=== PATIENT | male | born 1975 | race Hispanic/Latino ===

== ENCOUNTER 2017-07-11 08:00 | Inpatient (IN) | payer SELFPAY ==
[2017-07-11] MEDS ORDERED: Furosemide 20 MG/2 ML VIAL ONE (08:19)
--- NOTE | 2017-07-11 08:39 | RAD ---
FRONTAL VIEW CHEST: Comparison: 01-22-14 Clinical history: Dyspnea. FINDINGS: There is abnormal hazy density of the right upper lung zone which abuts the minor fissure, superiorly . Left lung is clear. Cardiac silhouette is accentuated by technique. IMPRESSION: Abnormal opacification of the superior one-half of the right hemithorax. Follow up with two view ches t is recommended to further evaluate. POS: OCTAVIA
[2017-07-11 08:45] LABS: Hemoglobin 11.7 g/dL (14.0-18.0); Mean Corpuscular HGB CONC 32.8 g/dL (32.0-36.0); Mean Corpuscular Volume 94.3 fl (80.0-94.0); Mean Platelet Volume 8.9 fL (7.4-10.4); Platelet Count 175 thou/uL (130-400); RBC Distribution Width 12.7 % (11.5-14.5); Red Blood Cell (RBC) Count 3.79 mill/uL (4.70-6.10); White Blood Cell (WBC) Count 10.4 thou/uL (4.8-10.8)
[2017-07-11 09:02] LABS: Band 29 % (5-11); Lymphocytes 15 % (21-51); MDiff Complete? YES; Monocytes 5 % (0-10); Neutrophil 49 % (42-75); Reactive Lymphocytes 2 % (0-10); Reflex for Review?? NO; Vacuoles MODERATE
[2017-07-11 09:05] LABS: ALT (SGPT) 18 U/L (8-55); AST (SGOT) 16 U/L (5-34); Albumin 3.8 g/dL (3.5-5.0); Alkaline Phosphatase 59 U/L (40-150); Anion Gap 14 mmol/L (10-20); BUN (Urea Nitrogen) 60 mg/dL (8.9-20.6); Bilirubin, Total 1.8 mg/dL (0.2-1.2); CK (CPK) 110 U/L (30-200); Calc. Creatinine Clearance 0 mL/min (70-130); Calcium 8.1 mg/dL (7.8-10.44); Carbon Dioxide 19 mmol/L (22-29); Chloride 107 mmol/L (98-107); Estimated GFR-MDRD 11; Globulin 2.4 g/dL (2.4-3.5); Glucose 99 mg/dL (70-105); Lipase 13 U/L (8-78); Potassium 3.9 mmol/L (3.5-5.1); Protein, Total 6.2 g/dL (6.0-8.3); Sodium 136 mmol/L (136-145)
[2017-07-11 09:07] LABS: CKMB 0.8 ng/mL (0-6.6); Troponin I 0.041 ng/mL (< 0.028)
[2017-07-11 09:30] LABS: CO2 Tension 25.8 mmHg (35.0-45.0); O2 Tension (PaO2) 125.6 mmHg (80.0-100.0); pH, Arterial 7.44 (7.35-7.45)
[2017-07-11 09:31] LABS: Analyzer IN Cardio ER; Base Excess (BEa) -5.7 mEq/L (0 (+/-) 2.5); Hemoglobin (Hb) 12.1 g/dL (14.0-18.0); Puncture Site RRA
[2017-07-11] MEDS ORDERED: Succinylcholine Chloride 20 MG/ML 10 ml SYRINGE FS ONE (10:45)
[2017-07-11] MEDS ORDERED: Water For Injection,Sterile 20 ML ONE (11:08)
[2017-07-11] MEDS ORDERED: Fentanyl 20 MCG/ML 250 ML ONE (11:08)
[2017-07-11] MEDS ORDERED: Vecuronium 10 MG VIAL ONE (11:08)
[2017-07-11] MEDS ORDERED: Midazolam HCl 2 mg/2 ml Vial ONE (11:08)
[2017-07-11] MEDS ORDERED: Midazolam HCl 5 mg/ml Vial ONE (11:11)
--- NOTE | 2017-07-11 11:54 | RAD ---
FRONTAL RADIOGRAPH CHEST: Date: 07-11-17 Time: 11:12 a.m. Comparison: 07-11-17 at 8:22 a.m. History: Evaluate chest following intubation. FINDINGS: There is an endotracheal tube in place, distal tip terminating at the level of the clavicles. There i s a nasogastric tube in place, distal tip just beyond the expected location of the gastroesophageal j unction. Recommend advancing the nasogastric tube. There is worsening consolidation/airspace disease within the right upper lobe with dense opacity deve loping in the right perihilar region/suprahilar region. Left lung appears clear. Supine imaging limit s assessment for pneumothorax and pleural fluid. IMPRESSION: Lines and tubes as above. Worsening dense airspace disease in the right upper lobe/right perihilar re gion. This may signify aspiration or volume loss. Close follow up to document resolution advised. POS: YVON
[2017-07-11 12:26] LABS: Actual Bicarbonate (HCO3a) 21.2 mEq/L (22-26); Base Excess (BEa) -8.3 mEq/L (0 (+/-) 2.5); Hematocrit-ABG 35.2 % (42.0-52.0); O2 Tension (PaO2) 92.5 mmHg (80.0-100.0); pH, Arterial 7.14 (7.35-7.45)
[2017-07-11 12:27] LABS: Analyzer IN Cardio ER; Hemoglobin (Hb) 11.1 g/dL (14.0-18.0); Puncture Site LRA
[2017-07-11] MEDS ORDERED: Furosemide 40 MG/4 ML VIAL ONE (12:29)
[2017-07-11] MEDS ORDERED: Albumin 25% 25 GM/100 ML BOT IVPB SCH (13:14)
[2017-07-11] MEDS ORDERED: cefTRIAXone\\ROCEPHIN 1 GM in Sodium Chloride 0.9% 100 ML IVPB SCH (13:30)
[2017-07-11] MEDS ORDERED: Bisacodyl 10 MG SUPP PR PRN (13:43)
[2017-07-11] MEDS ORDERED: Ondansetron HCl/PF 4 MG/2 ML Vial IVP PRN (13:43)
[2017-07-11] MEDS ORDERED: Nicotine 14 MG PATCH TD SCH (13:45)
[2017-07-11] MEDS ORDERED: Norepinephrine 8 MG/250 ML BAG IVPB PRN (13:58)
[2017-07-11] MEDS: Norepinephrine 8 MG in Sodium Chloride 0.9% 250 ML 250 ML IVPB PRN (14:30)
--- NOTE | 2017-07-11 14:45 | CON ---
DATE OF CONSULTATION: 07/11/2017 NEPHROLOGY CONSULTATION REASON FOR CONSULTATION: Elevated creatinine. HISTORY OF PRESENTING ILLNESS: This is a very pleasant 41-year-old gentleman who has a history of polysubstance abuse and nephrotic syndrome and baseline creatinine of 4.85 in 2013 and had a creatinine of 5.68 today. The patient denies headache, numbness, tingling or weakness. Denies any nausea, vomiting or chest pain. PAST MEDICAL HISTORY: Significant for marijuana use, cocaine use, history of proteinuria, history of kidney biopsy, history of FSGS, history of anemia, history of hypertension. SOCIOECONOMIC HISTORY: See above. ALLERGIES: Reviewed. HOME MEDICATIONS: List reviewed. PHYSICAL EXAMINATION: GENERAL: Patient is awake, alert. VITAL SIGNS: Afebrile, pulse 75, breathing at 16, blood pressure 130/73. HEAD/NECK: Normocephalic. Atraumatic. EYES: EOMI. No deformity. EARS: Clear. No ulcers. NOSE: Intact. No lesions. MOUTH: Clear. No discharge. THROAT: Clear. No exudate. LUNGS: Clear. No crackles. CARDIAC: S1, S2. No rub. ABDOMEN: Benign. BS+. GENITALIA/RECTUM: Webber absent. BACK/EXTREMITIES: Edema 0+ Ulcer- NEUROLOGICAL: Alert and motor intact. SKIN: Rash- Bruise- LYMPHATICS: Edema- Ulcer- LABORATORY DATA: Show creatinine 5.68. ASSESSMENT AND PLAN: 1. Stage 5 chronic kidney disease. Continue diuretics. 2. Hypertension. 3. Anemia, stable. 4. Medications based on glomerular filtration rate are appropriate. MTDD
[2017-07-11] MEDS: Sodium Chloride 0.9% 1,000 ML IV SCH (15:00)
[2017-07-11] MEDS: cefTRIAXone\\ROCEPHIN 1 GM, Syringe 0.4 ML in Sterile Water 9.6 ML SLOW IVP SCH (15:05)
--- NOTE | 2017-07-11 17:02 | HP ---
PRIMARY CARE PROVIDER: [facility] in [place]. CHIEF COMPLAINT: Shortness of breath. HISTORY OF PRESENT ILLNESS: Mr. Aguirre is a pleasant 41-year-old gentleman, who was seen at [facility] on 07/11/2017. When I initially saw him, he was short of breath, unable to provide much history. History was obtained from discussion with the patient's family, review of medical records, and discussion with the emergency room physician. He presented to the emergency room complaining of shortness of breath, which started earlier today. He did not have any chest pain. He did not have any fevers or chills. He had back pain last night. He has had a history of fluid buildup in the past and was treated with bilevel positive airway pressure. He reportedly told the emergency room physician that the back pain was dull, 10/ 10. He did not know any aggravating or relieving factors. REVIEW OF SYSTEMS: The following complete review of systems was negative, unless otherwise mentioned in the HPI or below: Constitutional: Weight loss or gain, ability to conduct usual activities. Skin: Rash, itching. Eyes: Double vision, pain. ENT/Mouth: Nose bleeding, neck stiffness, pain, tenderness. Cardiovascular: Palpitations, dyspnea on exertion, orthopnea. Respiratory: Shortness of breath, wheezing, cough, hemoptysis, fever or night sweats. Gastrointestinal: Poor appetite, abdominal pain, heartburn, nausea, vomiting, constipation, or diarrhea. Genitourinary: Urgency, frequency, dysuria, nocturia. Musculoskeletal: Pain, swelling. Neurologic/Psychiatric: Anxiety, depression. Allergy/Immunologic: Skin rash, bleeding tendency. PAST MEDICAL HISTORY: Significant for congestive heart failure, kidney disease. PAST SURGICAL HISTORY: None. SOCIAL HISTORY: The patient uses marijuana, uses tobacco currently, drinks alcohol on a weekly basis. FAMILY HISTORY: No family history of heart disease. ALLERGIES: No known drug allergies. CURRENT MEDICATIONS: Folic acid 1 mg daily, Lasix 40 mg 2 times a day, carvedilol 25 mg 2 times a day, aspirin 81 mg daily, thiamine 100 mg daily, and prednisone 20 mg daily. PHYSICAL EXAMINATION: GENERAL: Mr. Aguirre is currently intubated and mechanically ventilated. VITAL SIGNS: Blood pressure is 93/50. Pulse is 122. His breathing at rate of 30 and saturating 94% on ventilator. Critical temperature is 100.6 degrees Fahrenheit. GENERAL: He is obese. EYES: No scleral icterus. No conjunctival pallor. ENT: Moist mucosal membranes, no oropharyngeal erythema or exudates prior to intubation. NECK: Supple, nontender, normal range of movement. Trachea midline. Could not assess jugular veins. RESPIRATORY: Accessory muscles of breathing are not active. Chest wall movements are symmetric bilaterally. LUNGS: Reveals right upper lobe crackles. CARDIOVASCULAR: S1 and S2 are heard, tachycardic and regular. Peripheral pulses palpable. No pericardial rub. ABDOMEN: Soft, distended, nontender, bowel sounds are heard, no hepatomegaly, no splenomegaly. NEUROLOGIC: Full neurologic examination is not possible secondary to the patient's noncooperation. Pupils are equal and reactive to light. Power was 5/ 5 in all four extremities prior to intubation. No facial droop. Deep tendon reflexes are 2+, plantar reflexes downgoing bilaterally. MUSCULOSKELETAL: Power 4 extremities as described above. SKIN: No rashes or subcutaneous nodules. LYMPHATIC: No cervical lymphadenopathy. PSYCHIATRIC: Prior to intubation, patient appeared anxious and tired, oriented to person and place, could not assess orientation to time. LABORATORY DATA: Mr. Aguirre's labs and investigations were reviewed. I reviewed his electrocardiogram, which showed sinus tachycardia, no ST changes to suggest an acute coronary syndrome. I also reviewed his chest x-ray, which showed right upper lobe infiltrate. He has a normal white count, macrocytic anemia with hemoglobin 11.7, normal platelet count, normal sodium, normal potassium, decreased carbon dioxide of 19, elevated blood urea nitrogen of, elevated creatinine of 5.68, elevated total bilirubin of 1.8, but otherwise unremarkable liver profile, elevated BNP of 3261 and indeterminate troponin I of 0.041. ASSESSMENT AND PLAN: Mr. Aguirre is a pleasant 41-year-old gentleman, who was seen at [facility] on 07/11/2017. His problem list includes: 1. Acute respiratory failure: Mr. Agurire is currently intubated and mechanically ventilated secondary to acute respiratory failure. He will be admitted to the Critical Care Unit for further management. His arterial blood gases show pH of 7.14, pCO2 of 64 and pO2 of 92.5. 2. Pneumonia: The patient is presenting with possible pneumonia in the right upper lobe. He will be treated with intravenous antibiotics. 3. Acute kidney injury with metabolic acidosis: Nephrology service has been consulted for help with further management. 4. Tobacco abuse: We will start nicotine replacement therapy. 5. Indeterminate troponin I. We will check 2D echocardiogram to rule out regional wall motion abnormalities. 6. Marijuana use. Patient will be constant when possible. Many thanks for allowing me to participate in Mr. Aguirre's care. Please feel free to contact me with any questions or concerns. LEVEL OF RISK: High. LEVEL OF COMPLEXITY: High. MTDD
[2017-07-11] MEDS: Heparin 5,000 UNITS/ML VIAL SC SCH ×2 (17:10→20:56)
[2017-07-11 17:14] LABS: CKMB 1.3 ng/mL (0-6.6); Troponin I 0.059 ng/mL (< 0.028)
[2017-07-11] MEDS: Hydrocortisone Sod Succ/PF 100 mg/2 ml Vial IVP SCH ×2 (17:45→23:33)
[2017-07-11] MEDS ORDERED: Hydrocortisone Sod Succ/PF 100 mg/2 ml Vial IVP SCH (18:00)
[2017-07-11] MEDS ORDERED: fentaNYL Citrate/PF 2,000 MCG in Sodium Chloride 0.9% 60 ML IV SCH ×2 (18:45→19:03)
[2017-07-11] MEDS ORDERED: Fentanyl 20 MCG/ML 250 ML IVPB SCH (19:04)
[2017-07-11] MEDS: Famotidine/PF 20 mg/2ml Vial SLOW IVP SCH (20:56)
[2017-07-11 22:37] LABS: CKMB 3.6 ng/mL (0-6.6); Troponin I 0.078 ng/mL (< 0.028)
--- NOTE | 2017-07-12 01:50 | CON ---
DATE OF CONSULTATION: 07/11/2017 Mr. Aguirre is a 41-year-old gentleman who was brought in from the ER, intubated on the vent, sedate d, hypoxic, hypotensive. Blood pressure was 60. Pulse was 100, respiration is at 24, large amount o f frothy secretions in his tube. The ER nurses said he was desatting. He was on BiPAP for a period of time, he was intubated thereafter because of progressive respiratory failure. He was seen by Neph rology. I do not see any orders from Nephrology or seen by the hospitalist group. I have been consu lted regarding the ICU care. His presented to the ICU. She just had a baby about a week and a half ago. states that last night he began complaining of right-sided pleuritic chest pain, shortness of br eath, cough, fever, and chills. He became progressively more short of breath this morning, then he h ad a pO2 of 125, pCO2 of 25, pH 7.44 on a BiPAP. He was intubated because of progressive respiratory failure, large volume of frothy secretions. His BNP was 3261. Albumin 3.8. states that pili martinez has longstanding history of alcohol abuse, though he apparently has slowed down his drinking subst antially. 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 He has had kidney issues and seeing a local counting machine operator and apparently was started on prednisone lar ge doses and apparently was tapered down because of marked facial edema as per his . He was supposed to see a long haul truck driver. Apparently, now admitted. Additionally, he supposed to have renal biopsy for presumed nephrotic syndrome. He has previous history of substance abuse. In the ICU, he was coughing up large amount of frothy bloody secretions. PAST MEDICAL HISTORY: Otherwise, pertinent for renal disease, tobacco abuse, substance abuse, alcoho l abuse. MEDICATIONS: His list of medicine from home, folic acid, Lasix 40, Coreg 25 two a day, aspirin, thia mine, prednisone 20 one a day. PAST SURGICAL HISTORY: None to speak of. FAMILY HISTORY: Unremarkable. 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 ALLERGIES: No allergies. REVIEW OF SYSTEMS: Otherwise, 10-point difficult to obtain. PHYSICAL EXAMINATION: GENERAL: He is sedated, vented. VITAL SIGNS: Blood pressure /60, pulse is 100, respirations 24. CHEST: Extensive rhonchi and crackles. CARDIAC: Sinus tachycardia. ABDOMEN: Soft. LABORATORY DATA: White count 10,000, H&H 11 and 35, platelet count 175, 49 segs, 29 bands. A pO2 is 92, pCO2 of 60, ph 7.64, 100%, rate of 18. Creatinine is 5.6, BUN 60. BNP 3261. TSH is normal. C ortisol level was 13, relative adrenal insufficiency. X-ray showed right lung pneumonia. I reviewed all lab and x-ray report personally. IMPRESSION: 1. Respiratory failure, multifactorial. 2. Right-sided pneumonia. 3. Immunocompromised nephrotic syndrome. No biopsy was done. 4. Probably congestive heart failure, cardiomyopathy. 5. Renal failure. 6. Sepsis syndrome. PLAN: Rocephin and Levaquin was initiated and steroids. Levophed had been initiated to maintain his blood pressure systolic at least 90. Cardiology and Nephrology input awaiting. DVT prophylaxis and proton pump inhibitors. Of note, this is a 1-hour critical care time exclusive of the bronchoscopy. INDICATIONS: Bronchoscopy note was performed. REASON FOR BRONCHOSCOPY: Patient was desatting as per the nurses in the 30s and 40s on the vent. Br onchoscopy performed to clear his airways. Diagnostic therapeutic bronchoscopy, emergency basis, an adaptor was placed in, bronchoscope was passed using adapter to distal trachea, it was unremarkable. There was a large amount of frothy bloody secretions which were suctioned and lavaged until clear. Right upper lobe, middle lobe visualized. No endobronchial obstruction was seen; 40 ml of normal jazmín ine was used to lavage the lung. Left lung was inspected. Once again a large amount of frothy blood y secretions were seen, but no endobronchial obstruction was seen. No blood was seen. It was also l avaged with normal saline until clear. Washings sent for Gram stain and C&S. The patient tolerated the procedure well. He was connected to a vent. Continue antibiotics. Continue Levophed.
[2017-07-12] MEDS: Norepinephrine 8 MG in Sodium Chloride 0.9% 250 ML 250 ML IVPB PRN (02:17)
[2017-07-12 05:20] LABS: Anion Gap 23 mmol/L (10-20); BUN (Urea Nitrogen) 76 mg/dL (8.9-20.6); Calc. Creatinine Clearance 0 mL/min (70-130); Calcium 7.5 mg/dL (7.8-10.44); Carbon Dioxide 13 mmol/L (22-29); Chloride 109 mmol/L (98-107); Estimated GFR-MDRD 8; Potassium 5.7 mmol/L (3.5-5.1); Sodium 139 mmol/L (136-145)
[2017-07-12 05:26] LABS: Glucose 50 mg/dL (70-105)
[2017-07-12] MEDS ORDERED: Dextrose 50% Abboject 50 ML SYRINGE ONE (05:29)
[2017-07-12] MEDS: Hydrocortisone Sod Succ/PF 100 mg/2 ml Vial IVP SCH ×4 (05:30→23:41)
[2017-07-12] MEDS ORDERED: Dextrose 50% Abboject 50 ML SYRINGE IVP SCH (05:45)
[2017-07-12] MEDS ORDERED: Dextrose 50% Abboject 50 ML SYRINGE IVP PRN (05:48)
[2017-07-12] MEDS ORDERED: Dextrose 5% in Water 1,000 ML IV PRN (05:48)
[2017-07-12 06:00] LABS: Band 23 % (5-11); Hemoglobin 10.2 g/dL (14.0-18.0); Lymphocytes 3 % (21-51); MDiff Complete? YES; Mean Corpuscular HGB CONC 32.1 g/dL (32.0-36.0); Mean Corpuscular Hemoglobin 31.1 pg (27.0-31.0); Mean Corpuscular Volume 97.2 fl (80.0-94.0); Mean Platelet Volume 9.4 fL (7.4-10.4); Metamyelocyte 3 % (0-0); Monocytes 5 % (0-10); Neutrophil 66 % (42-75); PLT Morphology Comment Appears Adequate; Platelet Count 134 thou/uL (130-400); RBC Distribution Width 12.8 % (11.5-14.5); RBC Morphology Normal; Red Blood Cell (RBC) Count 3.27 mill/uL (4.70-6.10); White Blood Cell (WBC) Count 15.2 thou/uL (4.8-10.8)
--- NOTE | 2017-07-12 07:57 | RAD ---
SINGLE VIEW OF THE CHEST: COMPARISON: 07/11/17. HISTORY: Ventilated patient with respiratory failure. FINDINGS: A single view of the chest shows an enlarged but stable cardiomediastinal silhouette. The endotrache al tube and NG tube are unchanged in position. There is improvement in the airspace opacity in the r ight upper lobe. IMPRESSION: Improving right upper lobe pneumonia. POS: H
[2017-07-12 08:08] LABS: Actual Bicarbonate (HCO3a) 14.5 mEq/L (22-26); Base Excess (BEa) -11.4 mEq/L (0 (+/-) 2.5); CO2 Tension 32.5 mmHg (35.0-45.0); Hemoglobin (Hb) 10.6 g/dL (14.0-18.0); O2 Tension (PaO2) 83.8 mmHg (80.0-100.0); pH, Arterial 7.27 (7.35-7.45)
[2017-07-12 08:09] LABS: ALV-art Gradient 162.775 (0-20); Puncture Site L.R.
[2017-07-12 08:39] LABS: Glucose 88 mg/dL (70-105)
[2017-07-12] MEDS: Heparin 5,000 UNITS/ML VIAL SC SCH ×3 (09:41→20:56)
[2017-07-12] MEDS: Sodium Chloride 0.9% 1,000 ML IV SCH (09:42)
[2017-07-12] MEDS ORDERED: Sodium Bicarb 50 MEQ/50 ML Abboject 8.4% SYRINGE IVP SCH (09:45)
--- NOTE | 2017-07-12 09:55 | PRG ---
DATE OF SERVICE: 07/12/2017 This morning, awake, alert, responsive, on the vent. His sedation was withheld. PHYSICAL EXAMINATION: VITAL SIGNS: O2 sats 100% on present vent settings, respirations 24, pulse 119, blood pressure 130/5 5. His I's and O's have been 1415 in, 175 out. CHEST: Chest reveals extensive rhonchi and crackles. CARDIAC: Normal S1-S2. No gallops. LABORATORY: White count 15,000, H&H 10 and 31, platelet count 134, pO2 is 83, pCO2 37.27, 24, 40%. Creatinine 7.6, BUN 76. Troponin was elevated, his blood cultures growing Streptococcus pneumoniae. IMPRESSION: 1. Strep pneumonia, sepsis. 2. Renal failure. 3. Presumed nephrotic syndrome. PLAN: Continue steroids and broad-spectrum antibiotics. We will hopefully try and wean and extubate today. One-half hour critical care time.
[2017-07-12] MEDS: Sodium Bicarbonate 150 MEQ in Dextrose 5% in Water 1,000 ML IV SCH ×2 (10:07)
--- NOTE | 2017-07-12 10:16 | PRG ---
DATE OF SERVICE: 07/12/2017 SUBJECTIVE: This 41-year-old gentleman being seen for acute kidney injury. The patient is intubated . PHYSICAL EXAMINATION: GENERAL: Patient is resting. VITAL SIGNS: Afebrile, pulse 120, breathing 16, blood pressure 131/55. OBJECTIVE: See above. Awake, alert, in no acute distress. GENERAL APPEARANCE AND MENTAL STATUS: Fair. HEAD/NECK: Normocephalic. Atraumatic. EYES: EOMI. No deformity. EARS: Clear. No ulcers. NOSE: Intact. No lesions. MOUTH: Clear. No discharge. THROAT: Clear. No exudate. LUNGS: Clear. No crackles. CARDIAC: S1, S2. No rub. ABDOMEN: Benign. BS+. GENITALIA/RECTUM: Webber absent. BACK/EXTREMITIES: Edema 0+ Ulcer- NEUROLOGICAL: Alert and motor intact. SKIN: Rash- Bruise- LYMPHATICS: Edema- Ulcer- LABORATORY: Hemoglobin 10.2, potassium 5.7, bicarbonate 13. ASSESSMENT AND RECOMMENDATIONS: 1. Acute kidney injury with chronic kidney disease, most likely due to progressive focal segmental g lomerulosclerosis. 2. Metabolic acidosis. Start sodium bicarbonate. 3. Hyperkalemia. Recheck potassium. We will start dialysis. Potassium is more than 5.3. Metaboli c acidosis should fix the hyperkalemia. Overall, prognosis is extremely poor. 4. Sepsis, management per primary team.
--- NOTE | 2017-07-12 10:40 | CON ---
DATE OF CONSULTATION: 07/12/2017 HISTORY OF PRESENT ILLNESS: This is a 41-year-old male with history of polysubstance abuse, alcohol use, who presented to the emergency room yesterday, admitted by Hospitalist Service at 4:21 for the p josselyn's complaints of dyspnea. He is intubated on the ventilator now. Dr. Wells is seeing him. He has end-stage renal disease. In [address] guided biopsy kidney noting glomerulosclerosis. I have been asked to see him regarding placement of a hemodialysis catheter. This hospitalization has been seen by Dr. Jarvis, Dr. Wells and has had an echocardiogram performed, 25-30% ejection fraction. L eft atrium mildly dilated, mild mitral regurgitation, depressed LV function. The patient is on the v entilator. ALLERGIES: There are no reported allergies. PREHOSPITALIZATION MEDICATIONS: Prednisone 20 mg a day time, Thiamine, calcium citrate, aspirin, fol ic acid, Coreg 25 mg b.i.d., furosemide 40 mg b.i.d. PAST SURGICAL HISTORY: None recorded. PAST MEDICAL HISTORY: None recorded except for the kidney disease, biopsy renal in 2014 noted above. SOCIAL HISTORY: The patient is reported as , smokes marijuana routinely and cigars, has a his tory of cocaine use documented in 2014 visit. PHYSICAL EXAMINATION: VITAL SIGNS: Height 5 feet 9 inches. LUNGS: Clear to auscultation. Rhonchi at base. CARDIAC: Regular rate and rhythm. ABDOMEN: Soft, nontender. EXTREMITIES: Unremarkable. IV in his hands. LABORATORIES: White count 15, hemoglobin 10, sodium 139, potassium 5.7, creatinine 7.67, GFR 8, gluc ose 50. ASSESSMENT AND PLAN: End-stage renal disease secondary to polysubstance abuse, alcoholism with card iomyopathy. We will plan placement of hemodialysis catheter and a central line. We will obtain ultr asound vein mapping both arms anticipating need for more permanent dialysis access. We will obtain c onsent from his family.
[2017-07-12] MEDS ORDERED: CEFAZOLIN/Water 2 GM/20 ML SYRINGE SLOW IVP SCH (10:45)
--- NOTE | 2017-07-12 11:08 | CON ---
DATE OF CONSULTATION: 07/12/2017 HISTORY: Issa Aguirre is a 41-year-old male, intubated in the ICU. He cannot give a history and history was obtained from review of the hospital records. He apparently has had progressive renal failure and at one time was on prednisone for this. On admission, he had progressive right-sided pleuritic chest pain, shortness of breath, cough, fever, and chills. He was brought to the ER, placed on BiPAP and ultimately intubated because of progressive respiratory failure and large amount of frothy secretions. BNP was 3261. PAST MEDICAL HISTORY: Include renal failure, hypertension, smoker, substance and alcohol abuse. MEDICATIONS: Include aspirin 81 daily, calcium citrate 1900 mg b.i.d., carvedilol 25 mg b.i.d., folic acid 1 daily, furosemide 40 b.i.d., prednisone 20 q.a.m., thiamine 100 daily. ALLERGIES: None. FAMILY HISTORY: Negative for coronary artery disease. REVIEW OF SYSTEMS: Unobtainable with the patient intubated. PHYSICAL EXAMINATION: VITAL SIGNS: Blood pressure 155/67, pulse of 129. HEENT: PERRL. NECK: Supple. LUNGS: Chest reveals bilateral rhonchi. CARDIAC: S1 and S2 are normal, without any S3, S4 or murmurs. ABDOMEN: Normal bowel sounds, without tenderness or organomegaly. EXTREMITIES: Revealed no clubbing, cyanosis or edema. NEUROLOGIC: The patient is intubated, but responds appropriately. SKIN: Warm and dry. LABORATORY: Chest x-ray reveals right upper lobe infiltrate. Repeat EKG today reveals improvement in the infiltrate. EKG revealed sinus tachycardia with rate of [address] and T-wave changes. Echocardiogram revealed severe left ventricular dysfunction with ejection fraction of 25-30%, evidence for diastolic dysfunction, left atrial enlargement, mild mitral regurgitation, severe tricuspid regurgitation and mild pulmonic insufficiency. White count 15,200, hemoglobin 10.2, hematocrit 31.8, platelets 134,000. Yesterday blood gas revealed pH 7.14, pCO2 64.0, pO2 92.5. Today, pH 7.27, pCO2 32.5, pO2 of 83.8, sodium 139, potassium 5.7, chloride 100, carbon dioxide 13, BUN 76, creatinine 7.67, troponin I 0.078, CK-MB are normal. BNP 3261.6, TSH is normal. Cortisol is normal. IMPRESSION: 1. End-stage renal disease for dialysis at this time. 2. Cardiomyopathy of uncertain etiology. 3. Smoker, 1 pack per day. 4. History of ETOH abuse. 5. History of substance abuse. 6. Demand ischemia. 7. Right upper lobe pneumonia. 8. Respiratory failure. 9. Hypertension. PLAN: Carvedilol will need to be restarted once he is taking p.o. The patient will undergo dialysis and ultimately will need further cardiac evaluation once his clinical situation has stabilized. I will follow the patient with you. AURELIO
[2017-07-12 11:17] LABS: Actual Bicarbonate (HCO3a) 16.9 mEq/L (22-26); Base Excess (BEa) -8.7 mEq/L (0 (+/-) 2.5); CO2 Tension 34.8 mmHg (35.0-45.0); Hematocrit-ABG 28.4 % (42.0-52.0); Hemoglobin (Hb) 9.4 g/dL (14.0-18.0); O2 Tension (PaO2) 71.6 mmHg (80.0-100.0)
[2017-07-12 11:18] LABS: Puncture Site L.R.
[2017-07-12] MEDS ORDERED: Midazolam HCl 2 mg/2 ml Vial ONE (12:39)
[2017-07-12] MEDS ORDERED: Fentanyl 100 MCG/2 ML VIAL ONE (12:39)
[2017-07-12] MEDS ORDERED: Lidocaine 2% w/Epinephrine 1:200K 20 ML VIAL ONE (12:55)
[2017-07-12] MEDS ORDERED: Bupivacaine PF 0.5% 30 ML VIAL ONE (12:55)
[2017-07-12] MEDS ORDERED: Sodium Chloride 0.9% 10 ML ONE (12:58)
[2017-07-12] MEDS ORDERED: Heparin 10,000 UNITS/1 ML VIAL ONE (12:58)
--- NOTE | 2017-07-12 13:01 | ULT ---
BILATERAL UPPER EXTREMITY VENOUS ULTRASOUND: HISTORY: End stage renal disease. Vein mapping for dialysis access. TECHNIQUE: Multiplanar marte scale and color Doppler images were obtained in a bilateral upper extremity venous u ltrasound. Spectral analysis of the Doppler waveforms was performed. FINDINGS: The right brachial, radial, and ulnar arteries measure 5.4, 3.5, and 2.7 mm in size, respectively. RIGHT CEPHALIC VEIN: Shoulder 4.9 mm Upper arm 4.5 mm Mid upper arm 4.9 mm Just proximal to elbow 5.5 mm Just distal to elbow 2.7 mm Forearm 3.9 mm Wrist 2.0 mm RIGHT BASILIC VEIN: Shoulder 2.7 mm Upper arm 4.6 mm Mid upper arm 5.2 mm Just proximal to elbow 2.7 mm Just distal to elbow 1.9 mm Forearm 2.7 mm Wrist 1.9 mm The left brachial, radial, and ulnar arteries measure 5.3, 3.3, and 3.5 mm in size, respectively. LEFT CAPHALIC VEIN: Shoulder 3.3 mm Upper arm 3.5 mm Mid upper arm 3.2 mm Just proximal to elbow 4.5 mm Just distal to elbow 4.1 mm Forearm 3.6 mm Wrist 3.7 mm LEFT BASILIC VEIN: Shoulder 5.5 mm Upper arm 5.8 mm Mid upper arm 6.1 mm Just proximal to elbow 6.0 mm Just distal to elbow 4.2 mm Forearm 4.2 mm Wrist 4.5 mm Both subclavian and internal jugular veins are patent without evidence of thrombus. IMPRESSION: Vein mapping for dialysis as above. POS: OCTAVIA
--- NOTE | 2017-07-12 13:46 | OP ---
DATE OF PROCEDURE: 07/12/2017 PREOPERATIVE DIAGNOSES: Polysubstance abuse, cardiomyopathy, 30-35% ejection fraction, end-stage karla al disease in need of dialysis access. POSTOPERATIVE DIAGNOSIS: Polysubstance abuse, cardiomyopathy, 30-35% ejection fraction, end-stage re nal disease in need of dialysis access. PROCEDURE: Right IJ hemodialysis catheter, precurved angiodynamics placement. Left IJ central line triple lumen. SURGEON: Dong Cid M.D. ANESTHESIA: General. Local 0.25% Marcaine, 30 mL, mixed with 1% Xylocaine with epinephrine, 30 mL m ixture. Fluoroscopy and ultrasound used. PROCEDURE: The patient was taken to the operating room where under general anesthesia, neck and ches t were prepared with ChloraPrep, draped in routine fashion. Local anesthetic infiltrated into skin a nd subcutaneous tissue about the operative site. Ultrasound used to cannulate the right and left int ernal jugular veins with trocar catheter. J-wire is inserted. Trocar catheter removed. Skin incise d and enlarged sharply. Stab incision made over the right chest. Using Seldinger technique, a tripl e lumen catheter was placed in the left internal jugular vein secured with 3-0 nylon suture. Biopatc h sterile dressing applied. Each port aspirated blood and flushed with saline solution. On the right side, a tunneling device was used to tunnel the precurved angiodynamics cuffed tunnel di alysis catheter between the two incisions, placing the fabric cuff beneath the skin exit site and cat heter secured with 2 interrupted sutures of 3-0 nylon. A Biopatch Dermabond. Sterile dressing appli ed. Smaller and medium sized dilators placed over the J-wire into the internal jugular vein and benoit kevin. Dilator and pull-away sheath placed over the J-wire into the superior vena cava and dilator and J-wire removed. Catheter placed with pull-away sheath; pull-away sheath removed. Fluoroscopically, the catheter was noted to be in good position. Platysma approximated with 4-0 Monocryl, skin with s ubdermal 4-0 Monocryl. J wire had been removed. Sterile dressings applied. Each port of the hemodi alysis catheter aspirated blood and flushed with saline solution and heparinized saline solution 1000 units heparin per mL indicated volume of the port. The patient tolerated the procedure well.
--- NOTE | 2017-07-12 13:56 | RAD ---
CHEST ONE VIEW: History: Central line placement. Comparison: 07-12-17 FINDINGS: Cardiac silhouette is magnified and enlarged. Pulmonary vasculature is upper limits of normal. Right upper lobe infiltrate is unchanged in appearance. Nasogastric tube descends to the abdomen. Endotracheal catheter is unchanged in position. Tip of a left internal jugular central venous catheter now overlies the right atrium. Tips of a dual- lumen large caliber right internal jugular central venous catheter overlie the cavoatrial junction. C ardiac monitor leads overlie the chest. IMPRESSION: Bilateral internal jugular catheters are in good position. Other findings are stable. POS: [facility]
[2017-07-12] MEDS: cefTRIAXone\\ROCEPHIN 1 GM, Syringe 0.4 ML in Sterile Water 9.6 ML SLOW IVP SCH (14:15)
--- NOTE | 2017-07-12 15:49 | PDOC.PN ---
- Subjective Encounter Start Date: 07/12/17 Encounter Start Time: 08:30 Pt seen for followup re: acute respiratory failure. Extubated earlier today. - Objective MAR Reviewed: Yes Vital Signs & Weight: Vital Signs (12 hours) Temp Pulse Resp BP Pulse Ox 07/12/17 14:00 12 07/12/17 13:33 123 H 124/74 07/12/17 12:00 99.9 F H 14 07/12/17 10:21 129 H 155/67 H 07/12/17 10:00 20 07/12/17 08:00 100.2 F H 116 H 24 H 100 07/12/17 07:13 117 H 140/53 L 07/12/17 06:00 24 H 07/12/17 05:00 100 F H 07/12/17 04:00 24 H Most Recent Monitor Data Heart Rate from ECG 129 NIBP 133/96 NIBP BP-Mean 104 Respiration from ECG 22 SpO2 100 I&O: 07/11/17 07/12/17 07/13/17 06:59 06:59 06:59 Intake Total 1415.9 26 Output Total 175 572 Balance 1240.9 -546 Result Diagrams: 07/12/17 04:44 07/12/17 08:06 Additional Labs: Accuchecks 07/12/17 11:11 POC Glucose 109 EKG Reviewed by me: Yes (Tele: sinus tachycardia) Phys Exam - Physical Examination Obese HEENT: moist MMs, sclera anicteric, TM's clear, oral pharynx no lesions Neck: no nodes Respiratory: no wheezing, no rales, no rhonchi, clear to auscultation bilateral S1, S2, reg, tachy Gastrointestinal: soft, non-tender, no distention, positive bowel sounds Musculoskeletal: pulses present Neurological: moves all 4 limbs Psychiatric: normal affect Deviation from normal: Oriented to person and place Skin: no rash Dx/Plan (1) Acute respiratory failure Code(s): J96.00 - ACUTE RESPIRATORY FAILURE, UNSP W HYPOXIA OR HYPERCAPNIA Status: Acute (2) Bacteremia Code(s): R78.81 - BACTEREMIA Status: Acute (3) LACEY (acute kidney injury) Code(s): N17.9 - ACUTE KIDNEY FAILURE, UNSPECIFIED Status: Acute (4) Hyperkalemia Code(s): E87.5 - HYPERKALEMIA Status: Acute (5) Cardiomyopathy Code(s): I42.9 - CARDIOMYOPATHY, UNSPECIFIED Status: Acute - Plan continue antibiotics, out of bed/ambulate * . Continue antibiotics for streptococcal bacteremia. Plan for dialysis. carvedilol when pt starts oral meds. Review of Systems - Review of Systems Constitutional: negative: fever, chills, sweats, weakness, malaise Respiratory: Cough, Sputum. negative: Dry, Shortness of Breath, Hemoptysis, SOB with Excertion, Pleuritic Pain, Wheezing Cardiovascular: negative: chest pain, palpitations, orthopnea, paroxysmal nocturnal dyspnea, edema, light headedness Gastrointestinal: negative: Nausea, Vomiting, Abdominal Pain, Diarrhea, Constipation, Melena, Hematochezia Genitourinary: negative: Dysuria, Frequency, Incontinence, Hematuria, Retention - Medications/Allergies Allergies/Adverse Reactions: Allergies Allergy/AdvReac Type Severity Reaction Status Date / Time No Known Allergies Allergy Verified 01/23/14 00:36 Medications: Current Medications Albuterol/Ipratropium (Duoneb) 3 ml NEB [id number] [facility] Last Admin: 07/12/17 13:32 Dose: 3 ml Bisacodyl (Dulcolax) 10 mg NM Q24H PRN PRN Reason: Constipation Cefazolin Sodium (Ancef) 2 gm SLOW IVP WILLCALL [facility] Stop: 07/13/17 10:46 Last Admin: 07/12/17 12:30 Dose: 2 gm Dextrose/Water (Dextrose 50%) 25 gm IVP PRN PRN PRN Reason: HYPOGLYCEMIA PROTOCOL Famotidine (Pepcid) 20 mg SLOW IVP 2100 [facility] Last Admin: 07/11/17 20:56 Dose: 20 mg Glucagon (Glucagon) 1 mg IM PRN PRN PRN Reason: HYPOGLYCEMIA PROTOCOL Heparin Sodium (Porcine) (Heparin) 5,000 units SC TID [facility] Last Admin: 07/12/17 14:15 Dose: 5,000 units Hydrocortisone Sodium Succinate (Solu-Cortef) 100 mg IVP Q6HR [facility] Stop: 07/18/17 18:01 Last Admin: 07/12/17 11:58 Dose: 100 mg Norepinephrine Bitartrate 8 mg (/ Sodium Chloride) 258 mls @ 0 mls/hr IVPB INF PRN; Protocol; Titrate PRN Reason: Blood Pressure Last Admin: 07/12/17 02:17 Dose: 258 mls Ceftriaxone Sodium 1 gm/ (Syringe 0.4 ml/ Sterile Water) 10 mls @ 120 mls/hr SLOW IVP 1400 [facility] Last Admin: 07/12/17 14:15 Dose: 10 mls Levofloxacin 750 mg/ Device 150 mls @ 100 mls/hr IVPB Q2D@0900 [facility] Sodium Chloride (Normal Saline 0.9%) 1,000 mls @ 50 mls/hr IV .Q20H [facility] Last Admin: 07/12/17 09:42 Dose: Not Given Ascorbic Acid 1,500 mg/ Sodium (Chloride) 53 mls @ 100 mls/hr IVPB Q6HR [facility] Stop: 07/15/17 18:01 Last Admin: 07/12/17 11:58 Dose: 53 mls Thiamine HCl 200 mg/ Sodium (Chloride) 52 mls @ 100 mls/hr IVPB 0500,1700 [facility] Last Admin: 07/11/17 17:30 Dose: 52 mls Fentanyl (Fentanyl Cadd) 250 mls @ 0 mls/hr IVPB INF [facility]; Titrate PRN Reason: Protocol Stop: 08/10/17 19:04 Dextrose/Water (D5w) 1,000 mls @ 0 mls/hr IV INF PRN; As Directed PRN Reason: HYPOGLYCEMIA PROTOCOL Sodium Bicarbonate 150 meq/ (Dextrose/Water) 1,150 mls @ 75 mls/hr IV INF [facility] Last Admin: 07/12/17 10:07 Dose: 1,150 mls Ondansetron HCl (Zofran) 4 mg IVP Q6H PRN PRN Reason: Nausea/Vomiting
[2017-07-12] MEDS: Carvedilol 25 MG TAB PO SCH (16:35)
[2017-07-12] MEDS: Famotidine/PF 20 mg/2ml Vial SLOW IVP SCH (20:56)
[2017-07-13] MEDS: Sodium Bicarbonate 150 MEQ in Dextrose 5% in Water 1,000 ML IV SCH ×2 (01:09)
[2017-07-13 05:08] LABS: Band 9 % (5-11); Hemoglobin 8.6 g/dL (14.0-18.0); MDiff Complete? YES; Mean Corpuscular HGB CONC 32.6 g/dL (32.0-36.0); Mean Corpuscular Hemoglobin 31.3 pg (27.0-31.0); Mean Corpuscular Volume 96.1 fl (80.0-94.0); Mean Platelet Volume 9.4 fL (7.4-10.4); Monocytes 3 % (0-10); Neutrophil 88 % (42-75); PLT Morphology Comment Appears Decreased; Platelet Count 95 thou/uL (130-400); RBC Distribution Width 12.7 % (11.5-14.5); Red Blood Cell (RBC) Count 2.74 mill/uL (4.70-6.10); White Blood Cell (WBC) Count 9.3 thou/uL (4.8-10.8)
[2017-07-13 05:09] LABS: Anion Gap 20 mmol/L (10-20); BUN (Urea Nitrogen) 92 mg/dL (8.9-20.6); Calc. Creatinine Clearance 0 mL/min (70-130); Calcium 8.4 mg/dL (7.8-10.44); Carbon Dioxide 24 mmol/L (22-29); Chloride 103 mmol/L (98-107); Estimated GFR-MDRD 7; Glucose 155 mg/dL (70-105); Potassium 4.8 mmol/L (3.5-5.1); Sodium 142 mmol/L (136-145)
[2017-07-13] MEDS: Hydrocortisone Sod Succ/PF 100 mg/2 ml Vial IVP SCH (05:09)
[2017-07-13] MEDS: Sodium Chloride 0.9% 1,000 ML IV SCH (05:09)
[2017-07-13] MEDS: Folic Acid 1 MG TAB PO SCH (08:23)
[2017-07-13] MEDS: Carvedilol 25 MG TAB PO SCH ×2 (08:23→20:42)
[2017-07-13] MEDS: Heparin 5,000 UNITS/ML VIAL SC SCH ×3 (08:23→20:50)
--- NOTE | 2017-07-13 08:56 | RAD ---
PORTABLE UPRIGHT FRONTAL CHEST RADIOGRAPH: Date: 07-13-17 Comparison: 07-12-17 History: Ventilated CCU patient. FINDINGS: There is dense consolidation of the right upper lobe, stable. Endotracheal tube has been removed as h as the nasogastric tube. Left vascular catheter in place, distal tip overlying the region of the righ t atrium. Right sided dialysis catheter noted, distal tip overlying the region of the right atrium. IMPRESSION: Vascular catheters as above. Persistent dense consolidation or right upper lobe. Continued follow up to resolution advised. POS: [facility]
[2017-07-13] MEDS ORDERED: Prevnar 13-Val Conj/PF 0.5 ML SYRINGE IM ONE (09:00)
[2017-07-13] MEDS ORDERED: FLU VACC QS2017-18 36 mo. & older 0.5 ML SYRINGE IM ONE (09:15)
--- NOTE | 2017-07-13 10:57 | PRG ---
DATE OF SERVICE: 07/13/2017 SUBJECTIVE: Mr. Issa Aguirre was extubated yesterday. This morning, he is awake, alert, and res ponsive, in no distress. OBJECTIVE: VITAL SIGNS: Sats are 100% on 2 liters, pulse 100, blood pressure 122/84, respirations 19. His I's and O's are 1885 out. Not much urine output. CHEST: Decreased breath sounds without any wheezing. CARDIAC: Normal S1, S2. No gallops. ABDOMEN: Soft. No masses. LABORATORY DATA: White count 9000, H&H is 8 and 26, platelet count 95. BUN and creatinine are 92 an d 8.25. Blood culture is growing Streptococcus pneumoniae, which is sensitive to surprisingly only Levaquin a nd Zyvox. IMPRESSION: 1. Strep pneumo sepsis. 2. Immunocompromised. 3. Cardiomyopathy. 4. Renal failure. PLAN: Antibiotics being adjusted. Continue nutrition, PT, supportive care. He can be transferred out of the ICU.
--- NOTE | 2017-07-13 11:20 | PRG ---
DATE OF SERVICE: 07/13/2017 SUBJECTIVE: This is a 41-year-old gentleman being seen for stage 5 chronic kidney disease. Denies a ny nausea, vomiting or chest pain. PHYSICAL EXAMINATION: GENERAL: Patient is awake, alert. VITAL SIGNS: Afebrile, pulse 77, breathing at 16, blood pressure 128/76. OBJECTIVE: See above. Awake, alert, in no acute distress. GENERAL APPEARANCE AND MENTAL STATUS: Fair. HEAD/NECK: Normocephalic. Atraumatic. EYES: EOMI. No deformity. EARS: Clear. No ulcers. NOSE: Intact. No lesions. MOUTH: Clear. No discharge. THROAT: Clear. No exudate. LUNGS: Clear. No crackles. CARDIAC: S1, S2. No rub. ABDOMEN: Benign. BS+. GENITALIA/RECTUM: Webber absent. BACK/EXTREMITIES: Edema 0+ Ulcer- NEUROLOGICAL: Alert and motor intact. SKIN: Rash- Bruise- LYMPHATICS: Edema- Ulcer- LABORATORY: Hemoglobin 8.6, creatinine 8.2. ASSESSMENT AND RECOMMENDATIONS: 1. Stage 5 chronic kidney disease, no urgent indication for dialysis. 2. Hypertension, stable. 3. Anemia, stable. 4. Hyperlipidemia, stable. No indication for dialysis. We will follow the patient's renal function closely.
[2017-07-13] MEDS ORDERED: Furosemide 40 MG TAB PO SCH (12:00)
[2017-07-13] MEDS ORDERED: CEFAZOLIN/Water 2 GM/20 ML SYRINGE SLOW IVP SCH (14:00)
--- NOTE | 2017-07-13 14:04 | PRG ---
DATE OF SERVICE: 07/13/2017 Issa Aguirre is doing well today. He has been moved from ICU to the floor. His is with him . The patient is scheduled for right arm primary fistula. Veins are good on both sides, superior on the right. I have told him he should save veins on his left arm too in case the right arm fistula d oes not last him as he is only 41 years old. He should avoid IVs and blood draws above the wrist on the left and none on the right. Risk of infection, bleeding, reoperation, thrombosis of the fistula, hand ischemia explained and he consents. He should exercise the arm post-procedural. It was stanley ated that he should cease to use marijuana, alcohol and cocaine. He tells me today that he occasiona lly still uses cocaine. He states today that he will quit using alcohol, cocaine and marijuana.
--- NOTE | 2017-07-13 16:27 | PDOC.PN ---
- Subjective Encounter Start Date: 07/13/17 Encounter Start Time: 10:00 Pt seen for followup re: LACEY. Denies chest pain, shortness of breath, fevers or chills. - Objective MAR Reviewed: Yes Vital Signs & Weight: Vital Signs (12 hours) Temp Pulse Resp Pulse Ox 07/13/17 14:07 84 18 95 07/13/17 12:00 98.4 F 96 07/13/17 08:00 100 07/13/17 07:59 93 20 100 07/13/17 07:52 97.9 F 93 18 100 07/13/17 07:00 97.9 F Most Recent Monitor Data Heart Rate from ECG 106 NIBP 141/89 NIBP BP-Mean 113 Respiration from ECG 23 SpO2 94 I&O: 07/12/17 07/13/17 07/14/17 06:59 06:59 06:59 Intake Total 1415.9 1885 976 Output Total 175 1747 585 Balance 1240.9 138 391 Result Diagrams: 07/13/17 04:25 07/13/17 04:25 Additional Labs: Accuchecks 07/12/17 07/12/17 21:07 17:01 POC Glucose 181 H 151 H EKG Reviewed by me: Yes (Tele: NSR) Phys Exam - Physical Examination Obese HEENT: moist MMs, oral pharynx no lesions Neck: supple Respiratory: no wheezing, no rales, no rhonchi, clear to auscultation bilateral Cardiovascular: RRR, no rub Gastrointestinal: soft, no distention Neurological: moves all 4 limbs Skin: no rash Dx/Plan (1) LACEY (acute kidney injury) Code(s): N17.9 - ACUTE KIDNEY FAILURE, UNSPECIFIED Status: Acute (2) Bacteremia Code(s): R78.81 - BACTEREMIA Status: Acute (3) Cardiomyopathy Code(s): I42.9 - CARDIOMYOPATHY, UNSPECIFIED Status: Acute (4) Acute respiratory failure Code(s): J96.00 - ACUTE RESPIRATORY FAILURE, UNSP W HYPOXIA OR HYPERCAPNIA Status: Resolved (5) Hyperkalemia Code(s): E87.5 - HYPERKALEMIA Status: Resolved - Plan * . Dialysis per nephrology schedule. Continue beta leandro. Continue levofloxacin for streptococcal bacteremia. Monitor vital signs, titrate antihypertensives as needed. Review of Systems - Review of Systems Respiratory: negative: Cough, Dry, Shortness of Breath, Hemoptysis, SOB with Excertion, Pleuritic Pain, Sputum, Wheezing Cardiovascular: negative: chest pain, palpitations, orthopnea, paroxysmal nocturnal dyspnea, edema, light headedness - Medications/Allergies Allergies/Adverse Reactions: Allergies Allergy/AdvReac Type Severity Reaction Status Date / Time No Known Allergies Allergy Verified 01/23/14 00:36 Medications: Current Medications Albuterol/Ipratropium (Duoneb) 3 ml NEB [id number] [facility] Last Admin: 07/13/17 14:07 Dose: 3 ml Bisacodyl (Dulcolax) 10 mg DC Q24H PRN PRN Reason: Constipation Carvedilol (Coreg) 25 mg PO BID [facility] Last Admin: 07/13/17 08:23 Dose: 25 mg Cefazolin Sodium (Ancef) 2 gm SLOW IVP WILLCALL [facility] Stop: 07/14/17 17:00 Dextrose/Water (Dextrose 50%) 25 gm IVP PRN PRN PRN Reason: HYPOGLYCEMIA PROTOCOL Famotidine (Pepcid) 20 mg PO 2100 [facility] Folic Acid (Folvite) 1 mg PO DAILY [facility] Last Admin: 07/13/17 08:23 Dose: 1 mg Furosemide (Lasix) 40 mg PO 0900 [facility] Glucagon (Glucagon) 1 mg IM PRN PRN PRN Reason: HYPOGLYCEMIA PROTOCOL Heparin Sodium (Porcine) (Heparin) 5,000 units SC TID [facility] Last Admin: 07/13/17 08:23 Dose: 5,000 units Norepinephrine Bitartrate 8 mg (/ Sodium Chloride) 258 mls @ 0 mls/hr IVPB INF PRN; Protocol; Titrate PRN Reason: Blood Pressure Last Admin: 07/12/17 02:17 Dose: 258 mls Ascorbic Acid 1,500 mg/ Sodium (Chloride) 53 mls @ 100 mls/hr IVPB Q6HR [facility] Stop: 07/15/17 18:01 Last Admin: 07/13/17 12:39 Dose: 53 mls Thiamine HCl 200 mg/ Sodium (Chloride) 52 mls @ 100 mls/hr IVPB 0500,1700 [facility] Last Admin: 07/13/17 05:08 Dose: 52 mls Fentanyl (Fentanyl Cadd) 250 mls @ 0 mls/hr IVPB INF [facility]; Titrate PRN Reason: Protocol Stop: 08/10/17 19:04 Dextrose/Water (D5w) 1,000 mls @ 0 mls/hr IV INF PRN; As Directed PRN Reason: HYPOGLYCEMIA PROTOCOL Levofloxacin (Levaquin) 250 mg PO 0600 [facility] Ondansetron HCl (Zofran) 4 mg IVP Q6H PRN PRN Reason: Nausea/Vomiting Prednisone (Prednisone) 20 mg PO QAM-WM [facility] Thiamine HCl (Thiamine) 100 mg PO DAILY [facility] Last Admin: 07/13/17 08:23 Dose: 100 mg
[2017-07-13 19:35] LABS: HBSAg Index 0.15 S/CO (0-0.99); Hep B Surf Ag Non-Reactive S/CO (NonReactive)
[2017-07-13] MEDS: Famotidine 20 MG TAB PO SCH (20:42)
[2017-07-14 05:39] LABS: Anion Gap 21 mmol/L (10-20); BUN (Urea Nitrogen) 105 mg/dL (8.9-20.6); Calc. Creatinine Clearance 0 mL/min (70-130); Calcium 8.6 mg/dL (7.8-10.44); Carbon Dioxide 20 mmol/L (22-29); Cardiac Risk 3.7 (Less than 4.5); Chloride 106 mmol/L (98-107); Cholesterol 93 mg/dl (< 200 Desired); Estimated GFR-MDRD 8; Glucose 110 mg/dL (70-105); HDL Cholesterol 25 mg/dL (>60 Neg Risk); LDL Cholesterol, Calculated 39 mg/dL; Potassium 3.6 mmol/L (3.5-5.1); Sodium 143 mmol/L (136-145); Triglycerides 145 mg/dL (Less than 150)
[2017-07-14 07:31] LABS: Hemoglobin 8.7 g/dL (14.0-18.0); Mean Corpuscular HGB CONC 32.5 g/dL (32.0-36.0); Mean Corpuscular Volume 95.5 fl (80.0-94.0); Platelet Count 105 thou/uL (130-400); RBC Distribution Width 12.6 % (11.5-14.5); White Blood Cell (WBC) Count 9.3 thou/uL (4.8-10.8)
[2017-07-14] MEDS ORDERED: Heparin 10,000 UNITS/ 10 ML VIAL ONE ×2 (07:37→13:55)
--- NOTE | 2017-07-14 07:50 | RAD ---
AP VIEW OF THE CHEST: INDICATION: History of intubation. COMPARISON: Prior study dated 07/13/17. IMPRESSION: Bilateral internal jugular central venous catheters are stable. Right upper lobe airspace opacity is likely stable when taking account differences in technique. No pneumothorax is demonstrated. POS: [facility]
[2017-07-14 08:49] LABS: Band 11 % (5-11); Lymphocytes 13 % (21-51); MDiff Complete? YES; Monocytes 6 % (0-10); Neutrophil 70 % (42-75); PLT Morphology Comment Appears Decreased; RBC Morphology Normal
[2017-07-14] MEDS: Folic Acid 1 MG TAB PO SCH (09:00)
[2017-07-14] MEDS: Carvedilol 25 MG TAB PO SCH ×2 (09:00→20:08)
[2017-07-14] MEDS: Furosemide 40 MG TAB PO SCH (09:00)
[2017-07-14] MEDS: Heparin 5,000 UNITS/ML VIAL SC SCH ×3 (09:00→20:08)
[2017-07-14] MEDS ORDERED: Heparin 5,000 UNITS/ML VIAL ONE (11:13)
[2017-07-14] MEDS ORDERED: Lidocaine 2% w/Epinephrine 1:200K 20 ML VIAL ONE (11:13)
[2017-07-14] MEDS ORDERED: Bupivacaine PF 0.5% 30 ML VIAL ONE (11:13)
[2017-07-14] MEDS ORDERED: Protamine Sulfate 250 MG/25 ML VIAL ONE (11:13)
[2017-07-14] MEDS ORDERED: Protamine Sulfate 50 MG/5 ML VIAL ONE (11:14)
[2017-07-14] MEDS ORDERED: Albuterol Sulfate 2.5 mg/3 ml Neb NEB SCH (11:15)
[2017-07-14] MEDS ORDERED: Midazolam HCl 2 mg/2 ml Vial ONE ×2 (11:16→11:17)
[2017-07-14] MEDS ORDERED: Fentanyl 100 MCG/2 ML VIAL ONE (11:16)
--- NOTE | 2017-07-14 11:57 | PRG ---
DATE OF SERVICE: 07/14/2017 SUBJECTIVE: A 41-year-old gentleman being seen for end-stage renal disease. The patient denies any nausea, vomiting, or chest pain. PHYSICAL EXAMINATION: GENERAL: Patient is awake, alert. VITAL SIGNS: Afebrile, pulse 85, breathing at 16, blood pressure 121/69. HEAD/NECK: Normocephalic. Atraumatic. EYES: EOMI. No deformity. EARS: Clear. No ulcers. NOSE: Intact. No lesions. MOUTH: Clear. No discharge. THROAT: Clear. No exudate. LUNGS: Clear. No crackles. CARDIAC: S1, S2. No rub. ABDOMEN: Benign. BS+. GENITALIA/RECTUM: Webber absent. BACK/EXTREMITIES: Edema 0+ Ulcer- NEUROLOGICAL: Alert and motor intact. SKIN: Rash- Bruise- LYMPHATICS: Edema- Ulcer- LABORATORY DATA: Show hemoglobin 8.7. ASSESSMENT AND RECOMMENDATIONS: 1. Stage 6 chronic kidney disease, continue hemodialysis. 2. Hypertension, stable. 3. Anemia, stable. 4. Discharge planning.
--- NOTE | 2017-07-14 11:58 | PRG ---
DATE OF SERVICE: 07/14/2017 SUBJECTIVE: Issa Aguirre is scheduled for fistula access for dialysis. He is doing well. Denie s any shortness of breath or cough. OBJECTIVE: VITAL SIGNS: Pulse is 80, blood pressure 110/80, respirations 18, sats 95%. CHEST: Decreased breath sounds, no wheezing. CARDIAC: Normal S1, S2. IMPRESSION: 1. Cardiomyopathy. 2. Renal failure. 3. Respiratory failure, improved. PLAN: Continue supportive care, dialysis, steroids as per primary care physician.
[2017-07-14] MEDS ORDERED: Albuterol Sulfate 1.25 MG/3 ML NEB ONE (12:00)
[2017-07-14] MEDS ORDERED: CEFAZOLIN/Water 2 GM/20 ML SYRINGE ONE (12:19)
[2017-07-14] MEDS ORDERED: Glycopyrrolate 0.2 MG/ML 5 ML SYRINGE ONE (13:55)
[2017-07-14] MEDS ORDERED: Dexamethasone 20 MG/5 ML VIAL ONE (13:55)
[2017-07-14] MEDS ORDERED: Hydrocortisone Sod Succ/PF 100 mg/2 ml Vial ONE (13:55)
[2017-07-14] MEDS ORDERED: Ondansetron HCl/PF 4 MG/2 ML Vial ONE (13:55)
[2017-07-14] MEDS ORDERED: Lidocaine 1% PF 5 ML VIAL ONE (13:55)
[2017-07-14] MEDS ORDERED: PHENYLEPHRINE-NS 100 MCG/ML 10 ML SYRINGE ONE (13:55)
[2017-07-14] MEDS ORDERED: Propofol 200 MG/20 ML VIAL ONE (13:55)
--- NOTE | 2017-07-14 14:04 | OP ---
DATE OF PROCEDURE: 07/14/2017 PREOPERATIVE DIAGNOSES: End-stage renal disease, cardiomyopathy 30%, history of cocaine use, marijua na use and alcohol abuse with cardiomyopathy 30%. Cardiac catheterization pending, end-stage renal d isease. PROCEDURE: Right arm primary AV fistula, perforating branch antecubital vein, proximal to brachial a rtery, outflow cephalic vein calibrated 4 mm coronary dilator. No communication to the basilic vein. Exploration of the cephalic vein at the wrist, finding it too small and the wound was closed. Note , the brachial artery was very large and I could not identify the radial artery. Thus, the large bra chial artery was used. Basilic vein was not identifiable in the incision nor was the antecubital, bu t the perforating branch extension from the antecubital cephalic vein was used for the anastomosis. SURGEON: Dr. Dong Cid ANESTHESIA: General. Local 0.5% Marcaine, 30 mL, mixed with 1% Xylocaine with epinephrine, 30 mL. PROCEDURE: The patient was taken to the operating room where under general anesthesia, the right upp er extremity was prepared with ChloraPrep, draped in routine fashion. Incision made in the right wri st and the vein was too small. Subcutaneous tissues approximated with 3-0 Monocryl, skin with subder mal 4-0 Monocryl and DermaGlue applied. Incision made in the proximal volar forearm longitudinally, carried down through the skin and subcutaneous tissue, the antecubital vein identified and was of goo d caliber. It was dissected free and branches divided between clips and 4-0 silk ties, spatulated ov er a branch point and interrogated with coronary dilators from a 2 mm to a 4 mm dilator passed withou t obstruction into the cephalic vein. There was no communication up to the basilic vein. The brachi al artery was identified, dissected free, it was very large. I could not identify a branch point to the ulnar artery. 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 The patient was given 6000 units of heparin intravenously. After adequate circulation time, the brachia l artery was clamped proximally and distally and longitudinal arteriotomy made sharply and elongated with Reece scissors and a 2.5 cm anastomosis made between the brachial artery and antecubital in the end perforating branch of the antecubital vein with continuous suture of 6-0 Prolene. Hemostasis gai sedrick with 6-0 Prolene. Once vascular clamps were released and there was good outflow basilic cephalic vein and search was made for any collaterals in the distal cephalic vein, but none could be found. Good hemostasis noted. The patient was not given protamine. Subcutaneous tissues approximated with 3-0 Monocryl, skin with subdermal 4-0 Monocryl and DermaGlue applied.
[2017-07-14] MEDS ORDERED: Promethazine HCl 25 MG/ML VIAL SLOW IVP PRN (14:22)
[2017-07-14] MEDS ORDERED: Ondansetron HCl/PF 4 MG/2 ML Vial IVP PRN (14:22)
[2017-07-14] MEDS ORDERED: Promethazine HCl 25 MG/ML VIAL IM PRN (14:22)
[2017-07-14] MEDS ORDERED: traMADol HCl 50 MG TAB PO PRN (15:12)
[2017-07-14] MEDS: traMADol HCl 50 MG TAB PO PRN (15:49)
[2017-07-14] MEDS: predniSONE 20 MG TAB PO SCH (15:50)
--- NOTE | 2017-07-14 15:50 | PDOC.PN ---
- Subjective Encounter Start Date: 07/14/17 Encounter Start Time: 15:48 Pt seen for followup re: LACEY. Had dialysis today, followed by surgical procedures, is tired. No complaints. - Objective Vital Signs & Weight: Vital Signs (12 hours) Temp Pulse Resp BP Pulse Ox 07/14/17 10:30 98.2 F 91 20 130/72 100 07/14/17 04:05 98.8 F 85 18 121/69 94 L Weight Weight 199 lb Most Recent Monitor Data Heart Rate from ECG 106 NIBP 141/89 NIBP BP-Mean 113 Respiration from ECG 23 SpO2 94 I&O: 07/13/17 07/14/17 07/15/17 06:59 06:59 06:59 Intake Total 1885 1766 Output Total 1747 3110 Balance 138 -1344 Result Diagrams: 07/14/17 04:27 07/14/17 04:27 Phys Exam - Physical Examination Constitutional: NAD HEENT: moist MMs Neck: supple Respiratory: clear to auscultation bilateral Cardiovascular: RRR Gastrointestinal: soft Neurological: moves all 4 limbs Psychiatric: normal affect Deviation from normal: surgical sites clean Dx/Plan (1) LACEY (acute kidney injury) Code(s): N17.9 - ACUTE KIDNEY FAILURE, UNSPECIFIED Status: Acute (2) Bacteremia Code(s): R78.81 - BACTEREMIA Status: Acute (3) Cardiomyopathy Code(s): I42.9 - CARDIOMYOPATHY, UNSPECIFIED Status: Acute (4) Acute respiratory failure Code(s): J96.00 - ACUTE RESPIRATORY FAILURE, UNSP W HYPOXIA OR HYPERCAPNIA Status: Resolved (5) Hyperkalemia Code(s): E87.5 - HYPERKALEMIA Status: Resolved - Plan continue antibiotics, out of bed/ambulate * . Dialysis per nephrology schedule, will need dialysis chair. Continue beta leandro. Continue antibiotics as below. Review of Systems - Review of Systems Respiratory: negative: Cough, Dry, Shortness of Breath, Hemoptysis, SOB with Excertion, Pleuritic Pain, Sputum, Wheezing Cardiovascular: negative: chest pain, palpitations, orthopnea, paroxysmal nocturnal dyspnea, edema, light headedness - Medications/Allergies Allergies/Adverse Reactions: Allergies Allergy/AdvReac Type Severity Reaction Status Date / Time No Known Allergies Allergy Verified 01/23/14 00:36 Medications: Current Medications Acetaminophen (Tylenol) 1,000 mg PO Q6H PRN PRN Reason: Moderate to Severe Pain (6-10) Albuterol Sulfate (Ventolin) 2.5 mg NEB WILLCALL [facility] Stop: 07/14/17 23:59 Albuterol/Ipratropium (Duoneb) 3 ml NEB [id number] [facility] Last Admin: 07/14/17 14:25 Dose: Not Given Bisacodyl (Dulcolax) 10 mg WI Q24H PRN PRN Reason: Constipation Carvedilol (Coreg) 25 mg PO BID [facility] Last Admin: 07/13/17 20:42 Dose: 25 mg Cefazolin Sodium (Ancef) 2 gm SLOW IVP [facility] Stop: 07/14/17 17:00 Dextrose/Water (Dextrose 50%) 25 gm IVP PRN PRN PRN Reason: HYPOGLYCEMIA PROTOCOL Famotidine (Pepcid) 20 mg PO 2100 [facility] Last Admin: 07/13/17 20:42 Dose: 20 mg Folic Acid (Folvite) 1 mg PO DAILY [facility] Last Admin: 07/13/17 08:23 Dose: 1 mg Furosemide (Lasix) 40 mg PO 0900 [facility] Glucagon (Glucagon) 1 mg IM PRN PRN PRN Reason: HYPOGLYCEMIA PROTOCOL Heparin Sodium (Porcine) (Heparin) 5,000 units SC TID [facility] Last Admin: 07/13/17 20:50 Dose: Not Given Ascorbic Acid 1,500 mg/ Sodium (Chloride) 53 mls @ 100 mls/hr IVPB Q6HR [facility] Stop: 07/15/17 18:01 Last Admin: 07/14/17 05:53 Dose: 53 mls Thiamine HCl 200 mg/ Sodium (Chloride) 52 mls @ 100 mls/hr IVPB 0500,1700 [facility] Last Admin: 07/14/17 04:01 Dose: 52 mls Dextrose/Water (D5w) 1,000 mls @ 0 mls/hr IV INF PRN; As Directed PRN Reason: HYPOGLYCEMIA PROTOCOL Levofloxacin (Levaquin) 250 mg PO 0600 [facility] Last Admin: 07/14/17 05:54 Dose: 250 mg Ondansetron HCl (Zofran) 4 mg IVP Q6H PRN PRN Reason: Nausea/Vomiting Ondansetron HCl (Pacu-Zofran) 4 mg IVP ONE PRN PRN Reason: Nausea/Vomiting Stop: 07/14/17 17:22 Polyethylene Glycol (Miralax) 17 gm PO DAILY [facility] Prednisone (Prednisone) 20 mg PO QAM-[facility] Promethazine HCl (Pacu-Phenergan) 6.25 mg SLOW IVP ONE PRN PRN Reason: Nausea/Vomiting Stop: 07/14/17 17:22 Promethazine HCl (Pacu-Phenergan) 6.25 mg IM ONE PRN PRN Reason: Nausea/Vomiting Stop: 07/14/17 17:22 Thiamine HCl (Thiamine) 100 mg PO DAILY [facility] Last Admin: 07/13/17 08:23 Dose: 100 mg Tramadol HCl (Ultram) 50 mg PO Q12H PRN PRN Reason: Pain 1ST LINE Tramadol HCl (Ultram) 100 mg PO Q12H PRN PRN Reason: Pain 2ND LINE
[2017-07-14] MEDS ORDERED: Communication Order-Pharmacy FS SCH (18:45)
[2017-07-14] MEDS: Famotidine 20 MG TAB PO SCH (20:08)
[2017-07-15] MEDS: Folic Acid 1 MG TAB PO SCH (05:32)
[2017-07-15] MEDS: Furosemide 40 MG TAB PO SCH (05:32)
[2017-07-15] MEDS: traMADol HCl 50 MG TAB PO PRN (05:32)
[2017-07-15] MEDS: predniSONE 20 MG TAB PO SCH (05:33)
[2017-07-15] MEDS: Carvedilol 25 MG TAB PO SCH ×2 (05:33→20:30)
[2017-07-15 05:56] LABS: Anion Gap 20 mmol/L (10-20); BUN (Urea Nitrogen) 85 mg/dL (8.9-20.6); Calc. Creatinine Clearance 20 mL/min (70-130); Calcium 8.2 mg/dL (7.8-10.44); Carbon Dioxide 21 mmol/L (22-29); Chloride 104 mmol/L (98-107); Estimated GFR-MDRD 10; Glucose 246 mg/dL (70-105); Potassium 4.1 mmol/L (3.5-5.1); Sodium 141 mmol/L (136-145)
[2017-07-15 06:13] LABS: Band 1 % (5-11); Hemoglobin 8.8 g/dL (14.0-18.0); Lymphocytes 6 % (21-51); MDiff Complete? YES; Mean Corpuscular HGB CONC 32.7 g/dL (32.0-36.0); Mean Corpuscular Hemoglobin 31.1 pg (27.0-31.0); Mean Corpuscular Volume 95.3 fl (80.0-94.0); Mean Platelet Volume 9.5 fL (7.4-10.4); Monocytes 3 % (0-10); Neutrophil 90 % (42-75); PLT Morphology Comment Appears Decreased; Platelet Count 118 thou/uL (130-400); RBC Distribution Width 12.4 % (11.5-14.5); Red Blood Cell (RBC) Count 2.82 mill/uL (4.70-6.10); White Blood Cell (WBC) Count 6.4 thou/uL (4.8-10.8)
[2017-07-15] MEDS ORDERED: Heparin 10,000 UNITS/ 10 ML VIAL ONE (11:00)
--- NOTE | 2017-07-15 12:00 | EKG ---
Test Reason : Blood Pressure : / mmHG Vent. Rate : 130 BPM Atrial Rate : 130 BPM P-R Int : 112 ms QRS Dur : 070 ms QT Int : 298 ms P-R-T Axes : 081 -08 113 degrees QTc Int : 438 ms Sinus tachycardia Abnormal ECG Confirmed by YANI RUTH, PB ([id number]), research editor MILANA ARMENDARIZ ([id number]) on 07/15/2017 11:59:51 AM Referred By: Confirmed By:PB LOMELI MD
--- NOTE | 2017-07-15 12:27 | PRG ---
DATE OF SERVICE: 07/15/2017 SUBJECTIVE: A 41-year-old gentleman being seen for end-stage renal disease. The patient denies any nausea, vomiting or chest pain. PHYSICAL EXAMINATION: GENERAL: Patient is awake, alert. VITAL SIGNS: Afebrile, pulse 75, breathing at 16, blood pressure was 130/80. HEAD/NECK: Normocephalic. Atraumatic. EYES: EOMI. No deformity. EARS: Clear. No ulcers. NOSE: Intact. No lesions. MOUTH: Clear. No discharge. THROAT: Clear. No exudate. LUNGS: Clear. No crackles. CARDIAC: S1, S2. No rub. ABDOMEN: Benign. BS+. GENITALIA/RECTUM: Webber absent. BACK/EXTREMITIES: Edema 0+ Ulcer- NEUROLOGICAL: Alert and motor intact. SKIN: Rash- Bruise- LYMPHATICS: Edema- Ulcer- LABORATORY DATA: Show hemoglobin 8.8. ASSESSMENT AND PLAN: 1. Stage 6 chronic kidney disease. Continue hemodialysis. 2. Hypertension, stable. 3. Anemia, stable. 4. Uremia, stable.
[2017-07-15] MEDS: Heparin 5,000 UNITS/ML VIAL SC SCH ×3 (14:46→20:31)
[2017-07-15] MEDS: Polyethylene Glycol 3350 17 GM Packet PO SCH (14:47)
--- NOTE | 2017-07-15 15:55 | PDOC.PN ---
- Subjective Encounter Start Date: 07/15/17 Encounter Start Time: 07:00 Pt seen for followup re: LACEY. No complaints today. - Objective MAR Reviewed: Yes Vital Signs & Weight: Vital Signs (12 hours) Temp Pulse Resp BP Pulse Ox 07/15/17 13:48 98 07/15/17 13:45 80 16 07/15/17 09:00 97.2 F L 75 16 130/80 07/15/17 07:51 96 07/15/17 07:49 77 16 07/15/17 04:15 98.3 F 81 16 121/76 96 Weight Weight 197 lb 4.8 oz Most Recent Monitor Data Heart Rate from ECG 106 NIBP 141/89 NIBP BP-Mean 113 Respiration from ECG 23 SpO2 94 I&O: 07/14/17 07/15/17 07/16/17 06:59 06:59 06:59 Intake Total 1766 650 Output Total 3110 1475 Balance -1344 825 Result Diagrams: 07/15/17 04:29 07/15/17 04:29 EKG Reviewed by me: Yes (Tele: NSR) Phys Exam - Physical Examination Constitutional: NAD HEENT: moist MMs Neck: supple Respiratory: clear to auscultation bilateral Cardiovascular: RRR Gastrointestinal: soft Neurological: moves all 4 limbs Psychiatric: normal affect Skin: no rash Dx/Plan (1) LACEY (acute kidney injury) Code(s): N17.9 - ACUTE KIDNEY FAILURE, UNSPECIFIED Status: Acute (2) Bacteremia Code(s): R78.81 - BACTEREMIA Status: Acute (3) Cardiomyopathy Code(s): I42.9 - CARDIOMYOPATHY, UNSPECIFIED Status: Acute (4) Acute respiratory failure Code(s): J96.00 - ACUTE RESPIRATORY FAILURE, UNSP W HYPOXIA OR HYPERCAPNIA Status: Resolved (5) Hyperkalemia Code(s): E87.5 - HYPERKALEMIA Status: Resolved - Plan continue antibiotics, PT/OT, out of bed/ambulate * . Dialysis per nephrology service. Ambulate patient. Followup with cardiology re: cardiomyopathy Review of Systems - Review of Systems Constitutional: negative: fever, chills, sweats, weakness, malaise - Medications/Allergies Allergies/Adverse Reactions: Allergies Allergy/AdvReac Type Severity Reaction Status Date / Time No Known Allergies Allergy Verified 01/23/14 00:36 Medications: Current Medications Acetaminophen (Tylenol) 1,000 mg PO Q6H PRN PRN Reason: Moderate to Severe Pain (6-10) Albuterol/Ipratropium (Duoneb) 3 ml NEB [id number] [facility] Last Admin: 07/15/17 13:45 Dose: 3 ml Bisacodyl (Dulcolax) 10 mg PA Q24H PRN PRN Reason: Constipation Carvedilol (Coreg) 25 mg PO BID [facility] Last Admin: 07/15/17 05:33 Dose: 25 mg Dextrose/Water (Dextrose 50%) 25 gm IVP PRN PRN PRN Reason: HYPOGLYCEMIA PROTOCOL Famotidine (Pepcid) 20 mg PO 2100 [facility] Last Admin: 07/14/17 20:08 Dose: 20 mg Folic Acid (Folvite) 1 mg PO DAILY [facility] Last Admin: 07/15/17 05:32 Dose: 1 mg Furosemide (Lasix) 40 mg PO 0900 [facility] Last Admin: 07/15/17 05:32 Dose: 40 mg Glucagon (Glucagon) 1 mg IM PRN PRN PRN Reason: HYPOGLYCEMIA PROTOCOL Heparin Sodium (Porcine) (Heparin) 5,000 units SC TID [facility] Last Admin: 07/15/17 14:46 Dose: 5,000 units Ascorbic Acid 1,500 mg/ Sodium (Chloride) 53 mls @ 100 mls/hr IVPB Q6HR [facility] Stop: 07/15/17 18:01 Last Admin: 07/15/17 05:33 Dose: 53 mls Thiamine HCl 200 mg/ Sodium (Chloride) 52 mls @ 100 mls/hr IVPB 0500,1700 [facility] Last Admin: 07/15/17 04:14 Dose: 52 mls Dextrose/Water (D5w) 1,000 mls @ 0 mls/hr IV INF PRN; As Directed PRN Reason: HYPOGLYCEMIA PROTOCOL Levofloxacin (Levaquin) 250 mg PO 0600 [facility] Last Admin: 07/15/17 05:32 Dose: 250 mg Miscellaneous Information (Communication Order-Pharmacy) 0 each FS ONE [facility] Stop: 07/16/17 23:59 Ondansetron HCl (Zofran) 4 mg IVP Q6H PRN PRN Reason: Nausea/Vomiting Polyethylene Glycol (Miralax) 17 gm PO DAILY [facility] Last Admin: 07/15/17 14:47 Dose: 17 gm Prednisone (Prednisone) 20 mg PO QAM-WM [facility] Last Admin: 07/15/17 05:33 Dose: 20 mg Thiamine HCl (Thiamine) 100 mg PO DAILY [facility] Last Admin: 07/15/17 09:24 Dose: 100 mg Tramadol HCl (Ultram) 50 mg PO Q12H PRN PRN Reason: Pain 1ST LINE Tramadol HCl (Ultram) 100 mg PO Q12H PRN PRN Reason: Pain 2ND LINE Last Admin: 07/15/17 05:32 Dose: 100 mg
--- NOTE | 2017-07-15 17:50 | PRG ---
DATE OF SERVICE: 07/15/2017 SERVICE: Pulmonary Medicine. INTERVAL HISTORY: The patient is doing really well from respiratory standpoint. He denies any curre nt fevers, chills, nausea, vomiting, or chest discomfort. Otherwise, there has been no interval rao ge to his condition. He has been weaned down to room air. He continues to have a Webber catheter and central line in place. His dialysis access is clean, dry, and intact and looks fantastic. PHYSICAL EXAMINATION: VITAL SIGNS: Afebrile, pulse 79, blood pressure 125/75, respirations 16, saturation 95% on room air. GENERAL: Patient is awake, alert, in no apparent distress. LUNGS: Excellent air entry. Rhonchi are present, but clear with cough. HEART: Normal rate, regular. ABDOMEN: Soft, nontender, nondistended. Bowel sounds positive. MUSCULOSKELETAL: No cyanosis or clubbing. There is no pitting in the bilateral lower extremities. NEUROLOGIC: Grossly nonfocal. LABORATORY DATA: WBC 6.4, hemoglobin 8.8, platelets 118. Creatinine 6.19 and down trending. BUN 85 . Basic metabolic profile is otherwise unremarkable. Hepatitis B surface antigen is negative. Bron chial washing is positive for Streptococcus pneumoniae. This is sensitive to fluoroquinolone and nathanael ezolid. Blood cultures x2 are also positive for Streptococcus pneumonia that has an odd resistance p rofile. IMAGING: Chest x-ray demonstrates dense right upper lobe pneumonia. There is a temporary dialysis c atheter in good position. Heart is enlarged. Otherwise, no acute cardiopulmonary abnormalities iden tified. ASSESSMENT: 1. Septic shock, resolved. 2. Community-acquired pneumonia secondary to Streptococcus pneumoniae. 3. Bacteremia secondary to Streptococcus pneumoniae. 4. Acute hypoxic respiratory failure, resolved. 5. Acute kidney injury, requiring hemodialysis for now. PLAN: The patient is recovering very nicely from sepsis syndrome. He needs at least 14 days of anti biotics directed at strep pneumonia. Webber catheter and central line will be discontinued. We will try to establish peripheral IV. Pulmonary or Critical Care will continue to follow intermittently du ring this hospital stay. If you need me tomorrow, give me a call. Otherwise, Dr. Jarvis will resume c overage on Monday.
[2017-07-15] MEDS: Famotidine 20 MG TAB PO SCH (20:30)
[2017-07-16 05:33] LABS: Anion Gap 16 mmol/L (10-20); BUN (Urea Nitrogen) 67 mg/dL (8.9-20.6); Calc. Creatinine Clearance 26 mL/min (70-130); Calcium 8.4 mg/dL (7.8-10.44); Carbon Dioxide 29 mmol/L (22-29); Chloride 99 mmol/L (98-107); Estimated GFR-MDRD 13; Glucose 115 mg/dL (70-105); Potassium 3.6 mmol/L (3.5-5.1); Sodium 140 mmol/L (136-145)
[2017-07-16 06:16] LABS: Band 6 % (5-11); Eosinophils 1 % (0-10); Hemoglobin 10.2 g/dL (14.0-18.0); Lymphocytes 14 % (21-51); MDiff Complete? YES; Mean Corpuscular Hemoglobin 31.2 pg (27.0-31.0); Mean Corpuscular Volume 94.8 fl (80.0-94.0); Mean Platelet Volume 9.2 fL (7.4-10.4); Monocytes 8 % (0-10); Neutrophil 71 % (42-75); Platelet Count 161 thou/uL (130-400); RBC Distribution Width 12.4 % (11.5-14.5); Red Blood Cell (RBC) Count 3.28 mill/uL (4.70-6.10); White Blood Cell (WBC) Count 8.5 thou/uL (4.8-10.8)
[2017-07-16] MEDS ORDERED: Communication Order-Pharmacy FS SCH ×2 (09:15→10:30)
[2017-07-16] MEDS: Furosemide 40 MG TAB PO SCH (09:32)
[2017-07-16] MEDS: Carvedilol 25 MG TAB PO SCH ×2 (09:32→21:44)
[2017-07-16] MEDS: predniSONE 20 MG TAB PO SCH (09:32)
[2017-07-16] MEDS: Heparin 5,000 UNITS/ML VIAL SC SCH ×3 (09:33→21:44)
[2017-07-16] MEDS: Polyethylene Glycol 3350 17 GM Packet PO SCH (09:34)
[2017-07-16] MEDS: Folic Acid 1 MG TAB PO SCH (09:35)
--- NOTE | 2017-07-16 10:10 | PDOC.PN ---
- Subjective Encounter Start Date: 07/16/17 Encounter Start Time: 07:00 Pt seen for followup re: LACEY. No chest pain or shortness of breath. - Objective MAR Reviewed: Yes Vital Signs & Weight: Vital Signs (12 hours) Temp Pulse Resp BP Pulse Ox 07/16/17 08:07 96 07/16/17 08:04 88 16 07/16/17 08:00 96.5 F L 76 16 118/71 07/16/17 04:00 98.1 F 79 20 118/76 94 L 07/15/17 22:13 89 16 99 Weight Weight 197 lb 4.8 oz Most Recent Monitor Data Heart Rate from ECG 106 NIBP 141/89 NIBP BP-Mean 113 Respiration from ECG 23 SpO2 94 I&O: 07/15/17 07/16/17 07/17/17 06:59 06:59 06:59 Intake Total 650 1280 Output Total 1475 4650 Balance -199 -6291 Result Diagrams: 07/16/17 04:35 07/16/17 04:35 EKG Reviewed by me: Yes (Tele: NSR) Phys Exam - Physical Examination Constitutional: NAD HEENT: moist MMs Neck: supple Respiratory: clear to auscultation bilateral Cardiovascular: RRR Gastrointestinal: soft Neurological: moves all 4 limbs Psychiatric: normal affect Dx/Plan (1) LACEY (acute kidney injury) Code(s): N17.9 - ACUTE KIDNEY FAILURE, UNSPECIFIED Status: Acute (2) Bacteremia Code(s): R78.81 - BACTEREMIA Status: Acute (3) Cardiomyopathy Code(s): I42.9 - CARDIOMYOPATHY, UNSPECIFIED Status: Acute (4) Acute respiratory failure Code(s): J96.00 - ACUTE RESPIRATORY FAILURE, UNSP W HYPOXIA OR HYPERCAPNIA Status: Resolved (5) Hyperkalemia Code(s): E87.5 - HYPERKALEMIA Status: Resolved - Plan continue antibiotics, PT/OT, out of bed/ambulate * . Needs dialysis chair. Review of Systems - Review of Systems Constitutional: negative: fever, chills, sweats, weakness, malaise Respiratory: negative: Cough, Dry, Shortness of Breath, Hemoptysis, SOB with Excertion, Pleuritic Pain, Sputum, Wheezing - Medications/Allergies Allergies/Adverse Reactions: Allergies Allergy/AdvReac Type Severity Reaction Status Date / Time No Known Allergies Allergy Verified 01/23/14 00:36 Medications: Current Medications Acetaminophen (Tylenol) 1,000 mg PO Q6H PRN PRN Reason: Moderate to Severe Pain (6-10) Albuterol/Ipratropium (Duoneb) 3 ml NEB [id number] [facility] Last Admin: 07/16/17 08:04 Dose: 3 ml Bisacodyl (Dulcolax) 10 mg [place] Q24H PRN PRN Reason: Constipation Carvedilol (Coreg) 25 mg PO BID [facility] Last Admin: 07/16/17 09:32 Dose: 25 mg Dextrose/Water (Dextrose 50%) 25 gm IVP PRN PRN PRN Reason: HYPOGLYCEMIA PROTOCOL Famotidine (Pepcid) 20 mg PO 2100 [facility] Last Admin: 07/15/17 20:30 Dose: 20 mg Folic Acid (Folvite) 1 mg PO DAILY [facility] Last Admin: 07/16/17 09:35 Dose: 1 mg Furosemide (Lasix) 40 mg PO 0900 [facility] Last Admin: 07/16/17 09:32 Dose: 40 mg Glucagon (Glucagon) 1 mg IM PRN PRN PRN Reason: HYPOGLYCEMIA PROTOCOL Heparin Sodium (Porcine) (Heparin) 5,000 units SC TID [facility] Last Admin: 07/16/17 09:33 Dose: 5,000 units Thiamine HCl 200 mg/ Sodium (Chloride) 52 mls @ 100 mls/hr IVPB 0500,1700 [facility] Last Admin: 07/16/17 04:00 Dose: 52 mls Dextrose/Water (D5w) 1,000 mls @ 0 mls/hr IV INF PRN; As Directed PRN Reason: HYPOGLYCEMIA PROTOCOL Levofloxacin (Levaquin) 250 mg PO 0600 [facility] Last Admin: 07/16/17 05:52 Dose: 250 mg Miscellaneous Information (Communication Order-Pharmacy) 0 each FS ONE [facility] Stop: 07/16/17 23:59 Miscellaneous Information (Communication Order-Pharmacy) 0 each FS ONE [facility] Stop: 07/17/17 20:00 Ondansetron HCl (Zofran) 4 mg IVP Q6H PRN PRN Reason: Nausea/Vomiting Polyethylene Glycol (Miralax) 17 gm PO DAILY [facility] Last Admin: 07/16/17 09:34 Dose: 17 gm Prednisone (Prednisone) 20 mg PO QAM-WM [facility] Last Admin: 07/16/17 09:32 Dose: 20 mg Sodium Chloride (Flush - Normal Saline) 10 ml IVF PRN PRN PRN Reason: Saline Flush Sodium Chloride (Flush - Normal Saline) 10 ml IVF BID [facility] Last Admin: 07/16/17 09:35 Dose: 10 ml Thiamine HCl (Thiamine) 100 mg PO DAILY [facility] Last Admin: 07/16/17 09:32 Dose: 100 mg Tramadol HCl (Ultram) 50 mg PO Q12H PRN PRN Reason: Pain 1ST LINE Tramadol HCl (Ultram) 100 mg PO Q12H PRN PRN Reason: Pain 2ND LINE Last Admin: 07/15/17 05:32 Dose: 100 mg
--- NOTE | 2017-07-16 11:47 | PRG ---
DATE OF SERVICE: 07/16/2017 SUBJECTIVE: A 41-year-old gentleman being seen for end-stage renal disease. The patient denies any nausea, vomiting, or chest pain. PHYSICAL EXAMINATION: GENERAL: Patient is awake, alert. VITAL SIGNS: Afebrile, pulse 88, breathing at 16, blood pressure 118/71. HEAD/NECK: Normocephalic. Atraumatic. EYES: EOMI. No deformity. EARS: Clear. No ulcers. NOSE: Intact. No lesions. MOUTH: Clear. No discharge. THROAT: Clear. No exudate. LUNGS: Clear. No crackles. CARDIAC: S1, S2. No rub. ABDOMEN: Benign. BS+. GENITALIA/RECTUM: Webber absent. BACK/EXTREMITIES: Edema 0+ Ulcer- NEUROLOGICAL: Alert and motor intact. SKIN: Rash- Bruise- LYMPHATICS: Edema- Ulcer- LABORATORY DATA: Show hemoglobin 10.2. ASSESSMENT AND RECOMMENDATIONS: 1. Stage 6 chronic kidney disease, continue hemodialysis. 2. Hypertension, stable. 3. Anemia, stable. 4. Medications based on glomerular filtration rate are appropriate.
[2017-07-16] MEDS: traMADol HCl 50 MG TAB PO PRN (14:12)
[2017-07-16] MEDS: Famotidine 20 MG TAB PO SCH (21:44)
[2017-07-17 05:41] LABS: Anion Gap 20 mmol/L (10-20); BUN (Urea Nitrogen) 89 mg/dL (8.9-20.6); Calc. Creatinine Clearance 22 mL/min (70-130); Calcium 8.4 mg/dL (7.8-10.44); Carbon Dioxide 21 mmol/L (22-29); Chloride 102 mmol/L (98-107); Estimated GFR-MDRD 11; Glucose 108 mg/dL (70-105); Potassium 3.9 mmol/L (3.5-5.1); Sodium 139 mmol/L (136-145)
[2017-07-17 05:45] LABS: Hemoglobin 10.3 g/dL (14.0-18.0); Mean Corpuscular HGB CONC 32.3 g/dL (32.0-36.0); Mean Corpuscular Hemoglobin 30.6 pg (27.0-31.0); Mean Corpuscular Volume 94.5 fl (80.0-94.0); Mean Platelet Volume 9.1 fL (7.4-10.4); Platelet Count 167 thou/uL (130-400); RBC Distribution Width 12.6 % (11.5-14.5); Red Blood Cell (RBC) Count 3.39 mill/uL (4.70-6.10); White Blood Cell (WBC) Count 8.1 thou/uL (4.8-10.8)
[2017-07-17 05:46] LABS: Eosinophils 1 % (0-10); Lymphocytes 14 % (21-51); MDiff Complete? YES; Monocytes 11 % (0-10); Neutrophil 74 % (42-75)
[2017-07-17] MEDS: Carvedilol 25 MG TAB PO SCH (06:43)
[2017-07-17] MEDS: predniSONE 20 MG TAB PO SCH (06:43)
[2017-07-17] MEDS: Folic Acid 1 MG TAB PO SCH (06:43)
[2017-07-17] MEDS ORDERED: Heparin 10,000 UNITS/1 ML VIAL ONE (08:17)
[2017-07-17] MEDS ORDERED: Midazolam HCl 2 mg/2 ml Vial ONE (09:19)
[2017-07-17] MEDS ORDERED: Fentanyl 100 MCG/2 ML VIAL ONE (09:19)
[2017-07-17] MEDS ORDERED: Protamine Sulfate 50 MG/5 ML VIAL ONE (09:37)
[2017-07-17] MEDS ORDERED: traMADol HCl 50 MG TAB PO PRN (09:55)
[2017-07-17] MEDS ORDERED: Acetaminophen/Codeine 30-300mg Tablet PO PRN ×2 (09:55)
[2017-07-17] MEDS ORDERED: Sodium Chloride 0.9% 200 ML IV PRN (10:00)
[2017-07-17] MEDS ORDERED: Heparin 10,000 UNITS/ 10 ML VIAL ONE (10:00)
--- NOTE | 2017-07-17 10:03 | PRG ---
Patient Name: CHRIS EARLY Date of service: 07/17/2017 Subjective: Patient was seen and examined at bedside and overnight events noted. Patient denies any shortness of breath or chest pain or palpitation. No history of nausea or vomiting or diarrhea or fever or chills or cramps. Objective: General: This is a well-built male in no apparent distress. Vital signs: Temperature 98.7, pulse 80, respiratory rate 20, blood pressure 120/74. HEENT: Atraumatic, normocephalic. Oral mucosa is moist. Neck: Supple. Cardiovascular: S1 S2 heard. Rate and rhythm regular. Respiratory: Clear to auscultation. Gastrointestinal: Abdomen is soft. Musculoskeletal: No tenderness. No edema. Dermatologic: No skin rash. Neurologic: Alert and awake and oriented X3. No focal neurologic deficits. Moving all the extremit ies. Psychiatric: Mood and affect normal. LABORATORY DATA: Potassium is 3.9, BUN 89, creatinine 5.7. ASSESSMENT AND PLAN: 1. End-stage renal disease on hemodialysis. Follow up with case management for outpatient placement . 2. Edema, remove fluid. 3. Proteinuria. 4. Focal segmental glomerulosclerosis. 5. Hypertension. 6. Anemia. 7. Noncompliance. Plan is to continue dialysis as tolerated.
[2017-07-17] MEDS ORDERED: Iopamidol 370 76% 50 ML VIAL FS ONE (11:34)
[2017-07-17] MEDS ORDERED: Iopamidol 370 76% 100 ML VIAL ONE (11:34)
[2017-07-17] MEDS: Heparin 5,000 UNITS/ML VIAL SC SCH (11:34)
[2017-07-17] MEDS: Furosemide 40 MG TAB PO SCH (13:21)
[2017-07-17] MEDS: Polyethylene Glycol 3350 17 GM Packet PO SCH (13:21)
--- NOTE | 2017-07-17 16:09 | PDOC.PN ---
- Subjective Encounter Start Date: 07/17/17 Encounter Start Time: 07:40 Pt seen for followup re: LACEY. No complaints today. - Objective MAR Reviewed: Yes Vital Signs & Weight: Vital Signs (12 hours) Temp Pulse Resp BP Pulse Ox 07/17/17 07:34 82 16 98 07/17/17 06:47 98.7 F 80 18 120/74 97 Weight Weight 194 lb 8 oz Most Recent Monitor Data Heart Rate from ECG 106 NIBP 141/89 NIBP BP-Mean 113 Respiration from ECG 23 SpO2 94 I&O: 07/16/17 07/17/17 07/18/17 06:59 06:59 06:59 Intake Total 1280 1200 Output Total 4650 1500 Balance -3370 -300 Result Diagrams: 07/17/17 04:22 07/17/17 04:22 EKG Reviewed by me: Yes (Tele: NSR) Phys Exam - Physical Examination Constitutional: NAD HEENT: moist MMs Neck: supple Respiratory: clear to auscultation bilateral Cardiovascular: RRR Gastrointestinal: soft Neurological: moves all 4 limbs Psychiatric: normal affect Dx/Plan (1) LACEY (acute kidney injury) Code(s): N17.9 - ACUTE KIDNEY FAILURE, UNSPECIFIED Status: Acute (2) Bacteremia Code(s): R78.81 - BACTEREMIA Status: Acute (3) Cardiomyopathy Code(s): I42.9 - CARDIOMYOPATHY, UNSPECIFIED Status: Acute (4) Acute respiratory failure Code(s): J96.00 - ACUTE RESPIRATORY FAILURE, UNSP W HYPOXIA OR HYPERCAPNIA Status: Resolved (5) Hyperkalemia Code(s): E87.5 - HYPERKALEMIA Status: Resolved - Plan continue antibiotics, out of bed/ambulate * . Dialysis per nephrology service. Review of Systems - Review of Systems Respiratory: negative: Cough, Dry, Shortness of Breath, Hemoptysis, SOB with Excertion, Pleuritic Pain, Sputum, Wheezing Cardiovascular: negative: chest pain, palpitations, orthopnea, paroxysmal nocturnal dyspnea, edema, light headedness - Medications/Allergies Allergies/Adverse Reactions: Allergies Allergy/AdvReac Type Severity Reaction Status Date / Time No Known Allergies Allergy Verified 01/23/14 00:36 Medications: Current Medications Acetaminophen (Tylenol) 1,000 mg PO Q6H PRN PRN Reason: Moderate to Severe Pain (6-10) Acetaminophen/Codeine Phosphate (Tylenol #3) 1 tab PO Q4H PRN PRN Reason: Mild Pain (1-3) Acetaminophen/Codeine Phosphate (Tylenol #3) 2 tab PO Q4H PRN PRN Reason: Moderate Pain (4-6) Albuterol/Ipratropium (Duoneb) 3 ml NEB [id number] [facility] Last Admin: 07/17/17 14:05 Dose: Not Given Bisacodyl (Dulcolax) 10 mg [place] Q24H PRN PRN Reason: Constipation Carvedilol (Coreg) 12.5 mg PO BID[facility] Dextrose/Water (Dextrose 50%) 25 gm IVP PRN PRN PRN Reason: HYPOGLYCEMIA PROTOCOL Famotidine (Pepcid) 20 mg PO 2100 [facility] Last Admin: 07/16/17 21:44 Dose: 20 mg Folic Acid (Folvite) 1 mg PO DAILY [facility] Last Admin: 07/17/17 06:43 Dose: 1 mg Furosemide (Lasix) 40 mg PO 0900 [facility] Last Admin: 07/17/17 13:21 Dose: 40 mg Glucagon (Glucagon) 1 mg IM PRN PRN PRN Reason: HYPOGLYCEMIA PROTOCOL Dextrose/Water (D5w) 1,000 mls @ 0 mls/hr IV INF PRN; As Directed PRN Reason: HYPOGLYCEMIA PROTOCOL Sodium Chloride (Normal Saline 0.9%) 200 mls @ 0 mls/hr IV ONE PRN; As Directed PRN Reason: Bolus PRN SBP < 90 mm Hg Stop: 07/20/17 10:01 Levofloxacin (Levaquin) 250 mg PO 0600 [facility] Last Admin: 07/17/17 06:43 Dose: 250 mg Lisinopril (Zestril) 5 mg PO BID [facility] Miscellaneous Information (Communication Order-Pharmacy) 0 each FS ONE [facility] Stop: 07/17/17 20:00 Ondansetron HCl (Zofran) 4 mg IVP Q6H PRN PRN Reason: Nausea/Vomiting Polyethylene Glycol (Miralax) 17 gm PO DAILY [facility] Last Admin: 07/17/17 13:21 Dose: Not Given Prednisone (Prednisone) 20 mg PO QAM-[facility] Last Admin: 07/17/17 06:43 Dose: 20 mg Sodium Chloride (Flush - Normal Saline) 10 ml IVF PRN PRN PRN Reason: Saline Flush Last Admin: 07/16/17 16:53 Dose: 10 ml Sodium Chloride (Flush - Normal Saline) 10 ml IVF BID [facility] Last Admin: 07/17/17 13:21 Dose: 10 ml Thiamine HCl (Thiamine) 100 mg PO DAILY [facility] Last Admin: 07/17/17 06:43 Dose: 100 mg Tramadol HCl (Ultram) 50 mg PO Q12H PRN PRN Reason: Pain 1ST LINE Tramadol HCl (Ultram) 100 mg PO Q12H PRN PRN Reason: Pain 2ND LINE Last Admin: 07/16/17 14:12 Dose: 100 mg Tramadol HCl (Ultram) 50 mg PO Q6H PRN PRN Reason: Moderate Pain (4-6)
[2017-07-17] MEDS: Carvedilol 6.25 MG TAB PO SCH (17:55)
--- NOTE | 2017-07-17 18:43 | PRG ---
DATE OF SERVICE: 07/17/2017 SUBJECTIVE: This morning, he is awake, alert and responsive. Denies any difficulty breathing, cough or pain. He underwent cardiac catheterization. was normal. His EF was 25%. OBJECTIVE: VITAL SIGNS: Blood pressure 120/74, sats are 90% and temperature 98. CHEST: Decreased breath sounds. No wheezing. CARDIAC: Normal S1 and S2. No gallops. ABDOMEN: Soft, no masses. LABORATORY DATA: White count 8000, hemoglobin and hematocrit is 10 and 30, platelet count is normal. Electrolytes are normal. Creatinine is 5.7. IMPRESSION: 1. Multiorgan failure. 2. Respiratory failure, improved. 3. Renal failure. 4. Cardiomyopathy. PLAN: Cardiac care as per Cardiology. He is undergoing dialysis. He has got strep sepsis. He was given Prevnar 13 vaccination. Continue antibiotics.
[2017-07-17] MEDS: Famotidine 20 MG TAB PO SCH (21:27)
[2017-07-17] MEDS: Lisinopril 5 MG TAB PO SCH (21:27)
[2017-07-18 05:50] LABS: Anion Gap 18 mmol/L (10-20); BUN (Urea Nitrogen) 63 mg/dL (8.9-20.6); Calc. Creatinine Clearance 23 mL/min (70-130); Carbon Dioxide 25 mmol/L (22-29); Chloride 99 mmol/L (98-107); Estimated GFR-MDRD 13; Glucose 100 mg/dL (70-105); Potassium 3.7 mmol/L (3.5-5.1); Sodium 138 mmol/L (136-145)
[2017-07-18 06:06] LABS: Band 3 % (5-11); Hemoglobin 11.3 g/dL (14.0-18.0); Lymphocytes 23 % (21-51); MDiff Complete? YES; Mean Corpuscular HGB CONC 31.6 g/dL (32.0-36.0); Mean Corpuscular Hemoglobin 29.9 pg (27.0-31.0); Mean Corpuscular Volume 94.4 fl (80.0-94.0); Mean Platelet Volume 8.9 fL (7.4-10.4); Metamyelocyte 1 % (0-0); Monocytes 10 % (0-10); Myelocyte 3 % (0-0); Neutrophil 60 % (42-75); Platelet Count 248 thou/uL (130-400); RBC Distribution Width 12.8 % (11.5-14.5); White Blood Cell (WBC) Count 10.8 thou/uL (4.8-10.8)
[2017-07-18] MEDS: Polyethylene Glycol 3350 17 GM Packet PO SCH (08:41)
[2017-07-18] MEDS: Carvedilol 6.25 MG TAB PO SCH ×2 (08:42→18:34)
[2017-07-18] MEDS: Furosemide 40 MG TAB PO SCH (08:43)
[2017-07-18] MEDS: Folic Acid 1 MG TAB PO SCH (08:43)
[2017-07-18] MEDS: Lisinopril 5 MG TAB PO SCH ×2 (08:43→21:20)
[2017-07-18] MEDS: predniSONE 20 MG TAB PO SCH (08:43)
--- NOTE | 2017-07-18 18:22 | PRG ---
DATE OF SERVICE: 07/18/2017 SUBJECTIVE: Patient was seen and examined at bedside and overnight events noted. Patient denies any shortness of breath or chest pain or palpitation. No history of nausea or vomiting or diarrhea or f ever or chills or cramps. OBJECTIVE: GENERAL: This is a well-built male in no apparent distress. VITAL SIGNS: Temperature 98.1, pulse 91, respirations 18, blood pressure 94/51. HEENT: Atraumatic, normocephalic, Oral mucosa is moist NECK: Supple CARDIOVASCULAR: S1, S2 heard. Rate and rhythm regular RESPIRATORY: Clear to auscultation GASTROINTESTINAL: Abdomen is soft MUSCULOSKELETAL: No tenderness, No edema DERMATOLOGIC: No skin rash NEUROLOGIC: Alert and awake and oriented X3, No focal neurologic deficits. Moving all the extremitie s. PSYCHIATRIC: Mood and affect normal LABORATORY DATA: Potassium is 3.7, BUN is 63, creatinine is 5.09. ASSESSMENT: 1. End-stage renal disease, started on hemodialysis. The patient unfortunately is not funded for [facility] outpatient dialysis. The patient might need p.r.n. dialysis at the hospital for emergent situat ions. The patient and family are aware and advised to follow up with the assistant case manager to help with e insurance situation. 2. Edema. 3. Proteinuria. 4. Focal segmental glomerulosclerosis. 5. Hypertension. 6. Anemia 7. Noncompliance. PLAN: Okay to discharge home. Follow up at the hospital as needed for dialysis. Long-term prognosi s is poor and family was educated.
--- NOTE | 2017-07-18 18:25 | PDOC.PN ---
- Subjective Encounter Start Date: 07/18/17 Encounter Start Time: 18:23 Pt seen for followup re: LACEY. Had hypotension following dialysis but has no complaints. - Objective MAR Reviewed: Yes Vital Signs & Weight: Vital Signs (12 hours) Temp Pulse Resp BP BP Pulse Ox 07/18/17 12:06 92 16 98 07/18/17 12:00 98.1 F 91 16 94/51 L 94 L 07/18/17 08:43 95 104/58 L 07/18/17 08:42 129/84 07/18/17 07:50 98.1 F 95 18 104/58 L 97 07/18/17 07:34 90 14 Weight Weight 186 lb 6.4 oz Most Recent Monitor Data Heart Rate from ECG 106 NIBP 141/89 NIBP BP-Mean 113 Respiration from ECG 23 SpO2 94 I&O: 07/17/17 07/18/17 07/19/17 06:59 06:59 06:59 Intake Total 1200 240 Output Total 1500 400 Balance -300 -160 Result Diagrams: 07/18/17 04:19 07/18/17 04:19 EKG Reviewed by me: Yes (Tele: NSR) Phys Exam - Physical Examination Constitutional: NAD HEENT: moist MMs Neck: supple Respiratory: clear to auscultation bilateral Cardiovascular: RRR Gastrointestinal: soft Musculoskeletal: pulses present Neurological: moves all 4 limbs Psychiatric: normal affect Dx/Plan (1) LACEY (acute kidney injury) Code(s): N17.9 - ACUTE KIDNEY FAILURE, UNSPECIFIED Status: Acute (2) Bacteremia Code(s): R78.81 - BACTEREMIA Status: Acute (3) Cardiomyopathy Code(s): I42.9 - CARDIOMYOPATHY, UNSPECIFIED Status: Acute (4) Acute respiratory failure Code(s): J96.00 - ACUTE RESPIRATORY FAILURE, UNSP W HYPOXIA OR HYPERCAPNIA Status: Resolved (5) Hyperkalemia Code(s): E87.5 - HYPERKALEMIA Status: Resolved - Plan continue antibiotics * . Hold discharge. Hydrate with IV NS 100 ml/hr x 5 hrs. Discussed with nephrology service. Hold discharge. Review of Systems - Review of Systems Cardiovascular: negative: chest pain, palpitations, orthopnea, paroxysmal nocturnal dyspnea, edema, light headedness Gastrointestinal: negative: Nausea, Vomiting, Abdominal Pain, Diarrhea, Constipation, Melena, Hematochezia - Medications/Allergies Allergies/Adverse Reactions: Allergies Allergy/AdvReac Type Severity Reaction Status Date / Time No Known Allergies Allergy Verified 01/23/14 00:36 Medications: Current Medications Acetaminophen (Tylenol) 1,000 mg PO Q6H PRN PRN Reason: Moderate to Severe Pain (6-10) Acetaminophen/Codeine Phosphate (Tylenol #3) 1 tab PO Q4H PRN PRN Reason: Mild Pain (1-3) Acetaminophen/Codeine Phosphate (Tylenol #3) 2 tab PO Q4H PRN PRN Reason: Moderate Pain (4-6) Albuterol/Ipratropium (Duoneb) 3 ml NEB [id number] Last Admin: 07/18/17 12:06 Dose: 3 ml Bisacodyl (Dulcolax) 10 mg [place] Q24H PRN PRN Reason: Constipation Carvedilol (Coreg) 12.5 mg PO BID-[facility] Last Admin: 07/18/17 08:42 Dose: 12.5 mg Dextrose/Water (Dextrose 50%) 25 gm IVP PRN PRN PRN Reason: HYPOGLYCEMIA PROTOCOL Famotidine (Pepcid) 20 mg PO 2100 [facility] Last Admin: 07/17/17 21:27 Dose: 20 mg Folic Acid (Folvite) 1 mg PO DAILY [facility] Last Admin: 07/18/17 08:43 Dose: 1 mg Furosemide (Lasix) 40 mg PO 0900 [facility] Last Admin: 07/18/17 08:43 Dose: 40 mg Glucagon (Glucagon) 1 mg IM PRN PRN PRN Reason: HYPOGLYCEMIA PROTOCOL Dextrose/Water (D5w) 1,000 mls @ 0 mls/hr IV INF PRN; As Directed PRN Reason: HYPOGLYCEMIA PROTOCOL Sodium Chloride (Normal Saline 0.9%) 200 mls @ 0 mls/hr IV ONE PRN; As Directed PRN Reason: Bolus PRN SBP < 90 mm Hg Stop: 07/20/17 10:01 Levofloxacin (Levaquin) 250 mg PO 0600 [facility] Last Admin: 07/18/17 05:44 Dose: 250 mg Lisinopril (Zestril) 5 mg PO BID [facility] Last Admin: 07/18/17 08:43 Dose: 5 mg Ondansetron HCl (Zofran) 4 mg IVP Q6H PRN PRN Reason: Nausea/Vomiting Polyethylene Glycol (Miralax) 17 gm PO DAILY [facility] Last Admin: 07/18/17 08:41 Dose: 17 gm Prednisone (Prednisone) 20 mg PO QAM-[facility] Last Admin: 07/18/17 08:43 Dose: 20 mg Sodium Chloride (Flush - Normal Saline) 10 ml IVF PRN PRN PRN Reason: Saline Flush Last Admin: 07/16/17 16:53 Dose: 10 ml Sodium Chloride (Flush - Normal Saline) 10 ml IVF BID [facility] Last Admin: 07/17/17 21:27 Dose: 10 ml Thiamine HCl (Thiamine) 100 mg PO DAILY [facility] Last Admin: 07/18/17 08:42 Dose: 100 mg Tramadol HCl (Ultram) 50 mg PO Q12H PRN PRN Reason: Pain 1ST LINE Tramadol HCl (Ultram) 100 mg PO Q12H PRN PRN Reason: Pain 2ND LINE Last Admin: 07/16/17 14:12 Dose: 100 mg
--- NOTE | 2017-07-18 18:26 | PRG ---
DATE OF SERVICE: 07/18/2017 SUBJECTIVE: Issa Aguirre is doing well, status post on 07/14/2017 right arm primary fistula. He has a good thrill and bruit. Cephalic vein at the wrist was too small and this wound was closed. H is upper arm cephalic vein that should mature with time and was calibrated to a 4 mm coronary artery dilator. The patient should exercise his arm and avoid blood pressure IVs in his right arm. He shou ld follow up in my office in 3 to 4 weeks. Continue to use hemodialysis catheter as necessary. At t his point, I will see him as needed. Please call if further surgical services are needed.
[2017-07-18] MEDS ORDERED: Sodium Chloride 0.9% 1,000 ML IV SCH (18:30)
[2017-07-18] MEDS: Acetaminophen 500 MG TAB PO PRN (21:26)
[2017-07-18] MEDS: Famotidine 20 MG TAB PO SCH (21:26)
--- NOTE | 2017-07-19 00:53 | DIS ---
DATE OF ADMISSION: 07/11/2017 DATE OF DISCHARGE: 07/18/2017 PRIMARY CARE PROVIDER: [facility]. DISCHARGE DIAGNOSES: 1. Acute renal failure. 2. Acute respiratory failure. 3. Cardiomyopathy. 4. Bacteremia with Streptococcus pneumoniae, sensitive to levofloxacin and linezolid, resistant to c efotaxime, ceftriaxone, erythromycin, tetracycline and trimethoprim/sulfamethoxazole. INVESTIGATIONS DURING THIS HOSPITALIZATION: 1. Transthoracic echocardiography on 07/12/2017, which showed left ventricular ejection fraction of 25%-30%, mildly dilated left atrium, mild mitral regurgitation, severe tricuspid regurgitation, and m ild pulmonic regurgitation. 2. Chest x-ray on 07/11/2017, which showed abnormal opacification of the superior one-half of the ri ght hemithorax. PROCEDURES DURING THIS HOSPITALIZATION: 1. Right IJ hemodialysis catheter placed on 07/12/2017. 2. Right arm primary AV fistula, perforating branch antecubital vein, proximal to brachial artery, o utflow cephalic vein, exploration of the cephalic vein at the wrist, perforating branch extension fro m the antecubital cephalic vein used for anastomosis. 3. Cardiac catheterization on 07/17/2017, which showed normal coronaries with severely impaired vent ricular function. 4. Hemodialysis initiated during this hospitalization. 5. The patient was recommended LifeVest, but he refused due to financial considerations. 6. Intubation and mechanical ventilation, subsequent extubation. CONDITION OF PATIENT AT THE TIME OF DISCHARGE: Stable. I assessed Mr. Aguirre on the day of discharge. He denies any chest pain or shortness of breath. PHYSICAL EXAMINATION: VITAL SIGNS: Stable. S1 and S2 are heard, regular. LUNGS: Clear to auscultation bilaterally. DISCHARGE MEDICATIONS: Aspirin 81 mg daily, Coreg 12.5 mg 2 times a day, Lasix 40 mg 2 times a day, levothyroxine 25 mg every other day for 4 doses, lisinopril 5 mg 2 times a day, Medrol Dosepak, and t hiamine 100 mg daily. CONSULTATIONS DURING THIS HOSPITALIZATION: Pulmonary and Critical Care Medicine, Dr. Jarvis; Nephrolog y, Dr. Wells; Cardiology, Dr. Newberry; and General Surgery, Dr. Cid. HOSPITAL COURSE: Mr. Aguirre is a pleasant 41-year-old gentleman who was admitted to [facility] on 07/12/2017 for acute respiratory failure most likely secondary to pneumonia. He was also found to be in acute renal failure. He was intubated and mechanically ventilated and adm itted to the critical care unit. 2D echocardiogram showed systolic dysfunction. He was seen by Card iology Service. He was also seen by Nephrology and general surgical services because of renal failur e. He underwent procedures as described above. He was started on hemodialysis. He was extubated on 07/12/2017. Subsequently, he was transferred to the telemetry floor. He underwent cardiac catheterization with the result as described above. Cardiology Service recommen ded LifeVest. He made an informed decision to refuse LifeVest after discussing the risks versus bene fits. Blood cultures as well as respiratory cultures grew Streptococcus pneumoniae with the sensitivity pat tern as described above. He is being discharged home on levofloxacin. He is advised to follow up [facility] primary care provider's office in a week's time. On the day of discharge, he has sodium 138, potassium 3.7, blood urea nitrogen 63, creatinine 5.09 pr ior to hemodialysis, white count 10,800, hemoglobin 11.3, and platelet count 248,000. During this ho spitalization, he had triglycerides 145, cholesterol 93, LDL cholesterol 39, HDL cholesterol 25, TSH normal at 4.493. Many thanks for allowing me to participate in your patient's care. Please feel free to contact me if any questions or concerns. DISCHARGE DESTINATION: Home. TOTAL AMOUNT OF TIME SPENT COORDINATING THIS DISCHARGE: 38 minutes.
[2017-07-19 05:36] LABS: #Basophils 0.1 thou/uL (0.0-0.2); #Eosinphils 0.2 thou/uL (0.0-0.7); #Lymphocytes 3.1 thou/uL (1.20-3.40); #Monocytes 0.9 thou/uL (0.11-0.59); #Neutrophils 10.1 thou/uL (1.40-6.50); %Basophils 0.4 % (0.0-1.0); %Eosinophils 1.2 % (0.0-10.0); %Lymphocytes 21.4 % (21.0-51.0); %Monocytes 6.4 % (0.0-10.0); %Neutrophils 70.6 % (42.0-75.0); Hemoglobin 11.4 g/dL (14.0-18.0); Mean Corpuscular HGB CONC 32.9 g/dL (32.0-36.0); Mean Corpuscular Volume 94.3 fl (80.0-94.0); Mean Platelet Volume 8.6 fL (7.4-10.4); Platelet Count 243 thou/uL (130-400); RBC Distribution Width 12.6 % (11.5-14.5); Red Blood Cell (RBC) Count 3.67 mill/uL (4.70-6.10); White Blood Cell (WBC) Count 14.3 thou/uL (4.8-10.8)
[2017-07-19 05:46] LABS: Anion Gap 19 mmol/L (10-20); BUN (Urea Nitrogen) 47 mg/dL (8.9-20.6); Calc. Creatinine Clearance 21 mL/min (70-130); Carbon Dioxide 26 mmol/L (22-29); Chloride 98 mmol/L (98-107); Estimated GFR-MDRD 12; Glucose 100 mg/dL (70-105); Potassium 3.9 mmol/L (3.5-5.1); Sodium 139 mmol/L (136-145)
[2017-07-19] MEDS: predniSONE 20 MG TAB PO SCH (07:47)
--- NOTE | 2017-07-19 08:53 | RAD ---
FRONTAL VIEW ABDOMEN KUB SERIES: Indication: Abdominal cramping, pain. FINDINGS: Bowel gas pattern is not obstructed. The upper abdomen was not imaged, nor are the lung bases for com ment. Osseous structures are ========= in appearance. IMPRESSION: Nonobstructive bowel gas pattern. POS: [facility]
[2017-07-19] MEDS: Carvedilol 6.25 MG TAB PO SCH ×2 (09:49→17:12)
[2017-07-19] MEDS: Folic Acid 1 MG TAB PO SCH (09:50)
[2017-07-19] MEDS: Lisinopril 5 MG TAB PO SCH (10:02)
[2017-07-19] MEDS: Furosemide 40 MG TAB PO SCH (10:02)
[2017-07-19] MEDS: Polyethylene Glycol 3350 17 GM Packet PO SCH (10:03)
[2017-07-19 10:35] LABS: Bilirubin Negative (Negative); Blood, Urine Negative (Negative); Clarity CLOUDY (Clear); Glucose, Urine (Dipstick) Negative (Negative); Leukocyte Small (Negative); Nitrite Negative (Negative); Protein, Urine (Dipstick) 100 mg/dL (Neg-Trace); Specific Gravity, Urine 1.024 (1.002-1.036); Urobilinogen 0.2 mg/dL (0.2-1.0); pH, Urine 5.5 (5.0-9.0)
--- NOTE | 2017-07-19 10:36 | RAD ---
CHEST TWO VIEW: History: Evaluate for pulmonary infiltrates. Comparison: 07-14-17 FINDINGS: The right upper lobe opacity seen on the prior examination has improved. No new lung opacity is prese nt. Central venous catheter is similar. Mild thickening of the right minor fissure. IMPRESSION: Interval resolution of right upper lobe airspace opacity. Mild thickening of right minor fissure may be sequellae of fluid. POS: OFF
[2017-07-19 10:37] LABS: Bacteria/HPF None Seen HPF (None Seen); RBC/HPF 0-3 HPF (0-3)
[2017-07-19 10:38] LABS: Pathc Cast-AUWi Flag 2.57 (0-2.49); Yeast-AUWi Flag 38.6 (0-25.0)
[2017-07-19 10:54] LABS: Crystals/HPF 1+ CA OXALATE HPF (Negative); Yeast-All Forms None Seen HPF (None Seen)
[2017-07-19 10:55] LABS: Hyaline Casts/LPF 0-3 HYALINE CAST LPF (0-3 Hyaline)
--- NOTE | 2017-07-19 11:37 | PRG ---
Patient Name: CHRIS EARLY Date of service: 07/19/2017 Subjective: Patient was seen and examined at bedside and overnight events noted. Patient denies any shortness of breath or chest pain or palpitation. No history of nausea or vomiting or diarrhea or fever or chills or cramps. Objective: General: This is a well-built male in no apparent distress. Vital signs : Temperature 98.7, pulse 87, respiratory rate 16, blood pressure 98/54. HEENT: Atraumatic, normocephalic. Oral mucosa is moist Neck: Supple. Cardiovascular: S1 S2 heard. Rate and rhythm regular. Respiratory: Clear to auscultation Gastrointestinal: Abdomen is soft. Musculoskeletal: No tenderness. No edema. Dermatologic: No skin rash. Neurologic: Alert and awake and oriented X3. No focal neurologic deficits. Moving all the extremi ties. Psychiatric: Mood and affect normal. LABORATORY DATA: Potassium is 3.9, BUN 47, creatinine is 5.5. ASSESSMENT AND PLAN: 1. End-stage renal disease. Continue on dialysis. The patient is unfunded, might need dialysis p.r .n. No acute indication for dialysis. 2. Edema. 3. Chronic renal insufficiency. 4. Anemia. 5. Noncompliance. Plan is to continue on dialysis as tolerated.
[2017-07-19] MEDS ORDERED: Sodium Chloride 0.9% 500 ML IVPB SCH (16:00)
[2017-07-19] MEDS ORDERED: Heparin 10,000 UNITS/ 10 ML VIAL ONE (17:05)
--- NOTE | 2017-07-19 17:42 | PDOC.PN ---
- Subjective Encounter Start Date: 07/19/17 Encounter Start Time: 17:40 Pt seen for followup re: hypotension. Denies any cough or urinary symptoms. Has no complaints. - Objective MAR Reviewed: Yes Vital Signs & Weight: Vital Signs (12 hours) Temp Pulse Resp BP BP BP Pulse Ox 07/19/17 17:12 90/54 L 07/19/17 15:27 98.6 F 103 H 16 89/53 L 94 L 07/19/17 12:55 98.8 F 99 16 97/55 L 96 07/19/17 10:02 87 101/59 L 07/19/17 09:49 98/54 L 07/19/17 07:45 98.7 F 87 16 96 07/19/17 07:44 98.7 F 87 16 98/54 L 95 07/19/17 07:18 79 16 99 Weight Weight 185 lb 13.595 oz Most Recent Monitor Data Heart Rate from ECG 106 NIBP 141/89 NIBP BP-Mean 113 Respiration from ECG 23 SpO2 94 I&O: 07/18/17 07/19/17 07/20/17 06:59 06:59 06:59 Intake Total 240 1398 Output Total 400 100 Balance -160 1298 Result Diagrams: 07/20/17 04:25 07/20/17 04:25 EKG Reviewed by me: Yes (Tele: NSR) Phys Exam - Physical Examination Constitutional: NAD HEENT: moist MMs Neck: supple Respiratory: clear to auscultation bilateral Cardiovascular: RRR Gastrointestinal: soft, non-tender, positive bowel sounds Neurological: moves all 4 limbs Psychiatric: normal affect Dx/Plan (1) Hypotension Status: Acute (2) LACEY (acute kidney injury) Code(s): N17.9 - ACUTE KIDNEY FAILURE, UNSPECIFIED Status: Acute (3) Bacteremia Code(s): R78.81 - BACTEREMIA Status: Acute (4) Cardiomyopathy Code(s): I42.9 - CARDIOMYOPATHY, UNSPECIFIED Status: Acute (5) Acute respiratory failure Code(s): J96.00 - ACUTE RESPIRATORY FAILURE, UNSP W HYPOXIA OR HYPERCAPNIA Status: Resolved (6) Hyperkalemia Code(s): E87.5 - HYPERKALEMIA Status: Resolved - Plan continue antibiotics * . Etiology of hypotension unclear at this time. Hold antihypertensives. Cultures pending. Main concern is whether has a hospital acquired infection. Will start coverage with broad spectrum antibiotics while awaiting cultures. Check cortisol level. Dialysis per nephrology service. Review of Systems - Review of Systems Respiratory: negative: Cough, Dry, Shortness of Breath, Hemoptysis, SOB with Excertion, Pleuritic Pain, Sputum, Wheezing Cardiovascular: negative: chest pain, palpitations, orthopnea, paroxysmal nocturnal dyspnea, edema, light headedness - Medications/Allergies Allergies/Adverse Reactions: Allergies Allergy/AdvReac Type Severity Reaction Status Date / Time No Known Allergies Allergy Verified 01/23/14 00:36 Medications: Current Medications Acetaminophen (Tylenol) 1,000 mg PO Q6H PRN PRN Reason: Moderate to Severe Pain (6-10) Last Admin: 07/18/17 21:26 Dose: 1,000 mg Acetaminophen/Codeine Phosphate (Tylenol #3) 1 tab PO Q4H PRN PRN Reason: Mild Pain (1-3) Acetaminophen/Codeine Phosphate (Tylenol #3) 2 tab PO Q4H PRN PRN Reason: Moderate Pain (4-6) Albuterol/Ipratropium (Duoneb) 3 ml NEB Q6H PRN PRN Reason: Dyspnea/Wheezing/SOB Bisacodyl (Dulcolax) 10 mg SC Q24H PRN PRN Reason: Constipation Carvedilol (Coreg) 12.5 mg PO BID-[facility] Last Admin: 07/19/17 17:12 Dose: Not Given Dextrose/Water (Dextrose 50%) 25 gm IVP PRN PRN PRN Reason: HYPOGLYCEMIA PROTOCOL Famotidine (Pepcid) 20 mg PO 2100 [facility] Last Admin: 07/18/17 21:26 Dose: 20 mg Folic Acid (Folvite) 1 mg PO DAILY [facility] Last Admin: 07/19/17 09:50 Dose: 1 mg Furosemide (Lasix) 40 mg PO 0900 [facility] Last Admin: 07/19/17 10:02 Dose: Not Given Glucagon (Glucagon) 1 mg IM PRN PRN PRN Reason: HYPOGLYCEMIA PROTOCOL Dextrose/Water (D5w) 1,000 mls @ 0 mls/hr IV INF PRN; As Directed PRN Reason: HYPOGLYCEMIA PROTOCOL Sodium Chloride (Normal Saline 0.9%) 200 mls @ 0 mls/hr IV ONE PRN; As Directed PRN Reason: Bolus PRN SBP < 90 mm Hg Stop: 07/20/17 10:01 Sodium Chloride (Normal Saline 0.9%) 500 mls @ 100 mls/hr IVPB NOW [facility] Stop: 07/19/17 20:59 Last Admin: 07/19/17 15:45 Dose: 500 mls Levofloxacin (Levaquin) 250 mg PO 0600 [facility] Last Admin: 07/19/17 06:08 Dose: 250 mg Lisinopril (Zestril) 5 mg PO BID [facility] Last Admin: 07/19/17 10:02 Dose: Not Given Ondansetron HCl (Zofran) 4 mg IVP Q6H PRN PRN Reason: Nausea/Vomiting Polyethylene Glycol (Miralax) 17 gm PO DAILY [facility] Last Admin: 07/19/17 10:03 Dose: 17 gm Prednisone (Prednisone) 20 mg PO QAM-WM [facility] Last Admin: 07/19/17 07:47 Dose: 20 mg Sodium Chloride (Flush - Normal Saline) 10 ml IVF PRN PRN PRN Reason: Saline Flush Last Admin: 07/16/17 16:53 Dose: 10 ml Sodium Chloride (Flush - Normal Saline) 10 ml IVF BID [facility] Last Admin: 07/19/17 10:03 Dose: Not Given Thiamine HCl (Thiamine) 100 mg PO DAILY [facility] Last Admin: 07/19/17 09:50 Dose: 100 mg Tramadol HCl (Ultram) 50 mg PO Q12H PRN PRN Reason: Pain 1ST LINE Tramadol HCl (Ultram) 100 mg PO Q12H PRN PRN Reason: Pain 2ND LINE Last Admin: 07/16/17 14:12 Dose: 100 mg
[2017-07-19] MEDS ORDERED: VANCOMYCIN/RENALLY ADJUST ABX IVPB PRN (17:46)
[2017-07-19] MEDS ORDERED: Vancomycin HCl 1 GM in Premix Bag 1 BAG IVPB SCH ×2 (18:15→21:00)
[2017-07-19] MEDS ORDERED: Vancomycin HCl 750 MG in Sodium Chloride 0.9% 250 ML 250 ML IVPB SCH (18:15)
[2017-07-19] MEDS ORDERED: Vancomycin HCl 1.25 GM in Sodium Chloride 0.9% 250 ML 250 ML IVPB SCH ×4 (18:15)
[2017-07-19] MEDS ORDERED: HOLD VANCOMYCIN FOR LEVEL >20 FS SCH (18:15)
[2017-07-19] MEDS ORDERED: Vancomycin HCl 500 MG in Sodium Chloride 0.9% 100 ML IVPB SCH (18:15)
[2017-07-19] MEDS ORDERED: Meropenem 1 GM in Sodium Chloride 0.9% 100 ML IVPB SCH (22:00)
[2017-07-19] MEDS: Famotidine 20 MG TAB PO SCH (22:01)
[2017-07-19] MEDS: Meropenem 500 MG, Admixture Fee 1 EACH in Sterile Water 10 ML SLOW IVP SCH (22:02)
[2017-07-20 05:36] LABS: #Eosinphils 0.2 thou/uL (0.0-0.7); #Lymphocytes 2.4 thou/uL (1.20-3.40); #Monocytes 0.6 thou/uL (0.11-0.59); #Neutrophils 10.3 thou/uL (1.40-6.50); %Basophils 0.2 % (0.0-1.0); %Eosinophils 1.5 % (0.0-10.0); %Lymphocytes 17.8 % (21.0-51.0); %Monocytes 4.2 % (0.0-10.0); %Neutrophils 76.2 % (42.0-75.0); Hemoglobin 9.8 g/dL (14.0-18.0); Mean Corpuscular HGB CONC 32.4 g/dL (32.0-36.0); Mean Corpuscular Hemoglobin 30.5 pg (27.0-31.0); Mean Corpuscular Volume 94.3 fl (80.0-94.0); Mean Platelet Volume 8.8 fL (7.4-10.4); Platelet Count 212 thou/uL (130-400); RBC Distribution Width 12.6 % (11.5-14.5); Red Blood Cell (RBC) Count 3.23 mill/uL (4.70-6.10); White Blood Cell (WBC) Count 13.6 thou/uL (4.8-10.8)
[2017-07-20 05:50] LABS: Anion Gap 20 mmol/L (10-20); BUN (Urea Nitrogen) 74 mg/dL (8.9-20.6); Calc. Creatinine Clearance 16 mL/min (70-130); Calcium 8.2 mg/dL (7.8-10.44); Carbon Dioxide 19 mmol/L (22-29); Chloride 105 mmol/L (98-107); Estimated GFR-MDRD 8; Glucose 95 mg/dL (70-105); Potassium 3.7 mmol/L (3.5-5.1); Sodium 140 mmol/L (136-145)
[2017-07-20 07:17] VITALS: BMI 26.7
--- NOTE | 2017-07-20 10:43 | PDOC.PN ---
- Subjective Encounter Start Date: 07/20/17 Encounter Start Time: 07:00 Pt seen for followup re: hypotension. Blood pressure is better now. Pt has no complaints. - Objective MAR Reviewed: Yes Vital Signs & Weight: Vital Signs (12 hours) Temp Pulse Resp BP BP Pulse Ox 07/20/17 07:53 98.5 F 68 18 98 07/20/17 07:50 98.5 F 68 18 116/72 98 07/20/17 03:32 98.8 F 89 18 112/65 96 07/20/17 00:01 98.2 F 88 14 99/57 L 96 Weight Admit Weight 199 lb Weight 180 lb 15.992 oz Most Recent Monitor Data Heart Rate from ECG 106 NIBP 141/89 NIBP BP-Mean 113 Respiration from ECG 23 SpO2 94 I&O: 07/19/17 07/20/17 07/21/17 06:59 06:59 06:59 Intake Total 1398 240 Output Total 100 Balance 1298 240 Result Diagrams: 07/20/17 04:25 07/20/17 04:25 Phys Exam - Physical Examination Constitutional: NAD HEENT: moist MMs Neck: supple Respiratory: clear to auscultation bilateral Cardiovascular: RRR Gastrointestinal: soft Neurological: moves all 4 limbs Psychiatric: normal affect Skin: no rash Dx/Plan (1) Hypotension Status: Acute (2) LACEY (acute kidney injury) Code(s): N17.9 - ACUTE KIDNEY FAILURE, UNSPECIFIED Status: Acute (3) Bacteremia Code(s): R78.81 - BACTEREMIA Status: Acute (4) Cardiomyopathy Code(s): I42.9 - CARDIOMYOPATHY, UNSPECIFIED Status: Acute (5) Acute respiratory failure Code(s): J96.00 - ACUTE RESPIRATORY FAILURE, UNSP W HYPOXIA OR HYPERCAPNIA Status: Resolved (6) Hyperkalemia Code(s): E87.5 - HYPERKALEMIA Status: Resolved - Plan out of bed/ambulate * . Discontinue meropenem and vancomycin. Decrease dose of ACEI, monitor vital signs. BP has improved. Review of Systems - Review of Systems Constitutional: negative: fever, chills, sweats, weakness, malaise Respiratory: negative: Cough, Dry, Shortness of Breath, Hemoptysis, SOB with Excertion, Pleuritic Pain, Sputum, Wheezing Cardiovascular: negative: chest pain, palpitations, orthopnea, paroxysmal nocturnal dyspnea, edema, light headedness - Medications/Allergies Allergies/Adverse Reactions: Allergies Allergy/AdvReac Type Severity Reaction Status Date / Time No Known Allergies Allergy Verified 01/23/14 00:36 Medications: Current Medications Acetaminophen (Tylenol) 1,000 mg PO Q6H PRN PRN Reason: Moderate to Severe Pain (6-10) Last Admin: 07/18/17 21:26 Dose: 1,000 mg Acetaminophen/Codeine Phosphate (Tylenol #3) 1 tab PO Q4H PRN PRN Reason: Mild Pain (1-3) Acetaminophen/Codeine Phosphate (Tylenol #3) 2 tab PO Q4H PRN PRN Reason: Moderate Pain (4-6) Albuterol/Ipratropium (Duoneb) 3 ml NEB Q6H PRN PRN Reason: Dyspnea/Wheezing/SOB Bisacodyl (Dulcolax) 10 mg ND Q24H PRN PRN Reason: Constipation Carvedilol (Coreg) 12.5 mg PO BID-[facility] Last Admin: 07/19/17 17:12 Dose: Not Given Dextrose/Water (Dextrose 50%) 25 gm IVP PRN PRN PRN Reason: HYPOGLYCEMIA PROTOCOL Famotidine (Pepcid) 20 mg PO 2100 [facility] Last Admin: 07/19/17 22:01 Dose: 20 mg Folic Acid (Folvite) 1 mg PO DAILY [facility] Last Admin: 07/19/17 09:50 Dose: 1 mg Glucagon (Glucagon) 1 mg IM PRN PRN PRN Reason: HYPOGLYCEMIA PROTOCOL Dextrose/Water (D5w) 1,000 mls @ 0 mls/hr IV INF PRN; As Directed PRN Reason: HYPOGLYCEMIA PROTOCOL Levofloxacin (Levaquin) 250 mg PO 0600 [facility] Last Admin: 07/20/17 05:01 Dose: 250 mg Lisinopril (Zestril) 2.5 mg PO DAILY [facility] Miscellaneous Medication (Pharmacy To Dose) 1 each IVPB PRN PRN PRN Reason: Pharmacy to dose Hold Vancomycin For (Level >20) 0 each FS .AT DIALYSIS [facility] Ondansetron HCl (Zofran) 4 mg IVP Q6H PRN PRN Reason: Nausea/Vomiting Polyethylene Glycol (Miralax) 17 gm PO DAILY [facility] Last Admin: 07/19/17 10:03 Dose: 17 gm Prednisone (Prednisone) 20 mg PO QAM-WM [facility] Last Admin: 07/19/17 07:47 Dose: 20 mg Sodium Chloride (Flush - Normal Saline) 10 ml IVF PRN PRN PRN Reason: Saline Flush Last Admin: 07/16/17 16:53 Dose: 10 ml Sodium Chloride (Flush - Normal Saline) 10 ml IVF BID [facility] Last Admin: 07/19/17 22:03 Dose: 10 ml Thiamine HCl (Thiamine) 100 mg PO DAILY [facility] Last Admin: 07/19/17 09:50 Dose: 100 mg Tramadol HCl (Ultram) 50 mg PO Q12H PRN PRN Reason: Pain 1ST LINE Tramadol HCl (Ultram) 100 mg PO Q12H PRN PRN Reason: Pain 2ND LINE Last Admin: 07/16/17 14:12 Dose: 100 mg
[2017-07-20] MEDS ORDERED: Albumin 25% 25 GM/100 ML BOT IVPB PRN (12:30)
[2017-07-20] MEDS ORDERED: Albumin 25% 25 GM/100 ML BOT IVPB SCH (12:30)
--- NOTE | 2017-07-20 15:23 | PRG ---
DATE OF SERVICE: 07/20/2017 SUBJECTIVE: Patient was seen and examined at bedside and overnight events noted. Patient denies any shortness of breath or chest pain or palpitation. No history of nausea or vomiting or diarrhea or f ever or chills or cramps. OBJECTIVE: GENERAL: This is a well-built male in no apparent distress. VITAL SIGNS: Temperature 98.5, pulse 68, respiratory rate 18, blood pressure 116/72. HEENT: Atraumatic, normocephalic. Oral mucosa is moist. NECK: Supple. CARDIOVASCULAR: S1, S2 heard. Rate and rhythm regular. RESPIRATORY: Clear to auscultation. GASTROINTESTINAL: Abdomen is soft. MUSCULOSKELETAL: No tenderness. No edema. DERMATOLOGIC: No skin rash. NEUROLOGIC: Alert and awake and oriented x3. No focal neurologic deficits. Moving all the extremiti es. PSYCHIATRIC: Mood and affect normal. LABORATORY DATA: Potassium 3.7, BUN 70, creatinine 7.5. ASSESSMENT AND PLAN: 1. End-stage renal disease. We will continue on dialysis as tolerated. Plan is to have dialysis to day. 2. Edema, much better. 3. Anemia. 4. Hypertension. 5. Noncompliance. 6. Focal segmental glomerular sclerosis. Plan is to continue on dialysis as tolerated.
[2017-07-20] MEDS: Carvedilol 6.25 MG TAB PO SCH ×2 (17:02→17:25)
[2017-07-20] MEDS: predniSONE 20 MG TAB PO SCH (17:23)
[2017-07-20] MEDS: Folic Acid 1 MG TAB PO SCH (17:24)
[2017-07-20] MEDS: Polyethylene Glycol 3350 17 GM Packet PO SCH (17:24)
[2017-07-20] MEDS: Lisinopril 2.5 MG TAB PO SCH (17:28)
[2017-07-20] MEDS: Meropenem 500 MG, Admixture Fee 1 EACH in Sterile Water 10 ML SLOW IVP SCH (17:33)
[2017-07-20] MEDS: Acetaminophen 500 MG TAB PO PRN (20:49)
[2017-07-20] MEDS: Famotidine 20 MG TAB PO SCH (20:49)
[2017-07-21 05:26] LABS: #Eosinphils 0.1 thou/uL (0.0-0.7); #Lymphocytes 1.3 thou/uL (1.20-3.40); #Monocytes 0.4 thou/uL (0.11-0.59); %Basophils 0.1 % (0.0-1.0); %Eosinophils 0.3 % (0.0-10.0); %Lymphocytes 7.8 % (21.0-51.0); %Monocytes 2.4 % (0.0-10.0); %Neutrophils 89.5 % (42.0-75.0); Mean Corpuscular HGB CONC 31.8 g/dL (32.0-36.0); Mean Corpuscular Hemoglobin 30.2 pg (27.0-31.0); Mean Corpuscular Volume 95.1 fl (80.0-94.0); Mean Platelet Volume 8.5 fL (7.4-10.4); Platelet Count 243 thou/uL (130-400); RBC Distribution Width 12.6 % (11.5-14.5); Red Blood Cell (RBC) Count 3.64 mill/uL (4.70-6.10); White Blood Cell (WBC) Count 16.8 thou/uL (4.8-10.8)
[2017-07-21 05:35] LABS: Anion Gap 18 mmol/L (10-20); BUN (Urea Nitrogen) 51 mg/dL (8.9-20.6); Calc. Creatinine Clearance 19 mL/min (70-130); Calcium 8.8 mg/dL (7.8-10.44); Carbon Dioxide 22 mmol/L (22-29); Chloride 103 mmol/L (98-107); Estimated GFR-MDRD 11; Glucose 115 mg/dL (70-105); Sodium 138 mmol/L (136-145)
--- NOTE | 2017-07-21 11:27 | PRG ---
Patient Name: CHRIS EARLY Date of service: 07/21/2017 Subjective: Patient was seen and examined at bedside and overnight events noted. Patient denies any shortness of breath or chest pain or palpitation. No history of nausea or vomiting or diarrhea or fever or chills or cramps. Objective: General: This is a well-built male in no apparent distress. Vital signs: Temperature 97, pulse 90, respirations 16, blood pressure 117/63. HEENT: Atraumatic, normocephalic. Oral mucosa is moist. Neck: Supple. Cardiovascular: S1 S2 heard. Rate and rhythm regular. Respiratory: Clear to auscultation. Gastrointestinal: Abdomen is soft. Musculoskeletal: No tenderness. No edema. Dermatologic: No skin rash. Neurologic: Alert and awake and oriented X3. No focal neurologic deficits. Moving all the extremit ies. Psychiatric: Mood and affect normal. LABORATORY DATA: Potassium is 5.0, BUN 51, creatinine is 5.9. ASSESSMENT AND PLAN: 1. End-stage renal disease. Continue dialysis as tolerated. No dialysis today. Unfortunately, the patient does not have any funding to arrange outpatient dialysis. The patient was advised to follow up with the ER and dialysis if needed. Patient and family understand that this is not the best cour se of action and understand the risk associated with the p.r.n. dialysis and patient and family was c ounseled regarding uremic symptoms. 2. Edema. 3. Anemia. 4. Hypertension. 5. Noncompliance. Okay to stop prednisone, okay to discharge home if stable and stable from Nephrology standpoint. Fol low up p.r.n. at the ER.
[2017-07-21] MEDS: predniSONE 20 MG TAB PO SCH (11:39)
[2017-07-21] MEDS: Folic Acid 1 MG TAB PO SCH (11:39)
[2017-07-21] MEDS: Polyethylene Glycol 3350 17 GM Packet PO SCH (11:39)
[2017-07-21] MEDS: Lisinopril 2.5 MG TAB PO SCH (11:41)
[2017-07-21 11:45] VITALS: TEMP 98.5
[2017-07-21] MEDS: Carvedilol 6.25 MG TAB PO SCH (11:56)
--- NOTE | 2017-07-21 15:54 | DIS ---
PRIMARY CARE PROVIDER: [facility]. DATE OF ADMISSION: 07/11/2017 DATE OF DISCHARGE: 07/21/2017 DISCHARGE DIAGNOSES: 1. Acute renal failure. 2. Acute respiratory failure. 3. Cardiomyopathy. 4. Bacteremia with Streptococcus pneumoniae. 5. Hypotension. Please note that I dictated a discharge summary on this patient on 07/18/2017. The patient was not d ischarged that day because his blood pressure was low, most likely secondary to antihypertensives. Ruperto kang was briefly treated with antibiotics, which were subsequently stopped, except for levofloxacin. He continued to improve and was asymptomatic. He is being discharged home in a stable condition. CONDITION OF PATIENT ON THE DAY OF DISCHARGE: Stable. I saw Mr. Aguirre on 07/21/2017. He denies any complaints. Vital signs are stable. S1 and S2 are heard, regular. Lungs are clear to auscultat ion bilaterally. INVESTIGATIONS DURING THIS HOSPITALIZATION: As dictated on the discharge summary of 07/18/2017. PROCEDURES DURING THIS HOSPITALIZATION: As dictated on the discharge summary of 07/18/2017. DISCHARGE MEDICATIONS: Lasix 40 mg 2 times a day, aspirin 81 mg daily, Coreg 6.25 mg 2 times a day, levofloxacin 250 mg every other day for 4 doses, lisinopril 2.5 mg daily, and Medrol Dosepak and thia mine 100 mg daily. HOSPITAL COURSE: As dictated on the discharge summary from 07/18/2017. He was subsequently started on meropenem and vancomycin for hypotension. At the time of this dictation, all preliminary cultures are negative. Antibiotics have been stopped. He is advised to follow up with his primary care prov ider's office to have final culture reports. He is also advised to check his blood pressure and hear t rate 3 times a day and show the readings to his primary care provider. On the day of discharge, he has a white count of 16,800, most likely from steroid use, hemoglobin 11, platelet count 243,000, normal electrolytes, elevated blood urea nitrogen of 51 and elevated creatin ine of 5.91. His last hemodialysis was on 07/20/2017. Many thanks for allowing me to participate in your patient's care. Please feel free to contact me wi th any questions or concerns. DISCHARGE DESTINATION: Home. TOTAL AMOUNT OF TIME SPENT COORDINATING THIS DISCHARGE: 33 minutes.
[2017-07-21 16:38] VITALS: BP 124/75
[2017-07-21] MEDS ORDERED: Carvedilol 6.25 MG TAB PO SCH (17:00)
--- NOTE | 2017-07-27 17:19 | PQF ---
CHRIS EARLY DAVID [id number] CLINICAL DOCUMENTATION CLARIFICATION FORM: POST DISCHARGE Addendum to original discharge summary date: 08/01/2017 Late entry note date: __ CHRIS EARLY [id number] MACKENZIE RODGERS PLEASE DOCUMENT YOUR RESPONSE BELOW PLEASE FAX RESPONSE BACK TO YOUR INPUT IS NEEDED TO CORRECTLY CODE A DIAGNOSIS FOR YOUR PATIENT. DATE: 07/27/2017 ATTN: DR. RODGERS Please exercise your independent, professional judgment in responding to the clarification form. Clinical indicators are provided on the bottom of this form for your review Please check appropriate box(s) to clarify if the following diagnosis has been ruled in our ruled out: STREP PNEUMO SEPSIS_/ SEPTIC SHOCK (CDI/Coding list diagnosis here) [ X ] Ruled in diagnosis [ ] Continue to treat [ X ] Resolved [ ] Ruled out diagnosis [ ] Cannot rule out diagnosis [ ] Other diagnosis [ ] Unable to determine In addition, please specify: Present on Admission (POA): [ X ] Yes [ ] No [ ] Unable to determine For continuity of documentation, please document condition throughout progress notes and discharge summary. Thank You. CLINICAL INDICATORS - SIGNS / SYMPTOMS / LABS: ER: VITALS: BP: 14/75, PULSE: 132, RESP: 40, TEMP: 98.4, O2 SAT: 92 ON ROOM AIR ELEVATED BNP 3261 H&P: ACUTE RESPIRATORY FAILURE, PNEUMONIA 07/12 PN: BACTEREMIA, CONTINUE ANTIBIOTICS FOR STREPTOCOCCAL BACTEREMIA 07/12 PN: STREP PNEUMONIA SEPSIS 2/1 PN: STREP PNEUMO SEPSIS 2/2 PN: BACTEREMIA 2/3 PN: SEPTIC SHOCK BACTEREMIA SECONDARY TO STREPTOCOCCUS PNEUMONIAE DS: BACTEREMIA WITH STREPTOCOCCUS PNEUMONIAE RISK FACTORS: ACUTE RENAL FAILURE ACUTE RESPIRATORY FAILURE BACTEREMIA TREATMENTS: ANTIBIOTICS (This form is maintained as a part of the permanent medical record) 2014 [employer]. All Rights Reserved Becky Strange CCS, [email or web address] [phone] MTDD
--- NOTE | 2017-08-01 20:18 | ADD-DIS ---
ADDENDUM Please note that Mr. Aguirre's discharge diagnoses also include Strep pneumo sepsis/septic shock whi ch was present on admission and was treated and resolved during the hospitalization.
== END 2017-07-21 16:41 | disposition home or self-care (01) | DRG 853 ==
LOC: ERS 08:00 → ERHOLD 09:31 → CCU 13:13 → 2NO 07-13 14:01
PROVIDERS: ADMIT Internal Medicine; ATTEND Internal Medicine
PROC: 5A1945Z Respiratory Ventilation, 24-96 Consecutive Hours (ICD-10-PCS; 2017-07-11)
PROC: 0B9L8ZZ Drainage of Left Lung, Via Natural or Artificial Opening Endoscopic (ICD-10-PCS; 2017-07-11)
PROC: 0B918ZZ Drainage of Trachea, Via Natural or Artificial Opening Endoscopic (ICD-10-PCS; 2017-07-11)
PROC: 0BH17EZ Insertion of Endotracheal Airway into Trachea, Via Natural or Artificial Opening (ICD-10-PCS; 2017-07-11)
PROC: 02HV33Z Insertion of Infusion Device into Superior Vena Cava, Percutaneous Approach (ICD-10-PCS; 2017-07-12)
PROC: 02H633Z Insertion of Infusion Device into Right Atrium, Percutaneous Approach (ICD-10-PCS; 2017-07-12)
PROC: 03170ZF Bypass Right Brachial Artery to Lower Arm Vein, Open Approach (ICD-10-PCS; principal; 2017-07-14)
PROC: 5A1D70Z Performance of Urinary Filtration, Intermittent, Less than 6 Hours Per Day (ICD-10-PCS; 2017-07-14)
PROC: 4A023N7 Measurement of Cardiac Sampling and Pressure, Left Heart, Percutaneous Approach (ICD-10-PCS; 2017-07-17)
PROC: B2111ZZ Fluoroscopy of Multiple Coronary Arteries using Low Osmolar Contrast (ICD-10-PCS; 2017-07-17)
PROC: B2151ZZ Fluoroscopy of Left Heart using Low Osmolar Contrast (ICD-10-PCS; 2017-07-17)
DX: A40.3 Sepsis due to Streptococcus pneumoniae (principal); J96.01 Acute respiratory failure with hypoxia; R65.21 Severe sepsis with septic shock; I13.2 Hypertensive heart and chronic kidney disease with heart failure and with stage 5 chronic kidney disease, or end stage renal disease; N17.9 Acute kidney failure, unspecified; J13 Pneumonia due to Streptococcus pneumoniae; N18.6 End stage renal disease; I24.8 Other forms of acute ischemic heart disease; I50.21 Acute systolic (congestive) heart failure; E87.2 Acidosis; I42.9 Cardiomyopathy, unspecified; E87.5 Hyperkalemia; F17.210 Nicotine dependence, cigarettes, uncomplicated; Z23 Encounter for immunization; F10.10 Alcohol abuse, uncomplicated; Z91.19 Patient's noncompliance with other medical treatment and regimen; N26.9 Renal sclerosis, unspecified; D63.1 Anemia in chronic kidney disease; E78.5 Hyperlipidemia, unspecified; Z16.24 Resistance to multiple antibiotics; F19.10 Other psychoactive substance abuse, uncomplicated; Z78.1 Physical restraint status
CPT/HCPCS: 31500; 36415; 36416; 51702; 71045; 71046; 74018; 80048; 80053; 80061; 81003; 81015; 82533; 82553; 82805; 83690; 83880; 84443; 84484; 85025; 85347; 87040; 87070; 87077; 87086; 87149; 87186; 87205; 87340; 90471; 90670; 90682; 90935; 93005; 93306; 93458; 93798; 93970; 94002; 94003; 94640; 94660; 94760; 96365; 96366; 96367; 96375; 96376; 99152; A4216; C1752; C1769; G0008; G0009; G0257; G0365; G8978-GP-CK; G8979-GP-CK; G8980-GP-CK; J0696; J1100; J1642; J1644; J1720; J1940; J1956; J2001; J2185; J2250; J2405; J2704; J2720; J3010; J3370; J3411; J7050; J7070; J7506; J7620; P9047; Q2036; S0020; S0028

== ENCOUNTER 2017-07-31 09:28 | Emergency (ER) | payer SELFPAY ==
--- NOTE | 2017-07-31 10:09 | RAD ---
PORTABLE CHEST 1 VIEW: Date: 07/31/17 Time: 0947 hours HISTORY: Chronic renal failure, patient has not had dialysis since 07/20/17. Shortness of breath. FINDINGS: Comparison made with exam of 07/19/17. Right-sided dialysis catheter remains in place. The heart size is normal. The lungs are expanded with out focal areas of consolidation, pneumothorax, robbie pulmonary edema, or pleural effusions. IMPRESSION: No acute process. POS: [facility]
[2017-07-31 10:11] LABS: #Eosinphils 0.2 thou/uL (0.0-0.7); #Lymphocytes 1.8 thou/uL (1.20-3.40); #Monocytes 0.6 thou/uL (0.11-0.59); #Neutrophils 6.5 thou/uL (1.40-6.50); %Basophils 0.3 % (0.0-1.0); %Eosinophils 2.3 % (0.0-10.0); %Lymphocytes 19.9 % (21.0-51.0); %Neutrophils 70.6 % (42.0-75.0); Hemoglobin 9.8 g/dL (14.0-18.0); Mean Corpuscular HGB CONC 32.7 g/dL (32.0-36.0); Mean Corpuscular Hemoglobin 30.4 pg (27.0-31.0); Mean Corpuscular Volume 93.1 fl (80.0-94.0); Mean Platelet Volume 8.5 fL (7.4-10.4); Platelet Count 199 thou/uL (130-400); RBC Distribution Width 12.8 % (11.5-14.5); White Blood Cell (WBC) Count 9.2 thou/uL (4.8-10.8)
[2017-07-31 10:33] LABS: Bilirubin Negative (Negative); Blood, Urine Trace (Negative); Clarity CLEAR (Clear); Glucose, Urine (Dipstick) Negative (Negative); Leukocyte Negative (Negative); Nitrite Negative (Negative); Protein, Urine (Dipstick) 30 mg/dL (Neg-Trace); Specific Gravity, Urine 1.009 (1.002-1.036); Urobilinogen 0.2 mg/dL (0.2-1.0)
[2017-07-31 10:34] LABS: Bacteria/HPF None Seen HPF (None Seen); Hyaline Casts/LPF 0-3 HYALINE CAST LPF (0-3 Hyaline); RBC/HPF 0-3 HPF (0-3); Squamous Epithelial None Seen HPF (0-3); WBC/HPF 0-3 HPF (0-3)
[2017-07-31 10:34] LABS: Anion Gap 21 mmol/L (10-20); BUN (Urea Nitrogen) 98 mg/dL (8.9-20.6); Calc. Creatinine Clearance 0 mL/min (70-130); Carbon Dioxide 12 mmol/L (22-29); Chloride 108 mmol/L (98-107); Potassium 4.8 mmol/L (3.5-5.1); Sodium 136 mmol/L (136-145)
[2017-07-31 10:35] LABS: ALT (SGPT) 12 U/L (8-55); AST (SGOT) 11 U/L (5-34); Albumin 3.9 g/dL (3.5-5.0); Alkaline Phosphatase 89 U/L (40-150); Bilirubin, Total 1.1 mg/dL (0.2-1.2); Calcium 8.4 mg/dL (7.8-10.44); Estimated GFR-MDRD 8; Globulin 2.7 g/dL (2.4-3.5); Glucose 80 mg/dL (70-105); Protein, Total 6.6 g/dL (6.0-8.3)
== END 2017-07-31 11:26 | disposition home or self-care (01) ==
LOC: ERS 09:28
DX: N18.6 End stage renal disease (principal); I50.9 Heart failure, unspecified; F17.210 Nicotine dependence, cigarettes, uncomplicated; Z79.82 Long term (current) use of aspirin; Z79.899 Other long term (current) drug therapy
CPT/HCPCS: 36415; 71045; 80053; 81003; 81015; 85025; 93005

== ENCOUNTER 2017-08-29 14:16 | Emergency (ER) | payer SELFPAY ==
[2017-08-29 14:51] LABS: #Eosinphils 0.3 thou/uL (0.0-0.7); #Lymphocytes 1.8 thou/uL (1.20-3.40); #Monocytes 0.6 thou/uL (0.11-0.59); #Neutrophils 7.6 thou/uL (1.40-6.50); %Basophils 0.1 % (0.0-1.0); %Eosinophils 3.1 % (0.0-10.0); %Lymphocytes 17.8 % (21.0-51.0); %Monocytes 5.5 % (0.0-10.0); %Neutrophils 73.6 % (42.0-75.0); Hemoglobin 9.2 g/dL (14.0-18.0); Mean Corpuscular HGB CONC 33.6 g/dL (32.0-36.0); Mean Corpuscular Volume 89.3 fl (80.0-94.0); Mean Platelet Volume 8.8 fL (7.4-10.4); Platelet Count 201 thou/uL (130-400); RBC Distribution Width 13.1 % (11.5-14.5); Red Blood Cell (RBC) Count 3.08 mill/uL (4.70-6.10); White Blood Cell (WBC) Count 10.3 thou/uL (4.8-10.8)
[2017-08-29 15:11] LABS: CO2 Tension (PvCO2) 31.3 mmHg (41.0-51.0); Calcium, Ionized 1.06 mmol/L (1.12-1.32); Hemoglobin - Calc 8.9 g/dL (12.0-18.0); O2 Tension (PvO2) 49.3 mmHg (35.0-45.0); Potassium 3.8 mmol/L (3.4-4.7); pH (Venous) 7.259 (7.35-7.45); vO2 Saturation-calc 79.2 % (94-98)
[2017-08-29 15:13] LABS: ALT (SGPT) Less than 7 U/L (8-55); AST (SGOT) 10 U/L (5-34); Albumin 4.1 g/dL (3.5-5.0); Alkaline Phosphatase 104 U/L (40-150); Anion Gap 15 mmol/L (10-20); BUN (Urea Nitrogen) 75 mg/dL (8.9-20.6); Bilirubin, Total 0.4 mg/dL (0.2-1.2); Calc. Creatinine Clearance 0 mL/min (70-130); Calcium 8.4 mg/dL (7.8-10.44); Carbon Dioxide 14 mmol/L (22-29); Chloride 117 mmol/L (98-107); Estimated GFR-MDRD 11; Glucose 128 mg/dL (70-105); Potassium 3.9 mmol/L (3.5-5.1); Protein, Total 7.1 g/dL (6.0-8.3); Sodium 142 mmol/L (136-145)
--- NOTE | 2017-08-29 15:32 | RAD ---
CHEST ONE VIEW 08/29/17 HISTORY: Shortness of breath. COMPARISON: Chest one view 07/31/17. FINDINGS: Dialysis catheter tip is at the right atrium. No pneumothorax. No effusion. The cardiac silhouette an d mediastinal contours are within normal limits. No acute osseous abnormality. IMPRESSION: No acute intrathoracic abnormality. POS: [facility]
[2017-08-29] MEDS ORDERED: Sodium Bicarbonate 150 MEQ in Dextrose 5% in Water 1,000 ML IV SCH (16:15)
[2017-08-29] MEDS ORDERED: Furosemide 40 MG/4 ML VIAL ONE (16:18)
[2017-08-29 16:26] LABS: Magnesium 1.7 mg/dL (1.6-2.6); Phosphorus 5.5 mg/dL (2.3-4.7)
--- NOTE | 2017-09-13 15:08 | EKG ---
Test Reason : Blood Pressure : / mmHG Vent. Rate : 103 BPM Atrial Rate : 103 BPM P-R Int : 130 ms QRS Dur : 070 ms QT Int : 360 ms P-R-T Axes : 071 -11 020 degrees QTc Int : 471 ms Sinus tachycardia Otherwise normal ECG Confirmed by BARBARA VINCENT D.O. ([id number]), loan expeditor ALLEN GURROLA ([id number]) on 09/13/2017 3:07:46 PM Referred By: Confirmed By:BARBARA VINCENT D.O.
== END 2017-08-29 18:06 | disposition home or self-care (01) ==
LOC: ERS 14:16
DX: N19 Unspecified kidney failure (principal); F17.210 Nicotine dependence, cigarettes, uncomplicated; Z79.82 Long term (current) use of aspirin; Z79.899 Other long term (current) drug therapy
CPT/HCPCS: 36415; 71045; 80053; 82330; 82803; 83735; 84100; 85025; 93005; 96361; 96374; J1642; J1940; J7070

== ENCOUNTER → 2017-09-15 | Day surgery (SDC) | payer SELFPAY | LOC: EDSTATUS 08:04 → ERS 15:23 → ER/OP 15:23 | PROVIDERS: ATTEND Emergency Medicine | DX: I12.0 Hypertensive chronic kidney disease with stage 5 chronic kidney disease or end stage renal disease (principal); N18.6 End stage renal disease; F17.210 Nicotine dependence, cigarettes, uncomplicated; F12.10 Cannabis abuse, uncomplicated; F19.10 Other psychoactive substance abuse, uncomplicated; Z99.2 Dependence on renal dialysis; Z79.52 Long term (current) use of systemic steroids; Z79.82 Long term (current) use of aspirin; Z79.899 Other long term (current) drug therapy | CPT/HCPCS: J1642 ==

== ENCOUNTER 2017-11-08 10:49 | Emergency (ER) | payer SELFPAY ==
[2017-11-08 11:23] LABS: #Eosinphils 0.2 thou/uL (0.0-0.7); #Lymphocytes 1.5 thou/uL (1.20-3.40); #Monocytes 0.4 thou/uL (0.11-0.59); #Neutrophils 4.4 thou/uL (1.40-6.50); %Basophils 0.1 % (0.0-1.0); %Eosinophils 2.6 % (0.0-10.0); %Lymphocytes 23.3 % (21.0-51.0); %Monocytes 5.6 % (0.0-10.0); %Neutrophils 68.5 % (42.0-75.0); Hemoglobin 9.1 g/dL (14.0-18.0); Mean Corpuscular HGB CONC 32.8 g/dL (32.0-36.0); Mean Corpuscular Hemoglobin 28.7 pg (27.0-31.0); Mean Corpuscular Volume 87.6 fl (80.0-94.0); Mean Platelet Volume 8.8 fL (7.4-10.4); Platelet Count 165 thou/uL (130-400); RBC Distribution Width 12.8 % (11.5-14.5); Red Blood Cell (RBC) Count 3.18 mill/uL (4.70-6.10); White Blood Cell (WBC) Count 6.5 thou/uL (4.8-10.8)
[2017-11-08 11:49] LABS: ALT (SGPT) 7 U/L (8-55); AST (SGOT) 10 U/L (5-34); Albumin 3.9 g/dL (3.5-5.0); Alkaline Phosphatase 112 U/L (40-150); Anion Gap 18 mmol/L (10-20); BUN (Urea Nitrogen) 87 mg/dL (8.9-20.6); Bilirubin, Total 0.4 mg/dL (0.2-1.2); Calc. Creatinine Clearance 0 mL/min (70-130); Calcium 8.1 mg/dL (7.8-10.44); Carbon Dioxide 15 mmol/L (22-29); Chloride 112 mmol/L (98-107); Estimated GFR-MDRD 6; Globulin 2.9 g/dL (2.4-3.5); Glucose 119 mg/dL (70-105); Potassium 5.1 mmol/L (3.5-5.1); Protein, Total 6.8 g/dL (6.0-8.3); Sodium 140 mmol/L (136-145)
== END 2017-11-08 13:18 | disposition left against medical advice (07) ==
LOC: ERS 10:49
DX: N17.9 Acute kidney failure, unspecified (principal); Z71.6 Tobacco abuse counseling; F17.210 Nicotine dependence, cigarettes, uncomplicated; Z79.899 Other long term (current) drug therapy; Z79.82 Long term (current) use of aspirin
CPT/HCPCS: 80053; 85025; 93005; 99406

== ENCOUNTER 2018-05-22 22:36 | Inpatient (IN) | payer SELFPAY ==
[2018-05-22 23:02] LABS: #Eosinphils 0.3 thou/uL (0.0-0.7); #Lymphocytes 2.1 thou/uL (1.20-3.40); #Monocytes 0.4 thou/uL (0.11-0.59); #Neutrophils 6.8 thou/uL (1.40-6.50); %Basophils 0.2 % (0.0-1.0); %Eosinophils 3.3 % (0.0-10.0); %Lymphocytes 21.6 % (21.0-51.0); %Neutrophils 70.9 % (42.0-75.0); Hemoglobin 9.8 g/dL (14.0-18.0); Mean Corpuscular HGB CONC 33.3 g/dL (32.0-36.0); Mean Corpuscular Hemoglobin 29.1 pg (27.0-31.0); Mean Corpuscular Volume 87.6 fL (78.0-98.0); Platelet Count 211 thou/uL (130-400); RBC Distribution Width 13.1 % (11.5-14.5); Red Blood Cell (RBC) Count 3.35 mill/uL (4.70-6.10); White Blood Cell (WBC) Count 9.6 thou/uL (4.8-10.8)
[2018-05-22 23:21] LABS: ALT (SGPT) 14 U/L (8-55); AST (SGOT) 16 U/L (5-34); Albumin 3.9 g/dL (3.5-5.0); Alkaline Phosphatase 104 U/L (40-150); Anion Gap 23 mmol/L (10-20); Bilirubin, Total 0.4 mg/dL (0.2-1.2); Calc. Creatinine Clearance 0 mL/min (70-130); Calcium 7.7 mg/dL (7.8-10.44); Carbon Dioxide 10 mmol/L (22-29); Chloride 112 mmol/L (98-107); Estimated GFR-MDRD 5; Glucose 86 mg/dL (70-105); Potassium 4.6 mmol/L (3.5-5.1); Protein, Total 6.9 g/dL (6.0-8.3); Sodium 140 mmol/L (136-145)
--- NOTE | 2018-05-22 23:27 | RAD ---
CHEST PA AND LATERAL: 05/22/18 HISTORY: 42-year-old male with history of dyspnea. COMPARISON: 08/29/17. FINDINGS: There is bilateral vascular congestion and bilateral interstitial edema. Heart size is borderline enl arged. Small amount of pleural fluid. IMPRESSION: Evidence for vascular congestion, interstitial edema, and minimal pleural fluid. Borderline cardiomeg miya. No focal confluent lobar pneumonia. Atherosclerosis of the aorta. POS: [facility]
[2018-05-22 23:33] LABS: BUN (Urea Nitrogen) 123 mg/dL (8.9-20.6)
[2018-05-23 00:31] LABS: Lactic Acid 0.7 mmol/L (0.5-2.2)
[2018-05-23 00:35] LABS: Acetaminophen Less than 6.0 mcg/mL (10.0-30.0); Alcohol Less than 10 mg/dL (Less than 10); Salicylate Less than 8.0 mg/dL (15.0-30.0)
[2018-05-23] MEDS ORDERED: Furosemide 100 MG/10 ML VIAL ONE (00:43)
[2018-05-23 00:57] LABS: CKMB 5.4 ng/mL (0-6.6)
[2018-05-23 02:20] LABS: Bilirubin Negative (Negative); Blood, Urine Small (Negative); Clarity CLEAR (Clear); Glucose, Urine (Dipstick) Negative (Negative); Leukocyte Negative (Negative); Nitrite Negative (Negative); Protein, Urine (Dipstick) 300 mg/dL (Neg-Trace); Urobilinogen 0.2 mg/dL (0.2-1.0)
[2018-05-23 02:23] LABS: Bacteria/HPF None Seen HPF (None Seen); Pathc Cast-AUWi Flag 0.29 (0-2.49); RBC/HPF None Seen HPF (0-3); Squamous Epithelial 0-3 HPF (0-3); Yeast-AUWi Flag 27.9 (0-25.0)
[2018-05-23 02:29] LABS: Hyaline Casts/LPF NONE SEEN LPF (0-3 Hyaline); Yeast-All Forms None Seen HPF (None Seen)
[2018-05-23] MEDS ORDERED: Ondansetron ODT 4 MG TAB SL PRN (03:29)
[2018-05-23] MEDS ORDERED: Ondansetron PF 4 MG/2 ML Vial IVP PRN (03:29)
[2018-05-23] MEDS ORDERED: Acetaminophen 325 MG TAB PO PRN (03:29)
[2018-05-23 03:42] VITALS: BMI 26.7
[2018-05-23 04:10] LABS: Troponin I 0.048 ng/mL (< 0.028)
[2018-05-23 07:46] LABS: Troponin I 0.051 ng/mL (< 0.028)
[2018-05-23] MEDS ORDERED: Sodium Bicarbonate Tab 325 MG TAB PO SCH (09:00)
[2018-05-23] MEDS ORDERED: Tuberculin PPD 0.1 ML VIAL I-DERMAL SCH (10:00)
[2018-05-23 10:44] LABS: HBSAB Concentration 1.61 mIU/mL; HBSAg Index 0.23 S/CO (0-0.99); Hep B Core Total Ab Non-Reactive (NonReactive); Hep B Core Total Index 0.06 S/CO (0-0.79); Hep B Surf AB Non-Reactive (NonReactive); Hep B Surf Ag Non-Reactive S/CO (NonReactive); Hep C IgG Ab Non-Reactive (NonReactive); Hep C Index 0.03 S/CO (0-0.79)
[2018-05-23] MEDS: Aspirin 81 mg Enteric Coated Tablet PO SCH (12:46)
[2018-05-23] MEDS: Carvedilol 6.25 MG TAB PO SCH ×2 (12:46→20:33)
[2018-05-23] MEDS: Multivit, Therapeutic 1 TAB PO SCH (12:47)
[2018-05-23] MEDS: Furosemide 40 MG TAB PO SCH (12:47)
[2018-05-23] MEDS: Lisinopril 2.5 MG TAB PO SCH (12:47)
--- NOTE | 2018-05-23 12:57 | HP ---
CHIEF COMPLAINT: Not feeling well, weak, and short of breath. Apparently, he had some kidney failure in the past, but he was able to be off dialysis for the last few months. Recently, he noticed decreased appetite. He was out of his furosemide and started feeling worse and worse. He decided to come to the emergency room for further evaluation. In the emergency room, his blood pressure was 152/101 and temperature was 98.8. He was saturating 96% on room air. He was given Lasix, and the chest x-ray showed borderline cardiomegaly and evidence of vascular congestion and interstitial edema, and decision about admission was made since his creatinine was elevated up to 11. A Nephrology consult was requested, and the patient was admitted to the hospital for further management. PAST MEDICAL HISTORY: Positive for; 1. Hypertension. 2. Kidney failure, last dialysis in July 2017. PAST SURGICAL HISTORY: 1. Right arm fistula. 2. Dialysis catheter in the right chest removed. SOCIAL HISTORY: He uses drugs and abuses cocaine, marijuana, alcohol on and off. FAMILY HISTORY: Positive for cardiovascular disease. ALLERGIES: NONE. CURRENT MEDICATIONS: 1. Furosemide 40 mg twice a day. 2. Carvedilol mg twice a day. 3. Aspirin 81 mg once a day. 4. Thiamine 100 mg two tablets once a day. 5. Lisinopril 2.5 mg once a day. 6. Multivitamin. 7. Sodium bicarbonate two tabs twice a day. Apparently, the patient was out of his medications recently. REVIEW OF SYSTEMS: CONSTITUTIONAL: Negative for fever or chills. HEENT: Eyes; negative for eye pain or eye discharge. ENT; negative for sore throat or nasal congestion. CARDIOVASCULAR: Negative for palpitations or chest pain. RESPIRATORY: Positive for shortness of breath. Negative for cough. GI: Negative for nausea or vomiting. MUSCULOSKELETAL: Positive for pain in his back, hips, and knees. SKIN: Negative for erythema or rash. NEUROLOGICAL: Negative for headaches or vertigo. HEMOLYMPHATIC: Negative for easy bruising or clotting abnormalities. PSYCHIATRIC: Negative for suicidal or homicidal ideations. PHYSICAL EXAMINATION: VITAL SIGNS: Blood pressure is 128/83, pulse is 105, temperature is 97.9, respiratory rate 24, and O2 saturation 97% on room air. GENERAL: He looks tired and sick. HEENT: His head is atraumatic and normocephalic. His eyes are PERRLA. Sclerae are nonicteric. Conjunctivae are palish. Oral mucosa is moist. NECK: Supple. No lymphadenopathy. JVD 1+, similar bilaterally. LUNGS: Breath sounds diminished at both bases. No wheezing. HEART: S1 and S2, somewhat distant. No S3. No S4. ABDOMEN: Soft and nontender. Bowel sounds are present. No organomegaly. EXTREMITIES: 1+ peripheral edema, similar bilaterally on both lower extremities. Pulses are diminished on both tibialis posterior and dorsalis pedis arteries, similar bilaterally. NEUROLOGICAL: He is alert and oriented x4. There are no any motor deficits. He follows my commands. LABORATORY DATA: Labs showed white count of 9.6, hemoglobin 9.8, hematocrit 29.3, and platelet count 211. Sodium of 140, potassium of 4.6, chloride 112, CO2 of 10, anion gap 23, BUN 123, creatinine 10.98, and calcium 9.7. Troponins 0.065, 0.048, and 0.051. The rest of chemistry within normal limits. Urinalysis showed 300 of protein, small amount of blood, 4 to 6 wbc's. less than 8. Acetaminophen less than 6. Plasma alcohol less than 10. DIAGNOSTIC DATA: Chest x-ray showed borderline cardiomegaly and increased interstitial markings. IMPRESSION: 1. Acute on chronic renal failure. 2. Normocytic anemia secondary to #1. 3. Metabolic acidosis secondary to #1. 4. Elevated troponins, typical for a renal failure patient, noncardiac. 5. Hypertension. 6. Congestive heart failure per history. PLAN: Admission to telemetry. It is a full admission. Condition is guarded. IV Hep-Lock. Nephrology consultation. He will have to be dialyzed most likely. I am going to continue his home medications, and we will obtain echocardiogram. We will use heparin for DVT prophylaxis and SCDs. We will continue aspirin. He will continue on the renal or protein-high diet. Job ID: [id number]
--- NOTE | 2018-05-24 08:07 | CON ---
DATE OF CONSULTATION: 05/23/2018 NEPHROLOGY CONSULT NOTE CONSULTING PHYSICIAN: Dr. Marte. REASON FOR CONSULTATION: End-stage renal disease evaluation and care. REASON FOR ADMISSION: Not feeling well. HISTORY OF PRESENT ILLNESS: This is a 42-year-old male with history of hypertension and FSGS, who came to the hospital with above complaints and Nephrology was consulted for elevated creatinine. The patient had a fistula placement and is due for dialysis as an outpatient, but due to his undocumented status and lack of insurance was not able to get regular outpatient dialysis and came to the hospital with shortness of breath and severe acidosis, and Nephrology is currently counseling the patient, currently short of breath. No fever or chills. No nausea or vomiting. PAST MEDICAL HISTORY: Positive for hypertension, chronic kidney disease, and FSGS. PAST SURGICAL HISTORY: Right arm fistula placement and dialysis catheter placement. HOME MEDICATIONS: 1. Furosemide. 2. Carvedilol. 3. Aspirin. 4. Thiamine. 5. Lisinopril. 6. Multivitamin. 7. Sodium bicarbonate. ALLERGIES: NO KNOWN DRUG ALLERGIES. SOCIAL HISTORY: History of substance abuse in the past. FAMILY HISTORY: Positive for heart disease. REVIEW OF SYSTEMS: CONSTITUTIONAL: Negative for weight loss or gain, ability to conduct usual activities. SKIN: Negative for rash, itching. EYES: Negative for double vision, pain. ENT/MOUTH: Negative for nose bleeding, neck stiffness, pain, tenderness. CARDIOVASCULAR: Negative for palpitations, dyspnea on exertion, orthopnea. RESPIRATORY: Negative for shortness of breath, wheezing, cough, hemoptysis, fever or night sweats. GASTROINTESTINAL: Negative for poor appetite, abdominal pain, heartburn, nausea, vomiting, constipation, or diarrhea. GENITOURINARY: Negative for urgency, frequency, dysuria, nocturia. MUSCULOSKELETAL: Negative for pain, swelling. NEUROLOGIC/PSYCHIATRIC: Negative for anxiety, depression. ALLERGY/IMMUNOLOGIC: Negative for skin rash, bleeding tendency. PHYSICAL EXAMINATION: GENERAL: Reveals a well-built male, in no apparent distress. VITAL SIGNS: Temperature 98, pulse 106, respiratory rate 20, blood pressure 141/97. HEENT: Atraumatic and normocephalic. Oral mucosa is moist. NECK: Supple. CARDIOVASCULAR: S1 and S2 heard. Rate and rhythm regular. RESPIRATORY: Clear. GASTROINTESTINAL: Abdomen is soft. MUSCULOSKELETAL: 1+ edema. DERMATOLOGIC: No skin rash. NEUROLOGIC: Alert and awake. PSYCHIATRIC: Normal mood and affect. LABORATORY DATA: Hemoglobin is 9.8. Potassium is 4.6, BUN is 123 and creatinine is 10.9. ASSESSMENT AND PLAN: 1. End-stage renal disease. Plan is to start dialysis. We will ask social work coordinator to arrange for insurance based on his undocumented status. 2. Acidosis, will have dialysis. 3. Anemia. We will add Epogen. 4. Edema, controlled. 5. Hypertension. Plan is to continue on dialysis. Follow with case management for outpatient placement. Thank you for the consult. Job ID: [id number]
--- NOTE | 2018-05-24 10:24 | PRG ---
DATE OF SERVICE: 05/24/2018 SUBJECTIVE: Patient was seen and examined at bedside and overnight events noted. Patient denies any shortness of breath or chest pain or palpitation. No history of nausea or vomiting or diarrhea or fever or chills or cramps. OBJECTIVE: GENERAL: This is a well-built male, in no apparent distress. VITAL SIGNS: Temperature 98.5. Heart rate 95. Respiratory rate 18. Blood pressure 117/74. HEENT: Atraumatic, normocephalic. Oral mucosa is moist. NECK: Supple. CARDIOVASCULAR: S1, S2 heard. Rate and rhythm regular. RESPIRATORY: Clear to auscultation. GASTROINTESTINAL: Abdomen is soft. MUSCULOSKELETAL: No tenderness. No edema. DERMATOLOGIC: No skin rash. NEUROLOGIC: Alert and awake and oriented X3. No focal neurologic deficits. Moving all the extremities. PSYCHIATRIC: Mood and affect normal. LABORATORY DATA: Not done today. ASSESSMENT AND PLAN: 1. End-stage renal disease. He is on dialysis, had clamps yesterday. We will have clearance today. No UF. 2. Edema, controlled. 3. Acidosis, recheck labs. 4. Anemia, we will continue Epogen. 5. Hypertension, stable. We will continue on dialysis as tolerated. Job ID: [id number]
[2018-05-24] MEDS: Lisinopril 2.5 MG TAB PO SCH (10:52)
[2018-05-24] MEDS: Aspirin 81 mg Enteric Coated Tablet PO SCH (10:52)
[2018-05-24] MEDS: Furosemide 40 MG TAB PO SCH (10:52)
[2018-05-24] MEDS: Carvedilol 6.25 MG TAB PO SCH ×2 (10:52→19:53)
[2018-05-24] MEDS: Multivit, Therapeutic 1 TAB PO SCH (10:53)
[2018-05-24 14:07] LABS: Calcium 8.4 mg/dL (7.8-10.44); Chloride 103 mmol/L (98-107); Potassium 3.3 mmol/L (3.5-5.1); Sodium 139 mmol/L (136-145)
[2018-05-24 14:08] LABS: Glucose 214 mg/dL (70-105)
[2018-05-24 14:09] LABS: Anion Gap 21 mmol/L (10-20); Carbon Dioxide 18 mmol/L (22-29)
[2018-05-24 14:11] LABS: Calc. Creatinine Clearance 18 mL/min (70-130); Estimated GFR-MDRD 10
[2018-05-24 14:12] LABS: BUN (Urea Nitrogen) 58 mg/dL (8.9-20.6)
--- NOTE | 2018-05-24 14:15 | PRG ---
DATE OF SERVICE: 05/24/2018 SUBJECTIVE: The patient is seen and examined at the bedside. He is feeling better. He was dialyzed. OBJECTIVE: VITAL SIGNS: Blood pressure is 131/70, pulse is 98, temperature is 97.9, respiratory rate is 16, O2 saturation is 95% on room air. SKIN: Still grayish, although he looks better today. HEENT: His eyes are PERRLA. Sclerae nonicteric. Oral mucosa is moist. NECK: Supple. LUNGS: Breath sounds diminished at both bases. Few crackles bilaterally. HEART: S1 and S2 normal. No S3. No S4. ABDOMEN: Soft and mildly distended. No guarding. No masses. EXTREMITIES: 1+ peripheral edema similar bilaterally. NEUROLOGICAL: He is alert and oriented x4. There are no any sensory or motor deficits present. Cranial nerves are intact. LABORATORY DATA: None today. IMPRESSION: 1. Acute on chronic kidney failure, the patient was dialyzed today. 2. Acidosis, we will check his BMP today. 3. Anemia. 4. Edema, improved. 5. Hypertension, controlled. DISCUSSION: Apparently, this patient is a non-legal immigrant in the [place] and I received a phone call from the case finishing machine adjuster that they are not able to set up outpatient dialysis for an undocumented person and most likely we will dialyze him and at some point, we will release him home with recommendation to go back to his country, where he is from and continue his dialysis there. Job ID: [id number]
[2018-05-24] MEDS ORDERED: Epoetin (ESRD) 20,000 UNITS/ML SC SCH (16:15)
[2018-05-24] MEDS: Epoetin (ESRD) 20,000 UNITS/ML IVP SCH (17:23)
[2018-05-25 08:50] LABS: Anion Gap 16 mmol/L (10-20); BUN (Urea Nitrogen) 68 mg/dL (8.9-20.6); Calc. Creatinine Clearance 14 mL/min (70-130); Calcium 7.9 mg/dL (7.8-10.44); Carbon Dioxide 25 mmol/L (22-29); Chloride 107 mmol/L (98-107); Estimated GFR-MDRD 7; Glucose 97 mg/dL (70-105); Potassium 3.9 mmol/L (3.5-5.1); Sodium 144 mmol/L (136-145)
[2018-05-25] MEDS: Lisinopril 2.5 MG TAB PO SCH (08:50)
[2018-05-25] MEDS: Multivit, Therapeutic 1 TAB PO SCH (08:50)
[2018-05-25] MEDS: Carvedilol 6.25 MG TAB PO SCH ×2 (08:51→21:16)
[2018-05-25] MEDS: Furosemide 40 MG TAB PO SCH (08:51)
[2018-05-25] MEDS: Aspirin 81 mg Enteric Coated Tablet PO SCH (08:51)
--- NOTE | 2018-05-25 10:57 | PRG ---
DATE OF SERVICE: 05/25/2018 SUBJECTIVE: Patient was seen and examined at bedside and overnight events noted. Patient denies any shortness of breath or chest pain or palpitation. No history of nausea or vomiting or diarrhea or fever or chills or cramps. OBJECTIVE: GENERAL: This is a well-built male, in no apparent distress. VITAL SIGNS: Temperature 97.8. Heart rate 85. Respiratory rate 16, blood pressure 128/77. HEENT: Atraumatic, normocephalic. Oral mucosa is moist NECK: Supple. CARDIOVASCULAR: S1, S2 heard. Rate and rhythm regular. RESPIRATORY: Clear to auscultation. GASTROINTESTINAL: Abdomen is soft. MUSCULOSKELETAL: No tenderness. DERMATOLOGIC: No skin rash. NEUROLOGIC: Alert and awake and oriented X3. No focal neurologic deficits. Moving all the extremities. PSYCHIATRIC: Mood and affect normal. LABORATORY DATA: No labs were done today. ASSESSMENT AND PLAN: 1. End-stage renal disease, continue dialysis as tolerated, follow with Case Management for outpatient dialysis placement. 2. Metabolic acidosis. 3. Anemia. 4. Hypertension. Monitor labs and continue dialysis as tolerated. Job ID: [id number] [facility]
--- NOTE | 2018-05-25 12:57 | PRG ---
DATE OF SERVICE: 05/25/2018 SUBJECTIVE: The patient is seen and examined at the bedside. He is doing somewhat better. He had hemodialysis. He tolerated dialysis without any issues. OBJECTIVE: VITAL SIGNS: Blood pressure is 128/77, pulse is 85, respiratory rate is 16, O2 saturation is 95% on room air, and his temperature is 97.8. HEENT: Head is atraumatic and normocephalic. Oral mucosa is somewhat dry. SKIN: Looks grayish. NECK: Supple. No lymphadenopathy. LUNGS: Breath sounds are diminished at both bases. HEART: S1 and S2 normal. No S3. No S4. ABDOMEN: Mildly distended. Soft, nontender. EXTREMITIES: 1+ peripheral edema in the upper and lower extremities. NEUROLOGICAL: He is alert and oriented x4. There are no any motor deficits. He follows my commands. LABORATORY DATA: Labs showed normal electrolytes, BUN of 68, creatinine 8.23. IMPRESSION: 1. Acute on chronic kidney failure, status post first dialysis. There is no plan for dialyze him today. He will be scheduled for tomorrow. Apparently, there is problem to set him up for outpatient hemodialysis since he is non-legal immigrant in the [place] but according to Dr. Webb, the family is trying to apply and get some insurance for non-legal immigrants and this might be something which will help us to set him up for outpatient hemodialysis. 2. Acidosis. 3. Anemia. 4. Edema, improved. 5. Hypertension, controlled. So as mentioned above, plan is to try to get him insurance, which would facilitate to set him up for outpatient dialysis. Case management involved. Job ID: [id number]
[2018-05-26] MEDS: Aspirin 81 mg Enteric Coated Tablet PO SCH ×2 (10:09→11:52)
[2018-05-26] MEDS: Carvedilol 6.25 MG TAB PO SCH ×2 (11:51→20:41)
--- NOTE | 2018-05-26 12:05 | PRG ---
DATE OF SERVICE: 05/26/2018 SUBJECTIVE: This is a 42-year-old gentleman, being seen for end-stage renal disease. The patient denies any nausea, vomiting, or chest pain. OBJECTIVE: CONSTITUTIONAL: The patient is awake and alert. VITAL SIGNS: Afebrile, pulse 88, breathing 16, and blood pressure 119/78. GENERAL APPEARANCE AND MENTAL STATUS: Fair. HEAD/NECK: Normocephalic. Atraumatic. EYES: EOMI. No deformity. EARS: Clear. No ulcers. NOSE: Intact. No lesions. MOUTH: Clear. No discharge. THROAT: Clear. No exudate. LUNGS: Clear. No crackles. CARDIAC: S1, S2. No rub. ABDOMEN: Benign. Bowel sounds positive. GENITALIA/RECTUM: Webber absent. BACK/EXTREMITIES: Edema 0+. NEUROLOGICAL: Alert and motor intact. LABORATORY DATA: Hemoglobin 9.8. Creatinine 8.2. ASSESSMENT AND PLAN: 1. Stage 6 chronic kidney disease, continue hemodialysis. 2. Hypertension, stable. 3. Anemia, stable. 4. Medications based on GFR as appropriate. Job ID: [id number]
--- NOTE | 2018-05-26 13:27 | EKG ---
Test Reason : SOB Blood Pressure : / mmHG Vent. Rate : 104 BPM Atrial Rate : 104 BPM P-R Int : 126 ms QRS Dur : 070 ms QT Int : 360 ms P-R-T Axes : 079 005 090 degrees QTc Int : 473 ms Sinus tachycardia with occasional Premature ventricular complexes and Fusion complexes Possible Left atrial enlargement Nonspecific ST and T wave abnormality Abnormal ECG No ST elevation/[place] Confirmed by CHIKSI PETERSON DO ([id number]), dictionary editor MILANA ARMENDARIZ ([id number]) on 05/26/2018 1:27:31 PM Referred By: Confirmed By:CHIKIS PETERSON DO
--- NOTE | 2018-05-26 14:48 | PDOC.PN ---
- Subjective Encounter Start Date: 05/26/18 Encounter Start Time: 14:47 Subjective: feels Ok but c/o some left knee sweliing - Objective MAR Reviewed: Yes Vital Signs & Weight: Vital Signs (12 hours) Temp Pulse Resp BP BP BP Pulse Ox 05/26/18 12:00 99.0 F 05/26/18 11:51 101/64 05/26/18 11:28 99.0 F 83 18 101/64 96 05/26/18 08:00 99.0 F 05/26/18 07:28 99.3 F 98 16 119/78 96 05/26/18 04:00 98.4 F 88 16 101/66 96 Weight Weight 184 lb 11.958 oz I&O: 05/25/18 05/26/18 05/27/18 06:59 06:59 06:59 Intake Total 2100 480 Balance 2100 480 Result Diagrams: 05/22/18 22:55 05/25/18 08:14 Phys Exam - Physical Examination Constitutional: NAD HEENT: PERRLA, moist MMs, sclera anicteric, oral pharynx no lesions Neck: no nodes, no JVD, supple, full ROM Respiratory: no wheezing, no rales, no rhonchi, clear to auscultation bilateral Cardiovascular: RRR, no significant murmur, no rub Gastrointestinal: soft, non-tender, no distention, positive bowel sounds Musculoskeletal: no edema, pulses present no sweliing or fluctuance in left knee.no redness Neurological: non-focal, normal sensation, moves all 4 limbs Psychiatric: normal affect, A&O x 3 Skin: no rash Dx/Plan (1) LACEY (acute kidney injury) Code(s): N17.9 - ACUTE KIDNEY FAILURE, UNSPECIFIED Status: Acute (2) ESRD (end stage renal disease) on dialysis Code(s): N18.6 - END STAGE RENAL DISEASE; Z99.2 - DEPENDENCE ON RENAL DIALYSIS Status: Acute (3) Cardiomyopathy Code(s): I42.9 - CARDIOMYOPATHY, UNSPECIFIED Status: Chronic (4) Nephrotic syndrome Code(s): N04.9 - NEPHROTIC SYNDROME WITH UNSPECIFIED MORPHOLOGIC CHANGES Status: Chronic - Plan HD per nephro -: apparently plans are in motion for OP set up for HD.pt undocumented illegal -: Hd stable. -: NICMP w NL cath last year. could not afford LifeVest -: cont cardio prudent meds as below * . Review of Systems - Review of Systems Constitutional: negative: fever, chills, sweats, weakness, malaise, other Respiratory: negative: Cough, Dry, Shortness of Breath, Hemoptysis, SOB with Excertion, Pleuritic Pain, Sputum, Wheezing Cardiovascular: negative: chest pain, palpitations, orthopnea, paroxysmal nocturnal dyspnea, edema, light headedness, other Gastrointestinal: negative: Nausea, Vomiting, Abdominal Pain, Diarrhea, Constipation, Melena, Hematochezia, Other Genitourinary: negative: Dysuria, Frequency, Incontinence, Hematuria, Retention , Other Musculoskeletal: negative: Neck Pain, Shoulder Pain, Arm Pain, Back Pain, Hand Pain, Leg Pain, Foot Pain, Other Skin: negative: Rash, Lesions, Carl[place], Bruising, Other Neurological: negative: Weakness, Numbness, Incoordination, Change in Speech, Confusion, Seizures, Other - Medications/Allergies Allergies/Adverse Reactions: Allergies Allergy/AdvReac Type Severity Reaction Status Date / Time No Known Allergies Allergy Verified 05/23/18 03:35 Medications: Current Medications Aspirin (Ecotrin) 81 mg PO DAILY [facility] Last Admin: 05/26/18 11:52 Dose: 81 mg Carvedilol (Coreg) 6.25 mg PO BID [facility] Last Admin: 05/26/18 11:51 Dose: 6.25 mg Epoetin Pardeep (Procrit) 5,000 units IVP TuThSa [facility] Last Admin: 05/24/18 17:23 Dose: Not Given Furosemide (Lasix) 40 mg PO DAILY [facility] Last Admin: 05/25/18 08:51 Dose: 40 mg Lisinopril (Zestril) 2.5 mg PO DAILY [facility] Last Admin: 05/25/18 08:50 Dose: 2.5 mg Multivitamins (Theragran) 1 tab PO DAILY [facility] Last Admin: 05/25/18 08:50 Dose: 1 tab Thiamine HCl (Thiamine) 250 mg PO DAILY [facility] Last Admin: 05/25/18 08:50 Dose: 250 mg
[2018-05-26] MEDS: Multivit, Therapeutic 1 TAB PO SCH (19:22)
[2018-05-26] MEDS: Furosemide 40 MG TAB PO SCH (19:23)
[2018-05-26] MEDS: Lisinopril 2.5 MG TAB PO SCH (19:24)
[2018-05-26 20:41] VITALS: BP 95/62; TEMP 98.4
[2018-05-26] MEDS: Epoetin (ESRD) 20,000 UNITS/ML IVP SCH (20:43)
[2018-05-26] MEDS ORDERED: Acetaminophen 500 MG TAB PO PRN (20:55)
--- NOTE | 2018-05-26 23:46 | PDOC.EVN ---
Event Note - Event Note Event Note: Patient left AMA 05/26/2018, nurse informed me that he signs AMA form and left prior to me speaking with him.
--- NOTE | 2018-05-28 14:25 | DIS ---
DATE OF ADMISSION: 05/23/2018 DATE OF DISCHARGE: 05/26/2018 DISCHARGE DISPOSITION: Left against medical advice. DISCHARGE DIAGNOSES: 1. Acute renal insufficiency on chronic kidney disease. 2. End-stage renal disease in a patient, who is not able to afford outpatient dialysis. 3. Chronic cardiomyopathy with last ejection fraction noted to be 25% to 30% in June 2017. 4. Nephrotic syndrome. IN-HOUSE CONSULTATION: Nephrology, Dr. Wells and Dr. Webb. PROCEDURES DONE IN THE HOSPITAL: Maintenance hemodialysis. HISTORY OF PRESENTING ILLNESS: Mr. Aguirre is a 42-year-old male, who is an illegal resident in [facility] and is actually a [place] resident, who came to the emergency room with complaints of feeling weak and short of breath. He has end-stage renal disease, but has not been able to get outpatient dialysis as he has no legal status in [facility] and Case Management have unable to do so as the family were unable to provide the premium bill in the past hospitalization. Nevertheless, he was admitted for dialysis and it was started. The patient did very well, but for some reason after the dialysis yesterday, they decided that he wants to leave the hospital against medical advice. Please note that we were in the process of getting major case detective help to set him up with outpatient dialysis. Fistula was already placed in during his last hospitalization. However, the patient's family and the patient themselves decided to leave against medical advice. My suspicion is that the patient will be back whenever he will need repeat dialysis. I did encourage him to return back to his country, so he can get routine dialysis without which his risk of mortality is significantly high, especially also given the fact that he has cardiomyopathy. He was restarted on all the cardiac prudent medication while in the hospital, including aspirin, carvedilol, Lasix, and lisinopril among others. I am not sure if he will be taking all of these medications in the outpatient setting as he left AMA without physicians seeing him. Job ID: [id number]
--- NOTE | 2018-05-30 07:30 | PQF ---
[employer] Crystal Reports Winform ViewerCHRIS EARLY RANDALL [id number] CLINICAL DOCUMENTATION CLARIFICATION FORM: POST DISCHARGE Addendum to original discharge summary date: ____ Late entry note date: __ Please exercise your independent, professional judgment in responding to the clarification form. Clinical indicators are provided on the bottom of this form for your review Please check appropriate box(s): HEART FAILURE: A. TYPE: [ x ] Systolic / HFrEF [ ] Diastolic / HFpEF [ ] Combined Systolic / Diastolic B. ACUITY [ ] Acute [x ] Acute on Chronic [ ] Chronic [ ] Other diagnosis [ ] Unable to determine In addition, please specify: Present on Admission (POA): [ x ] Yes [ ] No [ ] Unable to determine For continuity of documentation, please document condition throughout progress notes and discharge summary. Thank You. CLINICAL INDICATORS - SIGNS / SYMPTOMS / LABS Ejection Fraction =__20-25____ %- DISCHARGE SUMMARY CONGESTIVE HEART FAILURE PER HISTORY- H&P RISKS: CKD AND HYPERTENSION- H&P, PROGRESS NOTES AND DISCHARGE SUMMARY TREATMENTS: GIVEN 100 MG IV LASIX IN ER, THEN 40 MG DAILY- ER, H&P, MAR [employer] Winform Viewer(This form is maintained as a part of the permanent medical record) 2014 [email or web address]. All Rights Reserved [email or web address] [phone] MTDD
== END 2018-05-26 23:40 | disposition left against medical advice (07) | DRG 682 ==
LOC: ERS 22:36 → 2SW 05-23 00:21 → 2NO 05-23 18:08 → T4-A 05-25 18:05
PROVIDERS: ADMIT Internal Medicine; ATTEND Internal Medicine
PROC: 5A1D70Z Performance of Urinary Filtration, Intermittent, Less than 6 Hours Per Day (ICD-10-PCS; 2018-05-23)
PROC: 5A1D70Z Performance of Urinary Filtration, Intermittent, Less than 6 Hours Per Day (ICD-10-PCS; 2018-05-24)
PROC: 5A1D70Z Performance of Urinary Filtration, Intermittent, Less than 6 Hours Per Day (ICD-10-PCS; principal; 2018-05-26)
DX: N17.9 Acute kidney failure, unspecified (principal); I50.23 Acute on chronic systolic (congestive) heart failure; E87.2 Acidosis; I42.9 Cardiomyopathy, unspecified; I13.2 Hypertensive heart and chronic kidney disease with heart failure and with stage 5 chronic kidney disease, or end stage renal disease; N18.6 End stage renal disease; F14.10 Cocaine abuse, uncomplicated; F12.10 Cannabis abuse, uncomplicated; D64.9 Anemia, unspecified; R74.8 Abnormal levels of other serum enzymes; N04.9 Nephrotic syndrome with unspecified morphologic changes; Z79.82 Long term (current) use of aspirin
CPT/HCPCS: 36415; 71046; 80048; 80053; 80307; 81003; 81015; 82553; 83605; 84484; 85025; 86580; 86704; 86706; 86803; 87340; 90471; 90686; 90732; 90935; 93005; 96374; G0008; G0009; G0257; J1940; Q4081

== ENCOUNTER 2018-05-31 11:23 | Emergency (ER) | payer SELFPAY ==
[2018-05-31 12:14] LABS: #Eosinphils 0.3 thou/uL (0.0-0.7); #Lymphocytes 1.5 thou/uL (1.20-3.40); #Monocytes 0.4 thou/uL (0.11-0.59); #Neutrophils 4.9 thou/uL (1.40-6.50); %Basophils 0.1 % (0.0-1.0); %Eosinophils 4.8 % (0.0-10.0); %Lymphocytes 21.1 % (21.0-51.0); %Monocytes 5.3 % (0.0-10.0); %Neutrophils 68.8 % (42.0-75.0); Mean Corpuscular HGB CONC 32.3 g/dL (32.0-36.0); Mean Corpuscular Hemoglobin 28.7 pg (27.0-31.0); Mean Corpuscular Volume 88.7 fL (78.0-98.0); Mean Platelet Volume 9.6 fL (7.4-10.4); Platelet Count 181 thou/uL (130-400); RBC Distribution Width 13.3 % (11.5-14.5); Red Blood Cell (RBC) Count 3.47 mill/uL (4.70-6.10); White Blood Cell (WBC) Count 7.2 thou/uL (4.8-10.8)
[2018-05-31 12:40] LABS: ALT (SGPT) 12 U/L (8-55); AST (SGOT) 13 U/L (5-34); Albumin 3.9 g/dL (3.5-5.0); Alkaline Phosphatase 100 U/L (40-150); Anion Gap 21 mmol/L (10-20); BUN (Urea Nitrogen) 85 mg/dL (8.9-20.6); Bilirubin, Total 0.7 mg/dL (0.2-1.2); Calc. Creatinine Clearance 0 mL/min (70-130); Calcium 8.7 mg/dL (7.8-10.44); Carbon Dioxide 20 mmol/L (22-29); Chloride 107 mmol/L (98-107); Estimated GFR-MDRD 6; Glucose 96 mg/dL (70-105); Potassium 4.4 mmol/L (3.5-5.1); Protein, Total 6.9 g/dL (6.0-8.3); Sodium 144 mmol/L (136-145)
--- NOTE | 2018-05-31 13:13 | RAD ---
PORTABLE CHEST 1 VIEW: DATE: 05/31/2018. TIME: 1:01 p.m. HISTORY: Chest pain. FINDINGS: Comparison is made with the exam of 05/22/2018. The heart size is borderline. The lungs are expanded without focal areas of consolidation, pneumotho rax, robbie pulmonary edema, or pleural effusions. IMPRESSION: No acute process. POS: [facility]
== END 2018-05-31 15:00 | disposition home or self-care (01) ==
LOC: ERS 11:23
DX: I12.9 Hypertensive chronic kidney disease with stage 1 through stage 4 chronic kidney disease, or unspecified chronic kidney disease (principal); N18.9 Chronic kidney disease, unspecified; F17.210 Nicotine dependence, cigarettes, uncomplicated
CPT/HCPCS: 71045; 80053; 85025

== ENCOUNTER 2018-06-15 20:48 | Inpatient (IN) | payer SELFPAY ==
[2018-06-15] MEDS ORDERED: Albuterol Sulfate 2.5 mg/3 ml Neb ONE (21:11)
--- NOTE | 2018-06-15 21:21 | RAD ---
FRONTAL VIEW CHEST: 06/15/18 INDICATION: Dyspnea. COMPARISON: 05/31/18. FINDINGS: There is prominence of the cardiac silhouette and pulmonary vasculature. There are bilateral perihila r/infrahilar patchy opacities. No significant effusion or discrete pneumothorax. IMPRESSION: Prominent cardiac silhouette and pulmonary vasculature with bilateral perihilar/infrahilar patchy opa cities which may relate to edema or possibly atypical pneumonia. Correlate clinically. Imaging follow up to confirm resolution is recommended. POS: [facility]
[2018-06-15 21:22] LABS: #Eosinphils 0.3 thou/uL (0.0-0.7); #Lymphocytes 0.8 thou/uL (1.20-3.40); #Monocytes 0.5 thou/uL (0.11-0.59); #Neutrophils 3.2 thou/uL (1.40-6.50); %Basophils 0.1 % (0.0-1.0); %Eosinophils 6.5 % (0.0-10.0); %Lymphocytes 17.2 % (21.0-51.0); %Monocytes 10.2 % (0.0-10.0); %Neutrophils 66.1 % (42.0-75.0); Hemoglobin 8.7 g/dL (14.0-18.0); Mean Corpuscular Hemoglobin 28.9 pg (27.0-31.0); Mean Corpuscular Volume 87.7 fL (78.0-98.0); Mean Platelet Volume 9.4 fL (7.4-10.4); Platelet Count 137 thou/uL (130-400); RBC Distribution Width 13.2 % (11.5-14.5); Red Blood Cell (RBC) Count 3.01 mill/uL (4.70-6.10); White Blood Cell (WBC) Count 4.8 thou/uL (4.8-10.8)
[2018-06-15 21:41] LABS: ALT (SGPT) 10 U/L (8-55); AST (SGOT) 11 U/L (5-34); Albumin 3.7 g/dL (3.5-5.0); Alkaline Phosphatase 102 U/L (40-150); Anion Gap 16 mmol/L (10-20); BUN (Urea Nitrogen) 89 mg/dL (8.9-20.6); Bilirubin, Total 0.6 mg/dL (0.2-1.2); CK (CPK) 76 U/L (30-200); Calc. Creatinine Clearance 0 mL/min (70-130); Calcium 8.2 mg/dL (7.8-10.44); Carbon Dioxide 20 mmol/L (22-29); Chloride 112 mmol/L (98-107); Estimated GFR-MDRD 6; Globulin 2.8 g/dL (2.4-3.5); Glucose 102 mg/dL (70-105); Lipase 32 U/L (8-78); Potassium 4.6 mmol/L (3.5-5.1); Protein, Total 6.5 g/dL (6.0-8.3); Sodium 143 mmol/L (136-145)
[2018-06-15 22:07] LABS: CKMB 1.9 ng/mL (0-6.6)
[2018-06-15 22:55] LABS: Bilirubin Negative (Negative); Blood, Urine Trace (Negative); Clarity CLEAR (Clear); Glucose, Urine (Dipstick) 100 mg/dL (Negative); Leukocyte Negative (Negative); Nitrite Negative (Negative); Protein, Urine (Dipstick) 300 mg/dL (Neg-Trace); Specific Gravity, Urine 1.008 (1.002-1.036); Urobilinogen 0.2 mg/dL (0.2-1.0); pH, Urine 6.5 (5.0-9.0)
[2018-06-15 22:57] LABS: Bacteria/HPF None Seen HPF (None Seen); Hyaline Casts/LPF 0-3 HYALINE CAST LPF (0-3 Hyaline); RBC/HPF 0-3 HPF (0-3); Squamous Epithelial 0-3 HPF (0-3); WBC/HPF 0-3 HPF (0-3)
[2018-06-16 00:58] LABS: Troponin I 0.041 ng/mL (< 0.028)
[2018-06-16] MEDS ORDERED: Senokot S 8.6-50 MG TAB PO PRN (02:02)
[2018-06-16] MEDS ORDERED: LEVAQUIN IVPB PRN (02:12)
--- NOTE | 2018-06-16 03:28 | HP ---
PRIMARY CARE PROVIDER: [facility] in [place]. CHIEF COMPLAINT: Cough. HISTORY OF PRESENT ILLNESS: Mr. Aguirre is a pleasant 42-year-old gentleman, who was seen at [facility] on June 16, 2018. He has a history of end-stage renal disease and undergoes hemodialysis on a p.r.n. basis. His last hemodialysis was in May 2018. He had blood work done through his primary care provider's office about a week ago. He was advised to go to the emergency room because his creatinine was high. However, he did not come to the emergency room. He was seen by the primary care provider's office again earlier yesterday. They spoke to his paintings conservator, who recommended coming to the hospital. While in the emergency room, Mr. Aguirre was found to have pneumonia. His reports that over the last week their child has been sick with respiratory symptoms. The patient has received influenza vaccine, this year. Over the last 3 days, he has been coughing. The cough is productive of a whitish sputum. He denies any fevers or chills. REVIEW OF SYSTEMS: All other systems reviewed and found to be negative. PAST MEDICAL HISTORY: 1. Hypertension. 2. End-stage renal disease. PAST SURGICAL HISTORY: Right arm fistula, dialysis catheter in the right chest, removed. SOCIAL HISTORY: The patient uses marijuana occasionally. He denies any tobacco use or alcohol use. FAMILY HISTORY: Diabetes mellitus in his mother. ALLERGIES: NO KNOWN DRUG ALLERGIES. CURRENT MEDICATIONS: 1. Lasix 40 mg 2 times a day. 2. Aspirin 81 mg daily. 3. Thiamine 250 mg daily. 4. Sodium bicarbonate 650 mg tablets, 2 tablets 2 times a day. 5. Coreg 25 mg 2 times a day. 6. Gabapentin 100 mg every other day. PHYSICAL EXAMINATION: GENERAL: On examination, Mr. Aguirre is awake and alert, not in acute distress. VITAL SIGNS: Blood pressure is 127/98, pulse 110, respiratory rate 16, and oxygen saturation 99% on room air. T-max in the emergency room was 99.3 degrees Fahrenheit. While in the emergency room, he also had a respiratory rate of 26. EYES: No scleral icterus, no conjunctival pallor. ENT: Moist mucosal membranes, no oropharyngeal erythema or exudates. NECK: Supple, nontender. Trachea is midline. RESPIRATORY: Accessory muscles of breathing are active. Chest wall movements are symmetric bilaterally. Lung examination reveals bibasilar crackles. CARDIOVASCULAR: S1 and S2 are heard, tachycardic and regular. Peripheral pulses palpable. No carotid bruit. No pericardial rub. ABDOMEN: Soft, nontender. Bowel sounds heard. No hepatomegaly, no splenomegaly. MUSCULOSKELETAL: Power is 5/5 in all 4 extremities. SKIN: No rashes or subcutaneous nodules. He has right upper extremity fistula. LYMPHATIC: No cervical lymphadenopathy. PSYCHIATRIC: Normal mood, normal affect. The patient is oriented to person, place, and time. LABORATORY DATA: Mr. Aguirre's labs and investigations were reviewed. I reviewed his electrocardiogram, which shows sinus tachycardia. No ST changes to suggest an acute coronary syndrome. I also reviewed his chest x-ray, which shows bilateral pulmonary infiltrates. He has normal white count, normocytic anemia with hemoglobin 8.7, normal platelet count. Normal sodium, normal potassium, elevated blood urea nitrogen of 89, elevated creatinine of 9.94, normal liver profile, normal lipase, elevated BNP of 2640, and indeterminate troponin I of 0.041. Urinalysis is negative for nitrite and leukocyte esterase. ASSESSMENT AND PLAN: Mr. Aguirre is a pleasant 42-year-old gentleman, who was seen at [facility] on June 16, 2018. His problem list includes: 1. Sepsis: Mr. Aguirre is presenting with sepsis, most likely source of infection in the respiratory tract in the form of pneumonia. He will be admitted to the hospital for further management. 2. Pneumonia: The patient has received levofloxacin for pneumonia, which I will continue. We will request Pharmacy to adjust dosing in this hemodialysis patient. 3. End-stage renal disease, on dialysis: We will consult Nephrology Service for maintenance hemodialysis. 4. Volume overload: The patient also appears to be in a certain degree of volume overload. Hopefully, hemodialysis will help. 5. Indeterminate troponin: Most likely secondary to chronic kidney disease. His troponin has been elevated in the past as well. The patient denies any chest pain at this time. I should also note that he had a cardiac catheterization in June 2017, at which time he was found to have normal coronaries and severely impaired left ventricular function. Many thanks for allowing me to participate in your patient's care. Please feel free to contact me with any questions or concerns. LEVEL OF RISK: High. LEVEL OF COMPLEXITY: High. Job ID: [id number]
[2018-06-16 03:36] LABS: #Eosinphils 0.3 thou/uL (0.0-0.7); #Monocytes 0.4 thou/uL (0.11-0.59); #Neutrophils 2.6 thou/uL (1.40-6.50); %Eosinophils 6.6 % (0.0-10.0); %Lymphocytes 22.7 % (21.0-51.0); %Monocytes 9.6 % (0.0-10.0); Hemoglobin 8.2 g/dL (14.0-18.0); Mean Corpuscular Hemoglobin 29.1 pg (27.0-31.0); Mean Platelet Volume 9.4 fL (7.4-10.4); Platelet Count 124 thou/uL (130-400); Red Blood Cell (RBC) Count 2.81 mill/uL (4.70-6.10); White Blood Cell (WBC) Count 4.2 thou/uL (4.8-10.8)
[2018-06-16 03:57] LABS: Chloride 115 mmol/L (98-107); Potassium 4.5 mmol/L (3.5-5.1); Sodium 145 mmol/L (136-145)
[2018-06-16 03:58] LABS: Calcium 7.8 mg/dL (7.8-10.44); Glucose 92 mg/dL (70-105)
[2018-06-16 04:00] LABS: Anion Gap 19 mmol/L (10-20); Carbon Dioxide 16 mmol/L (22-29)
[2018-06-16 04:01] LABS: Troponin I 0.037 ng/mL (< 0.028)
[2018-06-16 04:02] LABS: BUN (Urea Nitrogen) 93 mg/dL (8.9-20.6); Calc. Creatinine Clearance 0 mL/min (70-130); Estimated GFR-MDRD 6
[2018-06-16 04:58] VITALS: BMI 33.5
[2018-06-16] MEDS: Heparin 5,000 UNITS/ML VIAL SC SCH ×3 (08:24→21:29)
[2018-06-16] MEDS: Sodium Bicarbonate Tab 325 MG TAB PO SCH ×2 (08:25→21:28)
[2018-06-16] MEDS: Aspirin 81 mg Enteric Coated Tablet PO SCH (08:26)
[2018-06-16] MEDS: Furosemide 40 MG TAB PO SCH ×2 (08:26→21:29)
[2018-06-16] MEDS: Carvedilol 25 MG TAB PO SCH ×2 (08:26→21:29)
[2018-06-16] MEDS ORDERED: Non-Formulary Item 1 EACH (Sodium Bicarbonate [Sodium Bicarbonate] 1,300 MG) PO SCH (09:00)
[2018-06-16] MEDS ORDERED: Gabapentin 100 MG CAP PO SCH (09:00)
[2018-06-16] MEDS ORDERED: guaiFENesin ER 600 MG TAB PO SCH (09:30)
--- NOTE | 2018-06-16 13:01 | PRG ---
DATE OF SERVICE: 06/16/2018 NEPHROLOGY PROGRESS NOTE. SUBJECTIVE: A 42-year-old gentleman, being seen for end-stage renal disease. The patient denies nausea, vomiting, or chest pain. OBJECTIVE: CONSTITUTIONAL: The patient is awake and alert. VITAL SIGNS: Afebrile, pulse 75, breathing 16, blood pressure 140/90. GENERAL APPEARANCE AND MENTAL STATUS: Fair. HEAD/NECK: Normocephalic. Atraumatic. EYES: EOMI. No deformity. EARS: Clear. No ulcers. NOSE: Intact. No lesions. MOUTH: Clear. No discharge. THROAT: Clear. No exudate. LUNGS: Clear. No crackles. CARDIAC: S1, S2. No rub. ABDOMEN: Benign. Bowel sounds positive. GENITALIA/RECTUM: Webber absent. BACK/EXTREMITIES: Edema 0+. NEUROLOGICAL: Alert and motor intact. SKIN: LYMPHATICS: LABORATORY DATA: Labs reviewed. ASSESSMENT: 1. Stage 6 chronic kidney disease, planned dialysis. 2. Hypertension, stable. 3. Anemia, stable. 4. Medication based on GFR appropriate. 5. Congestive heart failure, planned dialysis. Job ID: [id number]
--- NOTE | 2018-06-16 17:42 | CON ---
DATE OF CONSULTATION: 06/15/2018 TIME OF SERVICE: 8 p.m. HISTORY OF PRESENT ILLNESS: This is a 42-year-old gentleman who presented to the hospital with cough, low-grade fever and congestive heart failure like symptoms. The patient has missed dialysis for 2 to 3 weeks. The patient denies headache, numbness, tingling, or weakness. PAST MEDICAL HISTORY: Significant for end-stage kidney disease, hypertension, diabetes mellitus, noncompliance, history of AV fistula, tunneled dialysis catheter. SOCIAL HISTORY: No tobacco, alcohol, or drug use. FAMILY HISTORY: Negative for ESRD. ALLERGIES: REVIEWED. HOME MEDICATIONS: Reviewed. REVIEW OF SYSTEMS: Ten-point review of system was performed, negative except for positives noted above. GENERAL: HEAD: NECK: No swelling or lumps. NOSE: No epistaxis or discharge. EYES: No diplopia or pain. RESPIRATORY: CARDIOVASCULAR: GASTROINTESTINAL: /VMWARE ARCHITECT: MUSCULOSKELETAL: No joint pain. NEUROPSYCHIATIC SYSTEMS: No suicidal ideation. No ideation. SKIN: Denies any rash or ulcer. CONSTITUTIONAL: No fever or chills. PHYSICAL EXAMINATION: GENERAL: The patient is awake and alert. VITAL SIGNS: Afebrile, pulse 75, breathing 16, blood pressure 134/93. GENERAL APPEARANCE AND MENTAL STATUS: Fair. HEAD/NECK: Normocephalic. Atraumatic. EYES: EOMI. No deformity. EARS: Clear. No ulcers. NOSE: Intact. No lesions. MOUTH: Clear. No discharge. THROAT: Clear. No exudate. LUNGS: Clear. No crackles. CARDIAC: S1, S2. No rub. ABDOMEN: Benign. Bowel sounds positive. GENITALIA/RECTUM: Webber absent. BACK/EXTREMITIES: Edema 0+. NEUROLOGICAL: Alert and motor intact. SKIN: LYMPHATICS: LABORATORY DATA: Showed potassium 4.5, creatinine 9.9. ASSESSMENT: 1. Stage 3 chronic kidney disease, plan dialysis. 2. Hypertension, stable. 3. Anemia, stable. 4. Hyperkalemia, stable. 5. Metabolic acidosis, stable. Job ID: [id number]
[2018-06-16] MEDS: Acetaminophen 325 MG TAB PO PRN (18:06)
[2018-06-16] MEDS: guaiFENesin ER 600 MG TAB PO SCH (21:28)
[2018-06-17] MEDS: Acetaminophen 325 MG TAB PO PRN (03:38)
[2018-06-17 06:01] LABS: #Eosinphils 0.4 thou/uL (0.0-0.7); #Lymphocytes 0.9 thou/uL (1.20-3.40); #Monocytes 0.5 thou/uL (0.11-0.59); #Neutrophils 2.4 thou/uL (1.40-6.50); %Basophils 0.5 % (0.0-1.0); %Eosinophils 9.6 % (0.0-10.0); %Lymphocytes 20.4 % (21.0-51.0); %Neutrophils 57.5 % (42.0-75.0); Mean Corpuscular HGB CONC 32.9 g/dL (32.0-36.0); Mean Corpuscular Hemoglobin 28.6 pg (27.0-31.0); Mean Platelet Volume 10.5 fL (7.4-10.4); Platelet Count 147 thou/uL (130-400); RBC Distribution Width 13.1 % (11.5-14.5); Red Blood Cell (RBC) Count 3.15 mill/uL (4.70-6.10); White Blood Cell (WBC) Count 4.2 thou/uL (4.8-10.8)
[2018-06-17 06:08] LABS: Anion Gap 15 mmol/L (10-20); BUN (Urea Nitrogen) 47 mg/dL (8.9-20.6); Calc. Creatinine Clearance 18 mL/min (70-130); Calcium 8.7 mg/dL (7.8-10.44); Carbon Dioxide 26 mmol/L (22-29); Chloride 104 mmol/L (98-107); Estimated GFR-MDRD 9; Glucose 108 mg/dL (70-105); Potassium 3.8 mmol/L (3.5-5.1); Sodium 141 mmol/L (136-145)
[2018-06-17] MEDS: Heparin 5,000 UNITS/ML VIAL SC SCH ×2 (08:31→14:38)
[2018-06-17] MEDS: Aspirin 81 mg Enteric Coated Tablet PO SCH (08:32)
[2018-06-17] MEDS: Sodium Bicarbonate Tab 325 MG TAB PO SCH (08:32)
[2018-06-17] MEDS: Furosemide 40 MG TAB PO SCH (08:32)
[2018-06-17] MEDS: Carvedilol 25 MG TAB PO SCH (08:32)
[2018-06-17] MEDS: guaiFENesin ER 600 MG TAB PO SCH (08:32)
[2018-06-17 14:36] VITALS: BP 116/74; TEMP 98.6
--- NOTE | 2018-06-17 15:05 | PRG ---
DATE OF SERVICE: 06/17/2018 SUBJECTIVE: A 42-year-old gentleman, being seen for end-stage renal disease. The patient denies nausea, vomiting, or chest pain. OBJECTIVE: CONSTITUTIONAL: The patient is awake and alert. VITAL SIGNS: Afebrile, pulse 96, breathing 16, and blood pressure 115/77. GENERAL APPEARANCE AND MENTAL STATUS: Fair. HEAD/NECK: Normocephalic. Atraumatic. EYES: EOMI. No deformity. EARS: Clear. No ulcers. NOSE: Intact. No lesions. MOUTH: Clear. No discharge. THROAT: Clear. No exudate. LUNGS: Clear. No crackles. CARDIAC: S1, S2. No rub. ABDOMEN: Benign. Bowel sounds positive. GENITALIA/RECTUM: Webber absent. BACK/EXTREMITIES: Edema 0+. NEUROLOGICAL: Alert and motor intact. SKIN: LYMPHATICS: LABORATORY DATA: Labs show hemoglobin 9. Potassium 3.8. ASSESSMENT AND PLAN: 1. Stage 6 chronic kidney disease, stable. 2. Hypertension, stable. 3. Uremia, stable. 4. Medication based on GFR, appropriate. 5. The patient will need outpatient dialysis set up, but has not complied to the recommendation. Job ID: [id number]
--- NOTE | 2018-06-17 17:16 | DIS ---
DATE OF ADMISSION: 06/15/2018 DATE OF DISCHARGE: 06/17/2018 DISCHARGE DISPOSITION: Home. FOLLOWUP: 1. Follow up with primary care physician at [facility], [place] in 1 week. 2. Follow up with Dr. Wells, Nephrology, for dialysis. Please note that the patient currently undergoes hemodialysis on an as needed basis due to insurance issues. The patient was seen and examined on the day of discharge. Denies any new complaints. No chest pain, shortness of breath, or palpitations. BRIEF HOSPITAL COURSE: The patient is a 42-year-old male, with end-stage renal disease, on hemodialysis and hypertension, presented to the emergency room with shortness of breath and cough. His last hemodialysis was in May 2018. The patient had a routine blood work done as outpatient and was found to have elevated creatinine. He was advised to come to the emergency room. Please refer to the history and physical for further details. The patient was admitted to the hospital with a diagnosis of volume overload along with suspected pneumonia. His symptoms improved with dialysis as well as antibiotics. He will continue Levaquin for another three days. All other home medications were left unchanged. FINAL DIAGNOSES: 1. Shortness of breath secondary to volume overload with sepsis secondary to pneumonia, suspected pneumococcal. 2. Chronic metabolic acidosis. 3. Elevated troponin secondary to volume overload/demand ischemia. 4. Obesity with a BMI of 33.5. 5. Anemia secondary to renal insufficiency. 6. Diabetic nephropathy. 7. Former tobacco smoker. 8. End-stage renal disease, on intermittent hemodialysis. 9. Anxiety. PLAN: Plan of care was discussed with the patient in detail. He stated understanding. Job ID: [id number]
== END 2018-06-17 14:53 | disposition home or self-care (01) | DRG 871 ==
LOC: ERS 20:48 → ERHOLD 22:00 → SURG A 06-16 04:24
PROVIDERS: ADMIT Internal Medicine; ATTEND Internal Medicine
PROC: 5A1D70Z Performance of Urinary Filtration, Intermittent, Less than 6 Hours Per Day (ICD-10-PCS; principal; 2018-06-16)
DX: A40.3 Sepsis due to Streptococcus pneumoniae (principal); N18.6 End stage renal disease; J13 Pneumonia due to Streptococcus pneumoniae; I12.0 Hypertensive chronic kidney disease with stage 5 chronic kidney disease or end stage renal disease; E87.2 Acidosis; D63.1 Anemia in chronic kidney disease; E87.5 Hyperkalemia; E66.9 Obesity, unspecified; E11.22 Type 2 diabetes mellitus with diabetic chronic kidney disease; F41.9 Anxiety disorder, unspecified; E87.70 Fluid overload, unspecified; Z87.891 Personal history of nicotine dependence; Z68.33 Body mass index [BMI] 33.0-33.9, adult; Z99.2 Dependence on renal dialysis; Z79.82 Long term (current) use of aspirin; Z79.899 Other long term (current) drug therapy; Z91.15 Patient's noncompliance with renal dialysis
CPT/HCPCS: 36415; 71045; 80048; 80053; 81003; 81015; 82550; 82553; 83605; 83690; 83880; 84484; 85025; 87040; 87086; 87804; 93005; 94640; 96361; 96365; J1644; J1956; J7611; J7620

== ENCOUNTER 2018-07-19 22:04 | Observation (INO) | payer SELFPAY ==
[2018-07-19 22:44] LABS: #Eosinphils 0.3 thou/uL (0.0-0.7); #Lymphocytes 1.1 thou/uL (1.20-3.40); #Monocytes 0.5 thou/uL (0.11-0.59); #Neutrophils 5.1 thou/uL (1.40-6.50); %Basophils 0.5 % (0.0-1.0); %Eosinophils 4.2 % (0.0-10.0); %Lymphocytes 16.1 % (21.0-51.0); %Monocytes 6.6 % (0.0-10.0); %Neutrophils 72.7 % (42.0-75.0); Hemoglobin 8.8 g/dL (14.0-18.0); Mean Corpuscular HGB CONC 31.7 g/dL (32.0-36.0); Mean Corpuscular Hemoglobin 28.9 pg (27.0-31.0); Mean Corpuscular Volume 91.1 fL (78.0-98.0); Mean Platelet Volume 9.2 fL (7.4-10.4); Platelet Count 167 thou/uL (130-400); RBC Distribution Width 13.9 % (11.5-14.5); Red Blood Cell (RBC) Count 3.04 mill/uL (4.70-6.10)
[2018-07-19 23:06] LABS: ALT (SGPT) 21 U/L (8-55); AST (SGOT) 17 U/L (5-34); Albumin 3.7 g/dL (3.5-5.0); Alkaline Phosphatase 114 U/L (40-150); Anion Gap 22 mmol/L (10-20); BUN (Urea Nitrogen) 105 mg/dL (8.9-20.6); Bilirubin, Total 0.6 mg/dL (0.2-1.2); Calc. Creatinine Clearance 0 mL/min (70-130); Carbon Dioxide 17 mmol/L (22-29); Chloride 112 mmol/L (98-107); Estimated GFR-MDRD 6; Globulin 2.7 g/dL (2.4-3.5); Glucose 115 mg/dL (70-105); Potassium 4.6 mmol/L (3.5-5.1); Protein, Total 6.4 g/dL (6.0-8.3); Sodium 146 mmol/L (136-145)
--- NOTE | 2018-07-19 23:06 | RAD ---
AP VIEW CHEST: 07/19/18 HISTORY: Dyspnea. AP view chest obtained on 07/19/18. Comparison made to previous exam from 06/15/18. AP view chest demonstrates moderate degree of cardiomegaly. Pulmonary vascular congestion seen. No ev idence of effusions, pneumonia or pneumothorax seen. IMPRESSION: Cardiomegaly and pulmonary vascular congestion. POS: [facility]
[2018-07-19] MEDS ORDERED: Albuterol Sulfate 2.5 mg/3 ml Neb ONE (23:56)
[2018-07-20 00:50] LABS: CKMB 2.6 ng/mL (0-6.6)
--- NOTE | 2018-07-20 02:14 | HP ---
HISTORY OF PRESENT ILLNESS: This is a 42-year-old male with past medical history of ESRD, hypertension, who presents to the emergency department for shortness of breath and needing dialysis. The patient has been on dialysis for long time. He follows up with Dr. Webb. The patient's last dialysis was about a month ago. The patient is on a dialysis on as needed basis. The patient comes to the ER and gets dialysis done. Family reported that the patient was having increased swelling and increased bloating, but the patient denies any chest pain, weakness, fever, nausea, vomiting, or diarrhea. The patient did report some shortness of breath. Family reports compliance with medication. Significant other present at bedside. PAST MEDICAL HISTORY: Hypertension and end-stage renal disease. MEDICATIONS: 1. Furosemide 40 mg b.i.d. 2. Aspirin 81 mg daily. 3. Thiamine daily. 4. Sodium bicarbonate 650 mg 2 tablets three times per day. 5. Carvedilol 6.25 mg twice per day. 6. Gabapentin every other day. PAST SURGICAL HISTORY: Fistula placement. SOCIAL HISTORY: The patient denies alcohol use. The patient is a former cocaine user. The patient is a former smoker. FAMILY HISTORY: Mother has diabetes. ALLERGIES: NONE. REVIEW OF SYSTEMS: A 12-point review of system negative, other than mentioned in the HPI. PHYSICAL EXAMINATION: VITAL SIGNS: Blood pressure 134/93, pulse 92, respiratory rate 20, O2 sat 99% on room air. CONSTITUTIONAL: The patient is alert. HEENT: Head, atraumatic. Eyes; normal extraocular eye movements. Ears, grossly no abnormalities noticed. Nose, no gross abnormality noted. Mouth, no exudate noted. NECK: No lymphedema noted. CARDIOVASCULAR: Regular rate and rhythm. No murmur, rubs, or gallops. RESPIRATORY: Scattered wheezes, otherwise no significant rales noted. ABDOMEN: Soft, nontender, bowel sounds positive. EXTREMITIES: 2+ edema noted. NEURO: Alert. PSYCHIATRIC: Normal mood. SKIN: No rashes noted. DIAGNOSTIC STUDIES: EKG and chest x-ray reviewed. No acute abnormality noted on the EKG. CBC; WBC 7, hemoglobin 8.8, hematocrit 27.7, platelets 167. Chemistry; sodium 146, potassium 4.6, chloride 112, bicarb 17, anion gap 22, BUN 105, creatinine 9.75, glucose 115. BNP 4111. Troponin 0.035. ASSESSMENT AND PLAN: 1. End-stage renal disease. The patient known history. The patient needing dialysis, last dialysis was about a month ago. Dr. Webb, who is the patient's high scaler was consulted by ER. The patient's potassium within normal limit. Creatinine and BUN expected to be elevated given that the patient has not had dialysis in sometime. 2. Shortness of breath, likely due to not having dialysis at this point. We will continue to monitor. O2 as needed at this point. 3. Hypertension. Continue home Coreg. Hydralazine p.r.n. We will continue the patient's home medications once they are verified. 4. The patient is full code. 5. Medical power of planning assistant, the patient does not have. The patient has significant other present at bedside, who states she can make decision for him. The patient has father and siblings, who lives in [place]. 6. Deep venous thrombosis, heparin subcu. Job ID: [id number]
[2018-07-20 02:54] VITALS: BMI 32.1
[2018-07-20 06:09] LABS: Troponin I 0.035 ng/mL (< 0.028)
[2018-07-20 07:32] LABS: Troponin I 0.037 ng/mL (< 0.028)
[2018-07-20 08:45] LABS: HBSAg Index 0.19 S/CO (0-0.99); Hep B Surf Ag Non-Reactive S/CO (NonReactive)
[2018-07-20] MEDS ORDERED: Epoetin (ESRD) 10,000 UNITS/ML VIAL SC SCH (09:00)
[2018-07-20] MEDS: Carvedilol 6.25 MG TAB PO SCH ×2 (09:09→20:58)
[2018-07-20] MEDS: Furosemide 40 MG TAB PO SCH ×2 (09:09→20:59)
[2018-07-20] MEDS: Aspirin 81 mg Enteric Coated Tablet PO SCH (09:09)
[2018-07-20 09:20] LABS: #Eosinphils 0.2 thou/uL (0.0-0.7); #Monocytes 0.3 thou/uL (0.11-0.59); #Neutrophils 4.8 thou/uL (1.40-6.50); %Basophils 0.1 % (0.0-1.0); %Eosinophils 2.8 % (0.0-10.0); %Lymphocytes 15.3 % (21.0-51.0); %Monocytes 4.7 % (0.0-10.0); %Neutrophils 77.1 % (42.0-75.0); Hemoglobin 8.2 g/dL (14.0-18.0); Mean Corpuscular HGB CONC 31.5 g/dL (32.0-36.0); Mean Corpuscular Hemoglobin 28.5 pg (27.0-31.0); Mean Corpuscular Volume 90.6 fL (78.0-98.0); Mean Platelet Volume 9.2 fL (7.4-10.4); Platelet Count 146 thou/uL (130-400); RBC Distribution Width 13.7 % (11.5-14.5); Red Blood Cell (RBC) Count 2.86 mill/uL (4.70-6.10); White Blood Cell (WBC) Count 6.3 thou/uL (4.8-10.8)
[2018-07-20 09:32] LABS: Anion Gap 16 mmol/L (10-20); BUN (Urea Nitrogen) 101 mg/dL (8.9-20.6); Calc. Creatinine Clearance 14 mL/min (70-130); Calcium 8.2 mg/dL (7.8-10.44); Carbon Dioxide 18 mmol/L (22-29); Chloride 112 mmol/L (98-107); Estimated GFR-MDRD 6; Glucose 155 mg/dL (70-105); Potassium 4.3 mmol/L (3.5-5.1); Sodium 142 mmol/L (136-145)
[2018-07-20] MEDS ORDERED: Epoetin (ESRD) 20,000 UNITS/ML SC SCH (11:00)
--- NOTE | 2018-07-20 17:25 | CON ---
DATE OF CONSULTATION: 07/20/2018 CONSULTING PHYSICIAN: Dr. Keyes. REASON FOR CONSULTATION: Need for dialysis. REASON FOR ADMISSION: Shortness of breath. HISTORY OF PRESENT ILLNESS: This is a 42-year-old male with history of hypertension, end-stage renal disease, substance abuse, came to the hospital with shortness of breath. The patient does not have any insurance to have outpatient dialysis and come to ER and have p.r.n. dialysis. The patient and family are working on insurance probably later on to see. No fever or chills. The patient was seen during dialysis to have some wheezing. PAST MEDICAL HISTORY: Positive for hypertension, end-stage renal disease, acidosis. PAST SURGICAL HISTORY: Dialysis access placement. HOME MEDICATIONS: 1. Furosemide. 2. Aspirin. 3. Thiamine. 4. Sodium bicarbonate. 5. Carvedilol. 6. Gabapentin. SOCIAL HISTORY: History of former cocaine use. No alcohol. Former smoker. FAMILY HISTORY: Positive for diabetes. REVIEW OF SYSTEMS: CONSTITUTIONAL: Negative for weight loss or gain, ability to conduct usual activities. SKIN: Negative for rash, itching. EYES: Negative for double vision, pain. ENT/MOUTH: Negative for nose bleeding, neck stiffness, pain, tenderness. CARDIOVASCULAR: Negative for palpitations, dyspnea on exertion, orthopnea. RESPIRATORY: Negative for shortness of breath, wheezing, cough, hemoptysis, fever or night sweats. GASTROINTESTINAL: Negative for poor appetite, abdominal pain, heartburn, nausea, vomiting, constipation, or diarrhea. GENITOURINARY: Negative for urgency, frequency, dysuria, nocturia. MUSCULOSKELETAL: Negative for pain, swelling. NEUROLOGIC/PSYCHIATRIC: Negative for anxiety, depression. ALLERGY/IMMUNOLOGIC: Negative for skin rash, bleeding tendency. PHYSICAL EXAMINATION: GENERAL: Reveals a well-built male, in no apparent distress. VITAL SIGNS: Temperature 97.8, pulse 93, respirations blood pressure 137/93. HEENT: Atraumatic and normocephalic. Oral mucosa is moist. NECK: Supple. CVS: S1 and S2 heard. Rate and rhythm regular. RESPIRATORY: Clear. GASTROINTESTINAL: Abdomen is soft. MUSCULOSKELETAL: 1+ edema. DERMATOLOGIC: No skin rash. NEUROLOGIC: Alert and awake. PSYCHIATRIC: Normal mood and affect. LABORATORY DATA: Hemoglobin is 8.2. Potassium is 4.3, BUN is 101, creatinine is 9.5. ASSESSMENT AND PLAN: 1. End-stage renal disease. We will have dialysis. 2. Fluid overload, remove fluid. 3. Edema, remove fluid. 4. Hypertension. 5. Anemia. We will add Epogen. We will give a subcu dose of Epo. 6. Continue on dialysis as tolerated. Job ID: [id number]
--- NOTE | 2018-07-20 18:20 | PDOC.PN ---
- Subjective Encounter Start Date: 07/20/18 Encounter Start Time: 18:19 Patient lying in bed with family at bedside. He speaks some thai but family translating. He denies chest pain or shortness of breath. He had dialysis today and reports cramps at end. - Objective Resuscitation Status - Order Detail: 07/20/18 00:57 Resuscitation Status Routine Resuscitation Status: FULL: Full Resuscitation MAR Reviewed: Yes Vital Signs & Weight: Vital Signs (12 hours) Temp Pulse Resp BP BP Pulse Ox 07/20/18 16:10 98.2 F 90 16 134/79 97 07/20/18 14:03 97.6 F 96 28 H 156/93 H 99 07/20/18 07:49 97.8 F 93 20 137/92 H 96 Weight Admit Weight 211 lb 11.2 oz Weight 211 lb 11.2 oz I&O: 07/19/18 07/20/18 07/21/18 06:59 06:59 06:59 Intake Total 60 500 Output Total 500 1000 Balance -440 -500 Result Diagrams: 07/20/18 08:55 07/20/18 08:55 Radiology Reviewed by me: Yes Phys Exam - Physical Examination Constitutional: NAD HEENT: PERRLA, moist MMs, oral pharynx no lesions Neck: no nodes, full ROM Respiratory: no wheezing, clear to auscultation bilateral Cardiovascular: RRR, no significant murmur Gastrointestinal: soft, non-tender, positive bowel sounds Musculoskeletal: no edema, pulses present Neurological: non-focal, moves all 4 limbs Lymphatic: no nodes Psychiatric: normal affect, A&O x 3 Skin: no rash, cap refill <2 seconds Dx/Plan (1) Hypertension Code(s): I10 - ESSENTIAL (PRIMARY) HYPERTENSION Status: Acute (2) ESRD (end stage renal disease) on dialysis Code(s): N18.6 - END STAGE RENAL DISEASE; Z99.2 - DEPENDENCE ON RENAL DIALYSIS Status: Acute (3) Cardiomyopathy Code(s): I42.9 - CARDIOMYOPATHY, UNSPECIFIED Status: Chronic - Plan cont current plan of care, plan discussed w/ family * Continue medical management * Nephrology following and continuing with dialysis * Check BMP in am * Likely discharge tomorrow, will await recommendations from nephrology for further dialysis tomorrow
[2018-07-20] MEDS ORDERED: Gabapentin 100 MG CAP PO SCH ×2 (18:30→21:00)
[2018-07-20] MEDS ORDERED: Acetaminophen 325 MG TAB PO PRN (18:36)
[2018-07-20] MEDS ORDERED: Diabetic Tussin 200 MG/10 ML UDCUP PO PRN (20:54)
[2018-07-21 05:02] LABS: #Eosinphils 0.2 thou/uL (0.0-0.7); #Lymphocytes 1.2 thou/uL (1.20-3.40); #Monocytes 0.6 thou/uL (0.11-0.59); #Neutrophils 5.1 thou/uL (1.40-6.50); %Basophils 0.2 % (0.0-1.0); %Eosinophils 3.2 % (0.0-10.0); %Lymphocytes 17.4 % (21.0-51.0); %Monocytes 7.7 % (0.0-10.0); %Neutrophils 71.5 % (42.0-75.0); Hemoglobin 8.4 g/dL (14.0-18.0); Mean Corpuscular HGB CONC 31.3 g/dL (32.0-36.0); Mean Corpuscular Hemoglobin 28.3 pg (27.0-31.0); Mean Corpuscular Volume 90.4 fL (78.0-98.0); Mean Platelet Volume 9.4 fL (7.4-10.4); Platelet Count 150 thou/uL (130-400); RBC Distribution Width 13.8 % (11.5-14.5); Red Blood Cell (RBC) Count 2.98 mill/uL (4.70-6.10); White Blood Cell (WBC) Count 7.1 thou/uL (4.8-10.8)
[2018-07-21 05:28] LABS: Anion Gap 13 mmol/L (10-20); BUN (Urea Nitrogen) 47 mg/dL (8.9-20.6); Calc. Creatinine Clearance 23 mL/min (70-130); Calcium 8.3 mg/dL (7.8-10.44); Carbon Dioxide 26 mmol/L (22-29); Chloride 107 mmol/L (98-107); Estimated GFR-MDRD 11; Glucose 98 mg/dL (70-105); Potassium 3.6 mmol/L (3.5-5.1); Sodium 142 mmol/L (136-145)
[2018-07-21] MEDS: Carvedilol 6.25 MG TAB PO SCH (08:53)
[2018-07-21] MEDS: Furosemide 40 MG TAB PO SCH (08:53)
[2018-07-21] MEDS: Aspirin 81 mg Enteric Coated Tablet PO SCH (08:53)
--- NOTE | 2018-07-21 15:36 | PRG ---
DATE OF SERVICE: 07/21/2018 SUBJECTIVE: Patient was seen and examined at bedside and overnight events noted. Patient denies any shortness of breath or chest pain or palpitation. No history of nausea or vomiting or diarrhea or fever or chills or cramps. OBJECTIVE: GENERAL: This is a well-built male, in no apparent distress. VITAL SIGNS: Temperature 98.2. Heart rate 97. Respiratory rate 16. Blood pressure 179/73. HEENT: Atraumatic, normocephalic. Oral mucosa is moist NECK: Supple. CARDIOVASCULAR: S1, S2 heard. Rate and rhythm regular. RESPIRATORY: Clear to auscultation. GASTROINTESTINAL: Abdomen is soft. MUSCULOSKELETAL: No tenderness. No edema. DERMATOLOGIC: No skin rash. NEUROLOGIC: Alert and awake and oriented X3. No focal neurologic deficits. Moving all the extremities. PSYCHIATRIC: Mood and affect normal. LABORATORY DATA: Potassium is 3.6, BUN is 47, creatinine is 5.8. ASSESSMENT AND PLAN: 1. End-stage renal disease. Continue hemodialysis. We will have extra 3 hours of dialysis today. 2. Fluid overload, remove fluid. 3. Edema, our plan is to remove fluid. Plan is to have 1 hour of dialysis and 2 hours of fluid removal today. 4. Hypertension. 5. Anemia. Continue Epogen. We will continue dialysis as tolerated. Limit fluid intake. We will follow. Job ID: [id number]
[2018-07-21 17:56] VITALS: BP 137/81; TEMP 98.5
== END 2018-07-21 18:31 | disposition home or self-care (01) ==
LOC: ERS 22:04 → 2SW 07-20 02:27
PROVIDERS: ADMIT Family Medicine; ATTEND Family Medicine
DX: I12.0 Hypertensive chronic kidney disease with stage 5 chronic kidney disease or end stage renal disease (principal); N18.6 End stage renal disease; D63.1 Anemia in chronic kidney disease; E87.70 Fluid overload, unspecified; I42.9 Cardiomyopathy, unspecified; F14.11 Cocaine abuse, in remission; F12.10 Cannabis abuse, uncomplicated; Z87.891 Personal history of nicotine dependence; Z79.82 Long term (current) use of aspirin; Z79.899 Other long term (current) drug therapy; Z99.2 Dependence on renal dialysis
CPT/HCPCS: 36415; 71045; 80048; 80053; 82553; 83880; 84484; 85025; 87340; 90935; 93005; 94644; 96372; G0257; G0378; J7611; Q4081

== ENCOUNTER 2018-08-08 00:03 | Observation (INO) | payer MEDICAID, SELFPAY ==
[2018-08-08 00:36] LABS: #Eosinphils 0.1 thou/uL (0.0-0.7); #Lymphocytes 0.6 thou/uL (1.20-3.40); #Monocytes 0.4 thou/uL (0.11-0.59); #Neutrophils 6.2 thou/uL (1.40-6.50); %Basophils 0.2 % (0.0-1.0); %Eosinophils 1.3 % (0.0-10.0); %Lymphocytes 8.5 % (21.0-51.0); %Monocytes 5.4 % (0.0-10.0); %Neutrophils 84.6 % (42.0-75.0); Hemoglobin 9.1 g/dL (14.0-18.0); Mean Corpuscular HGB CONC 30.7 g/dL (32.0-36.0); Mean Corpuscular Hemoglobin 28.4 pg (27.0-31.0); Mean Corpuscular Volume 92.5 fL (78.0-98.0); Mean Platelet Volume 9.3 fL (7.4-10.4); Platelet Count 142 thou/uL (130-400); RBC Distribution Width 14.1 % (11.5-14.5); White Blood Cell (WBC) Count 7.4 thou/uL (4.8-10.8)
[2018-08-08 00:55] LABS: ALT (SGPT) 21 U/L (8-55); AST (SGOT) 18 U/L (5-34); Albumin 3.9 g/dL (3.5-5.0); Alkaline Phosphatase 106 U/L (40-150); Anion Gap 18 mmol/L (10-20); BUN (Urea Nitrogen) 105 mg/dL (8.9-20.6); Calc. Creatinine Clearance 0 mL/min (70-130); Calcium 8.3 mg/dL (7.8-10.44); Carbon Dioxide 19 mmol/L (22-29); Chloride 109 mmol/L (98-107); Estimated GFR-MDRD 5; Globulin 2.6 g/dL (2.4-3.5); Glucose 105 mg/dL (70-105); Potassium 4.3 mmol/L (3.5-5.1); Protein, Total 6.5 g/dL (6.0-8.3); Sodium 142 mmol/L (136-145)
[2018-08-08] MEDS ORDERED: Piperacillin/Tazobactam 4.5 GM VIAL ONE (01:05)
[2018-08-08 01:45] LABS: Bilirubin Negative (Negative); Blood, Urine Small (Negative); Clarity CLEAR (Clear); Glucose, Urine (Dipstick) Negative (Negative); Leukocyte Negative (Negative); Nitrite Negative (Negative); Protein, Urine (Dipstick) 300 mg/dL (Neg-Trace); Specific Gravity, Urine 1.013 (1.002-1.036); Urobilinogen 0.2 mg/dL (0.2-1.0)
[2018-08-08 01:48] LABS: INR-International Normal Ratio 1.3; Prothrombin Time 15.9 SEC (12.0-14.7)
[2018-08-08 01:48] LABS: Bacteria/HPF None Seen HPF (None Seen); Hyaline Casts/LPF 0-3 HYALINE CAST LPF (0-3 Hyaline); Oval Fat Bodies/HPF None Seen HPF (None Seen); Pathc Cast-AUWi Flag 0.58 (0-2.49); Renal Epithelial None Seen HPF (0-3); Sperm/HPF None Seen HPF (None Seen); Transitional Epithelial NONE SEEN HPF (0-3); Trichomonas/HPF None Seen HPF (None Seen); Yeast-All Forms None Seen HPF (None Seen)
[2018-08-08 02:13] LABS: CKMB 2.3 ng/mL (0-6.6)
[2018-08-08] MEDS ORDERED: Acetaminophen 500 MG TAB ONE (03:17)
[2018-08-08 04:04] LABS: Troponin I 0.027 ng/mL (< 0.028)
[2018-08-08] MEDS ORDERED: Ondansetron ODT 4 MG TAB SL PRN (05:02)
[2018-08-08] MEDS ORDERED: Acetaminophen 325 MG TAB PO PRN (05:02)
[2018-08-08] MEDS ORDERED: Ondansetron PF 4 MG/2 ML Vial IVP PRN ×2 (05:02→15:42)
--- NOTE | 2018-08-08 07:40 | RAD ---
ONE VIEW CHEST: HISTORY: History of shortness of breath. COMPARISON: 07/19/2018. FINDINGS: Enlarged cardiac silhouette. The pulmonary vessels and hilum are normal. Costophrenic angles are cl ear. No masses or consolidation. No pneumothorax or osseous abnormalities. IMPRESSION: No acute cardiopulmonary process. POS: [facility]
[2018-08-08 07:49] LABS: Troponin I 0.033 ng/mL (< 0.028)
[2018-08-08 07:57] VITALS: BMI 32.3
--- NOTE | 2018-08-08 09:07 | CT ---
PRELIMINARY REPORT/[facility]/EMERGENTY AFTER-HOURS PROCEDURE CT Abdomen and Pelvis Without Contrast EXAM DATE/TIME: 08/08/2018 1:47 AM CLINICAL HISTORY: 42 years old, male; Pain and signs and symptoms; Bloating; Abdominal pain; Generalized; Patient HX: Milena bailey 8; 42m presents for the evaluation of shortness of breath x 4 days. Patient reports generalized abd ominal pain and bruises of unknown origin on his abdomen. Also reports abdominal bloating. Denies fever but reports chills. Patient in esrd with intermittent dialysis, last dialysis 1 week ago . TECHNIQUE: Axial computed tomography images of the abdomen and pelvis without contrast. Coronal reformatted images were created and reviewed. COMPARISON: No relevant prior studies available. FINDINGS: Lower thorax: There is a small moderate right pleural effusion. There is bibasilar atelectatic change or scarring. There may be a few indeterminate right lower lobe base pulmonary nodules, the largest m easuring a maximum of 7 mm.For patients at low risk (minimal or absent history of smoking and of other known risk factors), recommend CT at 3-6 months, then consider CT at 18-24 months. For patients at high risk (history of smoking or of other known risk factors), recommend CT at 3-6 months, then C T at 18-24 months. (Edmund et al., Fleischner Society, 2017). ABDOMEN: Liver: There is diffuse fatty liver and mild hepatomegaly. Gallbladder and bile ducts: The gallbladder is partly contracted with associated wall thickening. Pancreas: Normal. No ductal dilation. Spleen: There is mild splenomegaly. Adrenals: There is mild thickening of the left adrenal gland. Kidneys and ureters: Normal. No hydronephrosis. Stomach and bowel: There is colonic diverticulosis without evidence for acute diverticulitis. Appendix: No evidence of appendicitis. PELVIS: Bladder: Unremarkable as visualized. Reproductive: Unremarkable as visualized. ABDOMEN and PELVIS: Intraperitoneal space: There is mild ascites in the abdomen and pelvis. Bones/joints: No acute fracture. No dislocation. Soft tissues: There is mild subcutaneous edema possibly related to anasarca. There is a large sebaceo us cyst over the dorsal lower lumbar spine the subcutaneous fat layer measuring a maximum of 4.3 cm d iameter. Vasculature: Normal. No abdominal aortic aneurysm. Lymph nodes: Normal. No enlarged lymph nodes. IMPRESSION: 1. There is a small-moderate right pleural effusion. 2. There may be a few indeterminate right lower lobe base pulmonary nodules, the largest measuring a maximum of 7 mm.For patients at low risk (minimal or absent history of smoking and of other known ris k factors), recommend CT at 3-6 months, then consider CT at 18-24 months. For patients at high risk (history of smoking or of other known risk factors), recommend CT at 3-6 months, then CT at 18-2 4 months. (Edmund et al., Fleischner Society, 2017). 3. There is mild ascites in the abdomen and pelvis. 4. There is colonic diverticulosis without evidence for acute diverticulitis. 5. There is mild subcutaneous edema possibly related to anasarca. Thank you for allowing us to participate in the care of your patient. Dictated and Authenticated by: Jair Palmer MD 08/08/2018 2:26 AM Central Time ([place] & [place]) FINAL REPORT CT ABDOMEN WITH CONTRAST CT PELVIS WITH CONTRAST: HISTORY: Abdominal pain. Symptoms x 4 days. Unknown bruising of the abdomen. COMPARISON: None. FINDINGS: This report is in agreement with the preliminary report by [facility]. There is a mild to moderate right-si ded pleural effusion. Adjacent atelectasis. Multiple lung nodules in the right lower lobe. The lar gest nodule appears to be 7 mm. A small amount of ascites in the abdomen and pelvis. Mild hepatospl enomegaly. Normal caliber appendix. Diverticulosis, without evidence of diverticulitis. Bilaterall y, no obstructive uropathy. POS: [facility]
--- NOTE | 2018-08-08 12:43 | CON ---
DATE OF CONSULTATION: REASON FOR CONSULTATION: End-stage renal disease, on maintenance hemodialysis. HISTORY OF PRESENT ILLNESS: This is a pleasant 42-year-old gentleman being seen for end-stage renal disease. The patient denies any nausea, vomiting, or chest pain. PAST MEDICAL HISTORY: Significant for end-stage renal disease, hypertension, and anemia. SOCIAL HISTORY: No alcohol or drug use. FAMILY HISTORY: Negative for ESRD. ALLERGIES: REVIEWED. REVIEW OF SYSTEMS: A 15-point review of systems was performed, negative except for what was noted above. GENERAL: HEAD: NECK: No swelling or lumps. NOSE: No epistaxis or discharge. EYES: No diplopia or pain. 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 NEUROPSYCHIATRIC SYSTEMS: No suicidal ideation. No ideation. SKIN: Denies any rash or ulcer. CONSTITUTIONAL: No fever or chills. PHYSICAL EXAMINATION: CONSTITUTIONAL: On exam, the patient is awake and alert. VITAL SIGNS: Afebrile, pulse 100, breathing 16, and blood pressure 142/91. GENERAL APPEARANCE AND MENTAL STATUS: Fair. HEAD/NECK: Normocephalic. Atraumatic. EYES: EOMI. No deformity. EARS: Clear. No ulcers. NOSE: Intact. No lesions. MOUTH: Clear. No discharge. THROAT: Clear. No exudate. LUNGS: Clear. No crackles. CARDIAC: S1, S2. No rub. ABDOMEN: Benign. Bowel sounds positive. GENITALIA/RECTUM: Webber absent. BACK/EXTREMITIES: Edema 0+. NEUROLOGICAL: Alert and motor intact. SKIN: LYMPHATICS: LABORATORY DATA: Reviewed. ASSESSMENT AND PLAN: 1. dialysis. 2. Hypertension, stable. 3. Anemia, stable. 4. Medications based on GFR appropriate. Job ID: [id number]
[2018-08-08] MEDS ORDERED: Ondansetron ODT 4 MG TAB PO PRN (15:42)
[2018-08-08] MEDS ORDERED: Acetaminophen 500 MG TAB PO PRN (15:42)
[2018-08-08] MEDS ORDERED: Gabapentin 100 MG CAP PO SCH (15:45)
--- NOTE | 2018-08-08 21:14 | HP ---
PRIMARY CARE PROVIDER: [place]. CHIEF COMPLAINT: Shortness of breath. HISTORY OF PRESENT ILLNESS: This is a 42-year-old male who presents to [facility] Emergency Department complaining of increased shortness of breath over the last 3 to 4 days. The patient's history is significant for end-stage renal disease, on intermittent hemodialysis, returning to [facility] approximately over 2 weeks due to lack of funding. The patient was recently admitted to [facility] from 07/20/2018 to 07/21/2018 for volume overload and maintenance hemodialysis. The patient admitted to increased cough with some productive sputum with abdominal bloating, lower extremity swelling, and generalized weakness. The patient denies any exposure history, chest pain, or unilateral weakness. The patient denies any recent travel history, known sick exposures, or family members with similar symptoms. In the emergency room, the patient underwent general evaluation with chest imaging showing no acute process. CT of the abdomen and pelvis also revealed mild ascites without acute process. The patient was evaluated by the Nephrology Service with urgent hemodialysis initiated. PAST MEDICAL HISTORY: 1. Hypertension. 2. End-stage renal disease with hemodialysis. 3. Marijuana use. PAST SURGICAL HISTORY: Status post right upper extremity AV fistula placement. CURRENT MEDICATIONS: 1. Lasix 40 mg p.o. b.i.d. 2. Enteric-coated aspirin 81 mg p.o. daily. 3. Thiamin daily. 4. Sodium bicarbonate 650 mg 2 tablets p.o. t.i.d. 5. Carvedilol 6.25 mg p.o. b.i.d. 6. Gabapentin q.48 hours. FAMILY HISTORY: Positive for diabetes mellitus and hypertension. SOCIAL HISTORY: Undocumented, formally used cocaine and current use of marijuana. No alcohol or tobacco products. ALLERGIES: NO KNOWN DRUG ALLERGIES. REVIEW OF SYSTEMS: CONSTITUTIONAL: Negative for weight loss or gain, ability to conduct usual activities. SKIN: Negative for rash, itching. EYES: Negative for double vision, pain. ENT/MOUTH: Negative for nose bleeding, neck stiffness, pain, tenderness. CARDIOVASCULAR: Negative for palpitations, dyspnea on exertion, orthopnea. RESPIRATORY: Negative for shortness of breath, wheezing, cough, hemoptysis, fever or night sweats. GASTROINTESTINAL: Negative for poor appetite, abdominal pain, heartburn, nausea, vomiting, constipation, or diarrhea. GENITOURINARY: Negative for urgency, frequency, dysuria, nocturia. MUSCULOSKELETAL: Negative for pain, swelling. NEUROLOGIC/PSYCHIATRIC: Negative for anxiety, depression. ALLERGY/IMMUNOLOGIC: Negative for skin rash, bleeding tendency. Otherwise, negative except as stated per HPI. PHYSICAL EXAMINATION: VITAL SIGNS: On admission, blood pressure 142/91, pulse 110, respiratory rate 24, temperature 99.5 degrees Fahrenheit, O2 saturation 97% on room air. GENERAL APPEARANCE: This is a 42-year-old male, alert and oriented x3, pleasant, in no acute distress. HEENT: Pupils are equal, round, and reactive to light and accommodation. Extraocular muscles are intact. No scleral icterus. No conjunctival injection. Nares are patent. OP is clear. Teeth are in fair repair. NECK: Supple. No cervical adenopathy. No thyromegaly. No carotid bruits. No JVD appreciated. Cervical spine with full active and passive range of motion. No meningeal signs noted. CHEST: Coarse breath sounds in the bases bilaterally. CARDIOVASCULAR: S1 and S2 with tachycardia. No murmur, rub, or gallop appreciated. ABDOMEN: Obese, soft, nontender, and nondistended. Bowel sounds are positive in all 4 quadrants. There is no hepatosplenomegaly. No abdominal bruits. No rebound or guarding appreciated. EXTREMITIES: Warm and dry with fair turgor. Pitting edema to the knees bilaterally. Pulses are palpable distally at the dorsalis pedis, posterior tibial, and popliteal arteries bilaterally. Capillary refill is less than 2 seconds. NEUROLOGIC: Cranial nerves 2 through 12 are grossly intact. No focal or lateralizing signs appreciated. PERTINENT LAB AND X-RAY FINDINGS: Sodium 142, potassium 4.3, chloride 109, CO2 of 19, BUN 105, creatinine with 10.94, estimated GFR 5, glucose 105. Lactic acid level 0.8. LFTs within normal limits. Troponin I ranging between 0.027 to 0.033. BNP 6361, previously noted 4112, 07/19/2018. Lipase 38. CBC showed a white blood cell count of 7.4, hemoglobin 9.1, hematocrit 29.6, platelet count 142, with 85% neutrophilia. PT 15.9, INR 1.3. CT of the abdomen and pelvis dated 08/08/2018 showed small to moderate right pleural effusion. Mild ascites in the abdomen and pelvis. Mild subcutaneous edema related to anasarca. Portable chest x-ray dated 08/08/2018, showed enlarged cardiac silhouette without acute process. EKG dated 08/08/2018, by my interpretation shows sinus tachycardia with heart rates in the 110s. Attenuated R-waves noted in the precordial leads. Normal axis. No acute ST-T wave changes appreciated. ASSESSMENT/PLAN: 1. Acute volume overload. The patient will be admitted to the telemetry unit. Hemodialysis initiated per nephrology recommendations. We will continue volume removal and monitor fluid status. Volume overload secondary to end-stage renal disease and noncompliance. 2. End-stage renal disease with hemodialysis. Continue management as outlined in #1. Nephrology consultation obtained and we will co-manage during the hospital course. 3. Noncompliance. The patient with longstanding history of noncompliance. Case management consult. 4. Hypertension. Resume home antihypertensive regimen and monitor clinical response. 5. Anemia and chronic kidney disease. Continue serial hemoglobin and hematocrit monitoring. No current evidence to suggest acute blood loss. Repeat CBC in the a.m. 6. Marijuana use. We will offer cessation resources prior to discharge. 7. Prophylaxis. SCDs while in bed. Pepcid 20 mg p.o. b.i.d. 8. Code status is full. Surrogate medical decision maker is Temitope Vazquez. Job ID: [id number]
[2018-08-08] MEDS: Carvedilol 25 MG TAB PO SCH (22:58)
[2018-08-08] MEDS: Sodium Bicarbonate Tab 325 MG TAB PO SCH (22:58)
[2018-08-09 05:10] LABS: Band 2 % (5-11); Hemoglobin 8.4 g/dL (14.0-18.0); Hypochromia SLIGHT = 6-15 cells (100X) (0-5/hpf); Lymphocytes 7 % (21-51); MDiff Complete? YES; Mean Corpuscular HGB CONC 31.5 g/dL (32.0-36.0); Mean Corpuscular Hemoglobin 28.9 pg (27.0-31.0); Mean Corpuscular Volume 91.7 fL (78.0-98.0); Monocytes 3 % (0-10); Neutrophil 88 % (42-75); Platelet Count 119 thou/uL (130-400); Platelet Morphology Comment Appears Decreased; Red Blood Cell (RBC) Count 2.93 mill/uL (4.70-6.10)
[2018-08-09 05:11] LABS: Anion Gap 18 mmol/L (10-20); BUN (Urea Nitrogen) 51 mg/dL (8.9-20.6); Calc. Creatinine Clearance 19 mL/min (70-130); Calcium 8.3 mg/dL (7.8-10.44); Carbon Dioxide 24 mmol/L (22-29); Chloride 106 mmol/L (98-107); Estimated GFR-MDRD 9; Glucose 109 mg/dL (70-105); Potassium 3.5 mmol/L (3.5-5.1); Sodium 144 mmol/L (136-145)
[2018-08-09] MEDS: Sodium Bicarbonate Tab 325 MG TAB PO SCH (08:59)
[2018-08-09] MEDS ORDERED: Thiamine 100 MG TAB PO SCH (09:00)
[2018-08-09] MEDS ORDERED: Aspirin 81 mg Enteric Coated Tablet PO SCH (09:00)
[2018-08-09] MEDS: Carvedilol 25 MG TAB PO SCH (09:00)
[2018-08-09 11:58] VITALS: BP 123/79; TEMP 97.7
--- NOTE | 2018-08-09 12:45 | PRG ---
DATE OF SERVICE: 08/09/2018 SUBJECTIVE: A 42-year-old gentleman being seen for end-stage renal disease. The patient denies any nausea, vomiting, or chest pain. OBJECTIVE: See above. CONSTITUTIONAL: The patient is awake and alert. VITAL SIGNS: Afebrile. Pulse 87, breathing 16, and blood pressure 148/85. GENERAL APPEARANCE AND MENTAL STATUS: Fair. HEAD/NECK: Normocephalic. Atraumatic. EYES: EOMI. No deformity. EARS: Clear. No ulcers. NOSE: Intact. No lesions. MOUTH: Clear. No discharge. THROAT: Clear. No exudate. LUNGS: Clear. No crackles. CARDIAC: S1, S2. No rub. ABDOMEN: Benign. Bowel sounds positive. GENITALIA/RECTUM: Webber absent. BACK/EXTREMITIES: Edema 0+. NEUROLOGICAL: Alert and motor intact. SKIN: LYMPHATICS: LABORATORY DATA: Potassium 3.5. ASSESSMENT AND PLAN: 1. Stage 6 chronic kidney disease. Continue dialysis per schedule. 2. Hypertension, stable. 3. Anemia, stable. 4. Medications based on GFR, appropriate. Job ID: [id number]
--- NOTE | 2018-08-10 02:39 | DIS ---
DATE OF ADMISSION: 08/08/2018 DATE OF DISCHARGE: 08/09/2018 PRIMARY CARE PROVIDER: [facility]. DISCHARGE DIAGNOSES: 1. Volume overload. 2. End-stage renal disease, on hemodialysis. 3. Pulmonary nodules. CONDITION OF PATIENT ON THE DAY OF DISCHARGE: Stable. I assessed Mr. Aguirre on the day of discharge. He denies any chest pain or shortness of breath. Vital signs are stable. S1 and S2 are heard, regular. Lungs are clear to auscultation bilaterally. CONSULTATIONS DURING THIS HOSPITALIZATION: Nephrology, Dr. Wells. HOSPITAL COURSE: Mr. Aguirre is a pleasant 42-year-old gentleman who was admitted to [facility] on 08/08/2018 for acute volume overload. Please refer to Dr. Tiwari's history and physical note dated 08/08/2018. At the time of admission, Mr. Aguirre had CT scan of the abdomen and pelvis, which showed small to moderate right pleural effusion, a few indeterminate right lower lobe base pulmonary nodules, largest measuring a maximum of 7 mm. For the patient is at low risk, minimal, or absent history of smoking and of other known risk factors, followup CT scan at 3 to 6 months is recommended, then to consider CT at 18 to 24 months. For patients at high risk, CT at 3 to 6 months is recommended, then CT at 18 to 24 months. He also had mild ascites in the abdomen and pelvis, colonic diverticulosis without evidence for acute diverticulitis and mild subcutaneous edema possibly related to anasarca. He was seen by Nephrology Service. He underwent hemodialysis. He improved clinically and was discharged home in a stable condition. Many thanks for allowing me to participate in Mr. Aguirre's care. Please feel free to contact me with any questions or concerns. LABORATORY DATA: On the day of discharge, he has white count of 4000, hemoglobin 8.4, and platelet count 119,000. Sodium 144, potassium 3.5, anion gap 18, blood urea nitrogen 51, and creatinine 7.09. DISCHARGE DESTINATION: Home. TIME SPENT: Total amount of time spent coordinating this discharge: 32 minutes. Job ID: [id number]
== END 2018-08-09 15:00 | disposition home or self-care (01) ==
LOC: ERS 00:03 → 2NO 04:48 → INTOOBSV 04:48
PROVIDERS: ADMIT Hospitalist; ATTEND Hospitalist
DX: E87.70 Fluid overload, unspecified (principal); I12.0 Hypertensive chronic kidney disease with stage 5 chronic kidney disease or end stage renal disease; N18.6 End stage renal disease; D63.1 Anemia in chronic kidney disease; J90 Pleural effusion, not elsewhere classified; R91.8 Other nonspecific abnormal finding of lung field; R18.8 Other ascites; K57.30 Diverticulosis of large intestine without perforation or abscess without bleeding; K57.92 Diverticulitis of intestine, part unspecified, without perforation or abscess without bleeding; Z79.82 Long term (current) use of aspirin; Z79.899 Other long term (current) drug therapy; Z91.19 Patient's noncompliance with other medical treatment and regimen; Z99.2 Dependence on renal dialysis
CPT/HCPCS: 36415; 71045; 74176; 80048; 80053; 81003; 81015; 82553; 83605; 83690; 83880; 84484; 85007; 85025; 85027; 85610; 87040; 90935; 93005; 96365; 96367; 96368; 99406; G0257; G0378; J1956; J2543; J3370

== ENCOUNTER 2018-08-24 12:18 | Observation (INO) | payer MEDICAID, SELFPAY ==
[~2018-08-24 12:18] MED LIST: Heparin 10,000 UNITS/ 10 ML VIAL ONE
[2018-08-24 13:06] LABS: #Eosinphils 0.1 thou/uL (0.0-0.7); #Lymphocytes 1.1 thou/uL (1.20-3.40); #Monocytes 0.4 thou/uL (0.11-0.59); #Neutrophils 5.7 thou/uL (1.40-6.50); %Basophils 0.3 % (0.0-1.0); %Eosinophils 1.5 % (0.0-10.0); %Lymphocytes 14.5 % (21.0-51.0); %Monocytes 5.6 % (0.0-10.0); %Neutrophils 78.2 % (42.0-75.0); Hemoglobin 9.1 g/dL (14.0-18.0); Mean Corpuscular HGB CONC 30.5 g/dL (32.0-36.0); Mean Corpuscular Hemoglobin 27.7 pg (27.0-31.0); Mean Corpuscular Volume 90.8 fL (78.0-98.0); Mean Platelet Volume 9.4 fL (7.4-10.4); Platelet Count 118 thou/uL (130-400); RBC Distribution Width 14.2 % (11.5-14.5); Red Blood Cell (RBC) Count 3.29 mill/uL (4.70-6.10); White Blood Cell (WBC) Count 7.4 thou/uL (4.8-10.8)
[2018-08-24 13:24] LABS: ALT (SGPT) 15 U/L (8-55); AST (SGOT) 14 U/L (5-34); Albumin 3.6 g/dL (3.5-5.0); Alkaline Phosphatase 103 U/L (40-150); Anion Gap 21 mmol/L (10-20); BUN (Urea Nitrogen) 124 mg/dL (8.9-20.6); Bilirubin, Total 0.8 mg/dL (0.2-1.2); Calc. Creatinine Clearance 0 mL/min (70-130); Calcium 8.2 mg/dL (7.8-10.44); Carbon Dioxide 17 mmol/L (22-29); Chloride 112 mmol/L (98-107); Estimated GFR-MDRD 4; Globulin 2.7 g/dL (2.4-3.5); Glucose 135 mg/dL (70-105); Protein, Total 6.3 g/dL (6.0-8.3); Sodium 145 mmol/L (136-145)
--- NOTE | 2018-08-24 14:10 | RAD ---
SINGLE VIEW CHEST: Date: 08/24/18 COMPARISON: 08/08/18. HISTORY: Dyspnea and throat pain. FINDINGS: Single view of the chest shows a normal sized cardiomediastinal silhouette. There is no evidence of c onsolidation, mass, or pleural effusion. The bones are unremarkable. IMPRESSION: No evidence of acute cardiopulmonary disease. POS: [facility]
[2018-08-24 17:00] LABS: HBSAg Index 0.26 S/CO (0-0.99); Hep B Surf Ag Non-Reactive S/CO (NonReactive)
[2018-08-24] MEDS ORDERED: Ondansetron ODT 4 MG TAB SL PRN (17:05)
[2018-08-24] MEDS ORDERED: Ondansetron PF 4 MG/2 ML Vial IVP PRN (17:05)
[2018-08-24] MEDS ORDERED: HYDROcodone/Acetaminophen 5/325 mg Tablet PO PRN ×3 (17:05→18:25)
[2018-08-24] MEDS ORDERED: Acetaminophen 325 MG TAB PO PRN ×2 (17:05→18:25)
--- NOTE | 2018-08-24 17:21 | CON ---
DATE OF CONSULTATION: REASON FOR CONSULTATION: Hyperkalemia, acidosis, and dyspnea. HISTORY OF PRESENT ILLNESS: A 42-year-old gentleman on dialysis, but does not have outpatient clinic setup, presented to the hospital after he was unable to do dialysis. The patient denies any nausea, vomiting, or chest pain. PAST MEDICAL HISTORY: Significant for hypertension, ESRD, anemia, noncompliance. SOCIAL HISTORY: No alcohol or drug use. FAMILY HISTORY: Negative for ESRD. ALLERGIES: REVIEWED. HOME MEDICATION: List reviewed. REVIEW OF SYSTEMS: A 15-point review of system was performed negative except for positive noted above. PHYSICAL EXAMINATION: GENERAL: The patient is awake and alert. VITAL SIGNS: Pulse 75, breathing 16, blood pressure 172/70. GENERAL APPEARANCE AND MENTAL STATUS: Fair. HEAD/NECK: Normocephalic. Atraumatic. EYES: EOMI. No deformity. EARS: Clear. No ulcers. NOSE: Intact. No lesions. MOUTH: Clear. No discharge. THROAT: Clear. No exudate. LUNGS: Clear. No crackles. CARDIAC: S1, S2. No rub. ABDOMEN: Benign. Bowel sounds positive. GENITALIA/RECTUM: Webber absent. BACK/EXTREMITIES: Edema 0+. NEUROLOGICAL: Alert and motor intact. SKIN: LYMPHATICS: LABORATORY DATA: Reviewed. ASSESSMENT AND PLAN: 1. Stage 6 chronic kidney disease. Plan, dialysis. 2. Dyspnea. Plan, dialysis. 3. Pulmonary edema. Plan, dialysis. 4. Uremia. Plan, dialysis. 5. Hyperkalemia. Plan, dialysis. Prognosis is poor. Job ID: [id number]
[2018-08-24] MEDS ORDERED: Senokot S 8.6-50 MG TAB PO PRN (18:25)
[2018-08-24 21:48] VITALS: BMI 32.8
--- NOTE | 2018-08-25 01:37 | HP ---
PRIMARY CARE PHYSICIAN: [place] in [place], in [place]. CONSULTANTS: Dr. Wells. CHIEF COMPLAINT: Shortness of breath. HISTORY OF PRESENT ILLNESS: Mr. Aguirre is a 42-year-old male, reported to the emergency room with increasing shortness of breath, which has started day before admission and has been getting worse. The patient reports history of hypertension, renal failure end-stage. The patient reports receives hemodialysis on emergent basis every 2 to 3 weeks. He does not receive dialysis on a scheduled basis and does not have a scheduled time to do so. The patient reports feeling swollen. Reports edema into his lower extremities. Denies cough. The patient's case was discussed with Dr. Webb, who will arrange dialysis. Chest x-ray in the ER showed pulmonary congestion. BNP markedly elevated with pulmonary crackles, abdomen distention, and bilateral leg edema. Dr. Webb arranged with Dr. Wells to arrange dialysis for the patient, and he will undergo on day of admission. The patient will be admitted to the observation unit for further management. REVIEW OF SYSTEMS: CONSTITUTIONAL: The patient denies chills or fever. EYES: Denies any eye pain, discharge, or vision changes. ENT: Reports some swelling to lower neck. Denies rhinorrhea. Denies sore throat. CARDIOVASCULAR: Denies chest pain or palpitations. RESPIRATORY: Does report some shortness of breath. Denies cough. GI: Denies abdominal pain, nausea, vomiting, diarrhea, or constipation. : Denies dysuria or hematuria. MUSCULOSKELETAL: Denies any back pain, fall, or injury. Denies neck pain. SKIN: Denies rash or skin changes. NEURO: Denies headache. Denies any focal or sensory changes. HEMO/LYMPHATIC: Negative review of systems. All review of systems reviewed and are negative unless mentioned in the HPI. PHYSICAL EXAMINATION: VITAL SIGNS: Blood pressure 133/96, pulse is 96, respirations 21, temperature is 97.9, pO2 sats are 99% on 3 L. CONSTITUTIONAL: The patient is in no apparent distress, alert and oriented to person, place, and time. HEENT: Head is atraumatic and normocephalic. Eyes; eyelids are normal to inspection. Pupils are equally round and reactive to light. Extraocular muscles are intact. ENT; mouth exam is normal. Mucous membranes are moist. NECK: Normal range of motion. Trachea is midline. RESPIRATORY/CHEST: Faint crackles throughout lung barkley. CARDIOVASCULAR: Heart sounds are normal. Heart rate, regular rate and rhythm. ABDOMEN: Nontender. Bowel sounds are heard. BACK: Normal inspection. Normal range of motion. EXTREMITIES: Upper extremities; normal inspection. Range of motion is normal. Motor strength is normal. Radial pulses are equal bilaterally. Lower extremities, normal inspection. Normal range of motion. Pitting edema noted to bilateral lower extremities. NEUROLOGIC: The patient is oriented to person, place, and time. Speech is normal. SKIN: Warm, dry, normal in color. LABORATORY DATA: EKG, interpretation, normal sinus rhythm, beats per minute 95. ALLERGIES: NONE. HOME MEDICATIONS: 1. Aspirin 81 mg p.o. daily. 2. Carvedilol 25 mg p.o. b.i.d. 3. Lasix 40 mg p.o. b.i.d. 4. Neurontin 100 mg every 2 days. 5. Sodium bicarbonate 1300 mg p.o. t.i.d. 6. Thiamine/B1 250 mg p.o. daily. PERTINENT LABORATORY DATA: White blood cell count is 7.4, hemoglobin 9.1, hematocrit 29.9, and platelet count is 118. Sodium 145, potassium 5.0, chloride 112, carbon dioxide 17, gap is 21, BUN is 124, creatinine is 13.32. Estimated GFR is 4. Glucose 135, lactic acid 0.9, calcium 8.2. Liver enzymes are unremarkable. BNP is 3453.5. ASSESSMENT AND PLAN: 1. End-stage renal disease with fluid overload and shortness of breath. We will consult Dr. Santa who will arrange a dialysis. 2. Stage 6 chronic kidney disease. Plan dialysis. 3. Pulmonary edema, dialysis. 4. Uremia, plan dialysis. We will recheck lab values in the morning. We will await Nephrology's visit to establish the patient needs an another dialysis treatment or the patient can go home. 5. Gastrointestinal and deep venous thrombosis prophylaxis was started. 6. Hospital course will be dependent on clinical findings. Job ID: [id number]
[2018-08-25 05:17] LABS: ALT (SGPT) 12 U/L (8-55); AST (SGOT) 12 U/L (5-34); Albumin 3.2 g/dL (3.5-5.0); Alkaline Phosphatase 94 U/L (40-150); Anion Gap 14 mmol/L (10-20); BUN (Urea Nitrogen) 71 mg/dL (8.9-20.6); Bilirubin, Total 1.1 mg/dL (0.2-1.2); Calc. Creatinine Clearance 15 mL/min (70-130); Calcium 8.3 mg/dL (7.8-10.44); Carbon Dioxide 26 mmol/L (22-29); Chloride 108 mmol/L (98-107); Estimated GFR-MDRD 6; Globulin 2.5 g/dL (2.4-3.5); Glucose 91 mg/dL (70-105); Potassium 3.6 mmol/L (3.5-5.1); Protein, Total 5.7 g/dL (6.0-8.3); Sodium 144 mmol/L (136-145)
[2018-08-25 05:23] LABS: #Eosinphils 0.1 thou/uL (0.0-0.7); #Monocytes 0.5 thou/uL (0.11-0.59); #Neutrophils 3.9 thou/uL (1.40-6.50); %Basophils 0.2 % (0.0-1.0); %Eosinophils 2.2 % (0.0-10.0); %Lymphocytes 17.8 % (21.0-51.0); %Monocytes 9.5 % (0.0-10.0); %Neutrophils 70.3 % (42.0-75.0); Hemoglobin 8.2 g/dL (14.0-18.0); Mean Corpuscular HGB CONC 31.5 g/dL (32.0-36.0); Mean Corpuscular Hemoglobin 28.1 pg (27.0-31.0); Mean Corpuscular Volume 89.3 fL (78.0-98.0); Mean Platelet Volume 9.4 fL (7.4-10.4); Platelet Count 118 thou/uL (130-400); Red Blood Cell (RBC) Count 2.93 mill/uL (4.70-6.10); White Blood Cell (WBC) Count 5.5 thou/uL (4.8-10.8)
[2018-08-25] MEDS: Carvedilol 25 MG TAB PO SCH ×2 (08:40→16:49)
[2018-08-25] MEDS: Sodium Bicarbonate Tab 325 MG TAB PO SCH ×2 (08:40→13:41)
[2018-08-25] MEDS ORDERED: Thiamine 100 MG TAB PO SCH (09:00)
[2018-08-25] MEDS ORDERED: Famotidine 20 MG TAB PO SCH (09:00)
[2018-08-25] MEDS ORDERED: Gabapentin 100 MG CAP PO SCH (09:00)
[2018-08-25] MEDS ORDERED: Furosemide 40 MG TAB PO SCH (09:00)
[2018-08-25] MEDS ORDERED: Aspirin 81 mg Enteric Coated Tablet PO SCH (09:00)
--- NOTE | 2018-08-25 11:17 | PRG ---
DATE OF SERVICE: 08/25/2018 SUBJECTIVE: A 42-year-old gentleman being seen for end-stage renal disease. The patient denies any nausea, vomiting, or chest pain. OBJECTIVE: GENERAL: The patient is awake and alert. VITAL SIGNS: Afebrile, pulse 101, breathing 16, blood pressure 119/77. GENERAL APPEARANCE AND MENTAL STATUS: Patient is awake, alert, in no acute distress. Fair. HEAD/NECK: Normocephalic. Atraumatic. EYES: EOMI. No deformity. EARS: Clear. No ulcers. NOSE: Intact. No lesions. MOUTH: Clear. No discharge. THROAT: Clear. No exudate. LUNGS: Clear. No crackles. CARDIAC: S1, S2. No rub. ABDOMEN: Benign. Bowel sounds positive. GENITALIA/RECTUM: Webber absent. BACK/EXTREMITIES: Edema 0+. NEUROLOGICAL: Alert and motor intact. SKIN: LYMPHATICS: LABORATORY DATA: Labs showed hemoglobin of 8.2. ASSESSMENT AND PLAN: 1. Stage 6 chronic kidney disease. Plan, dialysis. 2. Edema. Plan, dialysis. 3. Metabolic acidosis, stable. 4. Uremia, stable. Job ID: [id number]
[2018-08-25] MEDS: Furosemide 80 MG TAB PO SCH ×2 (13:41→16:49)
[2018-08-25 16:06] VITALS: BP 109/83; TEMP 98.4
--- NOTE | 2018-08-25 18:58 | DIS ---
DATE OF ADMISSION: 08/24/2018 DATE OF DISCHARGE: 08/25/2018 ALLERGIES: NO KNOWN DRUG ALLERGIES. CHIEF COMPLAINT: Shortness of breath. FINAL DIAGNOSES: 1. Shortness of breath secondary to volume overload status post dialysis with resolution of symptoms. 2. End-stage renal disease, on dialysis on an as needed basis secondary to insurance reasons. 3. Hypertension. 4. Anemia of chronic disease. PROCEDURES PERFORMED: Dialysis. LABORATORY RESULTS: Hemoglobin 8.2, hematocrit 26.2, and platelets 118. Sodium 144, potassium 3.6, chloride 108, BUN 71 down from 124, creatinine 9.17 down from 13.32 on arrival, albumin 3.2, serum total protein 5.7. Hep B series antigen is negative. IMAGING RESULTS: Chest x-ray shows no evidence of acute cardiopulmonary disease. CONSULTATIONS: Dr. Wells, Nephrology. VITAL SIGNS: Blood pressure 109/83 and O2 saturation 94% on room air. The patient is afebrile. Pulse is 88. HOSPITAL COURSE: The patient is a 42-year-old male with past medical history significant for end-stage renal disease, requiring dialysis and hypertension, who unfortunately can only receive his dialysis on an as-needed basis secondary to insurance reasons. He presented to the hospital with complaints of worsening shortness of breath and volume overload. His BNP on arrival was over 6000. He was admitted for urgent dialysis. Dr. Wells was consulted. The patient had repeat dialysis this morning. His symptoms have resolved. His shortness of breath is improved, he has ambulated the hallways without issue. PHYSICAL EXAMINATION: GENERAL: The patient is a well-appearing, male, in no acute distress. HEENT: Atraumatic and normocephalic. Eye movements intact. Mucous membranes moist. NECK: Supple. No lymphadenopathy. No JVD. Trachea midline. RESPIRATORY: Regular respiratory rate and pattern, overall clear to auscultation bilaterally. No rhonchi or wheeze. CARDIOVASCULAR: S1 and S2. Regular rhythm. No appreciable murmurs, rubs, or gallops. GI: Soft and nontender. Normal bowel sounds. PERIPHERAL VASCULAR: Trace lower extremity edema bilaterally. Palpable pulses. MUSCULOSKELETAL: No joint effusion or swelling. NEUROLOGIC: Awake and alert. Cranial nerves 2 through 12 intact. No focal deficits. SKIN: Warm and dry with no discoloration. CONDITION AT DISCHARGE: Stable. DISCHARGE MEDICATIONS: 1. Aspirin 81 mg tablet daily. 2. Carvedilol 25 mg tablet p.o. b.i.d. 3. Gabapentin 100 mg tablet p.o. every other day. 4. Sodium bicarb 1300 mg p.o. t.i.d. 5. Thiamine mononitrate. 6. Vitamin B1 of 250 mg p.o. daily. New medications on discharge will be; 1. Furosemide 80 mg tablet 1 tablet p.o. b.i.d. 2. Metolazone 5 mg tablet 1 p.o. daily. DISCHARGE DISPOSITION: Will be home. PLAN: Per Dr. Wells's recommendations, the patient will increase Lasix to 80 mg p.o. b.i.d. and we will add metolazone 5 mg daily in the hopes of prolonging his next dialysis session and increasing urine output. This is an unfortunate gentleman, who can only receive his dialysis on an as-needed basis and this was discussed with him at length. He has been cleared for discharge by Dr. Wells. He will follow up with the [facility], where he gets his care. Job ID: [id number]
[2018-08-26] MEDS ORDERED: Metolazone 5 MG TAB PO SCH (08:30)
== END 2018-08-25 19:57 | disposition home or self-care (01) ==
LOC: ERS 12:18 → 2SW 15:18
PROVIDERS: ADMIT Family Medicine; ATTEND Family Medicine
DX: I12.0 Hypertensive chronic kidney disease with stage 5 chronic kidney disease or end stage renal disease (principal); N18.6 End stage renal disease; E87.70 Fluid overload, unspecified; D63.8 Anemia in other chronic diseases classified elsewhere; R06.02 Shortness of breath; J81.1 Chronic pulmonary edema; Z99.2 Dependence on renal dialysis; Z79.82 Long term (current) use of aspirin; Z79.899 Other long term (current) drug therapy; Z87.891 Personal history of nicotine dependence
CPT/HCPCS: 36415; 71045; 80053; 83605; 83880; 85025; 87340; 90935; 93005; 94760; G0257; G0378; J1644

== ENCOUNTER 2018-09-05 13:00 | Emergency (ER) | payer SELFPAY ==
[2018-09-05 14:06] LABS: #Eosinphils 0.1 thou/uL (0.0-0.7); #Monocytes 0.6 thou/uL (0.11-0.59); #Neutrophils 4.5 thou/uL (1.40-6.50); %Basophils 0.1 % (0.0-1.0); %Eosinophils 1.4 % (0.0-10.0); %Lymphocytes 16.2 % (21.0-51.0); %Neutrophils 73.3 % (42.0-75.0); Hemoglobin 8.4 g/dL (14.0-18.0); Mean Corpuscular HGB CONC 29.4 g/dL (32.0-36.0); Mean Corpuscular Hemoglobin 26.9 pg (27.0-31.0); Mean Corpuscular Volume 91.5 fL (78.0-98.0); Mean Platelet Volume 9.4 fL (7.4-10.4); Platelet Count 109 thou/uL (130-400); RBC Distribution Width 14.8 % (11.5-14.5); Red Blood Cell (RBC) Count 3.13 mill/uL (4.70-6.10); White Blood Cell (WBC) Count 6.2 thou/uL (4.8-10.8)
[2018-09-05 14:22] LABS: ALT (SGPT) 14 U/L (8-55); AST (SGOT) 16 U/L (5-34); Albumin 3.1 g/dL (3.5-5.0); Alkaline Phosphatase 108 U/L (40-150); Anion Gap 24 mmol/L (10-20); Bilirubin, Total 0.7 mg/dL (0.2-1.2); Calc. Creatinine Clearance 0 mL/min (70-130); Carbon Dioxide 16 mmol/L (22-29); Chloride 110 mmol/L (98-107); Estimated GFR-MDRD 4; Globulin 2.5 g/dL (2.4-3.5); Glucose 114 mg/dL (70-105); Potassium 4.5 mmol/L (3.5-5.1); Protein, Total 5.6 g/dL (6.0-8.3); Sodium 145 mmol/L (136-145)
[2018-09-05 14:23] LABS: Anisocytosis SLIGHT = 6-15 cells (100X) (0-5/hpf); Hypochromia SLIGHT = 6-15 cells (100X) (0-5/hpf); MDiff Complete? YES; Ovalocytes SLIGHT = 2-5 cells (100X) (0-1/hpf); Platelet Morphology Comment Appears Decreased; Poikilocytosis SLIGHT = 6-15 cells (100X) (0-5/hpf); Polychromasia SLIGHT = 2-3 cells (100X) (0-2/hpf); Schistocytes SLIGHT = 2-5 cells (100X) (0-1/hpf); Spherocytes SLIGHT = 1-5 cells (100X) (None Seen)
[2018-09-05 14:34] LABS: BUN (Urea Nitrogen) 118 mg/dL (8.9-20.6)
== END 2018-09-05 22:57 | disposition home or self-care (01) ==
LOC: ERS 13:00
DX: E87.70 Fluid overload, unspecified (principal); I12.0 Hypertensive chronic kidney disease with stage 5 chronic kidney disease or end stage renal disease; R06.03 Acute respiratory distress; N18.6 End stage renal disease; Z87.891 Personal history of nicotine dependence
CPT/HCPCS: 36415; 80053; 83880; 85025; 93005

== ENCOUNTER 2018-09-17 12:18 | Emergency (ER) | payer SELFPAY ==
--- NOTE | 2018-09-17 13:32 | RAD ---
FRadiograph chest one view: 09/17/2018 HISTORY: 43-year-old male with dyspnea COMPARISON: 08/24/2018 FINDINGS: Mild cardiomegaly without pulmonary edema. No consolidation or pneumothorax. Nonspecific mild bluntin g of right lateral costophrenic angle. No interval change. IMPRESSION: 1. Mild cardiomegaly without congestive heart failure. 2. No evidence of acute pulmonary disease.
[2018-09-17 13:38] LABS: #Monocytes 0.5 thou/uL (0.11-0.59); #Neutrophils 6.6 thou/uL (1.40-6.50); %Eosinophils 0.4 % (0.0-10.0); %Lymphocytes 12.7 % (21.0-51.0); %Monocytes 5.9 % (0.0-10.0); Hemoglobin 8.8 g/dL (14.0-18.0); Mean Corpuscular HGB CONC 31.2 g/dL (32.0-36.0); Mean Corpuscular Hemoglobin 27.6 pg (27.0-31.0); Mean Corpuscular Volume 88.4 fL (78.0-98.0); Mean Platelet Volume 9.7 fL (7.4-10.4); Platelet Count 160 thou/uL (130-400); RBC Distribution Width 14.5 % (11.5-14.5); Red Blood Cell (RBC) Count 3.18 mill/uL (4.70-6.10); White Blood Cell (WBC) Count 8.1 thou/uL (4.8-10.8)
[2018-09-17 14:06] LABS: ALT (SGPT) 22 U/L (8-55); AST (SGOT) 18 U/L (5-34); Albumin 3.4 g/dL (3.5-5.0); Alkaline Phosphatase 97 U/L (40-150); Anion Gap 27 mmol/L (10-20); Bilirubin, Total 0.6 mg/dL (0.2-1.2); CK (CPK) 86 U/L (30-200); Calc. Creatinine Clearance 0 mL/min (70-130); Calcium 7.9 mg/dL (7.8-10.44); Carbon Dioxide 18 mmol/L (22-29); Chloride 106 mmol/L (98-107); Estimated GFR-MDRD 3; Globulin 2.9 g/dL (2.4-3.5); Glucose 163 mg/dL (70-105); Potassium 4.7 mmol/L (3.5-5.1); Protein, Total 6.3 g/dL (6.0-8.3); Sodium 146 mmol/L (136-145)
[2018-09-17 14:17] LABS: BUN (Urea Nitrogen) 136 mg/dL (8.9-20.6)
[2018-09-17] MEDS ORDERED: Albumin 25% 25 GM/100 ML BOT IVPB PRN (16:00)
[2018-09-17] MEDS ORDERED: Ondansetron PF 4 MG/2 ML Vial ONE (19:59)
--- NOTE | 2018-09-18 08:56 | CON ---
DATE OF CONSULTATION: 09/17/2018 CONSULTING PHYSICIAN: Nemo Chiang MD from ER. REASON FOR CONSULT: End-stage renal disease evaluation. REASON FOR ADMISSION: Shortness of breath. HISTORY OF PRESENT ILLNESS: A 43-year-old male with history of end-stage renal disease, not able to have outpatient dialysis due to lack of insurance and edema and FSGS, who came to the hospital with worsening swelling and was found to have uremia and the plan is to have dialysis. The patient was supposed to get outpatient dialysis and go home. The patient denies any chest pain or palpitations. PAST MEDICAL HISTORY: Positive for end-stage renal disease, hypertension, substance abuse. PAST SURGICAL HISTORY: AV fistula placement. HOME MEDICATIONS: 1. Lasix. 2. Aspirin. 3. Thiamine. 4. Sodium bicarbonate. 5. Carvedilol. 6. Gabapentin. ALLERGIES: NO KNOWN DRUG ALLERGIES. SOCIAL HISTORY: History of substance abuse in the past. FAMILY HISTORY: Positive for diabetes. REVIEW OF SYSTEMS: CONSTITUTIONAL: Negative for weight loss or gain, ability to conduct usual activities. SKIN: Negative for rash, itching. EYES: Negative for double vision, pain. ENT/MOUTH: Negative for nose bleeding, neck stiffness, pain, tenderness. CARDIOVASCULAR: Negative for palpitations, dyspnea on exertion, orthopnea. RESPIRATORY: Negative for shortness of breath, wheezing, cough, hemoptysis, fever or night sweats. GASTROINTESTINAL: Negative for poor appetite, abdominal pain, heartburn, nausea, vomiting, constipation, or diarrhea. GENITOURINARY: Negative for urgency, frequency, dysuria, nocturia. MUSCULOSKELETAL: Negative for pain, swelling. NEUROLOGIC/PSYCHIATRIC: Negative for anxiety, depression. ALLERGY/IMMUNOLOGIC: Negative for skin rash, bleeding tendency. PHYSICAL EXAMINATION: GENERAL: This is a well-built male in no apparent distress. VITAL SIGNS: Temperature 98.4, pulse . HEENT: Atraumatic and normocephalic. Oral mucosa is moist. NECK: Supple. CVS: S1 and S2 heard. Regular rate and rhythm. RESPIRATORY: Clear. GI: Abdomen is soft. MUSCULOSKELETAL: 1+ edema. DERMATOLOGIC: No skin rash. NEUROLOGIC: Alert and awake. PSYCHIATRIC: Normal mood and affect. LABORATORY DATA: Hemoglobin is 8.8, potassium is 4.7, BUN 136, creatinine is 16.44. ASSESSMENT AND PLAN: 1. End-stage renal disease. Plan is to have emergent dialysis for fluid overload. 2. Fluid overload. We will remove fluid with dialysis. 3. Elevated BNP. 4. Anemia. 5. Hypertension. Unfortunately, the patient is not able to have regular dialysis with lack of insurance. Will have emergent dialysis for fluid removal and advised limit fluid intake. . Thank you for the consult. Job ID: [id number]
== END 2018-09-17 21:09 | disposition home or self-care (01) ==
LOC: ERS 12:18
DX: I12.9 Hypertensive chronic kidney disease with stage 1 through stage 4 chronic kidney disease, or unspecified chronic kidney disease (principal); N18.9 Chronic kidney disease, unspecified; Z87.891 Personal history of nicotine dependence
CPT/HCPCS: 36415; 71045; 80053; 82550; 83690; 83880; 84443; 84484; 85025; 93005; J2405; P9047

== ENCOUNTER 2018-10-09 18:29 | Inpatient (IN) | payer SELFPAY ==
[2018-10-09 18:58] LABS: #Eosinphils 0.1 thou/uL (0.0-0.7); #Lymphocytes 1.3 thou/uL (1.20-3.40); #Monocytes 0.5 thou/uL (0.11-0.59); #Neutrophils 6.1 thou/uL (1.40-6.50); %Basophils 0.4 % (0.0-1.0); %Eosinophils 1.3 % (0.0-10.0); %Lymphocytes 16.3 % (21.0-51.0); %Monocytes 5.7 % (0.0-10.0); %Neutrophils 76.3 % (42.0-75.0); Hemoglobin 8.6 g/dL (14.0-18.0); Mean Corpuscular HGB CONC 31.3 g/dL (32.0-36.0); Mean Corpuscular Hemoglobin 26.5 pg (27.0-31.0); Mean Corpuscular Volume 84.6 fL (78.0-98.0); Mean Platelet Volume 10.7 fL (7.4-10.4); Platelet Count 138 thou/uL (130-400); RBC Distribution Width 14.7 % (11.5-14.5); Red Blood Cell (RBC) Count 3.25 mill/uL (4.70-6.10)
[2018-10-09 19:00] LABS: Actual Bicarbonate (HCO3a) 16.2 mEq/L (22-28); Analyzer IN Cardio ER; CO2 Tension 41.5 mmHg (35.0-45.0); Calcium, Ionized 0.83 mmol/L (1.12-1.30); Carboxyhemoglobin (COHb) 0.3 gm% (0.0-3.0); Hemoglobin (Hb) 9.1 g/dL (14.0-18.0); O2 Tension (PaO2) 245.7 mmHg (80.0-100.0); Potassium - ABG Lab 4.06 mmol/L (3.70-5.30)
[2018-10-09 19:01] LABS: pH, Arterial 7.21 (7.35-7.45)
[2018-10-09 19:02] LABS: ALV-art Gradient 415.425 (0-20); Puncture Site LRA
--- NOTE | 2018-10-09 19:04 | RAD ---
EXAM: UPRIGHT PORTABLE CHEST: 10/09/18 HISTORY: Shortness of breath. COMPARISON: 09/17/18. FINDINGS: Mild cardiomegaly with mild bilateral vascular congestion. No confluent pneumonia, overt edema, or pl eural effusion. IMPRESSION: Stable cardiomegaly and mild vascular congestion. No new process. POS: RRE
[2018-10-09 19:20] LABS: ALT (SGPT) 11 U/L (8-55); AST (SGOT) 9 U/L (5-34); Albumin 3.6 g/dL (3.5-5.0); Alkaline Phosphatase 104 U/L (40-150); Anion Gap 29 mmol/L (10-20); Bilirubin, Total 0.6 mg/dL (0.2-1.2); CK (CPK) 240 U/L (30-200); Calc. Creatinine Clearance 0 mL/min (70-130); Calcium 6.6 mg/dL (7.8-10.44); Carbon Dioxide 16 mmol/L (22-29); Chloride 101 mmol/L (98-107); Estimated GFR-MDRD 2; Globulin 3.1 g/dL (2.4-3.5); Glucose 120 mg/dL (70-105); Potassium 4.2 mmol/L (3.5-5.1); Protein, Total 6.7 g/dL (6.0-8.3); Sodium 142 mmol/L (136-145)
[2018-10-09 19:32] LABS: BUN (Urea Nitrogen) 168 mg/dL (8.9-20.6)
[2018-10-09] MEDS ORDERED: Calcium Gluc 4.6 MEQ/10 ML (100 MG/ML) ONE (20:00)
[2018-10-09] MEDS ORDERED: Aspirin Chewable 81 MG TAB ONE (20:00)
[2018-10-09] MEDS ORDERED: Furosemide 40 MG/4 ML VIAL ONE (20:00)
[2018-10-09] MEDS ORDERED: Nitroglycerin 2% Ointment 1 INCH/1 GM Packet ONE (20:00)
[2018-10-09] MEDS ORDERED: Ondansetron ODT 4 MG TAB PO PRN (21:09)
[2018-10-09] MEDS ORDERED: Acetaminophen 325 MG TAB PO PRN (21:09)
[2018-10-09 22:24] LABS: Troponin I 0.037 ng/mL (< 0.028)
[2018-10-09] MEDS ORDERED: EPOETIN ALFA-EPBX (ESRD) 10,000 UNIT/ML VIAL SC SCH (22:30)
[2018-10-09 23:29] LABS: HBSAg Index 0.29 S/CO (0-0.99); Hep B Surf Ag Non-Reactive S/CO (NonReactive)
[2018-10-10] MEDS ORDERED: Morphine 4 MG/ML VIAL SLOW IVP SCH ×2 (01:15→04:00)
[2018-10-10] MEDS: Ondansetron PF 4 MG/2 ML Vial IVP PRN ×2 (01:19→20:15)
[2018-10-10 01:24] LABS: Troponin I 0.026 ng/mL (< 0.028)
--- NOTE | 2018-10-10 04:24 | HP ---
PRIMARY CARE PHYSICIAN: The patient has to go to [facility]. CODE STATUS: Full code. TIME OF EVALUATION: 8:20 p.m. CHIEF COMPLAINT: Shortness of breath. HISTORY OF PRESENT ILLNESS: This is a 43-year-old male patient, with past medical history of end-stage renal disease, the patient is unsure as the patient receives usually dialysis once a month, came to the hospital after having cough for the past 3 to 4 days associated with wheezing, orthopnea, and also having the feeling that his throat was swollen. reported that he also always has these feeling when he is getting close to need for hemodialysis. The patient still makes some urine. He has been placed on Lasix by Dr. Webb who has been consulted and has kindly agreed to help us with outpatient. Symptoms were severe to the point that the patient went into respiratory failure and the patient was needing BiPAP for ventilatory support. REVIEW OF SYSTEMS: CONSTITUTIONAL: No fever or chills. The patient has generalized weakness. RESPIRATORY: Cough, scant sputum production, wheezing, shortness of breath. CARDIOVASCULAR: No chest pain or palpitation. GASTROINTESTINAL: No nausea, no vomiting, diarrhea, or abdominal pain. 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 However, when he is alert, he is fully oriented. GENITOURINARY: No burning on urination. EXTREMITIES: Bilateral leg swelling. All other systems were reviewed and negative except for the findings mentioned above. PAST MEDICAL HISTORY: Positive for hypertension, end-stage renal disease, needing intermittent dialysis that he gets every 2 weeks. PAST SURGICAL HISTORY: Right arm fistula. PSYCHIATRIC HISTORY: No previous psych history. SOCIAL HISTORY: The patient has no alcohol. The patient uses marijuana. Social drug use. Former cocaine user and former tobacco user. FAMILY HISTORY: Reviewed, noncontributory for current presentation. KNOWN ALLERGIES: No known drug allergies. REPORTED MEDICATIONS: 1. Furosemide. 2. Aspirin. 3. Sodium bicarbonate. 4. Gabapentin. 5. Ranitidine. 6. Carvedilol. 7. Thiamine. 8. Metolazone. PHYSICAL EXAMINATION: VITAL SIGNS: On presentation, heart rate 96, respiratory rate was 28, oxygen saturation 98, blood pressure 158/126. GENERAL: The patient was met at bedside. The patient is on BiPAP. Respiratory distress has improved. Sleepy, difficult to arouse, but oriented when he wakes up. HEENT: Eyes, normal conjunctivae. Anicteric. Moist oral mucosa. No JVD. RESPIRATORY: Bilateral air entry. The patient has rales bilaterally and wheezing. Symmetric expansion. CARDIOVASCULAR: Normal rate, regular rhythm. No murmurs. No gallop. Bilateral leg edema. ABDOMEN: Soft. Normal bowel sounds. MUSCULOSKELETAL: Baseline range of motion and strength. No tenderness. SKIN: Warm, intact. No pallor. No rash. No redness. Peripheral pulses are present. Capillary refill seems to be intact. NEUROLOGICAL: No evidence of any new focal weakness. Baseline speech. Cranial nerves seems to be intact. PSYCHIATRIC: The patient is in good mood. No anxiety. Optimal judgment. IMAGING STUDIES: EKG was reviewed. The patient has sinus rhythm with occasional PVCs, ventricular rate 97, NH 188, QRS 78, and QT corrected 500. Chest x-ray was reviewed. The patient has stable cardiomegaly with mild vascular congestion. No new process. LABORATORY DATA: Reviewed. The patient has white count 9.0, hemoglobin 9.6, MCV 84.6, platelet count 238. Blood gas; pH 7.21, pCO2 of 41.5, pO2 of 245.7. Chemistry; sodium 142, potassium 4.2, chloride 101, carbon dioxide 16, anion gap 29, BUN 168, creatinine 20.86, GFR 2, glucose 120, calcium 6.6. LFTs were negative. CK 240. Troponin 0.022, second one 0.037, third one 0.026. B-type natriuretic peptide was 4082. ASSESSMENT AND PLAN: The patient will be placed in the hospital with following medical problems. 1. Acute hypercapnic and hypoxic respiratory failure, likely due to fluid overload. The patient was placed on BiPAP and has improved, the patient will need dialysis. Dr. Webb has kindly accepted to help us with outpatient. We will follow recommendations. We will continue noninvasive positive pressure ventilation for now. We will adjust respiratory treatment depending on the patient's improvement. 2. Chronic normocytic anemia. This is likely secondary to end-stage renal disease. Hemoglobin is about the same when compared with the previous one. We will monitor. We will treat accordingly. 3. Acute metabolic and respiratory acidosis with pH 7.21. The patient is going for dialysis, this is more likely to improve. 4. Hyperglycemia. No report of diabetes. This may be due to acute distress versus low glucose tolerance, we will monitor, we will treat accordingly. 5. Mildly elevated troponin of 0.037. This may be secondary to underlying kidney failure, we will monitor, and treat accordingly. 6. Deep venous thrombosis prophylaxis. 7. Morbid obesity. The patient is advised to lose weight. 8. End-stage renal disease, needing hemodialysis, Dr. Webb is helping us. We will follow recommendations. 9. Uncontrolled hypertension, systolic blood pressure on presentation around 150. The patient will need dialysis due to fluid overload. We will monitor, and treat accordingly. 10. Deep venous thrombosis prophylaxis. Job ID: [id number]
[2018-10-10 06:22] LABS: #Eosinphils 0.1 thou/uL (0.0-0.7); #Lymphocytes 0.9 thou/uL (1.20-3.40); #Monocytes 0.6 thou/uL (0.11-0.59); #Neutrophils 5.9 thou/uL (1.40-6.50); %Basophils 0.2 % (0.0-1.0); %Eosinophils 1.3 % (0.0-10.0); %Lymphocytes 12.1 % (21.0-51.0); %Monocytes 8.3 % (0.0-10.0); Hemoglobin 7.6 g/dL (14.0-18.0); Mean Corpuscular HGB CONC 31.6 g/dL (32.0-36.0); Mean Corpuscular Hemoglobin 26.7 pg (27.0-31.0); Mean Corpuscular Volume 84.4 fL (78.0-98.0); Mean Platelet Volume 9.6 fL (7.4-10.4); Platelet Count 121 thou/uL (130-400); RBC Distribution Width 14.6 % (11.5-14.5); Red Blood Cell (RBC) Count 2.86 mill/uL (4.70-6.10); White Blood Cell (WBC) Count 7.5 thou/uL (4.8-10.8)
[2018-10-10 06:42] LABS: Anion Gap 22 mmol/L (10-20); BUN (Urea Nitrogen) 108 mg/dL (8.9-20.6); Calc. Creatinine Clearance 10 mL/min (70-130); Calcium 7.4 mg/dL (7.8-10.44); Carbon Dioxide 22 mmol/L (22-29); Chloride 102 mmol/L (98-107); Estimated GFR-MDRD 4; Glucose 85 mg/dL (70-105); Potassium 3.6 mmol/L (3.5-5.1); Sodium 142 mmol/L (136-145)
--- NOTE | 2018-10-10 08:12 | CON ---
DATE OF CONSULTATION: 10/09/2018 CONSULTING PHYSICIAN: ER physician. REASON FOR CONSULTATION: End-stage renal disease evaluation and care. REASON FOR ADMISSION: "Not feeling well." HISTORY OF PRESENT ILLNESS: A 43-year-old male with history of end-stage renal disease, hypertension, edema, neuropathy, and acidosis, came to the hospital with above complaint and was found to have severe acidosis. The patient is undocumented not able to get regular dialysis and has been admitted for emergent dialysis. Dialysis nurse notified. PAST MEDICAL HISTORY: Positive for end-stage renal disease, hypertension, proteinuria, and substance abuse. PAST SURGICAL HISTORY: Dialysis access placement. HOME MEDICATIONS: Include, 1. Sodium bicarbonate. 2. Neurontin. 3. Furosemide. 4. Carvedilol. 5. Aspirin. ALLERGIES: NO KNOWN DRUG ALLERGIES. SOCIAL HISTORY: No smoking, alcohol, or illicit drug abuse. History of substance abuse in the past. FAMILY HISTORY: No history of kidney disease. REVIEW OF SYSTEMS: CONSTITUTIONAL: Negative for weight loss or gain, ability to conduct usual activities. SKIN: Negative for rash, itching. EYES: Negative for double vision, pain. ENT/MOUTH: Negative for nose bleeding, neck stiffness, pain, tenderness. CARDIOVASCULAR: Negative for palpitations, dyspnea on exertion, orthopnea. RESPIRATORY: Negative for shortness of breath, wheezing, cough, hemoptysis, fever or night sweats. GASTROINTESTINAL: Negative for poor appetite, abdominal pain, heartburn, nausea, vomiting, constipation, or diarrhea. GENITOURINARY: Negative for urgency, frequency, dysuria, nocturia. MUSCULOSKELETAL: Negative for pain, swelling. NEUROLOGIC/PSYCHIATRIC: Negative for anxiety, depression. ALLERGY/IMMUNOLOGIC: Negative for skin rash, bleeding tendency. PHYSICAL EXAMINATION: GENERAL: Reveals a well-built male, in no apparent distress. VITAL SIGNS: Temperature 97.9, pulse 78, respiratory rate 18, blood pressure HEENT: On BiPAP. CV: S1, and S2 heard. Rate and rhythm regular. RESPIRATORY: Clear. GI: Abdomen is soft. MUSCULOSKELETAL: NEUROLOGIC: Somnolent. LABORATORY DATA: Hemoglobin is 8.6, pH is 7.21. Potassium 4.2, BUN is 168, and creatinine is 20.8. ASSESSMENT AND PLAN: 1. End-stage renal disease. Plan is to have dialysis. 2. Edema, remove fluid. 3. Anemia of chronic disease. a. We will add Epogen. 4. Metabolic acidosis secondary to renal failure. 5. Prognosis, guarded. Plan to have dialysis with fluid removal as tolerated. Continue on BiPAP. Continue close monitoring. The patient is at high risk for complications. I did explain that to his too. Thank you for the consult. Job ID: [id number]
[2018-10-10] MEDS ORDERED: Enoxaparin Sodium 40 MG/0.4 ML SYRINGE SC SCH (09:00)
[2018-10-10] MEDS ORDERED: Metolazone 5 MG TAB PO SCH (09:00)
[2018-10-10] MEDS: Furosemide 80 MG TAB PO SCH ×2 (10:05→20:15)
[2018-10-10] MEDS: Heparin 5,000 UNITS/ML VIAL SC SCH ×3 (10:05→20:14)
[2018-10-10] MEDS: Carvedilol 25 MG TAB PO SCH ×2 (10:05→20:15)
[2018-10-10] MEDS: Aspirin 81 mg Enteric Coated Tablet PO SCH (10:05)
[2018-10-10] MEDS: Sodium Bicarbonate Tab 325 MG TAB PO SCH ×2 (10:06→15:44)
[2018-10-10] MEDS: Thiamine 100 MG TAB PO SCH (10:06)
--- NOTE | 2018-10-10 12:28 | PRG ---
DATE OF SERVICE: 10/10/2018 SUBJECTIVE: Patient was seen and examined at bedside and overnight events noted. Patient denies any shortness of breath or chest pain or palpitation. No history of nausea or vomiting or diarrhea or fever or chills or cramps. OBJECTIVE: GENERAL: This is a well-built male in no apparent distress. VITAL SIGNS: Temperature 98.9. Heart rate 94. Respiratory rate blood pressure 146/101. HEENT: Atraumatic, normocephalic. Oral mucosa is moist NECK: Supple. CARDIOVASCULAR: S1, S2 heard. Rate and rhythm regular. RESPIRATORY: Clear to auscultation. GASTROINTESTINAL: Abdomen is soft. MUSCULOSKELETAL: No tenderness. No edema. DERMATOLOGIC: No skin rash. NEUROLOGIC: Alert and awake and oriented X3. No focal neurologic deficits. Moving all the extremities. PSYCHIATRIC: Mood and affect normal. LABORATORY DATA: Potassium is 3.6, BUN 108, . ASSESSMENT AND PLAN: 1. End-stage renal disease. Plan is to have dialysis today. 2. Edema, remove fluid. 3. Anemia of chronic disease. 4. Metabolic acidosis. 5. Acute hypoxic respiratory failure. Continue on BiPAP. We will have dialysis today Job ID: [id number]
--- NOTE | 2018-10-10 14:13 | PDOC.PN ---
- Subjective Encounter Start Date: 10/10/18 Encounter Start Time: 14:05 Subjective: f/u for ESRD with volume overload and acute resp failure requiring -: BiPAP NIMV. - Objective Resuscitation Status - Order Detail: 10/09/18 21:09 Resuscitation Status Routine Resuscitation Status: FULL: Full Resuscitation MAR Reviewed: Yes Vital Signs & Weight: Vital Signs (12 hours) Temp Pulse Resp Pulse Ox 10/10/18 12:00 97.8 F 10/10/18 08:24 98.9 F 10/10/18 07:44 100 10/10/18 03:13 98.0 F 10/10/18 02:48 94 23 H 98 Weight Weight 223 lb Most Recent Monitor Data Heart Rate from ECG 70 NIBP 119/72 NIBP BP-Mean 87 Respiration from ECG 13 SpO2 95 I&O: 10/09/18 10/10/18 10/11/18 06:59 06:59 06:59 Intake Total 20 Output Total 3000 Balance -2980 Result Diagrams: 10/10/18 06:02 10/10/18 06:02 Additional Labs: Laboratory Tests 09/17/18 10/09/18 10/09/18 13:24 18:49 18:49 Hgb 8.6 L Plt Count 138 Carbon Dioxide BUN Creatinine Calcium B-Natriuretic Peptide 8713.8 H 4082.5 H 10/09/18 18:49 Hgb Plt Count Carbon Dioxide 16 L BUN 168 H Creatinine 20.86 H Calcium 6.6 L B-Natriuretic Peptide Radiology Reviewed by me: Yes (PCXR - mild pulm vasc prominence, cardiomegaly) EKG Reviewed by me: Yes (Tele - SR) Phys Exam - Physical Examination Constitutional: NAD BiPAP NIMV currently, resp distress HEENT: PERRLA, sclera anicteric, oral pharynx no lesions Neck: no nodes, no JVD, supple, full ROM Respiratory: no wheezing, no rales, no rhonchi S1, S2 Cardiovascular: RRR, no significant murmur, no rub, gallop Gastrointestinal: soft, non-tender, no distention, positive bowel sounds Musculoskeletal: no edema, pulses present Neurological: normal sensation, moves all 4 limbs Psychiatric: A&O x 3 Skin: normal turgor, cap refill <2 seconds Dx/Plan (1) Acute respiratory failure with hypoxia Code(s): J96.01 - ACUTE RESPIRATORY FAILURE WITH HYPOXIA Status: Acute Comment: Secondary to volume overload mediated by ESRD, BiPAP requirement currently, continue O2 supplementation and monitor response (2) ESRD (end stage renal disease) on dialysis Code(s): N18.6 - END STAGE RENAL DISEASE; Z99.2 - DEPENDENCE ON RENAL DIALYSIS Status: Chronic Comment: HD per Renal service (3) Hypertension Code(s): I10 - ESSENTIAL (PRIMARY) HYPERTENSION Status: Chronic Qualifiers: Hypertension type: essential hypertension Qualified Code(s): I10 - Essential (primary) hypertension Comment: Continue Coreg and Lasix, serial BP monitoring (4) Anemia in CKD (chronic kidney disease) Code(s): N18.9 - CHRONIC KIDNEY DISEASE, UNSPECIFIED; D63.1 - ANEMIA IN CHRONIC KIDNEY DISEASE Status: Chronic Comment: Stable trend, continue to monitor serial Hbg, no evidence of acute blood loss - 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
--- NOTE | 2018-10-10 14:42 | CON ---
DATE OF CONSULTATION: 10/10/2018 CONSULTING PHYSICIAN: Dr. Delarosa from the Hospitalist group. REASON FOR CONSULTATION: Respiratory failure related fluid overloaded state. HISTORY OF PRESENT ILLNESS: This is a 43-year-old male with chronic kidney disease, requiring hemodialysis. He is an undocumented illegal alien, who basically returns to the ER when he is symptomatic from fluid overload. He has a right upper arm fistula and looking hospital records, he has periodically gotten dialysis over the last year. He returned to the ER last night with shortness of breath and was subsequently admitted and I believe was acutely dialyzed last night. PAST MEDICAL HISTORY: 1. Hypertension. 2. End-stage renal disease, requiring hemodialysis. PAST SURGICAL HISTORY: Right upper arm fistula placement. SOCIAL HISTORY: Does not drink alcohol. Apparently uses marijuana. Former cocaine and tobacco abuser. FAMILY MEDICAL HISTORY: Unremarkable. ALLERGIES: NONE. MEDICATIONS: Prior to admission list includes, 1. Furosemide. 2. Aspirin. 3. Sodium bicarbonate. 4. Gabapentin. 5. Ranitidine. 6. Carvedilol. 7. Thiamine. 8. Metolazone. REVIEW OF SYSTEMS: Cannot be obtained secondary to the patient cannot speak Croatian. PHYSICAL EXAMINATION: VITAL SIGNS: Temperature 98.0, pulse 89, blood pressure 143/102. He is currently on BiPAP machine. HEENT: Unremarkable. NECK: No JVD. LUNGS: Crackles at the bases. CARDIAC: S1, S2. Regular. ABDOMEN: Tense, distended. EXTREMITIES: Edematous. LABORATORY DATA: Sodium 140, potassium 3.6, chloride 102, CO2 22, BUN 108, creatinine 13.8, glucose 85. PH 7.21, pCO2 41, PO2 245, that was yesterday afternoon. White blood cell count 7.5, hematocrit 24.1, and platelet count 121. His chest x-ray showed small lung volumes, cardiomegaly, interstitial edema. ASSESSMENT: 1. Acute respiratory failure related to fluid overload state. 2. Chronic renal failure, requiring intermittent dialysis. PLAN: Main issue is fluid removal by dialysis. We will maintain the BiPAP as long as he needed. Job ID: [id number]
[2018-10-11] MEDS: Sodium Bicarbonate Tab 325 MG TAB PO SCH ×4 (00:40→20:26)
[2018-10-11 06:17] VITALS: BMI 31.3
[2018-10-11 06:30] LABS: Anion Gap 17 mmol/L (10-20); BUN (Urea Nitrogen) 70 mg/dL (8.9-20.6); Calc. Creatinine Clearance 13 mL/min (70-130); Calcium 7.4 mg/dL (7.8-10.44); Carbon Dioxide 26 mmol/L (22-29); Chloride 100 mmol/L (98-107); Estimated GFR-MDRD 6; Glucose 79 mg/dL (70-105); Potassium 3.3 mmol/L (3.5-5.1); Sodium 140 mmol/L (136-145)
[2018-10-11 07:47] LABS: Bite Cells SLIGHT = 2-5 cells (100X) (0-1/hpf); Eosinophils 2 % (0-10); Hemoglobin 7.2 g/dL (14.0-18.0); Lymphocytes 13 % (21-51); MDiff Complete? YES; Mean Corpuscular Hemoglobin 26.8 pg (27.0-31.0); Mean Corpuscular Volume 83.8 fL (78.0-98.0); Mean Platelet Volume 9.7 fL (7.4-10.4); Monocytes 8 % (0-10); Neutrophil 77 % (42-75); Platelet Count 125 thou/uL (130-400); Platelet Morphology Comment Appears Decreased; Polychromasia SLIGHT = 2-3 cells (100X) (0-2/hpf); RBC Distribution Width 14.3 % (11.5-14.5); Red Blood Cell (RBC) Count 2.68 mill/uL (4.70-6.10); Schistocytes SLIGHT = 2-5 cells (100X) (0-1/hpf); White Blood Cell (WBC) Count 5.9 thou/uL (4.8-10.8)
[2018-10-11] MEDS: Thiamine 100 MG TAB PO SCH (08:56)
[2018-10-11] MEDS: Aspirin 81 mg Enteric Coated Tablet PO SCH (08:57)
[2018-10-11] MEDS: Carvedilol 25 MG TAB PO SCH ×2 (08:58→20:26)
[2018-10-11] MEDS: Heparin 5,000 UNITS/ML VIAL SC SCH ×3 (08:59→20:27)
[2018-10-11] MEDS: Furosemide 80 MG TAB PO SCH ×2 (08:59→20:27)
--- NOTE | 2018-10-11 09:22 | PRG ---
DATE OF SERVICE: 10/11/2018 SUBJECTIVE: A 43-year-old gentleman, who was admitted with difficulty breathing and fluid overload, worsening for several days. He has wheezing and orthopnea. He was dialyzed on emergency basis, doing better. He has dialysis set for tomorrow as he is going to go home. OBJECTIVE: VITAL SIGNS: His saturations are 92%, pulse 85, blood pressure , temperature 98, respiratory rate 18. CHEST: Bilateral wheezing. CARDIAC: Normal S1 and S2. No gallop. ABDOMEN: No mass. LABORATORY DATA: His white count is normal. H and H are unremarkable. His BUN and creatinine are 70 and 10.3. X-ray shows cardiomegaly IMPRESSION: Respiratory failure secondary to fluid overload, renal failure. PLAN: Still wheezing. Initiated Dulera. Otherwise, disposition as per Nephrology. We will follow. Job ID: [id number]
--- NOTE | 2018-10-11 15:37 | PDOC.PN ---
- Subjective Encounter Start Date: 10/11/18 Encounter Start Time: 15:15 Subjective: f/u for ESRD with volume overload and resp failure initially requiring -: BiPAP NIMV now on room air. Tolerated HD sessions. - Objective Resuscitation Status - Order Detail: 10/09/18 21:09 Resuscitation Status Routine Resuscitation Status: FULL: Full Resuscitation MAR Reviewed: Yes Vital Signs & Weight: Vital Signs (12 hours) Temp BP Pulse Ox 10/11/18 15:11 99.0 F 10/11/18 10:36 99.2 F 10/11/18 08:09 117/79 10/11/18 08:00 98 10/11/18 07:24 98.9 F Weight Weight 212 lb 4.8 oz Most Recent Monitor Data Heart Rate from ECG 79 NIBP 97/67 NIBP BP-Mean 77 Respiration from ECG 16 SpO2 99 I&O: 10/10/18 10/11/18 10/12/18 06:59 06:59 06:59 Intake Total 20 780 Output Total 3000 4130 Balance -2980 -3350 Result Diagrams: 10/11/18 05:36 10/11/18 05:36 Additional Labs: Laboratory Tests 09/17/18 10/09/18 10/09/18 13:24 18:49 18:49 Hgb 8.6 L Plt Count 138 Carbon Dioxide BUN Creatinine Calcium B-Natriuretic Peptide 8713.8 H 4082.5 H 10/09/18 10/10/18 10/10/18 18:49 06:02 06:02 Hgb 7.6 L Plt Count Carbon Dioxide 16 L BUN 168 H 108 H Creatinine 20.86 H 13.85 H Calcium 6.6 L B-Natriuretic Peptide EKG Reviewed by me: Yes (Tele - SR) Phys Exam - Physical Examination Constitutional: NAD HEENT: PERRLA, sclera anicteric, oral pharynx no lesions Neck: no nodes, no JVD, supple, full ROM few basilar crackles o/w clear Respiratory: no wheezing S1, S2 Cardiovascular: RRR, no significant murmur, no rub, gallop Gastrointestinal: soft, non-tender, no distention, positive bowel sounds Musculoskeletal: no edema, pulses present Neurological: normal sensation, moves all 4 limbs Psychiatric: A&O x 3 Skin: normal turgor, cap refill <2 seconds Dx/Plan (1) Acute respiratory failure with hypoxia Code(s): J96.01 - ACUTE RESPIRATORY FAILURE WITH HYPOXIA Status: Acute Comment: Secondary to volume overload mediated by ESRD, BiPAP requirement initially now on room air, resolved (2) ESRD (end stage renal disease) on dialysis Code(s): N18.6 - END STAGE RENAL DISEASE; Z99.2 - DEPENDENCE ON RENAL DIALYSIS Status: Chronic Comment: HD per Renal service, CM for any additional outpt options (3) Hypertension Code(s): I10 - ESSENTIAL (PRIMARY) HYPERTENSION Status: Chronic Qualifiers: Hypertension type: essential hypertension Qualified Code(s): I10 - Essential (primary) hypertension Comment: Continue Coreg and Lasix, serial BP monitoring (4) Anemia in CKD (chronic kidney disease) Code(s): N18.9 - CHRONIC KIDNEY DISEASE, UNSPECIFIED; D63.1 - ANEMIA IN CHRONIC KIDNEY DISEASE Status: Chronic Comment: Stable trend, continue to monitor serial Hbg, no evidence of acute blood loss - Plan social worker assistant, out of bed/ambulate, DVT proph w/SCDs Stable currently -: Continue HD per Renal service -: Continue ASA, Coreg -: OOB/ambulate -: AM lab: BMP, CBC * Likely home in 24h
--- NOTE | 2018-10-11 17:24 | PRG ---
DATE OF SERVICE: 10/11/2018 SUBJECTIVE: Patient was seen and examined at bedside and overnight events noted. Patient denies any shortness of breath or chest pain or palpitation. No history of nausea or vomiting or diarrhea or fever or chills or cramps. OBJECTIVE: GENERAL: This is a well-built male, in no apparent distress. VITAL SIGNS: Temperature . Heart rate 82. Respiratory rate . Blood pressure 115/81. HEENT: Atraumatic, normocephalic. Oral mucosa is moist NECK: Supple. CARDIOVASCULAR: S1, S2 heard. Rate and rhythm regular. RESPIRATORY: Clear to auscultation. GASTROINTESTINAL: Abdomen is soft. MUSCULOSKELETAL: No tenderness. No edema. DERMATOLOGIC: No skin rash. NEUROLOGIC: Alert and awake and oriented X3. No focal neurologic deficits. Moving all the extremities. PSYCHIATRIC: Mood and affect normal. LABORATORY DATA: Potassium is 3.3, BUN is 70, and creatinine 10.3. ASSESSMENT AND PLAN: 1. End-stage renal disease. Continue on dialysis as tolerated. 2. Edema. We will remove fluid. 3. Anemia. 4. Metabolic acidosis. Plan to continue on dialysis as tolerated. Job ID: [id number]
[2018-10-11] MEDS: Mometasone/Formoterol 120 PUFF INHALER INH SCH (19:22)
[2018-10-12 06:56] LABS: Hemoglobin 7.5 g/dL (14.0-18.0); Platelet Count 124 thou/uL (130-400)
[2018-10-12 07:16] LABS: Anion Gap 18 mmol/L (10-20); BUN (Urea Nitrogen) 74 mg/dL (8.9-20.6); Calc. Creatinine Clearance 12 mL/min (70-130); Calcium 7.3 mg/dL (7.8-10.44); Carbon Dioxide 26 mmol/L (22-29); Chloride 99 mmol/L (98-107); Estimated GFR-MDRD 5; Glucose 84 mg/dL (70-105); Potassium 3.4 mmol/L (3.5-5.1); Sodium 140 mmol/L (136-145)
[2018-10-12] MEDS: Mometasone/Formoterol 120 PUFF INHALER INH SCH ×2 (07:51→19:12)
[2018-10-12] MEDS: Sodium Bicarbonate Tab 325 MG TAB PO SCH ×4 (08:26→21:44)
[2018-10-12] MEDS: Aspirin 81 mg Enteric Coated Tablet PO SCH ×2 (08:26→08:35)
[2018-10-12] MEDS: Heparin 5,000 UNITS/ML VIAL SC SCH ×4 (08:26→21:44)
[2018-10-12] MEDS: Furosemide 80 MG TAB PO SCH ×3 (08:26→21:44)
[2018-10-12] MEDS: Carvedilol 25 MG TAB PO SCH ×3 (08:26→21:44)
[2018-10-12] MEDS: Thiamine 100 MG TAB PO SCH ×2 (08:26→08:35)
--- NOTE | 2018-10-12 11:31 | PRG ---
DATE OF SERVICE: 10/12/2018 SUBJECTIVE: This morning, he is better, less short of breath. He is dialyzed. OBJECTIVE: VITAL SIGNS: Sats 94% on room air, temperature respiratory rate 20, and blood pressure 120/74. CHEST: Decreased breath sounds. No wheezing. CARDIAC: Normal. HEART: S1 and S2. No gallops. IMPRESSION: 1. Respiratory failure. 2. Congestive heart failure. 3. Probably sleep apnea. PLAN: He needs an outpatient sleep study done. His cough has improved with Dulera, can be discharged home on that. Follow up with his primary care physician. Job ID: [id number]
--- NOTE | 2018-10-12 13:56 | PRG ---
DATE OF SERVICE: 10/12/2018 SUBJECTIVE: A 43-year-old gentleman being seen for end-stage renal disease. The patient denied nausea, vomiting or chest pain. OBJECTIVE: See above. CONSTITUTIONAL: Awake, alert, in no acute distress. VITAL SIGNS: Afebrile. Pulse 81, breathing 16, blood pressure 139/88. GENERAL APPEARANCE AND MENTAL STATUS: Fair. HEAD/NECK: Normocephalic. Atraumatic. EYES: EOMI. No deformity. EARS: Clear. No ulcers. NOSE: Intact. No lesions. MOUTH: Clear. No discharge. THROAT: Clear. No exudate. LUNGS: Clear. No crackles. CARDIAC: S1, S2. No rub. ABDOMEN: Benign. Bowel sounds positive. GENITALIA/RECTUM: Webber absent. BACK/EXTREMITIES: Edema 0+. NEUROLOGICAL: Alert and motor intact. SKIN: LYMPHATICS: LABORATORY DATA: Reviewed. ASSESSMENT AND PLAN: 1. Stage chronic kidney disease, continue hemodialysis. 2. Hypertension, stable. 3. Anemia, stable. 4. Medication based on GFR appropriate. Job ID: [id number]
--- NOTE | 2018-10-12 18:10 | PDOC.PN ---
- Subjective Encounter Start Date: 10/12/18 Encounter Start Time: 13:15 Subjective: no sob, feels better -: says he is amb in room - Objective Resuscitation Status - Order Detail: 10/09/18 21:09 Resuscitation Status Routine Resuscitation Status: FULL: Full Resuscitation MAR Reviewed: Yes Vital Signs & Weight: Vital Signs (12 hours) Temp Pulse Resp BP Pulse Ox 10/12/18 16:00 98.0 F 89 18 133/71 97 10/12/18 12:00 98.2 F 81 18 129/88 95 10/12/18 08:35 92 L 10/12/18 08:00 97.5 F L 82 20 120/74 92 L 10/12/18 07:51 80 12 Weight Weight 218 lb 9.6 oz Most Recent Monitor Data Heart Rate from ECG 82 NIBP 99/55 NIBP BP-Mean 69 Respiration from ECG 21 SpO2 97 I&O: 10/11/18 10/12/18 10/13/18 06:59 06:59 06:59 Intake Total 780 450 Output Total 4130 1 Balance -3350 449 Result Diagrams: 10/12/18 06:12 10/12/18 06:12 Phys Exam - Physical Examination has anasarca HEENT: PERRLA, moist MMs Neck: no JVD, supple Respiratory: no wheezing, no rales Cardiovascular: RRR, no significant murmur Gastrointestinal: soft, non-tender, positive bowel sounds Musculoskeletal: pulses present, edema present Neurological: non-focal, moves all 4 limbs Psychiatric: normal affect, A&O x 3 Dx/Plan (1) Volume overload Code(s): E87.70 - FLUID OVERLOAD, UNSPECIFIED Status: Acute Comment: resolving (2) ESRD (end stage renal disease) on dialysis Code(s): N18.6 - END STAGE RENAL DISEASE; Z99.2 - DEPENDENCE ON RENAL DIALYSIS Status: Chronic Comment: HD per Renal service, CM for any additional outpt options (3) Acute respiratory failure with hypoxia Code(s): J96.01 - ACUTE RESPIRATORY FAILURE WITH HYPOXIA Status: Acute Comment: Secondary to volume overload mediated by ESRD, BiPAP requirement initially now on room air, resolved (4) Cardiomyopathy Code(s): I42.9 - CARDIOMYOPATHY, UNSPECIFIED Status: Chronic (5) Hypertension Code(s): I10 - ESSENTIAL (PRIMARY) HYPERTENSION Status: Chronic Qualifiers: Hypertension type: essential hypertension Qualified Code(s): I10 - Essential (primary) hypertension Comment: Continue Coreg and Lasix (6) Anemia due to chronic kidney disease, on chronic dialysis Code(s): N18.6 - END STAGE RENAL DISEASE; D63.1 - ANEMIA IN CHRONIC KIDNEY DISEASE; Z99.2 - DEPENDENCE ON RENAL DIALYSIS Status: Chronic - Plan is getting back to back HD -: noncomplaince due to financial restraints -: usg venous doppler to r/o dvt -: still has anasarca -: continue asp, lasix, coreg, sodium bicarb * . Review of Systems - Medications/Allergies Allergies/Adverse Reactions: Allergies Allergy/AdvReac Type Severity Reaction Status Date / Time No Known Allergies Allergy Verified 10/09/18 22:58 Medications: Current Medications Acetaminophen (Tylenol) 650 mg PO Q4H PRN PRN Reason: Headache/Fever/Mild Pain (1-3) Aspirin (Ecotrin) 81 mg PO DAILY [facility] Last Admin: 10/12/18 08:35 Dose: 81 mg Carvedilol (Coreg) 25 mg PO BID [facility] Last Admin: 10/12/18 08:35 Dose: 25 mg Furosemide (Lasix) 80 mg PO BID [facility] Last Admin: 10/12/18 08:35 Dose: 80 mg Heparin Sodium (Porcine) (Heparin) 5,000 units SC TID [facility] Last Admin: 10/12/18 15:43 Dose: 5,000 units Mometasone Furoate/Formoterol Fumar (Dulera 200 Mcg/5 Mcg Inhaler) 2 puff INH BID-RT [facility] Last Admin: 10/12/18 07:51 Dose: 2 puff Ondansetron HCl (Zofran Odt) 4 mg PO Q6H PRN PRN Reason: Nausea/Vomiting Ondansetron HCl (Zofran) 4 mg IVP Q4H PRN PRN Reason: Nausea/Vomiting Last Admin: 10/10/18 20:15 Dose: 4 mg Sodium Bicarbonate (Bicarbonate, Sodium) 1,300 mg PO TID [facility] Last Admin: 10/12/18 15:42 Dose: 1,300 mg Thiamine HCl (Thiamine) 250 mg PO DAILY [facility] Last Admin: 10/12/18 08:35 Dose: 250 mg
[2018-10-13 05:03] VITALS: TEMP 98.1
--- NOTE | 2018-10-13 07:20 | ULT ---
ULTRASOUND WITH DOPPLER DUPLEX VENOUS LOWER EXTREMITY BILATERAL: CPT: 86997 ICD-10-PCS: B54D HISTORY: Edema of bilateral lower extremities. TECHNIQUE: Color flow Doppler, spectral waveform analysis of pulsed Doppler, and marte-scale imaging with fidel fe and augmentation, were used to evaluate the bilateral common femoral, femoral, popliteal, entry operator ior tibial, and superficial femoral, veins; and the proximal portions of the profunda femoral and gre ater saphenous, veins. FINDINGS: Appropriate compressibility and flow within the imaged deep vein system of each lower extremity. IMPRESSION: No deep vein thrombosis of the visualized bilateral lower extremities. POS: ANJALI
[2018-10-13] MEDS: Mometasone/Formoterol 120 PUFF INHALER INH SCH ×2 (07:39→20:31)
[2018-10-13] MEDS: Sodium Bicarbonate Tab 325 MG TAB PO SCH ×2 (07:49→15:07)
[2018-10-13] MEDS: Thiamine 100 MG TAB PO SCH (07:50)
[2018-10-13] MEDS: Aspirin 81 mg Enteric Coated Tablet PO SCH (07:50)
[2018-10-13] MEDS: Furosemide 80 MG TAB PO SCH (07:50)
[2018-10-13] MEDS: Carvedilol 25 MG TAB PO SCH (07:51)
[2018-10-13] MEDS: Heparin 5,000 UNITS/ML VIAL SC SCH ×2 (07:51→15:07)
--- NOTE | 2018-10-13 14:10 | PRG ---
DATE OF SERVICE: 10/13/2018 SUBJECTIVE: A 43-year-old gentleman being seen for end-stage renal disease. The patient denied any nausea, vomiting, or chest pain. OBJECTIVE: CONSTITUTIONAL: On examination, the patient is awake and alert. VITAL SIGNS: Afebrile, pulse 75, breathing 16, and blood pressure 122/78. GENERAL APPEARANCE AND MENTAL STATUS: Fair. HEAD/NECK: Normocephalic. Atraumatic. EYES: EOMI. No deformity. EARS: Clear. No ulcers. NOSE: Intact. No lesions. MOUTH: Clear. No discharge. THROAT: Clear. No exudate. LUNGS: Clear. No crackles. CARDIAC: S1, S2. No rub. ABDOMEN: Benign. Bowel sounds positive. GENITALIA/RECTUM: Webber absent. BACK/EXTREMITIES: Edema 0+. NEUROLOGICAL: Alert and motor intact. LABORATORY DATA: Labs reviewed. ASSESSMENT AND PLAN: 1. Stage 6 chronic kidney disease. Plan dialysis. 2. Hypertension, stable. 3. Anemia. We would recommend transfusion. 4. Medications based on glomerular filtration rate are appropriate. Job ID: [id number]
--- NOTE | 2018-10-13 15:13 | PDOC.PN ---
- Subjective Encounter Start Date: 10/13/18 Encounter Start Time: 12:00 Subjective: awake, no sob -: is amb in room - Objective Resuscitation Status - Order Detail: 10/09/18 21:09 Resuscitation Status Routine Resuscitation Status: FULL: Full Resuscitation MAR Reviewed: Yes Vital Signs & Weight: Vital Signs (12 hours) Temp Pulse Resp BP BP Pulse Ox 10/13/18 08:00 98.1 F 80 18 122/78 95 10/13/18 07:39 87 16 10/13/18 04:00 98.1 F 87 16 129/81 94 L Weight Weight 218 lb 9.6 oz Most Recent Monitor Data Heart Rate from ECG 82 NIBP 99/55 NIBP BP-Mean 69 Respiration from ECG 21 SpO2 97 I&O: 10/12/18 10/13/18 10/14/18 06:59 06:59 06:59 Intake Total 450 1200 480 Output Total 1 Balance 449 1200 480 Result Diagrams: 10/12/18 06:12 10/12/18 06:12 Phys Exam - Physical Examination HEENT: PERRLA, sclera anicteric Neck: no JVD, supple Respiratory: no wheezing, no rales Cardiovascular: RRR, no significant murmur Gastrointestinal: soft, no distention, positive bowel sounds Musculoskeletal: pulses present, edema present Neurological: non-focal, moves all 4 limbs Psychiatric: normal affect, A&O x 3 Dx/Plan (1) Volume overload Code(s): E87.70 - FLUID OVERLOAD, UNSPECIFIED Status: Acute Comment: resolving (2) ESRD (end stage renal disease) on dialysis Code(s): N18.6 - END STAGE RENAL DISEASE; Z99.2 - DEPENDENCE ON RENAL DIALYSIS Status: Chronic Comment: HD per Renal service, CM for any additional outpt options (3) Acute respiratory failure with hypoxia Code(s): J96.01 - ACUTE RESPIRATORY FAILURE WITH HYPOXIA Status: Acute Comment: Secondary to volume overload mediated by ESRD, BiPAP requirement initially now on room air, resolved (4) Cardiomyopathy Code(s): I42.9 - CARDIOMYOPATHY, UNSPECIFIED Status: Chronic (5) Hypertension Code(s): I10 - ESSENTIAL (PRIMARY) HYPERTENSION Status: Chronic Qualifiers: Hypertension type: essential hypertension Qualified Code(s): I10 - Essential (primary) hypertension Comment: Continue Coreg and Lasix (6) Anemia due to chronic kidney disease, on chronic dialysis Code(s): N18.6 - END STAGE RENAL DISEASE; D63.1 - ANEMIA IN CHRONIC KIDNEY DISEASE; Z99.2 - DEPENDENCE ON RENAL DIALYSIS Status: Chronic - Plan will likely get dialyzed today, didn't have one yesterday -: dc plan per nephrology adv -: will need outpt plan/support for HD -: continue asp, coreg, lasix, sodium bicarb -: is getting epogen with HD, will need iron if deficient. * . Review of Systems - Medications/Allergies Allergies/Adverse Reactions: Allergies Allergy/AdvReac Type Severity Reaction Status Date / Time No Known Allergies Allergy Verified 10/09/18 22:58 Medications: Current Medications Acetaminophen (Tylenol) 650 mg PO Q4H PRN PRN Reason: Headache/Fever/Mild Pain (1-3) Aspirin (Ecotrin) 81 mg PO DAILY [facility] Last Admin: 10/13/18 07:50 Dose: 81 mg Carvedilol (Coreg) 25 mg PO BID [facility] Last Admin: 10/13/18 07:51 Dose: 25 mg Furosemide (Lasix) 80 mg PO BID [facility] Last Admin: 10/13/18 07:50 Dose: 80 mg Heparin Sodium (Porcine) (Heparin) 5,000 units SC TID [facility] Last Admin: 10/13/18 07:51 Dose: 5,000 units Mometasone Furoate/Formoterol Fumar (Dulera 200 Mcg/5 Mcg Inhaler) 2 puff INH BID-RT [facility] Last Admin: 10/13/18 07:39 Dose: 2 puff Ondansetron HCl (Zofran Odt) 4 mg PO Q6H PRN PRN Reason: Nausea/Vomiting Ondansetron HCl (Zofran) 4 mg IVP Q4H PRN PRN Reason: Nausea/Vomiting Last Admin: 10/10/18 20:15 Dose: 4 mg Sodium Bicarbonate (Bicarbonate, Sodium) 1,300 mg PO TID [facility] Last Admin: 10/13/18 07:49 Dose: 1,300 mg Thiamine HCl (Thiamine) 250 mg PO DAILY [facility] Last Admin: 10/13/18 07:50 Dose: 250 mg
[2018-10-13 20:41] VITALS: BP 151/92
--- NOTE | 2018-10-14 18:21 | DIS ---
DATE OF ADMISSION: 10/09/2018 DATE OF DISCHARGE: 10/13/2018 DISCHARGE DISPOSITION: To home. PRIMARY DISCHARGE DIAGNOSES: 1. Volume overload with patient not being compliant with hemodialysis regimen. 2. End-stage renal disease, on hemodialysis. 3. Acute respiratory failure with hypoxia. 4. Anasarca. 5. Cardiomyopathy. 6. Hypertension. 7. Chronic anemia due to renal disease. PROCEDURES DONE DURING HOSPITALIZATION: Chest x-ray done on the day of admission showed cardiomegaly with mild pulmonary vascular congestion. Ultrasound venous Doppler of lower extremities done showed no evidence of DVT. H and H 7.5 and 23 , platelet count 124. Initial blood gas on arrival showed pH of 7.21. The patient's initial creatinine was 20.8, creatinine on the 3rd was 11.6. Initial BUN was 168 on the 09 of October, was 74 on the 12 of October. BNP was 4082, albumin 3.6, serum bicarb was 16 on the day of admission with bicarb number of 26 on 12 of October. HBS antigen nonreactive. DISCHARGE MEDICATIONS: 1. Aspirin 81 mg p.o. daily. 2. Coreg 25 mg p.o. twice daily. 3. Gabapentin 100 mg once in 2 days. 4. Sodium bicarbonate 1300 mg p.o. three times daily. 5. Lasix 80 mg twice daily. ALLERGIES: NO KNOWN DRUG ALLERGIES. INPATIENT CONSULT: Dr. Wells for Nephrology, Dr. Jarvis/Dr. Fischer for Pulmonology Critical Care. BRIEF COURSE DURING HOSPITALIZATION: The patient initially was brought to emergency room for severe shortness of breath. He was in acute respiratory failure on arrival and had to be placed on BiPAP. The patient has known history of end-stage renal disease and had severe volume overload due to noncompliance with hemodialysis. The patient has no funding and has no insurance for dialysis. He has had back-to- back hemodialysis done all through his stay. Financial Services representatives were involved for helping with setting up outpatient dialysis, but the patient did not want to wait until Monday and he apparently signed out against advice on the . His scheduled dialysis was to be done on Monday for another 4 hours session prior to discharge, but the patient signed out against advice. He still has anasarca and volume overload. His overall prognosis is poor due to noncompliance with hemodialysis. The patient also likely has underlying sleep apnea and needs outpatient sleep study and has been counseled with regard to the same to follow up with his primary care physician for a referral for sleep study. Please see a [id number] documentation for the day of discharge on [employer]. Job ID: [id number] [facility]ITAL[facility]
--- NOTE | 2018-10-15 03:43 | PQF ---
[employer] Inse[employer] Crystal Reports Winform Viewer CHRIS EARLY VINAYA KUMAR MD [id number] CLINICAL DOCUMENTATION CLARIFICATION FORM: POST DISCHARGE Addendum to original discharge summary date: ____ Late entry note date: __ DATE: 10/15/2018 ATTN: Onur Pickett Please exercise your independent, professional judgment in responding to the clarification form. Clinical indicators are provided on the bottom of this form for your review Based on your clinical judgment kindly clarify the type and acuity of the patients CHF. Please check appropriate box(s): HEART FAILURE: A. TYPE: [ ] Systolic / HFrEF [ ] Diastolic / HFpEF [ x ] Combined Systolic / Diastolic B. ACUITY [ ] Acute [ ] Acute on Chronic [x ] Chronic [ ] Other diagnosis please specify [ ] Unable to determine In addition, please specify: Present on Admission (POA): [ x ] Yes [ ] No [ ] Unable to determine For continuity of documentation, please document condition throughout progress notes and discharge summary. Thank You. CLINICAL INDICATORS H and P pg. 10/09- Shortness of Breath H and P pg.3 10/09- Acute hypercapnic and hypoxic respiratory failure, likely due to fluid overload Hospitalist PN Dr. Tiwari pg.3 10/11- Hypertension continue Coreg and Lasix PN Dr. Jarvis pg. 10/12- Congestive heart failure DS pg/1 10/13- Anasarca Laboratory 10/09- BNP 4082.5H Chest-Xray 10/09- Stable cardiomegaly and mild vascular congestion RISKS: Volume overload- DS pg.1 10/13/18 Acute respiratory failure with hypoxia- DS pg.1 10/13/18 Anasarca- DS pg.1 10/13/18 Cardiomyopathy- DS pg.1 10/13/18 Hypertension- DS pg.1 10/13/18 CKD 3- DS pg.1 10/13/18 TREATMENTS: Furosemide 80mg PO BID [facility] I and O Monitoring Chest X-ray Cardiology consult- Dr. Jarvis (This form is maintained as a part of the permanent medical record) 2014 [employer]. All Rights Reserved John [email or web address] [not provided] MTDD
== END 2018-10-13 20:56 | disposition left against medical advice (07) | DRG 189 ==
LOC: ERS 18:29 → IMCU/EMU 20:12 → T4-B 10-11 16:36
PROVIDERS: ADMIT Hospitalist; ATTEND Hospitalist
PROC: 5A09457 Assistance with Respiratory Ventilation, 24-96 Consecutive Hours, Continuous Positive Airway Pressure (ICD-10-PCS; principal; 2018-10-09)
PROC: 5A1D70Z Performance of Urinary Filtration, Intermittent, Less than 6 Hours Per Day (ICD-10-PCS; 2018-10-09)
DX: J96.01 Acute respiratory failure with hypoxia (principal); N18.6 End stage renal disease; I12.0 Hypertensive chronic kidney disease with stage 5 chronic kidney disease or end stage renal disease; I42.9 Cardiomyopathy, unspecified; E87.2 Acidosis; I13.2 Hypertensive heart and chronic kidney disease with heart failure and with stage 5 chronic kidney disease, or end stage renal disease; I50.42 Chronic combined systolic (congestive) and diastolic (congestive) heart failure; E87.70 Fluid overload, unspecified; J96.02 Acute respiratory failure with hypercapnia; D63.1 Anemia in chronic kidney disease; G47.30 Sleep apnea, unspecified; E66.01 Morbid (severe) obesity due to excess calories; R79.89 Other specified abnormal findings of blood chemistry; R73.9 Hyperglycemia, unspecified; Z99.2 Dependence on renal dialysis; Z91.15 Patient's noncompliance with renal dialysis; Z87.891 Personal history of nicotine dependence; Z79.82 Long term (current) use of aspirin; Z79.899 Other long term (current) drug therapy; Z68.32 Body mass index [BMI] 32.0-32.9, adult
CPT/HCPCS: 36415; 71045; 80048; 80053; 82550; 82805; 83880; 84484; 85007; 85014; 85018; 85025; 85027; 85049; 87340; 93005; 93970; 94660; 96374; 96375; J1644; J1940; J2270; J2405; Q5105

== ENCOUNTER 2018-10-19 16:56 | Observation (INO) | payer SELFPAY ==
[2018-10-19 17:39] LABS: #Eosinphils 0.1 thou/uL (0.0-0.7); #Lymphocytes 1.1 thou/uL (1.20-3.40); #Monocytes 0.7 thou/uL (0.11-0.59); #Neutrophils 5.5 thou/uL (1.40-6.50); %Basophils 0.3 % (0.0-1.0); %Eosinophils 1.8 % (0.0-10.0); %Lymphocytes 14.3 % (21.0-51.0); %Monocytes 8.9 % (0.0-10.0); %Neutrophils 74.8 % (42.0-75.0); Hemoglobin 7.8 g/dL (14.0-18.0); Mean Corpuscular HGB CONC 30.8 g/dL (32.0-36.0); Mean Corpuscular Hemoglobin 26.8 pg (27.0-31.0); Mean Corpuscular Volume 86.8 fL (78.0-98.0); Mean Platelet Volume 9.5 fL (7.4-10.4); Platelet Count 110 thou/uL (130-400); RBC Distribution Width 15.1 % (11.5-14.5); White Blood Cell (WBC) Count 7.3 thou/uL (4.8-10.8)
[2018-10-19 17:58] LABS: ALT (SGPT) 8 U/L (8-55); AST (SGOT) 8 U/L (5-34); Albumin 3.7 g/dL (3.5-5.0); Alkaline Phosphatase 103 U/L (40-150); Anion Gap 27 mmol/L (10-20); Bilirubin, Total 0.6 mg/dL (0.2-1.2); Calc. Creatinine Clearance 0 mL/min (70-130); Calcium 7.8 mg/dL (7.8-10.44); Carbon Dioxide 20 mmol/L (22-29); Chloride 101 mmol/L (98-107); Estimated GFR-MDRD 3; Globulin 3.1 g/dL (2.4-3.5); Glucose 94 mg/dL (70-105); Potassium 5.2 mmol/L (3.5-5.1); Protein, Total 6.8 g/dL (6.0-8.3); Sodium 143 mmol/L (136-145)
[2018-10-19 18:09] LABS: BUN (Urea Nitrogen) 131 mg/dL (8.9-20.6)
[2018-10-19 20:31] VITALS: BMI 33.7
[2018-10-19] MEDS ORDERED: Acetaminophen 325 MG TAB PO PRN (21:00)
[2018-10-19] MEDS ORDERED: Ondansetron ODT 4 MG TAB PO PRN (21:00)
[2018-10-19] MEDS ORDERED: Ondansetron PF 4 MG/2 ML Vial IVP PRN (21:00)
[2018-10-19] MEDS ORDERED: Benzonatate 100 MG CAP PO PRN (21:03)
[2018-10-19] MEDS ORDERED: Gabapentin 100 MG CAP PO SCH (21:15)
--- NOTE | 2018-10-19 22:18 | HP ---
PRIMARY CARE PHYSICIAN: The patient goes to [facility]. CODE STATUS: Full code. TIME OF EVALUATION: 8:49 p.m. CHIEF COMPLAINT: Low hemoglobin and need for hemodialysis. HISTORY OF PRESENT ILLNESS: This is a 43-year-old male patient with past medical history of end-stage renal disease on hemodialysis, hypertension, and kidney failure. The patient came to the hospital after having been found with low hemoglobin. This is chronic, likely secondary to end-stage renal disease. The patient also was needing hemodialysis. The last hemodialysis was 1 week ago and was referred here by the residential interior designer to get hemodialysis done. The patient also reported some cough, mild shortness of breath and some wheezing, was given Tessalon with no significant improvement. Symptoms were reported as mild to moderate. REVIEW OF SYSTEMS: CONSTITUTIONAL: No fever, chills or generalized weakness. RESPIRATORY: No cough, sputum production, or shortness of breath. CARDIOVASCULAR: No chest pain or palpitation. GASTROINTESTINAL: No nausea, vomiting, diarrhea or abdominal pain. RODDING MACHINE TENDER: No dizziness, headache or feeling lightheaded. GENITOURINARY: No burning on urination. EXTREMITIES: No leg swelling. All other systems were reviewed and negative except for the findings mentioned above. PAST MEDICAL HISTORY: Includes hypertension, kidney failure on hemodialysis. PAST SURGICAL HISTORY: Right arm fistula. PSYCHIATRIC HISTORY: No previous psych history. SOCIAL HISTORY: No alcohol marijuana and social drug use. Former cocaine user. Former tobacco user. FAMILY HISTORY: Noncontributory to this case. KNOWN ALLERGIES: No known drug allergies. REPORTED MEDICATIONS: 1. Furosemide. 2. Aspirin. 3. Sodium bicarb. 4. Gabapentin. 5. Ranitidine. 6. Carvedilol. 7. Thiamine. 8. Metolazone. PHYSICAL EXAMINATION: VITAL SIGNS: On presentation, blood pressure 125/81 with heart rate 83, respiratory rate 16, temperature 98.7, pain 7/10, oxygen saturation was 96% on room air. GENERAL APPEARANCE: The patient is alert, oriented, not in acute distress. HEENT: Eyes, normal conjunctivae. Moist oral mucosa. Anicteric. No JVD. RESPIRATORY: Bilateral air entry. No rales. No wheezes. Symmetric expansion. CARDIOVASCULAR: Normal rate, regular rhythm. No murmurs. No gallop. No edema. ABDOMEN: Soft. Normal bowel sounds. MUSCULOSKELETAL: Baseline range of motion and strength. No tenderness. SKIN: Warm, intact. No pallor. No rash. No redness. Peripheral pulses are present. Capillary refill seems to be intact. NEUROLOGIC: No evidence of any new focal weakness. Baseline speech. Cranial nerves seems to be intact. PSYCHIATRIC: The patient is in good mood. No anxiety. Optimal judgment. DIAGNOSTIC DATA: EKG was reviewed. The patient has normal sinus rhythm with a rate of 82 with SC 142, QRS 74, QT corrected 479, prolonged QT. No acute ischemic findings. LABORATORY DATA: Reviewed. The patient has white count 7.3, hemoglobin 7.8 which is chronic. Previous admission, the hemoglobin was 7.5. Hematocrit 25.2, MCV 86, platelet count 110. Chemistry; sodium 143, potassium 5.2, chloride 101, carbon dioxide 20, anion gap 27, BUN 131, creatinine 18.13, GFR 3, glucose 94, calcium 7.8, total bilirubin 0.6, AST 8, ALT 8, alkaline phosphatase 103. Beta natriuretic peptide 3515. ASSESSMENT AND PLAN: The patient will be placed in the hospital with following medical problems: 1. History of renal disease on hemodialysis. The patient has needed hemodialysis, the last one was a week ago. We will consult Nephrology. We will follow recommendations. 2. Chronic normocytic anemia. This is likely secondary to underlying kidney disease. Hemoglobin is stable. We will monitor. No need for any acute intervention at this point. 3. Hyperkalemia. This is mild. Potassium 5.2. We will monitor. We will correct electrolytes as needed. The patient is going for dialysis. 4. Deep venous thrombosis prophylaxis. Job ID: [id number]
[2018-10-19] MEDS: PROVENTIL INHALER 6.7 G (200 INHALATIONS) INH SCH (23:21)
[2018-10-20 06:46] LABS: #Eosinphils 0.1 thou/uL (0.0-0.7); #Lymphocytes 1.1 thou/uL (1.20-3.40); #Monocytes 0.6 thou/uL (0.11-0.59); #Neutrophils 6.2 thou/uL (1.40-6.50); %Basophils 0.2 % (0.0-1.0); %Eosinophils 1.3 % (0.0-10.0); %Lymphocytes 13.7 % (21.0-51.0); %Monocytes 7.4 % (0.0-10.0); %Neutrophils 77.4 % (42.0-75.0); Hemoglobin 7.4 g/dL (14.0-18.0); Mean Corpuscular HGB CONC 31.2 g/dL (32.0-36.0); Mean Corpuscular Hemoglobin 26.9 pg (27.0-31.0); Mean Corpuscular Volume 86.2 fL (78.0-98.0); Mean Platelet Volume 9.8 fL (7.4-10.4); Platelet Count 116 thou/uL (130-400); RBC Distribution Width 15.1 % (11.5-14.5); Red Blood Cell (RBC) Count 2.76 mill/uL (4.70-6.10)
[2018-10-20 06:51] LABS: Anion Gap 28 mmol/L (10-20); Calc. Creatinine Clearance 7 mL/min (70-130); Calcium 7.8 mg/dL (7.8-10.44); Carbon Dioxide 20 mmol/L (22-29); Chloride 102 mmol/L (98-107); Estimated GFR-MDRD 3; Glucose 78 mg/dL (70-105); Potassium 5.2 mmol/L (3.5-5.1); Sodium 145 mmol/L (136-145)
[2018-10-20 07:02] LABS: BUN (Urea Nitrogen) 134 mg/dL (8.9-20.6)
[2018-10-20] MEDS: PROVENTIL INHALER 6.7 G (200 INHALATIONS) INH SCH ×4 (07:51→23:51)
--- NOTE | 2018-10-20 10:47 | RAD ---
XR Chest 1 View Portable History: [Cough and shortness of breath] Comparison: Radiograph October 09, 2018 Findings: Heart is mildly enlarged. Mild lung hypoinflation. No pneumothorax. No effusion. No acute osseous abnormality. Impression: Cardiomegaly and lung hypoinflation. No acute intrathoracic abnormality.
[2018-10-20] MEDS ORDERED: EPOETIN ALFA-EPBX (ESRD) 10,000 UNIT/ML VIAL SC SCH (11:00)
[2018-10-20] MEDS ORDERED: Heparin 10,000 UNITS/ 10 ML VIAL ONE (12:31)
--- NOTE | 2018-10-20 14:43 | PDOC.PN ---
- Subjective Encounter Start Date: 10/20/18 Encounter Start Time: 11:55 Subjective: pt up in bed complains of pain to his abdomen - Objective Resuscitation Status - Order Detail: 10/19/18 21:00 Resuscitation Status Routine Resuscitation Status: FULL: Full Resuscitation Vital Signs & Weight: Vital Signs (12 hours) Temp Pulse Resp BP BP BP Pulse Ox 10/20/18 13:35 80 28 H 10/20/18 11:25 98.2 F 78 20 123/70 96 10/20/18 09:00 98.0 F 80 20 123/70 123/70 93 L 10/20/18 07:51 73 16 97 10/20/18 04:00 97.7 F 79 22 H 110/71 93 L Weight Weight 221 lb 8 oz I&O: 10/19/18 10/20/18 10/21/18 06:59 06:59 06:59 Intake Total 240 Output Total 325 Balance -85 Result Diagrams: 10/20/18 05:04 10/20/18 05:04 Phys Exam - Physical Examination Respiratory: no wheezing, no rales, no rhonchi, wheezing present, clear to auscultation bilateral Cardiovascular: RRR, no significant murmur, no rub, gallop, irregular Gastrointestinal: soft, non-tender, no distention, positive bowel sounds Musculoskeletal: edema present lower ext Dx/Plan (1) Volume overload Code(s): E87.70 - FLUID OVERLOAD, UNSPECIFIED Status: Acute Comment: resolving (2) Anemia due to chronic kidney disease, on chronic dialysis Code(s): N18.6 - END STAGE RENAL DISEASE; D63.1 - ANEMIA IN CHRONIC KIDNEY DISEASE; Z99.2 - DEPENDENCE ON RENAL DIALYSIS Status: Chronic (3) ESRD (end stage renal disease) on dialysis Code(s): N18.6 - END STAGE RENAL DISEASE; Z99.2 - DEPENDENCE ON RENAL DIALYSIS Status: Chronic Comment: HD per Renal service, CM for any additional outpt options (4) Hypertension Code(s): I10 - ESSENTIAL (PRIMARY) HYPERTENSION Status: Chronic Qualifiers: Comment: Continue Coreg and Lasix - Plan pt to get dialysis today -: hh low stable -: vitals stable * . Review of Systems - Review of Systems Respiratory: negative: Cough, Dry, Shortness of Breath, Hemoptysis, SOB with Excertion, Pleuritic Pain, Sputum, Wheezing Cardiovascular: negative: chest pain, palpitations, orthopnea, paroxysmal nocturnal dyspnea, edema, light headedness, other Gastrointestinal: Abdominal Pain - Medications/Allergies Allergies/Adverse Reactions: Allergies Allergy/AdvReac Type Severity Reaction Status Date / Time No Known Allergies Allergy Verified 10/19/18 20:23 Medications: Current Medications Acetaminophen (Tylenol) 650 mg PO Q4H PRN PRN Reason: Headache/Fever/Mild Pain (1-3) Albuterol Sulfate (Proventil Hfa) 1 puff INH Q6HR REPLACED BY [facility] Last Admin: 10/20/18 13:35 Dose: 1 puff Aspirin (Ecotrin) 81 mg PO DAILY REPLACED BY [facility] Benzonatate (Tessalon) 100 mg PO TID PRN PRN Reason: Cough Carvedilol (Coreg) 25 mg PO BID REPLACED BY [facility] Furosemide (Lasix) 80 mg PO BID REPLACED BY [facility] Gabapentin (Neurontin) 100 mg PO Q2DAYS REPLACED BY [facility] Last Admin: 10/19/18 21:37 Dose: Not Given Metolazone (Zaroxolyn) 5 mg PO DAILY REPLACED BY [facility] Ondansetron HCl (Zofran Odt) 4 mg PO Q6H PRN PRN Reason: Nausea/Vomiting Ondansetron HCl (Zofran) 4 mg IVP Q6H PRN PRN Reason: Nausea/Vomiting Last Admin: 10/20/18 02:21 Dose: 4 mg Sodium Bicarbonate (Bicarbonate, Sodium) 1,300 mg PO TID REPLACED BY [facility] Thiamine HCl (Thiamine) 250 mg PO DAILY REPLACED BY [facility]
[2018-10-20] MEDS: Aspirin 81 mg Enteric Coated Tablet PO SCH (17:46)
[2018-10-20] MEDS: Sodium Bicarbonate Tab 325 MG TAB PO SCH ×3 (17:47→21:48)
[2018-10-20] MEDS: Furosemide 80 MG TAB PO SCH ×2 (17:47→21:48)
[2018-10-20] MEDS: Carvedilol 25 MG TAB PO SCH ×2 (17:47→21:48)
[2018-10-20] MEDS: Thiamine 100 MG TAB PO SCH (17:58)
[2018-10-20] MEDS: Metolazone 5 MG TAB PO SCH (18:01)
[2018-10-21] MEDS: PROVENTIL INHALER 6.7 G (200 INHALATIONS) INH SCH ×2 (07:45→11:23)
[2018-10-21 10:48] LABS: Anion Gap 20 mmol/L (10-20); BUN (Urea Nitrogen) 96 mg/dL (8.9-20.6); Calc. Creatinine Clearance 10 mL/min (70-130); Calcium 7.9 mg/dL (7.8-10.44); Carbon Dioxide 27 mmol/L (22-29); Chloride 100 mmol/L (98-107); Estimated GFR-MDRD 4; Glucose 112 mg/dL (70-105); Potassium 4.3 mmol/L (3.5-5.1); Sodium 143 mmol/L (136-145)
[2018-10-21 10:59] LABS: #Eosinphils 0.1 thou/uL (0.0-0.7); #Lymphocytes 0.9 thou/uL (1.20-3.40); #Monocytes 0.6 thou/uL (0.11-0.59); #Neutrophils 5.1 thou/uL (1.40-6.50); %Basophils 0.3 % (0.0-1.0); %Lymphocytes 12.6 % (21.0-51.0); %Monocytes 8.6 % (0.0-10.0); %Neutrophils 76.5 % (42.0-75.0); Hemoglobin 7.1 g/dL (14.0-18.0); Mean Corpuscular HGB CONC 31.9 g/dL (32.0-36.0); Mean Corpuscular Hemoglobin 26.9 pg (27.0-31.0); Mean Corpuscular Volume 84.6 fL (78.0-98.0); Mean Platelet Volume 9.1 fL (7.4-10.4); Platelet Count 123 thou/uL (130-400); RBC Distribution Width 15.1 % (11.5-14.5); Red Blood Cell (RBC) Count 2.64 mill/uL (4.70-6.10); White Blood Cell (WBC) Count 6.7 thou/uL (4.8-10.8)
[2018-10-21] MEDS ORDERED: EPOETIN ALFA-EPBX (ESRD) 3,000 UNIT/ML VIAL IVP SCH (12:00)
[2018-10-21] MEDS ORDERED: EPOETIN ALFA-EPBX (ESRD) 2,000 UNIT/ML VIAL IVP SCH (12:00)
[2018-10-21] MEDS: Thiamine 100 MG TAB PO SCH (13:24)
[2018-10-21] MEDS: Sodium Bicarbonate Tab 325 MG TAB PO SCH ×2 (13:24→13:49)
[2018-10-21] MEDS: Furosemide 80 MG TAB PO SCH (13:25)
[2018-10-21] MEDS: Aspirin 81 mg Enteric Coated Tablet PO SCH (13:25)
[2018-10-21] MEDS: Carvedilol 25 MG TAB PO SCH (13:27)
[2018-10-21] MEDS: Metolazone 5 MG TAB PO SCH (13:35)
[2018-10-21] MEDS ORDERED: Loratadine 10 MG TAB PO SCH (14:45)
[2018-10-21] MEDS ORDERED: Heparin 1,000 UNITS/ML VIAL ONE (15:00)
[2018-10-21 15:09] LABS: Phosphorus 9.8 mg/dL (2.3-4.7)
[2018-10-21 15:48] VITALS: BP 132/76; TEMP 97.9
--- NOTE | 2018-10-22 03:11 | DIS ---
DATE OF ADMISSION: 10/19/2018 DATE OF DISCHARGE: 10/21/2018 DISCHARGE DIAGNOSES: 1. Volume overload. 2. Anemia. 3. End-stage renal disease, on dialysis. 4. Hypertension. HOSPITAL COURSE: The patient is a 43-year-old male with history of end-stage renal disease, on dialysis and hypertension, who presented to the hospital with shortness of breath and lower extremity edema. The patient at this time was unable to get dialysis as outpatient for about a week due to his residency status. The patient was then admitted to the hospital, underwent dialysis for 2 days and Nephrology has cleared him to be discharged home. The patient also received some . His H and H have been around 7.8 to 7.1. PHYSICAL EXAMINATION: VITAL SIGNS: 98.4, 89, 124/85, . GENERAL: He is awake, alert, and oriented x3. Does not appear in distress. CV: S1 and S2 present. No murmurs, rubs, or gallops. ABDOMEN: Soft and nontender. Bowel sounds are present x2. EXTREMITIES: No edema. HEENT: Of note, the patient did have some rhinorrhea. I will start him on some Claritin. I also have recommended the patient to come into the hospital to get dialysis. HOME MEDICATIONS: The patient is on: 1. Carvedilol 25 mg b.i.d. 2. Sodium bicarb 1300 t.i.d. 3. Thiamine 250 daily. 4. Aspirin 81 mg daily. 5. Lasix 80 mg b.i.d. 6. Gabapentin 100 mg q.2 days. 7. Albuterol (ProAir) one puff inhalation q.6 hours p.r.n. DISCHARGE INSTRUCTIONS: Check phosphorous level of this patient. The patient may require a phosphate binder. The patient again will follow up with his PCP. Job ID: [id number]
--- NOTE | 2018-10-22 08:37 | PRG ---
DATE OF SERVICE: 10/21/2018 SUBJECTIVE: Patient was seen and examined at bedside and overnight events noted. Patient denies any shortness of breath or chest pain or palpitation. No history of nausea or vomiting or diarrhea or fever or chills or cramps. OBJECTIVE: GENERAL: This is a well-built male, in no apparent distress. VITAL SIGNS: Temperature 98.0. Heart rate 82. Respiratory rate 18. Blood pressure 110/65. HEENT: Atraumatic, normocephalic. Oral mucosa is moist. NECK: Supple. CARDIOVASCULAR: S1, S2 heard. Rate and rhythm regular. RESPIRATORY: Clear to auscultation. GASTROINTESTINAL: Abdomen is soft. MUSCULOSKELETAL: No tenderness. No edema. DERMATOLOGIC: No skin rash. NEUROLOGIC: Alert and awake and oriented x3. No focal neurologic deficits. Moving all the extremities. PSYCHIATRIC: Mood and affect normal. LABORATORY DATA: Potassium is 5.2, BUN is 134, creatinine is 18.4. ASSESSMENT AND PLAN: 1. End-stage renal disease. Continue dialysis. The patient . 2. Edema, remove fluid. 3. Hypertension. 4. Anemia. Repeat labs today. Monitor hemoglobin. Access is being difficult to cannulate. We will monitor. If needed, we will have IR consult . Job ID: [id number]
--- NOTE | 2018-10-22 09:06 | CON ---
DATE OF CONSULTATION: 10/20/2018 REASON FOR CONSULT: End-stage renal disease evaluation and care. REASON FOR ADMISSION: Not feeling well. HISTORY OF PRESENT ILLNESS: This is a 43-year-old male with history of hypertension, end-stage renal disease, , came to the hospital hemodialysis, but not able to have outpatient dialysis due to lack of insurance and documents. No fever or chills. No nausea, or vomiting. He is complaining of sore throat. PAST MEDICAL HISTORY: Positive for hypertension, end-stage renal disease on hemodialysis, substance use, proteinuria. PAST SURGICAL HISTORY: AV fistula placement. HOME MEDICATIONS: 1. Furosemide. 2. Aspirin. 3. Sodium bicarbonate. 4. Gabapentin. 5. Ranitidine. 6. Carvedilol. 7. Thiamine. 8. Metalazone. ALLERGIES: NO KNOWN DRUG ALLERGIES. SOCIAL HISTORY: No smoking, alcohol, or illicit drug abuse. Former history of cocaine use and tobacco use. FAMILY HISTORY: Positive for diabetes. REVIEW OF SYSTEMS: CONSTITUTIONAL: Negative for weight loss or gain, ability to conduct usual activities. SKIN: Negative for rash, itching. EYES: Negative for double vision, pain. ENT/MOUTH: Negative for nose bleeding, neck stiffness, pain, tenderness. CARDIOVASCULAR: Negative for palpitations, dyspnea on exertion, orthopnea. RESPIRATORY: Negative for shortness of breath, wheezing, cough, hemoptysis, fever or night sweats. GASTROINTESTINAL: Negative for poor appetite, abdominal pain, heartburn, nausea, vomiting, constipation, or diarrhea. GENITOURINARY: Negative for urgency, frequency, dysuria, nocturia. MUSCULOSKELETAL: Negative for pain, swelling. NEUROLOGIC/PSYCHIATRIC: Negative for anxiety, depression. ALLERGY/IMMUNOLOGIC: Negative for skin rash, bleeding tendency. PHYSICAL EXAMINATION: GENERAL: Reveals a well-built male, in no apparent distress. VITAL SIGNS: Temperature 98, pulse 80, respiratory rate 20, and blood pressure 123/70. HEENT: Atraumatic, normocephalic. Oral mucosa moist. NECK: Supple. CARDIOVASCULAR: S1 and S2 heard. Rate and rhythm regular. RESPIRATORY: Clear. GASTROINTESTINAL: Abdomen is soft. MUSCULOSKELETAL: 1+ edema. DERMATOLOGIC: No skin rash. NEUROLOGIC: Alert, awake. PSYCHIATRIC: Mood and affect normal. LABORATORY DATA: Hemoglobin is 7.4. Potassium of 5.2, BUN is 134, and creatinine is 18.4. ASSESSMENT: 1. End-stage renal disease. He will have dialysis. Might need dialysis two days in a row. 2. Hyperkalemia, mild. 3. Metabolic acidosis. 4. Azotemia, elevated BUN. 5. Uremia. 6. Anemia. We will monitor. We will give Epogen. PLAN: Plan is to continue on dialysis as tolerated. Job ID: [id number]
[2018-10-22] MEDS ORDERED: Loratadine 10 MG TAB PO PRN (14:42)
--- NOTE | 2018-10-27 16:04 | EKG ---
Test Reason : ERS.LKG Blood Pressure : / mmHG Vent. Rate : 082 BPM Atrial Rate : 082 BPM P-R Int : 142 ms QRS Dur : 074 ms QT Int : 410 ms P-R-T Axes : 081 010 122 degrees QTc Int : 479 ms Normal sinus rhythm T wave abnormality, consider lateral ischemia Prolonged QT Abnormal ECG Confirmed by DORCAS YOU ([id number]), television news video editor MILANA ARMENDARIZ ([id number]) on 10/27/2018 4:04:13 PM Referred By: Confirmed By:DORCAS YOU
== END 2018-10-21 16:36 | disposition home or self-care (01) ==
LOC: ERS 16:56 → 2NO 19:22 → ERS 20:09
PROVIDERS: ADMIT Internal Medicine; ATTEND Internal Medicine
DX: I12.0 Hypertensive chronic kidney disease with stage 5 chronic kidney disease or end stage renal disease (principal); N18.6 End stage renal disease; D63.1 Anemia in chronic kidney disease; E87.70 Fluid overload, unspecified; E87.5 Hyperkalemia; E87.2 Acidosis; Z87.891 Personal history of nicotine dependence; Z79.82 Long term (current) use of aspirin; Z79.899 Other long term (current) drug therapy; Z99.2 Dependence on renal dialysis
CPT/HCPCS: 36415; 71045; 80048; 80053; 83880; 84100; 85025; 86850; 86900; 86901; 90935; 93005; 94664; 96372; G0257; G0378; J1644; J2405; J7620; Q0162; Q5105

== ENCOUNTER 2018-10-31 15:40 | Emergency (ER) | payer SELFPAY ==
[2018-10-31 17:11] LABS: #Eosinphils 0.1 thou/uL (0.0-0.7); #Lymphocytes 1.3 thou/uL (1.20-3.40); #Monocytes 0.6 thou/uL (0.11-0.59); #Neutrophils 4.8 thou/uL (1.40-6.50); %Basophils 0.2 % (0.0-1.0); %Eosinophils 1.9 % (0.0-10.0); %Lymphocytes 18.4 % (21.0-51.0); %Monocytes 9.2 % (0.0-10.0); %Neutrophils 70.3 % (42.0-75.0); Hemoglobin 7.7 g/dL (14.0-18.0); Mean Corpuscular HGB CONC 31.4 g/dL (32.0-36.0); Mean Corpuscular Hemoglobin 26.6 pg (27.0-31.0); Mean Corpuscular Volume 84.6 fL (78.0-98.0); Mean Platelet Volume 8.3 fL (7.4-10.4); Platelet Count 157 thou/uL (130-400); RBC Distribution Width 15.5 % (11.5-14.5); Red Blood Cell (RBC) Count 2.88 mill/uL (4.70-6.10); White Blood Cell (WBC) Count 6.8 thou/uL (4.8-10.8)
[2018-10-31 17:27] LABS: Anion Gap 26 mmol/L (10-20); BUN (Urea Nitrogen) 121 mg/dL (8.9-20.6); Calc. Creatinine Clearance 0 mL/min (70-130); Calcium 7.7 mg/dL (7.8-10.44); Carbon Dioxide 20 mmol/L (22-29); Chloride 102 mmol/L (98-107); Estimated GFR-MDRD 3; Glucose 133 mg/dL (70-105); Potassium 5.5 mmol/L (3.5-5.1); Sodium 142 mmol/L (136-145)
[2018-10-31] MEDS ORDERED: EPOETIN ALFA-EPBX (ESRD) 10,000 UNIT/ML VIAL SC SCH (17:45)
--- NOTE | 2018-10-31 18:44 | RAD ---
AP view chest HISTORY: Renal failure AP view chest obtained. Cardiomegaly seen. No evidence of effusions, pneumonia or pneumothorax seen. IMPRESSION: Cardiomegaly.
--- NOTE | 2018-10-31 23:59 | CON ---
DATE OF CONSULTATION: 10/31/2018 CONSULTING PHYSICIAN: ER doctor. REASON FOR CONSULT: Need for dialysis. REASON FOR ADMISSION: Need for dialysis. HISTORY OF PRESENT ILLNESS: This is a 43-year-old male with history of end-stage renal disease, hypertension, FSGS, came to the hospital with difficulty breathing and need for dialysis. The patient is undocumented and due to lack of insurance, not able to have outpatient dialysis regularly. He gets dialysis at the hospital, he is back again after 10 days. No fever or chills. No nausea or vomiting. PAST MEDICAL HISTORY: Positive for hypertension, end-stage renal disease, FSGS, proteinuria. PAST SURGICAL HISTORY: Fistula placement, dialysis catheter placement. HOME MEDICATIONS: Reviewed. ALLERGIES: NO KNOWN DRUG ALLERGIES. SOCIAL HISTORY: No smoking, alcohol, or illicit drug abuse. FAMILY HISTORY: No history of kidney disease. REVIEW OF SYSTEMS: CONSTITUTIONAL: Negative for weight loss or gain, ability to conduct usual activities. SKIN: Negative for rash, itching. EYES: Negative for double vision, pain. ENT/MOUTH: Negative for nose bleeding, neck stiffness, pain, tenderness. CARDIOVASCULAR: Negative for palpitations, dyspnea on exertion, orthopnea. RESPIRATORY: Negative for shortness of breath, wheezing, cough, hemoptysis, fever or night sweats. GASTROINTESTINAL: Negative for poor appetite, abdominal pain, heartburn, nausea, vomiting, constipation, or diarrhea. GENITOURINARY: Negative for urgency, frequency, dysuria, nocturia. MUSCULOSKELETAL: Negative for pain, swelling. NEUROLOGIC/PSYCHIATRIC: Negative for anxiety, depression. ALLERGY/IMMUNOLOGIC: Negative for skin rash, bleeding tendency. PHYSICAL EXAMINATION: GENERAL: Reveals a well-built male, in no apparent distress. VITAL SIGNS: Temperature 98.6, pulse 70, respiratory rate 18, blood pressure 137/84. HEENT: Atraumatic, normocephalic. Oral mucosa is moist. NECK: Supple. CV: S1, S2 heard. RESPIRATORY: Bilateral crackles present. GI: Abdomen is soft. MUSCULOSKELETAL: 1+ edema. DERMATOLOGIC: No skin rash. NEUROLOGIC: Alert and awake. PSYCHIATRIC: Mood and affect normal. LABORATORY DATA: Hemoglobin is 7.7. BMP is pending. ASSESSMENT AND PLAN: 1. End-stage renal disease. Continue on hemodialysis. Plan is to have dialysis. 2. Anemia, add Epogen. 3. Edema, controlled. 4. Hypertension, stable. Plan to have dialysis with fluid removal. We will add Epogen. We will continue dialysis. Prognosis is guarded. Job ID: [id number]
== END 2018-11-01 01:28 | disposition home or self-care (01) ==
LOC: ERS 15:40
DX: E87.70 Fluid overload, unspecified (principal); I10 Essential (primary) hypertension; Z79.899 Other long term (current) drug therapy; Z79.82 Long term (current) use of aspirin
CPT/HCPCS: 36415; 71045; 80048; 85025

== ENCOUNTER 2018-11-11 14:55 | Observation (INO) | payer SELFPAY ==
[2018-11-11 15:29] LABS: Bilirubin Negative (Negative); Blood, Urine Trace (Negative); Clarity CLEAR (Clear); Glucose, Urine (Dipstick) 100 mg/dL (Negative); Leukocyte Negative (Negative); Nitrite Negative (Negative); Protein, Urine (Dipstick) 300 mg/dL (Neg-Trace); Specific Gravity, Urine 1.012 (1.002-1.036); Urobilinogen 0.2 mg/dL (0.2-1.0); pH, Urine 6.5 (5.0-9.0)
[2018-11-11 15:30] LABS: Bacteria/HPF None Seen HPF (None Seen); Hyaline Casts/LPF 0-3 HYALINE CAST LPF (0-3 Hyaline); RBC/HPF 0-3 HPF (0-3)
[2018-11-11 15:37] LABS: #Eosinphils 0.1 thou/uL (0.0-0.7); #Lymphocytes 1.6 thou/uL (1.20-3.40); #Monocytes 0.8 thou/uL (0.11-0.59); #Neutrophils 4.2 thou/uL (1.40-6.50); %Basophils 0.3 % (0.0-1.0); %Eosinophils 1.9 % (0.0-10.0); %Lymphocytes 23.7 % (21.0-51.0); %Monocytes 11.6 % (0.0-10.0); %Neutrophils 62.5 % (42.0-75.0); Mean Corpuscular HGB CONC 31.6 g/dL (32.0-36.0); Mean Corpuscular Hemoglobin 26.4 pg (27.0-31.0); Mean Corpuscular Volume 83.5 fL (78.0-98.0); Mean Platelet Volume 9.5 fL (7.4-10.4); Platelet Count 155 thou/uL (130-400); RBC Distribution Width 16.2 % (11.5-14.5); Red Blood Cell (RBC) Count 2.66 mill/uL (4.70-6.10); White Blood Cell (WBC) Count 6.8 thou/uL (4.8-10.8)
[2018-11-11 15:40] LABS: Sperm/HPF 1+ HPF (None Seen)
--- NOTE | 2018-11-11 15:45 | RAD ---
Exam: Chest one view HISTORY:Edema, dyspnea Comparison: 10/31/2018 FINDINGS: Lungs: No masses or consolidation. Cardiac silhouette:Enlarged Pulmonary vessels: Stable Pleural Spaces: Clear Pneumothorax: None Osseous abnormalities: None of acuity. IMPRESSION: No focal consolidation. Persistent enlargement of cardiac silhouette.
[2018-11-11 15:57] LABS: ALT (SGPT) 7 U/L (8-55); AST (SGOT) 8 U/L (5-34); Albumin 3.6 g/dL (3.5-5.0); Alkaline Phosphatase 93 U/L (40-150); Anion Gap 26 mmol/L (10-20); Bilirubin, Total 0.7 mg/dL (0.2-1.2); Calc. Creatinine Clearance 0 mL/min (70-130); Calcium 7.6 mg/dL (7.8-10.44); Carbon Dioxide 20 mmol/L (22-29); Chloride 104 mmol/L (98-107); Estimated GFR-MDRD 3; Glucose 129 mg/dL (70-105); Potassium 5.8 mmol/L (3.5-5.1); Protein, Total 6.6 g/dL (6.0-8.3); Sodium 144 mmol/L (136-145)
[2018-11-11 16:10] LABS: BUN (Urea Nitrogen) 127 mg/dL (8.9-20.6)
[2018-11-11 17:20] LABS: HBSAg Index 0.28 S/CO (0-0.99); Hep B Surf Ag Non-Reactive S/CO (NonReactive)
[2018-11-11] MEDS ORDERED: EPOETIN ALFA-EPBX (ESRD) 10,000 UNIT/ML VIAL IVP SCH (18:45)
--- NOTE | 2018-11-11 19:31 | CON ---
DATE OF CONSULTATION: 11/11/2018 CONSULTING PHYSICIAN: REASON FOR CONSULTATION: Need for emergency dialysis. REASON FOR ADMISSION: Shortness of breath. HISTORY OF PRESENT ILLNESS: This is a 43-year-old male with history of end-stage renal disease, hypertension, FSGS, proteinuria, came to the hospital for dialysis. The patient has end-stage renal disease, but unfortunately found to regular outpatient dialysis and comes to the ER to have dialysis. No fever or chills. No nausea or vomiting. PAST MEDICAL HISTORY: Positive for hypertension, end-stage renal disease, FSGS, proteinuria. PAST SURGICAL HISTORY: Fistula placement, dialysis catheter placement, and renal biopsy. HOME MEDICATIONS: Include, 1. Sodium bicarbonate. 2. Neurontin. 3. Carvedilol. 4. Aspirin. ALLERGIES: NO KNOWN DRUG ALLERGIES. SOCIAL HISTORY: No smoking, alcohol, or illicit drug abuse. History of smoking and illicit drug abuse in the past. FAMILY HISTORY: No history of kidney disease. REVIEW OF SYSTEMS: CONSTITUTIONAL: Negative for weight loss or gain, ability to conduct usual activities. SKIN: Negative for rash, itching. EYES: Negative for double vision, pain. ENT/MOUTH: Negative for nose bleeding, neck stiffness, pain, tenderness. CARDIOVASCULAR: Negative for palpitations, dyspnea on exertion, orthopnea. RESPIRATORY: Negative for shortness of breath, wheezing, cough, hemoptysis, fever or night sweats. GASTROINTESTINAL: Negative for poor appetite, abdominal pain, heartburn, nausea, vomiting, constipation, or diarrhea. GENITOURINARY: Negative for urgency, frequency, dysuria, nocturia. MUSCULOSKELETAL: Negative for pain, swelling. NEUROLOGIC/PSYCHIATRIC: Negative for anxiety, depression. ALLERGY/IMMUNOLOGIC: Negative for skin rash, bleeding tendency. PHYSICAL EXAMINATION: GENERAL: This is a well-built male, in mild distress. VITAL SIGNS: Temperature 97.6, pulse 78, respiratory rate 18, and blood pressure 165/111. HEENT: Atraumatic, normocephalic. Oral mucosa is moist. NECK: Supple. CV: S1 and S2 heard. RESPIRATORY: Crackles present. GI: Abdomen is soft. MUSCULOSKELETAL: 1 to 2+ edema. DERMATOLOGIC: No skin rash. NEUROLOGIC: Alert and awake. PSYCHIATRIC: Depressed. LABORATORY DATA: Hemoglobin is 7.0. Potassium 5.8, BUN is 127, creatinine is 17.6. ASSESSMENT AND PLAN: 1. End-stage renal disease. We will have emergent dialysis. The patient was seen at dialysis, and plan is to have dialysis. 2. Hyperkalemia. We will have 2K bath. 3. Metabolic acidosis from renal disease. 4. Anemia of chronic disease. We will have Epogen, and we will give 1 unit of blood. 5. Elevated BNP. 6. Fluid overload. 7. History of proteinuria and history of focal segmental glomerulosclerosis. Long-term prognosis guarded. Unfortunately, he cannot have regular dialysis. Plan is to have dialysis today. I recommend him having at least 2 sessions of dialysis during this time given the fluid overload and labored breathing that he is experiencing. We will continue to follow. Thank you for the consult. We will arrange dialysis as tolerated. Job ID: [id number]
[2018-11-12 00:16] VITALS: BMI 32.9
[2018-11-12] MEDS ORDERED: Benzonatate 100 MG CAP PO PRN (00:36)
[2018-11-12] MEDS ORDERED: PROVENTIL INHALER 6.7 G (200 INHALATIONS) INH PRN (00:36)
[2018-11-12 01:17] LABS: Actual Bicarbonate (HCO3a) 21.2 mEq/L (22-28); Base Excess (BEa) -3.7 mEq/L (-2.0 to +3.0); CO2 Tension 37.4 mmHg (35.0-45.0); Calcium, Ionized 1.03 mmol/L (1.12-1.30); Carboxyhemoglobin (COHb) 1.9 gm% (0.0-3.0); Hemoglobin (Hb) 7.5 g/dL (14.0-18.0); O2 Tension (PaO2) 75.3 mmHg (80.0-100.0); Potassium - ABG Lab 4.33 mmol/L (3.70-5.30); pH, Arterial 7.37 (7.35-7.45)
[2018-11-12 01:18] LABS: Puncture Site LBA
[2018-11-12] MEDS ORDERED: Ondansetron PF 4 MG/2 ML Vial IVP PRN (01:24)
[2018-11-12] MEDS ORDERED: Ondansetron ODT 4 MG TAB PO PRN (01:24)
[2018-11-12 01:28] LABS: Lactic Acid 0.8 mmol/L (0.5-2.2)
[2018-11-12 01:32] LABS: CK (CPK) 90 U/L (30-200); Magnesium 1.9 mg/dL (1.6-2.6); Potassium 4.3 mmol/L (3.5-5.1)
--- NOTE | 2018-11-12 02:57 | HP ---
CHIEF COMPLAINT: Increasing shortness of breath. HISTORY OF PRESENT ILLNESS: Mr. Aguirre is a pleasant 43-year-old man with a history of end-stage renal disease, on dialysis, who presents with increasing shortness of breath. Unfortunately, due to the patient's undocumented status, he is unable to undergo dialysis routinely and tends to wait until he becomes fluid overloaded before he seeks medical attention. The patient reports gaining approximately 5 pounds in the last week. He has noted increased lower leg edema and complains of itching associated with edema. He reports shortness of breath that has been constant for the last month and associated with nasal congestion. He does not have any known COPD and does not smoke cigarettes but does smoke marijuana regularly. The patient reports having a cough productive for yellow sputum also for the last month and hoarseness. Denies any hemoptysis. Has not had any associated chest pain. He reports increased abdominal girth, which usually occurs when he misses dialysis. The patient is still able to produce urine and denies any urinary symptoms. He underwent laboratory studies in the ER that were notable for anemia with a hemoglobin of 7 and a high potassium of 5.8. His renal function appears to be at baseline. He had an elevated BNP of 4182, which is elevated from 3550 one month ago. When looking back through his medical record, it appears he had an echocardiogram done in June of 2017, at which time he was noted to have a reduced EF of 25% to 30%. He had a mildly dilated left atrium, mild MR and mild HI with severe TR. Overall, the left ventricular function was severely depressed. The patient has not followed up with Cardiology since then. Additionally, when reviewing records, it is noted that in July [address] of the abdomen and pelvis done at which time, he was noted to have several indeterminate lung nodules in the right lower lobe, the largest measuring 7 mm, for which he has not had any further followup. The patient has been seen by Dr. Webb who scheduled emergent dialysis. He had recommended a potassium bath and transfused with 1 unit of blood. He was advised to have 2 sessions of dialysis given the fluid overload. The patient unfortunately was unable to tolerate the first session completely and it was stopped detention. At this present time, the patient states he is feeling better with regard to his breathing and the lower leg edema. He was experiencing a headache and states this has settled as well. REVIEW OF SYSTEMS: He denies having any nausea or vomiting. He has had a good appetite. Denies having any abdominal pain or cramping, but does feel his abdominal girth has increased. Denies having any chest pain or palpitations, but does report being short of breath, which he states it has been labored for the last month. He reported having issues with sleep apnea and difficulty lying flat, therefore uses 4 pillows at night for the last month. The productive cough has been present for about a month and a half. He denies having any dizziness. Denies having any urinary symptoms. All other review of systems negative. PAST MEDICAL HISTORY: 1. Hypertension. 2. End-stage renal disease, on dialysis. 3. Heart failure. 4. FSGS. 5. Proteinuria. 6. Cardiomyopathy. 7. History of alcohol abuse in the past. PAST SURGICAL HISTORY: Right arm fistula. SOCIAL HISTORY: The patient denies any tobacco use or current alcohol use. He does smoke marijuana regularly. ALLERGIES: NO KNOWN DRUG ALLERGIES. CURRENT MEDICATIONS: 1. Furosemide. 2. Gabapentin. 3. Albuterol. 4. Aspirin. 5. Benzonatate. 6. Calcium carbonate. 7. Carvedilol. 8. Metolazone. 9. Ranitidine. 10. Sodium bicarbonate. 11. Thiamine. PHYSICAL EXAMINATION: GENERAL: The patient appears overweight and well developed with visible labored breathing. This is shortly after he mobilized to the bathroom. VITAL SIGNS: Temperature 98.3, pulse 101, respirations 32, O2 saturation 95% on room air, and blood pressure 140/94. HEENT: Normocephalic and atraumatic. Pupils are equal, round, and reactive to light. Sclerae without icterus. Oropharynx is clear. He does appear to have significant nasal congestion. NECK: Supple. LUNGS: Notable for diffuse expiratory wheezing. No crackles. CARDIAC: Regular rate and rhythm. ABDOMEN: Distended. No guarding or rigidity. No renal angle tenderness. EXTREMITIES: Bilateral lower leg edema +1. Pedal pulses present. NEUROLOGIC: Alert and oriented x3. No neuro deficits. SKIN: Without rash or jaundice. LABORATORY DATA: White blood count 6.8, hemoglobin 7, hematocrit 22, and platelets 155. Sodium 144, potassium 5.8, chloride 104, BUN 127, creatinine 17.67, GFR 3, glucose 129, calcium 7.6. LFTs unremarkable. Alkaline phosphatase 93. Troponin I negative. BNP 4182.7. Serum protein 6.6, albumin 3.6. Urinalysis positive for 300 of protein, 100 of glucose, trace blood, 4-6 white blood cells, and 4-6 squamous epithelial cells. Hepatitis B serum antigen nonreactive. IMAGING DATA: Chest x-ray notable for a very enlarged heart. No focal consolidation. IMPRESSION AND PLAN: Mr. Aguirre is a pleasant 43-year-old man being admitted for management of the followin. End-stage renal disease. He undergoes dialysis intermittently due to not having insurance as he is undocumented. The patient developed lower leg edema and increased abdominal girth, prompting him to seek medical attention. Seen by Dr. Webb who will continue to follow and has made recommendations for continued dialysis as per Dr. Webb. 2. Shortness of breath. The patient does have known cardiomyopathy with an ejection fraction of 25% to 30% on last echo. It has been over a year. Therefore, we will repeat an echo. BNP elevated from last one done in October. The patient has had improvement in his breathing and lower leg edema following dialysis earlier today. Given the fact he was previously noted to have pulmonary nodules, we will obtain a CT of the chest and an ABG given the fact that he is tachypneic. The patient is saturating 95% on room air despite a respiratory rate of 32. The patient insists this is his baseline as of 1 to 2 months ago. The patient with audible wheezing. We will continue DuoNebs. He does appear to have some nasal congestion. Therefore, we will provide a decongestant. 3. Hypertension. We will resume home medications and monitor blood pressure. 4. Anemia. The patient has undergone transfusion with 1 unit of packed red blood cells as per Dr. Webb. We will continue to monitor hemoglobin. 5. The patient is full code status. His surrogate decision maker is his , Temitope Vazquez. 6. Patient discussed and seen by Dr. Palma, who agrees with the plan of care as described above. Job ID: [id number]
--- NOTE | 2018-11-12 07:42 | CT ---
PRELIMINARY REPORT/[facility]/EMERGENCY AFTER HOURS PROCEDURE: EXAM: CT Chest Without Contrast EXAM DATE/TIME: 11/12/2018 1:20 AM CLINICAL HISTORY: 43 years old, male; Signs and symptoms; Cough and shortness of breath; Patient HX: SOB, tachypnea, cough, HX lung nodules TECHNIQUE: Imaging protocol: Axial computed tomography images of the chest without intravenous contrast. Coronal reformatted images were created and reviewed. COMPARISON: No relevant prior studies available. FINDINGS: Lungs: Normal. No consolidation. No masses. Pleural space: Normal. No pneumothorax. No pleural effusion. Heart: Normal. No cardiomegaly. No pericardial effusion. Mediastinum: Esophagus is unremarkable. Aorta: Normal. No aortic aneurysm. Lymph nodes: Mildly prominent mediastinal lymph nodes do not exceed 1 cm in short axis. Bones/joints: Unremarkable. No acute fracture. Soft tissues: Unremarkable. Intraperitoneal space: Moderate to large volume ascites. IMPRESSION: Moderate to large volume ascites. Thank you for allowing us to participate in the care of your patient. Dictated and Authenticated by: Alvarez Mullen MD 11/12/2018 1:36 AM Central Time ([place] & [place]) FINAL REPORT EMERGENCY AFTER HOURS CT CHEST: I agree with the preliminary report provided. No acute cardiopulmonary abnormality is evident. There is a moderate to prominent amount of ascites w ithin the upper abdomen. Transcribed Date/Time: 11/12/2018 7:52 AM
[2018-11-12] MEDS ORDERED: Famotidine/PF 20 mg/2ml Vial SLOW IVP SCH (09:00)
[2018-11-12] MEDS: Sodium Bicarbonate Tab 325 MG TAB PO SCH ×3 (09:15→20:29)
[2018-11-12] MEDS: Thiamine 100 MG TAB PO SCH (09:16)
[2018-11-12] MEDS: Aspirin 81 mg Enteric Coated Tablet PO SCH (09:16)
[2018-11-12] MEDS: Calcium Carbonate 500 MG ChewTAB PO SCH ×3 (09:16→17:22)
[2018-11-12] MEDS: Carvedilol 25 MG TAB PO SCH ×2 (09:16→20:29)
[2018-11-12] MEDS: Metolazone 5 MG TAB PO SCH (09:16)
--- NOTE | 2018-11-12 11:31 | PRG ---
DATE OF SERVICE: 11/12/2018 SUBJECTIVE: A 43-year-old gentleman being seen for end-stage renal disease. The patient denies any nausea, vomiting, or chest pain. OBJECTIVE: CONSTITUTIONAL: The patient is awake and alert. GENERAL APPEARANCE AND MENTAL STATUS: Fair. VITAL SIGNS: Afebrile. Pulse 75, breathing 16, and blood pressure was 135/75. HEAD/NECK: Normocephalic. Atraumatic. EYES: EOMI. No deformity. EARS: Clear. No ulcers. NOSE: Intact. No lesions. MOUTH: Clear. No discharge. THROAT: Clear. No exudate. LUNGS: Clear. No crackles. CARDIAC: S1, S2. No rub. ABDOMEN: Benign. Bowel sounds positive. GENITALIA/RECTUM: Webber absent. BACK/EXTREMITIES: Edema 0+. NEUROLOGICAL: Alert and motor intact. SKIN: LYMPHATICS: LABORATORY DATA: Reviewed. ASSESSMENT AND PLAN: 1. Stage 6 chronic kidney disease. Plan dialysis. 2. Hypertension, stable. 3. Anemia. Recommend transfusion. 4. Medications based on GFR are appropriate. Job ID: [id number]
[2018-11-12] MEDS ORDERED: Heparin 10,000 UNITS/ 10 ML VIAL ONE (15:00)
--- NOTE | 2018-11-12 19:31 | PRG ---
DATE OF SERVICE: 11/12/2018 SUBJECTIVE: Mr. Aguirre is an unfortunate 43-year-old male with past medical history significant for end-stage renal disease, who is unable to obtain regular outpatient hemodialysis sessions, hypertension, and chronic systolic congestive heart failure, who presented to the hospital with complaints of worsening shortness of breath, edema, and cough. The patient has been admitted with acute volume overload and hyperkalemia. He has undergone 1 dialysis session and will undergo another one today. The patient continues to complain of cough and some shortness of breath. He has no nausea or vomiting. He denies any chest pain at this time. No other complaints. OBJECTIVE: VITAL SIGNS: Blood pressure 146/82, pulse is 87, O2 saturation 93% on room air. The patient is afebrile. GENERAL: The patient is a somewhat ill-appearing male, who is in no acute distress, but is coughing. HEENT: Head is atraumatic and normocephalic. Mucous membranes are moist. NECK: Supple. No lymphadenopathy. Trachea is midline. CV: S1 and S2. Regular rate and rhythm. No appreciable murmurs, rubs, or gallops. LUNGS: Regular respiratory rate and pattern, overall coarse breath sounds throughout with positive rhonchi. ABDOMEN: Positive bowel sounds, soft, mildly distended, no masses. EXTREMITIES: +1 pitting edema bilaterally, +2 DP pulses bilaterally. SKIN: Warm and dry. No rashes or discolorations. NEUROLOGIC: Cranial nerves 2 through 12 are intact. LABORATORY DATA: From yesterday, white blood cell count 6.8, hemoglobin 7.0, platelet count 155. Potassium today 4.3. BNP on arrival was 4182. ASSESSMENT: 1. End-stage renal disease, on dialysis, unable to obtain outpatient dialysis secondary to funding. 2. Volume overload and hyperkalemia on arrival, secondary to above, improving. 3. Known chronic systolic heart failure with last EF estimated at 25% to 30%, unknown etiology. 4. Acute on chronic anemia. PLAN: The plan at this time will be to transfuse the patient 1 unit of PRBC. He will also undergo dialysis session today. We will recheck hemoglobin tomorrow. His echocardiogram is pending, and we will review this tomorrow once read by Cardiology. He was seen in consultation with Dr. Newberry back in 2018, but I can find no other cardiac workup at that time aside from echocardiogram. I expect that if the patient's anemia is improved, he may be able to discharge in the next 24 hours. Care of this patient has been discussed with Dr. Canales, who agrees with the above. Job ID: [id number]
[2018-11-12] MEDS ORDERED: Famotidine 20 MG TAB PO SCH (21:00)
[2018-11-13 06:56] LABS: #Eosinphils 0.1 thou/uL (0.0-0.7); #Monocytes 0.6 thou/uL (0.11-0.59); #Neutrophils 4.2 thou/uL (1.40-6.50); %Basophils 0.2 % (0.0-1.0); %Eosinophils 2.1 % (0.0-10.0); %Lymphocytes 16.1 % (21.0-51.0); %Monocytes 10.6 % (0.0-10.0); Mean Corpuscular HGB CONC 31.8 g/dL (32.0-36.0); Mean Corpuscular Hemoglobin 27.1 pg (27.0-31.0); Mean Corpuscular Volume 85.1 fL (78.0-98.0); Mean Platelet Volume 8.4 fL (7.4-10.4); Platelet Count 131 thou/uL (130-400); RBC Distribution Width 15.4 % (11.5-14.5); Red Blood Cell (RBC) Count 3.31 mill/uL (4.70-6.10); White Blood Cell (WBC) Count 5.9 thou/uL (4.8-10.8)
[2018-11-13 07:20] LABS: Anion Gap 16 mmol/L (10-20); BUN (Urea Nitrogen) 42 mg/dL (8.9-20.6); Calc. Creatinine Clearance 16 mL/min (70-130); Calcium 8.5 mg/dL (7.8-10.44); Carbon Dioxide 27 mmol/L (22-29); Chloride 102 mmol/L (98-107); Estimated GFR-MDRD 8; Glucose 129 mg/dL (70-105); Potassium 3.6 mmol/L (3.5-5.1); Sodium 141 mmol/L (136-145)
[2018-11-13] MEDS: Calcium Carbonate 500 MG ChewTAB PO SCH ×3 (09:09→17:35)
[2018-11-13] MEDS: Aspirin 81 mg Enteric Coated Tablet PO SCH (09:09)
[2018-11-13] MEDS: Metolazone 5 MG TAB PO SCH (09:10)
[2018-11-13] MEDS: Thiamine 100 MG TAB PO SCH (09:10)
[2018-11-13] MEDS: Carvedilol 25 MG TAB PO SCH (09:10)
[2018-11-13] MEDS: Sodium Bicarbonate Tab 325 MG TAB PO SCH ×2 (09:10→15:43)
--- NOTE | 2018-11-13 12:39 | PRG ---
DATE OF SERVICE: 11/13/2018 SUBJECTIVE: A 43-year-old gentleman being seen for end-stage renal disease. The patient denies any nausea, vomiting, or chest pain. OBJECTIVE: GENERAL: The patient is awake and alert. VITAL SIGNS: Pulse 72, breathing 16, and blood pressure 134/80. GENERAL APPEARANCE AND MENTAL STATUS: Fair. HEAD/NECK: Normocephalic. Atraumatic. EYES: EOMI. No deformity. EARS: Clear. No ulcers. NOSE: Intact. No lesions. MOUTH: Clear. No discharge. THROAT: Clear. No exudate. LUNGS: Clear. No crackles. CARDIAC: S1, S2. No rub. ABDOMEN: Benign. Bowel sounds positive. GENITALIA/RECTUM: Webber absent. BACK/EXTREMITIES: Edema 0+. NEUROLOGICAL: Alert and motor intact. SKIN: LYMPHATICS: LABORATORY DATA: Reviewed. IMPRESSION AND PLAN: 1. Stage 3 chronic kidney disease. Plan dialysis. 2. Hypertension, stable. 3. Anemia, stable. 4. Medication based on GFR appropriate. Job ID: [id number]
[2018-11-13 15:32] VITALS: BP 123/70; TEMP 98.3
[2018-11-13] MEDS ORDERED: Famotidine 20 MG TAB PO SCH (21:00)
--- NOTE | 2018-11-14 05:33 | DIS ---
DATE OF ADMISSION: 11/11/2018 DATE OF DISCHARGE: 11/13/2018 CHIEF COMPLAINT ON ADMISSION: Shortness of breath, edema, and cough. DISCHARGE DIAGNOSES: 1. Volume overload and hyperkalemia secondary to inaccessibility of scheduled outpatient dialysis sessions, resolved after dialysis x2. 2. End-stage renal disease, on dialysis, on an as-needed basis. 3. Dilated cardiomyopathy with mildly improved ejection fraction estimated at 30% to 35% per echo this hospitalization. 4. Wtquh-rz-lyhqfpk anemia, status post 1 unit of PRBC, resolved, back to baseline. BRIEF HOSPITAL COURSE: The patient is an unfortunate 43-year-old male with past medical history significant for end-stage renal disease, who is unable to obtain regular outpatient hemodialysis sessions secondary to his immigration status, hypertension, and known chronic systolic congestive heart failure with last EF estimated 25% to 30%, who presented to the hospital with complaints of worsening shortness of breath, edema, and cough. Potassium level on admission was 5.8. The patient underwent emergent dialysis, and hyperkalemia did resolve. He was given 1 unit of packed red blood cells and scheduled for dialysis session on day #2 of this hospitalization. His presenting symptoms did resolve. He had repeat echocardiogram performed, which showed estimated EF at 30% to 35%, which was mildly improved from previous. At the time of his discharge, potassium was 4.3, hemoglobin improved from 7 to 9. The patient denies any further shortness of breath. He has no chest pain. Cough much improved. The patient has no complaints at this time. CONDITION AT DISCHARGE: Stable. DISCHARGE DISPOSITION: Home. DISCHARGE INSTRUCTIONS AND FOLLOWUP: The patient will continue his home medication regimen as outlined by Nephrology, which includes Lasix 80 mg b.i.d. along with metolazone 5 mg daily. He will continue his carvedilol 25 mg p.o. b.i.d. He will follow up with [facility] for repeat lab. He has been counseled heavily on the importance of a low-potassium renal diet, along with fluid restriction, given his comorbidities and circumstances. The care of this patient has been discussed with Dr. Hutton, who agrees with discharge as outlined above. Job ID: [id number]
== END 2018-11-13 17:55 | disposition home or self-care (01) ==
LOC: ERS 14:55 → 2SW 23:43
PROVIDERS: ADMIT Internal Medicine; ATTEND Internal Medicine
DX: E87.70 Fluid overload, unspecified (principal); E87.5 Hyperkalemia; I13.2 Hypertensive heart and chronic kidney disease with heart failure and with stage 5 chronic kidney disease, or end stage renal disease; N18.6 End stage renal disease; I50.9 Heart failure, unspecified; I42.0 Dilated cardiomyopathy; D64.9 Anemia, unspecified; N26.9 Renal sclerosis, unspecified; Z79.82 Long term (current) use of aspirin; Z79.899 Other long term (current) drug therapy; Z99.2 Dependence on renal dialysis
CPT/HCPCS: 36415; 36430; 71045; 71250; 80048; 80053; 81003; 81015; 82550; 82805; 83605; 83735; 83880; 84132; 84484; 85025; 86850; 86900; 86901; 87340; 90935; 93005; 93306; 94640; 94760; 96374; 96375; G0257; G0378; J1644; J2405; J7620; P9016; Q5105; S0028

== ENCOUNTER 2018-11-29 17:34 | Emergency (ER) | payer SELFPAY ==
--- NOTE | 2018-11-29 18:29 | RAD ---
PORTABLE CHEST: 11/29/18 HISTORY: Shortness of breath. Dyspnea. COMPARISON: 11/11/18 exam. Heart size is enlarged. Mediastinal structures appear unremarkable. The lungs are clear of infiltrate s. No signs of overt failure. Mild vascular prominence. IMPRESSION: Cardiomegaly with mild vascular prominence but no overt edema. POS: OFF
[2018-11-29 19:27] LABS: #Eosinphils 0.2 thou/uL (0.0-0.7); #Lymphocytes 1.1 thou/uL (1.20-3.40); #Monocytes 0.7 thou/uL (0.11-0.59); #Neutrophils 4.1 thou/uL (1.40-6.50); %Basophils 0.3 % (0.0-1.0); %Eosinophils 2.6 % (0.0-10.0); %Lymphocytes 17.6 % (21.0-51.0); %Monocytes 11.2 % (0.0-10.0); %Neutrophils 68.3 % (42.0-75.0); Hemoglobin 7.7 g/dL (14.0-18.0); Mean Corpuscular HGB CONC 33.1 g/dL (32.0-36.0); Mean Corpuscular Hemoglobin 27.6 pg (27.0-31.0); Mean Corpuscular Volume 83.5 fL (78.0-98.0); Mean Platelet Volume 9.5 fL (7.4-10.4); Platelet Count 141 thou/uL (130-400); RBC Distribution Width 16.4 % (11.5-14.5)
[2018-11-29 19:46] LABS: Magnesium 2.1 mg/dL (1.6-2.6)
[2018-11-29 19:49] LABS: ALT (SGPT) Less than 7 U/L (8-55); AST (SGOT) 3 U/L (5-34); Albumin 3.4 g/dL (3.5-5.0); Alkaline Phosphatase 103 U/L (40-150); Anion Gap 31 mmol/L (10-20); Bilirubin, Total 0.8 mg/dL (0.2-1.2); Calc. Creatinine Clearance 0 mL/min (70-130); Calcium 7.3 mg/dL (7.8-10.44); Carbon Dioxide 17 mmol/L (22-29); Chloride 100 mmol/L (98-107); Estimated GFR-MDRD 3; Globulin 2.9 g/dL (2.4-3.5); Glucose 142 mg/dL (70-105); Potassium 4.6 mmol/L (3.5-5.1); Protein, Total 6.3 g/dL (6.0-8.3); Sodium 143 mmol/L (136-145)
[2018-11-29 19:51] LABS: Phosphorus 13.5 mg/dL (2.3-4.7)
[2018-11-29 20:00] LABS: BUN (Urea Nitrogen) 160 mg/dL (8.9-20.6)
== END 2018-11-30 01:55 | disposition home or self-care (01) ==
LOC: ERS 17:34
DX: I12.9 Hypertensive chronic kidney disease with stage 1 through stage 4 chronic kidney disease, or unspecified chronic kidney disease (principal); N18.9 Chronic kidney disease, unspecified; Z99.2 Dependence on renal dialysis; R10.9 Unspecified abdominal pain; Z79.82 Long term (current) use of aspirin; Z79.899 Other long term (current) drug therapy
CPT/HCPCS: 36416; 71045; 80053; 83735; 83880; 84100; 84484; 85025; 93005

== ENCOUNTER → 2018-12-10 | Emergency (ER) | payer SELFPAY ==
[~2018-12-10] MED LIST changes: +Cephalexin 250 MG CAP ONE; +EPOETIN ALFA-EPBX (ESRD) 10,000 UNIT/ML VIAL SC SCH; -Heparin 10,000 UNITS/ 10 ML VIAL ONE; +Sodium Bicarb 50 MEQ/50 ML Abboject 8.4% SYRINGE ONE; +Sodium Bicarb 50 MEQ/50 ML VIAL ONE
[2018-12-10 18:01] LABS: #Eosinphils 0.1 thou/uL (0.0-0.7); #Lymphocytes 1.1 thou/uL (1.20-3.40); #Monocytes 0.9 thou/uL (0.11-0.59); #Neutrophils 6.3 thou/uL (1.40-6.50); %Basophils 0.2 % (0.0-1.0); %Eosinophils 1.6 % (0.0-10.0); %Lymphocytes 13.3 % (21.0-51.0); %Monocytes 10.1 % (0.0-10.0); %Neutrophils 74.8 % (42.0-75.0); Hemoglobin 7.2 g/dL (14.0-18.0); Mean Corpuscular HGB CONC 32.1 g/dL (32.0-36.0); Mean Platelet Volume 8.5 fL (7.4-10.4); Platelet Count 122 thou/uL (130-400); RBC Distribution Width 15.9 % (11.5-14.5); Red Blood Cell (RBC) Count 2.68 mill/uL (4.70-6.10); White Blood Cell (WBC) Count 8.4 thou/uL (4.8-10.8)
[2018-12-10 18:27] LABS: ALT (SGPT) 7 U/L (8-55); AST (SGOT) 5 U/L (5-34); Albumin 3.4 g/dL (3.5-5.0); Alkaline Phosphatase 111 U/L (40-150); Anion Gap 26 mmol/L (10-20); Bilirubin, Total 0.8 mg/dL (0.2-1.2); Calc. Creatinine Clearance 0 mL/min (70-130); Calcium 7.4 mg/dL (7.8-10.44); Carbon Dioxide 21 mmol/L (22-29); Chloride 101 mmol/L (98-107); Estimated GFR-MDRD 3; Globulin 3.3 g/dL (2.4-3.5); Glucose 91 mg/dL (70-105); Potassium 5.2 mmol/L (3.5-5.1); Protein, Total 6.7 g/dL (6.0-8.3); Sodium 143 mmol/L (136-145)
[2018-12-10 18:38] LABS: BUN (Urea Nitrogen) 145 mg/dL (8.9-20.6)
[2018-12-10 23:28] LABS: HBSAg Index 0.22 S/CO (0-0.99); Hep B Surf Ag Non-Reactive S/CO (NonReactive)
== END ==
LOC: ERS 16:08
DX: E87.70 Fluid overload, unspecified (principal); D64.9 Anemia, unspecified; H05.013 Cellulitis of bilateral orbits; N19 Unspecified kidney failure; I10 Essential (primary) hypertension; Z79.891 Long term (current) use of opiate analgesic; Z79.899 Other long term (current) drug therapy; Z79.82 Long term (current) use of aspirin
CPT/HCPCS: 36415; 36416; 36430; 71045; 80053; 83880; 84484; 85025; 86850; 86900; 86901; 87340; 90935; 93005; 96372; 96374; G0257; P9016; Q5105

== ENCOUNTER 2018-12-22 20:57 | Emergency (ER) | payer MEDICAID, SELFPAY ==
--- NOTE | 2018-12-22 21:53 | RAD ---
Exam: Chest one view HISTORY:Fluid overload Comparison: 11/29/2018 FINDINGS: Lungs: No masses or consolidation. Cardiac silhouette:Enlarged Pulmonary vessels: Engorged Pleural Spaces: Clear Pneumothorax: None Osseous abnormalities: None of acuity. IMPRESSION: Enlargement of cardiac silhouette and pulmonary vasculature indicative of CHF. Correlate with clinical assessment.
--- NOTE | 2018-12-22 21:58 | RAD ---
XR Elbow Rt 4 View STANDARD: 12/22/2018 9:42 PM CLINICAL INDICATION: Pain COMPARISON: None. FINDINGS: Fracture:No fracture. Arthropathy:Mild arthropathy. Incidental findings:Surgical clips of proximal right forearm IMPRESSION: 1. No acute osseous abnormality.
[2018-12-22 22:02] LABS: #Eosinphils 0.3 thou/uL (0.0-0.7); #Lymphocytes 1.2 thou/uL (1.20-3.40); #Monocytes 0.5 thou/uL (0.11-0.59); #Neutrophils 5.4 thou/uL (1.40-6.50); %Eosinophils 4.4 % (0.0-10.0); %Lymphocytes 16.1 % (21.0-51.0); %Monocytes 6.7 % (0.0-10.0); %Neutrophils 72.8 % (42.0-75.0); Hemoglobin 8.5 g/dL (14.0-18.0); Mean Corpuscular HGB CONC 30.6 g/dL (32.0-36.0); Mean Corpuscular Hemoglobin 26.4 pg (27.0-31.0); Mean Corpuscular Volume 86.5 fL (78.0-98.0); Mean Platelet Volume 9.1 fL (7.4-10.4); Platelet Count 159 thou/uL (130-400); RBC Distribution Width 16.4 % (11.5-14.5); Red Blood Cell (RBC) Count 3.22 mill/uL (4.70-6.10); White Blood Cell (WBC) Count 7.4 thou/uL (4.8-10.8)
[2018-12-22 22:23] LABS: Anion Gap 28 mmol/L (10-20); Calc. Creatinine Clearance 0 mL/min (70-130); Carbon Dioxide 20 mmol/L (22-29); Chloride 101 mmol/L (98-107); Estimated GFR-MDRD 3; Potassium 5.5 mmol/L (3.5-5.1); Sodium 143 mmol/L (136-145)
[2018-12-22 22:24] LABS: ALT (SGPT) Less than 7 U/L (8-55); AST (SGOT) 8 U/L (5-34); Albumin 3.7 g/dL (3.5-5.0); Alkaline Phosphatase 119 U/L (40-150); Bilirubin, Total 0.9 mg/dL (0.2-1.2); Calcium 8.1 mg/dL (7.8-10.44); Globulin 3.4 g/dL (2.4-3.5); Glucose 89 mg/dL (70-105); Protein, Total 7.1 g/dL (6.0-8.3)
[2018-12-22 22:35] LABS: BUN (Urea Nitrogen) 137 mg/dL (8.9-20.6)
== END 2018-12-23 04:40 | disposition home or self-care (01) ==
LOC: ERS 20:57
DX: E87.70 Fluid overload, unspecified (principal); N19 Unspecified kidney failure; I10 Essential (primary) hypertension; Z79.82 Long term (current) use of aspirin; Z79.899 Other long term (current) drug therapy
CPT/HCPCS: 71045; 80053; 83880; 84484; 85025; 90935; 93005; G0257

== ENCOUNTER 2018-12-28 19:30 | Inpatient (IN) | payer MEDICAID, SELFPAY ==
[2018-12-28] MEDS ORDERED: Furosemide 20 MG/2 ML VIAL ONE (19:46)
[2018-12-28] MEDS ORDERED: Furosemide 40 MG/4 ML VIAL ONE (19:46)
--- NOTE | 2018-12-28 19:54 | RAD ---
Portable frontal chest radiograph: 12/28/2018 COMPARISON: 12/22/2018 HISTORY: Short of breath, dialysis patient FINDINGS: Stable prominence of the cardiac silhouette. No pneumothorax or pleural fluid. No focal con solidation or alveolar edema. Mild atherosclerotic calcification of the aortic arch noted. IMPRESSION: No focal consolidation or alveolar edema.
[2018-12-28 20:02] LABS: CO2 Tension (PvCO2) 44.8 mmHg (40.0-50.0); Calcium, Ionized 0.84 mmol/L (See Comments:); Chloride 105 mmol/L (98-107); Potassium 5.1 mmol/L (3.5-5.1); Sodium 138 mmol/L (138-145); T. Carbon Dioxide 24.4 mmol/L (22.0-28.0); vO2 Saturation-calc 81.9 % (60.0-85.0)
[2018-12-28 20:04] LABS: Magnesium 2.1 mg/dL (1.6-2.6)
[2018-12-28 20:07] LABS: Phosphorus 10.4 mg/dL (2.3-4.7)
[2018-12-28 20:11] LABS: #Eosinphils 0.2 thou/uL (0.0-0.7); #Lymphocytes 0.7 thou/uL (1.20-3.40); #Monocytes 0.7 thou/uL (0.11-0.59); %Basophils 0.2 % (0.0-1.0); %Eosinophils 2.9 % (0.0-10.0); %Lymphocytes 10.1 % (21.0-51.0); %Monocytes 10.7 % (0.0-10.0); %Neutrophils 76.1 % (42.0-75.0); Anisocytosis SLIGHT = 6-15 cells (100X) (0-5/hpf); Hemoglobin 7.6 g/dL (14.0-18.0); Mean Corpuscular HGB CONC 30.7 g/dL (32.0-36.0); Mean Corpuscular Hemoglobin 26.4 pg (27.0-31.0); Mean Platelet Volume 8.6 fL (7.4-10.4); Platelet Count 119 thou/uL (130-400); Platelet Morphology Comment Appears Decreased; RBC Distribution Width 16.2 % (11.5-14.5); Red Blood Cell (RBC) Count 2.88 mill/uL (4.70-6.10); White Blood Cell (WBC) Count 6.6 thou/uL (4.8-10.8)
[2018-12-28 20:16] LABS: ALT (SGPT) 7 U/L (8-55); AST (SGOT) 9 U/L (5-34); Albumin 3.7 g/dL (3.5-5.0); Alkaline Phosphatase 136 U/L (40-150); Anion Gap 25 mmol/L (10-20); Bilirubin, Total 1.2 mg/dL (0.2-1.2); Calc. Creatinine Clearance 0 mL/min (70-130); Calcium 7.6 mg/dL (7.8-10.44); Carbon Dioxide 22 mmol/L (22-29); Chloride 99 mmol/L (98-107); Estimated GFR-MDRD 3; Globulin 3.1 g/dL (2.4-3.5); Glucose 113 mg/dL (70-105); Potassium 5.4 mmol/L (3.5-5.1); Protein, Total 6.8 g/dL (6.0-8.3); Sodium 141 mmol/L (136-145)
[2018-12-28 20:28] LABS: BUN (Urea Nitrogen) 122 mg/dL (8.9-20.6)
[2018-12-28 22:23] VITALS: BMI 34.3
[2018-12-28] MEDS ORDERED: Acetaminophen 650 MG Suppository PR PRN (22:25)
[2018-12-28] MEDS ORDERED: Ondansetron ODT 4 MG TAB PO PRN (22:25)
[2018-12-28] MEDS ORDERED: Ondansetron PF 4 MG/2 ML Vial IVP PRN (22:25)
[2018-12-28] MEDS ORDERED: Acetaminophen 325 MG TAB PO PRN (22:25)
--- NOTE | 2018-12-29 03:46 | HP ---
PRIMARY CARE DOCTOR: The patient goes to [facility]. CODE STATUS: Full code. TIME OF EVALUATION: 8:45 p.m. CHIEF COMPLAINT: Shortness of breath. HISTORY OF PRESENT ILLNESS: This is a 43-year-old male patient known to our service due to history of end-stage renal disease. The patient very ill, came to the hospital after having severe shortness of breath with no clear triggers. No alleviating factors. The symptoms have been present for the past few days and have been gradually getting worse. The patient presented with respiratory failure, needing BiPAP. Nephrology has been called. The patient will be going for hemodialysis. REVIEW OF SYSTEMS: CONSTITUTIONAL: No fever, chills, or generalized weakness. RESPIRATORY: The patient has severe shortness of breath. No sputum production. CARDIOVASCULAR: No chest pain. No palpitation. GASTROINTESTINAL: No nausea, no vomiting, diarrhea or abdominal pain. HANDTOOLS REPAIRER: No dizziness, headache, or feeling lightheaded. GENITOURINARY: No burning on urination. EXTREMITIES: Bilateral leg swelling. All other systems were reviewed and negative except for the findings mentioned above. PAST MEDICAL HISTORY: Includes hypertension, kidney failure, noncompliant with hemodialysis due to funds. The patient receives hemodialysis every 2 weeks in the hospital. PAST SURGICAL HISTORY: Right arm fistula. FAMILY HISTORY: Reviewed, noncontributory to current presentation. The patient has a psych history that is negative. SOCIAL HISTORY: The patient uses marijuana. No smoking history. Lives at home with family. No alcohol use. KNOWN ALLERGIES: No known drug allergies. REPORTED MEDICATIONS: 1. Furosemide. 2. Aspirin. 3. Sodium bicarb. 4. Gabapentin. 5. Ranitidine. 6. Carvedilol. 7. Thiamine. 8. PhosLo. 9. Keflex. 10. Tums. PHYSICAL EXAMINATION: VITAL SIGNS: On presentation, blood pressure 154/120 with heart rate 92, respiratory rate was 32, temperature 99.2. Pain 0, oxygen saturation was 93% on room air. The patient during my examination was wearing BiPAP due to increased respiratory work. GENERAL APPEARANCE: The patient is alert, oriented, in mild respiratory distress. HEENT: Eyes, normal conjunctivae. Moist oral mucosa. Anicteric. No JVD. RESPIRATORY: Bilateral air entry is decreased. The patient has bilateral rales. No wheezing. Symmetric expansion is decreased. CARDIOVASCULAR: The patient has tachycardia. Rhythm is normal. No murmurs. No gallop. Bilateral leg edema. ABDOMEN: Soft. Normal bowel sounds. MUSCULOSKELETAL: Baseline range of motion and strength. SKIN: Warm and intact. No pallor. No rash. No redness except for bilateral lower extremity rash on the left side, there is a vesicular rash . NEURO: No evidence of any new focal weakness. Cranial nerves seem to be intact. PSYCH: The patient is in good mood. No anxiety. Optimal judgment. IMAGING: EKG, the patient is at normal sinus rhythm with a rate of 93, normal conduction, some ST and T-wave changes, consider lateral ischemia, NC 140, QRS 68, QT corrected 157. Chest x-ray was reviewed. No focal consolidation. No alveolar edema. LABORATORY DATA: The labs were reviewed. The patient has a white count of 6.6, hemoglobin 7.6. In previous visit, he had hemoglobin around the same values, platelet count 219. Blood gas, VBG 7.318. Chemistry; sodium 141, potassium 5.4, chloride 99, carbon dioxide 22, anion gap 25, BUN 122, creatinine 16.5, GFR 3, glucose 113, calcium 7.6, phosphorus 7.4, magnesium 2.1, total bilirubin 1.2. LFTs were negative. Troponin was negative x3. Beta-natriuretic peptide is 65.6. Albumin 3.7, globulin 3.1, albumin to globulin ratio is 1.2. ASSESSMENT AND PLAN: The patient will be placed in the hospital with following medical problems: 1. History of renal disease, needing hemodialysis. The patient has been noncompliant due to financial issues Nephrology has been consulted. The patient will receive dialysis overnight. 2. Acute hypoxic respiratory failure due to fluid overload. The patient is on BiPAP. Symptoms have improved. He reported he is feeling better. The patient is going for hemodialysis, will need volume removal. 3. Chronic normocytic anemia with hemoglobin 7.6, likely secondary to end-stage renal disease. We will defer to Nephrology for any further recommendations regarding anemia. 4. Anion gap metabolic acidosis secondary to chronic kidney disease. The patient to receive dialysis. 5. Hyperglycemia may be secondary to poor oral glucose tolerance. We will monitor glucose. We will monitor. 6. Deep venous thrombosis prophylaxis. 7. Morbid obesity. Advised to lose weight. Job ID: [id number]
[2018-12-29 04:54] LABS: #Eosinphils 0.2 thou/uL (0.0-0.7); #Lymphocytes 0.6 thou/uL (1.20-3.40); #Monocytes 0.5 thou/uL (0.11-0.59); #Neutrophils 4.1 thou/uL (1.40-6.50); %Basophils 0.2 % (0.0-1.0); %Lymphocytes 10.8 % (21.0-51.0); %Monocytes 8.9 % (0.0-10.0); %Neutrophils 76.1 % (42.0-75.0); Hemoglobin 7.4 g/dL (14.0-18.0); Mean Corpuscular HGB CONC 30.7 g/dL (32.0-36.0); Mean Corpuscular Hemoglobin 26.3 pg (27.0-31.0); Mean Corpuscular Volume 85.5 fL (78.0-98.0); Mean Platelet Volume 8.5 fL (7.4-10.4); Platelet Count 115 thou/uL (130-400); RBC Distribution Width 16.3 % (11.5-14.5); White Blood Cell (WBC) Count 5.4 thou/uL (4.8-10.8)
[2018-12-29 05:03] LABS: Anion Gap 17 mmol/L (10-20); BUN (Urea Nitrogen) 54 mg/dL (8.9-20.6); Calc. Creatinine Clearance 17 mL/min (70-130); Calcium 8.3 mg/dL (7.8-10.44); Carbon Dioxide 28 mmol/L (22-29); Chloride 99 mmol/L (98-107); Estimated GFR-MDRD 7; Glucose 90 mg/dL (70-105); Potassium 3.5 mmol/L (3.5-5.1); Sodium 140 mmol/L (136-145)
[2018-12-29] MEDS ORDERED: Enoxaparin Sodium 40 MG/0.4 ML SYRINGE SC SCH (09:00)
--- NOTE | 2018-12-29 11:06 | PRG ---
DATE OF SERVICE: 12/29/2018 SUBJECTIVE: A 43-year-old gentleman being seen for end-stage renal disease. The patient denies any nausea, vomiting, or chest pain. OBJECTIVE: GENERAL: The patient is awake and alert. VITAL SIGNS: Afebrile, pulse 94, breathing 16, and blood pressure 121/71. GENERAL APPEARANCE AND MENTAL STATUS: Fair. HEAD/NECK: Normocephalic. Atraumatic. EYES: EOMI. No deformity. EARS: Clear. No ulcers. NOSE: Intact. No lesions. MOUTH: Clear. No discharge. THROAT: Clear. No exudate. LUNGS: Clear. No crackles. CARDIAC: S1, S2. No rub. ABDOMEN: Benign. Bowel sounds positive. GENITALIA/RECTUM: Webber absent. BACK/EXTREMITIES: Edema 0+. NEUROLOGICAL: Alert and motor intact. SKIN: LYMPHATICS: LABORATORY DATA: Reviewed. ASSESSMENT AND PLAN: 1. Stage 6 chronic kidney disease, plan dialysis, Monday, Monday, and Monday. 2. Hypertension, stable. 3. Anemia, stable. 4. Hyperkalemia, resolved. 5. Respiratory failure, resolved. Job ID: [id number]
--- NOTE | 2018-12-29 11:32 | CON ---
DATE OF CONSULTATION: 12/28/2018 TIME: 8 p.m. REASON FOR CONSULTATION: Hyperkalemia and respiratory failure. HISTORY OF PRESENT ILLNESS: This is a very noncompliant 43-year-old gentleman presents to the hospital for regular dialysis. The patient has outpatient dialysis and does not follow up as an outpatient. The patient can give no further history. PAST MEDICAL HISTORY: Hypertension, anemia, end-stage renal disease, history of AV fistula, tunneled dialysis catheter. REVIEW OF SYSTEMS: Unobtainable. The patient is in respiratory distress. SOCIAL HISTORY: Noncontributory. FAMILY HISTORY: Noncontributory. ALLERGIES: REVIEWED. HOME MEDICATIONS: List reviewed. PHYSICAL EXAMINATION: GENERAL: The patient is in wbwn-so-kuyitlgg distress. VITAL SIGNS: Afebrile, pulse 70, breathing 16, blood pressure was 154/120. GENERAL APPEARANCE AND MENTAL STATUS: Fair. HEAD/NECK: Normocephalic. Atraumatic. EYES: EOMI. No deformity. EARS: Clear. No ulcers. NOSE: Intact. No lesions. MOUTH: Clear. No discharge. THROAT: Clear. No exudate. LUNGS: Shows crackles. CARDIAC: S1, S2. No rub. ABDOMEN: Benign. Bowel sounds positive. GENITALIA/RECTUM: Webber absent. BACK/EXTREMITIES: Edema 0+. NEUROLOGICAL: The patient is somnolent. SKIN: LYMPHATICS: LABORATORY DATA: Reviewed. ASSESSMENT AND PLAN: 1. Stage 6 chronic kidney disease. 2. Respiratory failure. Plan urgent dialysis. 3. Noncompliance. 4. Hypertension. 5. Hyperkalemia. Plan dialysis. Prognosis is poor that is a possibility. Job ID: [id number]
[2018-12-29] MEDS ORDERED: Pantoprazole 40 MG VIAL IVP SCH (15:15)
--- NOTE | 2018-12-29 15:31 | RAD ---
XR Chest 1 View Portable HISTORY: Cough COMPARISON: Prior day's exam. FINDINGS: Heart size is enlarged. There are atherosclerotic changes of the aorta. The lungs are clear of infiltrates. There are no signs of failure. IMPRESSION: Cardiomegaly. Stable chest.
[2018-12-29 15:40] LABS: Hemoglobin 7.6 g/dL (14.0-18.0)
--- NOTE | 2018-12-29 15:51 | CON ---
DATE OF CONSULTATION: 12/29/2018 SERVICE: Pulmonary Medicine. REASON FOR CONSULTATION: ICU patient. HISTORY OF PRESENT ILLNESS: The patient is a 43-year-old male with past medical history significant for end-stage renal disease. He is supposed to be on dialysis routinely. That being said, he frequently misses. Once again, he missed dialysis and presented to the emergency department with significant dyspnea. He denied any fevers or chills. He was coughing up white frothy sputum. He ended up getting emergent dialysis. Significant fluid was removed. He was weaned off his BiPAP at 1 o'clock this morning. Since then, he has been on room air. He is having a little bit of nausea. He has been having these coughing fits. Recently, they started bringing up a little bit of blood-tinged fluid. Otherwise, there were no significant overnight events. He remains hemodynamically stable. PAST MEDICAL HISTORY: 1. End-stage renal disease. 2. Extensive history of medical noncompliance. 3. Hypertension. PAST SURGICAL HISTORY: Right arm fistula. FAMILY HISTORY: Noncontributory. SOCIAL HISTORY: Marijuana. He denies any smoking otherwise. He has no alcohol or illicit drug use. ALLERGIES: NO KNOWN DRUG ALLERGIES. MEDICATIONS: List of his inpatient medications was reviewed. Multiple updates were made. I have discontinued the Lovenox, put him on scheduled Protonix. REVEIW OF SYSTEMS: General, Head, Ears, Eyes, Nose, Throat, Cardiovascular, Respiratory, GI, , Musculoskeletal, Neurologic, and Skin are negative except as mentioned in the HPI. LABORATORY DATA: Hemoglobin 7.4 and gently downtrending. CBC is otherwise unremarkable. A pH 7.31, pCO2 of 44, pO2 of 50.3. Creatinine 8.29. Basic metabolic profile is otherwise unremarkable. Troponin is negative x3. BNP 6500 , which is well above his baseline. Liver function studies are unremarkable. Phosphorus is 10 and magnesium 2.1. IMAGING: Chest x-ray is consistent with volume overload. ASSESSMENT: 1. Acute hypoxic respiratory failure. 2. End-stage renal disease. 3. Severe medical noncompliance secondary to funding issues. 4. Anemia of chronic kidney disease. 5. Hemoptysis versus hematemesis. DISCUSSION AND PLAN: I am going to repeat hemoglobin and a chest x-ray. I am going to start Protonix schedule twice daily, and interrupt his Lovenox. We will keep him in the ICU until tomorrow. Pulmonary/Critical Care will follow along while he remains in-house. If he has signs of dropping hemoglobin, an NG tube will be placed to see whether or not it is coming from the stomach. 70 minutes have been devoted to this patient in various activities. I personally reviewed all imaging studies and laboratory data noted within this document. For fifty percent of this time, I was interacting with the patient at the bedside or coordinating care with the care team. For the remainder of the time I was immediately available to the patient in the hospital unit. Job ID: [id number] [facility]
--- NOTE | 2018-12-29 16:54 | EKG ---
Test Reason : SOB Blood Pressure : / mmHG Vent. Rate : 093 BPM Atrial Rate : 093 BPM P-R Int : 140 ms QRS Dur : 068 ms QT Int : 368 ms P-R-T Axes : 073 013 150 degrees QTc Int : 457 ms Normal sinus rhythm Anterior infarct , age undetermined Abnormal ECG Confirmed by BARBARA VINCENT D.O. ([id number]), graphics editor MILANA ARMENDARIZ ([id number]) on 12/29/2018 4:53:42 PM Referred By: Confirmed By:BARBARA VINCENT D.O.
--- NOTE | 2018-12-29 17:22 | PDOC.PN ---
- Subjective Encounter Start Date: 12/29/18 Encounter Start Time: 12:55 Says he is feeling much better. Denies complaints. - Objective Resuscitation Status - Order Detail: 12/28/18 22:25 Resuscitation Status Routine Resuscitation Status: FULL: Full Resuscitation Vital Signs & Weight: Vital Signs (12 hours) Temp Pulse Ox 12/29/18 15:18 99.2 F 12/29/18 11:12 99.7 F H 12/29/18 08:00 96 12/29/18 07:14 99.8 F H Weight Admit Weight 225 lb 14.4 oz Weight 225 lb 14.4 oz Most Recent Monitor Data Heart Rate from ECG 96 NIBP 142/89 NIBP BP-Mean 106 Respiration from ECG 32 SpO2 98 I&O: 12/28/18 12/29/18 12/30/18 06:59 06:59 06:59 Intake Total 10 Output Total 3500 Balance -3490 Result Diagrams: 12/29/18 15:31 12/29/18 04:25 Phys Exam - Physical Examination Constitutional: NAD Respiratory: no wheezing, no rales, no rhonchi Cardiovascular: RRR, no significant murmur Gastrointestinal: soft, non-tender, no distention, positive bowel sounds Musculoskeletal: no edema Neurological: non-focal Psychiatric: normal affect, A&O x 3 Dx/Plan (1) Acute respiratory failure with hypoxia Code(s): J96.01 - ACUTE RESPIRATORY FAILURE WITH HYPOXIA Status: Acute Comment: Secondary to volume overload mediated by ESRD, BiPAP requirement initially now on room air, resolved (2) Volume overload Code(s): E87.70 - FLUID OVERLOAD, UNSPECIFIED Status: Acute Comment: resolving (3) Anemia in CKD (chronic kidney disease) Code(s): N18.9 - CHRONIC KIDNEY DISEASE, UNSPECIFIED; D63.1 - ANEMIA IN CHRONIC KIDNEY DISEASE Status: Chronic Comment: Stable trend, continue to monitor serial Hbg, no evidence of acute blood loss (4) ESRD (end stage renal disease) on dialysis Code(s): N18.6 - END STAGE RENAL DISEASE; Z99.2 - DEPENDENCE ON RENAL DIALYSIS Status: Chronic Comment: HD per Renal service, CM for any additional outpt options (5) Hypertension Code(s): I10 - ESSENTIAL (PRIMARY) HYPERTENSION Status: Chronic Qualifiers: Comment: Continue Coreg and Lasix - Plan * Volume overload with missed HD. * Emergent HD last night. * Respiratory status improved. * Off Bipap and appears comfortable. * Will likely need additional dialysis.
--- NOTE | 2018-12-29 19:24 | CON ---
DATE OF CONSULTATION: 12/29/2018 CHIEF COMPLAINT: Shortness of breath. HISTORY OF PRESENT ILLNESS: Mr. Aguirre is a 43-year-old man, who came to the emergency room with shortness of breath. He has been on hemodialysis, but only comes to the hospital every so often to get it done. He has not been compliant with outpatient dialysis or has never had this set up. He does not remember the name of his lag screwer. He presented with a BUN of 122 and a creatinine of 19. This morning, he has some epigastric burning discomfort and some nausea. He had some repeated coughing and coughed up some pink frothy material, but he thinks this was from his nose more. He has had no diarrhea, constipation, or blood in the stool reported. No chest pain. PAST MEDICAL HISTORY: End-stage renal disease, noncompliance with dialysis and medications, and hypertension. PAST SURGICAL HISTORY: Fistula for dialysis access. FAMILY HISTORY: Negative for GI malignancy. SOCIAL HISTORY: He uses marijuana. No tobacco. No drugs or alcohol. ALLERGIES: NO KNOWN DRUG ALLERGIES. MEDICATIONS: Reportedly prior to admission included: 1. Furosemide. 2. Aspirin. 3. Sodium bicarbonate. 4. Gabapentin. 5. Ranitidine. 6. Carvedilol. 7. Thiamine. 8. PhosLo. 9. Keflex. 10. Tums. REVIEW OF SYSTEMS: Negative x10 systems reviewed except as stated in the history of present illness. PHYSICAL EXAMINATION: VITAL SIGNS: Temperature 99.2, blood pressure 154/105, pulse is in the 106 to 120 range. GENERAL: He is in no acute distress. Alert and oriented x3. HEENT: Eyes have no scleral icterus. Oropharynx is clear without lesions. LYMPH: No cervical or supraclavicular lymphadenopathy. LUNGS: Clear to auscultation bilaterally. He is tachypneic. HEART: Regular rate and rhythm without murmur. ABDOMEN: Soft, nontender, and nondistended. Bowel sounds are present. EXTREMITIES: Trace lower extremity edema. LABORATORY DATA: White blood cell count 5.4, hemoglobin 7.6, platelets 115. BNP was 6500. Phosphorus 10.4. Labs on presentation: His creatinine was 16.5, BUN was 122, potassium was 5.4, bilirubin 1.2, AST 9, ALT 7, alkaline phosphatase 136, albumin 3.7. Today, his creatinine is down to 8.29 after dialysis. BUN 54. IMPRESSION: 1. Uremia, fluid overload, and shortness of breath secondary to noncompliance with dialysis. 2. End-stage renal disease. 3. Small amount of hemoptysis without obvious robbie hematemesis. Rectal exam reveals light brown stool in the rectal vault. 4. Nausea this morning, which has currently resolved. This may have been related to uremia. He could have also some increased bleeding, and he is certainly at risk for gastritis with the platelet dysfunction associated with his renal disease and uremia. RECOMMENDATIONS: 1. Proton pump inhibitor. 2. He does not appear to have a significant overt bleeding at this point. I will sign off for now. Please call if GI can be of assistance. I will be available if he does have a significant overt bleed. Job ID: [id number]
[2018-12-29] MEDS: Pantoprazole 40 MG VIAL IVP SCH (21:02)
[2018-12-30 05:58] LABS: #Eosinphils 0.2 thou/uL (0.0-0.7); #Lymphocytes 0.9 thou/uL (1.20-3.40); #Monocytes 0.8 thou/uL (0.11-0.59); #Neutrophils 3.5 thou/uL (1.40-6.50); %Basophils 0.5 % (0.0-1.0); %Eosinophils 3.2 % (0.0-10.0); %Lymphocytes 16.4 % (21.0-51.0); %Monocytes 14.8 % (0.0-10.0); %Neutrophils 65.1 % (42.0-75.0); Hemoglobin 7.7 g/dL (14.0-18.0); Mean Corpuscular HGB CONC 30.9 g/dL (32.0-36.0); Mean Corpuscular Hemoglobin 26.5 pg (27.0-31.0); Mean Corpuscular Volume 85.7 fL (78.0-98.0); Mean Platelet Volume 9.1 fL (7.4-10.4); Platelet Count 115 thou/uL (130-400); RBC Distribution Width 16.2 % (11.5-14.5); White Blood Cell (WBC) Count 5.4 thou/uL (4.8-10.8)
[2018-12-30 06:29] LABS: Anion Gap 20 mmol/L (10-20); BUN (Urea Nitrogen) 73 mg/dL (8.9-20.6); Calc. Creatinine Clearance 13 mL/min (70-130); Calcium 8.6 mg/dL (7.8-10.44); Carbon Dioxide 25 mmol/L (22-29); Chloride 99 mmol/L (98-107); Estimated GFR-MDRD 5; Glucose 84 mg/dL (70-105); Potassium 4.8 mmol/L (3.5-5.1); Sodium 139 mmol/L (136-145)
[2018-12-30] MEDS ORDERED: Artificial Tears 18 DROP/0.9 ML EA EYE PRN (08:04)
[2018-12-30] MEDS ORDERED: Diabetic Tussin 200 MG/10 ML UDCUP PO PRN (08:04)
[2018-12-30] MEDS ORDERED: Calcium Carbonate 500 MG ChewTAB PO PRN (08:04)
[2018-12-30] MEDS ORDERED: Senokot S 8.6-50 MG TAB PO PRN (08:04)
[2018-12-30] MEDS ORDERED: Loratadine 10 MG TAB PO PRN (08:04)
[2018-12-30] MEDS ORDERED: Nitroglycerin 0.4 MG TAB (25 Tab Bottle) SL PRN (08:04)
[2018-12-30] MEDS ORDERED: Temazepam 15 MG CAP PO PRN (08:04)
[2018-12-30] MEDS ORDERED: hydrALAZINE 20 MG/ML VIAL SLOW IVP PRN (08:04)
[2018-12-30] MEDS ORDERED: Bisacodyl 5 MG TAB PO PRN (08:04)
[2018-12-30] MEDS ORDERED: Cepastat Lozenges 1 LOZ PO PRN (08:04)
[2018-12-30] MEDS ORDERED: Sodium Chloride 0.65% Nasal 44 ML BOT EA NARE PRN (08:04)
[2018-12-30] MEDS ORDERED: Loperamide HCl 2 MG CAP PO PRN (08:04)
[2018-12-30] MEDS ORDERED: PROVENTIL INHALER 6.7 G (200 INHALATIONS) INH PRN (08:06)
[2018-12-30] MEDS: Aspirin 81 mg Enteric Coated Tablet PO SCH (09:04)
[2018-12-30] MEDS: Calcium Carbonate 500 MG ChewTAB PO SCH ×2 (09:04→14:59)
[2018-12-30] MEDS: Carvedilol 25 MG TAB PO SCH (09:04)
[2018-12-30] MEDS: Gabapentin 100 MG CAP PO SCH (09:04)
[2018-12-30] MEDS: Famotidine 20 MG TAB PO SCH (09:04)
[2018-12-30] MEDS: Hydrocortisone 1% Cream 30 GM TUBE TOP PRN ×2 (09:05→16:12)
[2018-12-30] MEDS: Pantoprazole 40 MG VIAL IVP SCH (09:05)
[2018-12-30] MEDS: Thiamine 100 MG TAB PO SCH (09:05)
--- NOTE | 2018-12-30 11:22 | PRG ---
DATE OF SERVICE: 12/30/2018 SERVICE: Pulmonary Medicine. INTERVAL HISTORY: The patient is doing fine from respiratory standpoint. Breathing comfortably. His vomiting of blood has significantly improved. Denies any current chest pain, fevers, chills, or nausea. He tolerated p.o. this morning just fine. He is not having any difficulties with breathing. His belly pain went away. Otherwise, there has been no interval change to his condition. PHYSICAL EXAMINATION: VITAL SIGNS: Afebrile, pulse 87, blood pressure 123/81, respirations 30, saturation 98% on room air. GENERAL: The patient is awake and alert, in no apparent distress. LUNGS: Decent air entry. No prolonged expiratory phase or wheezing is appreciated. HEART: Normal rate and regular. ABDOMEN: Distended. Bowel sounds are present. No rebound or guarding. MUSCULOSKELETAL: No cyanosis or clubbing. There is 2+ pitting in the bilateral lower extremities. NEUROLOGIC: Grossly nonfocal. LABORATORY DATA: Hemoglobin is stable. Creatinine is up trending to 10.8, BUN 73. Basic metabolic profile is otherwise unremarkable. ASSESSMENT: 1. Acute hypoxic respiratory failure, resolved. 2. End-stage renal disease. 3. Severe medical noncompliance secondary to funding issues. 4. Anemia of chronic disease. 5. Hematemesis, possibly secondary to small Trang-Russell tear. DISCUSSION AND PLAN: The patient's issue has resolved. As such, he is stable for transition out of the ICU to the medical unit. When he arrives on the floor, he will have no further requirement per Pulmonary or Critical Care opinion, and I will sign off. Please call with additional questions or concerns through time. Job ID: [id number]
[2018-12-30] MEDS: Calcium Acetate 667 MG CAP PO SCH ×2 (11:48→18:01)
--- NOTE | 2018-12-30 12:09 | PDOC.PN ---
- Subjective Encounter Start Date: 12/30/18 Encounter Start Time: 10:00 -: old records requested/rev Patient seen and examined. No new complaints. No overnight events - Objective Resuscitation Status - Order Detail: 12/28/18 22:25 Resuscitation Status Routine Resuscitation Status: FULL: Full Resuscitation MAR Reviewed: Yes Vital Signs & Weight: Vital Signs (12 hours) Temp Pulse Ox 12/30/18 11:13 98.8 F 12/30/18 07:34 96 12/30/18 07:25 98.5 F 12/30/18 03:44 99.5 F Weight Admit Weight 225 lb 14.4 oz Weight 225 lb 14.4 oz Most Recent Monitor Data Heart Rate from ECG 87 NIBP 123/81 NIBP BP-Mean 95 Respiration from ECG 30 SpO2 98 I&O: 12/29/18 12/30/18 12/31/18 06:59 06:59 06:59 Intake Total 10 10 Output Total 3500 1225 150 Balance -3490 -1215 -150 Result Diagrams: 12/30/18 05:27 12/30/18 05:27 EKG Reviewed by me: Yes Phys Exam - Physical Examination Constitutional: NAD HEENT: PERRLA, moist MMs, sclera anicteric Neck: no JVD, supple Respiratory: no wheezing, no rales, no rhonchi Cardiovascular: RRR, no rub SM+ Gastrointestinal: soft, non-tender, no distention, positive bowel sounds Musculoskeletal: no edema, pulses present left leg with small blister Neurological: non-focal, normal sensation, moves all 4 limbs Lymphatic: no nodes Psychiatric: normal affect, A&O x 3 Skin: normal turgor Deviation from normal: blister over left leg Dx/Plan (1) Acute on chronic systolic ACC/AHA stage C congestive heart failure Code(s): I50.23 - ACUTE ON CHRONIC SYSTOLIC (CONGESTIVE) HEART FAILURE Status : Acute (2) Acute respiratory failure with hypoxia Code(s): J96.01 - ACUTE RESPIRATORY FAILURE WITH HYPOXIA Status: Resolved Comment: Secondary to volume overload mediated by ESRD, BiPAP requirement initially now on room air, resolved (3) Nausea & vomiting Code(s): R11.2 - NAUSEA WITH VOMITING, UNSPECIFIED Status: Resolved (4) Non-compliance with renal dialysis Code(s): Z91.15 - PATIENT'S NONCOMPLIANCE WITH RENAL DIALYSIS Status: Acute (5) Volume overload Code(s): E87.70 - FLUID OVERLOAD, UNSPECIFIED Status: Resolved Comment: resolving (6) Anemia of renal disease Code(s): N18.9 - CHRONIC KIDNEY DISEASE, UNSPECIFIED; D63.1 - ANEMIA IN CHRONIC KIDNEY DISEASE Status: Chronic (7) Cardiomyopathy Code(s): I42.9 - CARDIOMYOPATHY, UNSPECIFIED Status: Chronic (8) ESRD (end stage renal disease) on dialysis Code(s): N18.6 - END STAGE RENAL DISEASE; Z99.2 - DEPENDENCE ON RENAL DIALYSIS Status: Chronic Comment: HD per Renal service (9) Hypertension Code(s): I10 - ESSENTIAL (PRIMARY) HYPERTENSION Status: Chronic Qualifiers: Comment: Continue Coreg and Lasix (10) Obesity (BMI 30.0-34.9) Code(s): E66.9 - OBESITY, UNSPECIFIED Status: Chronic (11) Secondary hyperparathyroidism of renal origin Code(s): N25.81 - SECONDARY HYPERPARATHYROIDISM OF RENAL ORIGIN Status: Chronic (12) Severe tricuspid regurgitation by prior echocardiogram Code(s): I07.1 - RHEUMATIC TRICUSPID INSUFFICIENCY Status: Chronic (13) Nephrotic syndrome Code(s): N04.9 - NEPHROTIC SYNDROME WITH UNSPECIFIED MORPHOLOGIC CHANGES Status: Chronic - Plan cont current plan of care * medication reviewed as below * symptomatic treatment * transfer to medical * add nephrovite * home medication reconciled * HD as per nephrology. * expecting discharge tomorrow Review of Systems - Review of Systems ENT: negative: Ear Pain, Ear Discharge, Nose Pain, Nose Discharge, Nose Congestion, Mouth Pain, Mouth Swelling, Throat Pain, Throat Swelling, Other Respiratory: negative: Cough, Dry, Shortness of Breath, Hemoptysis, SOB with Excertion, Pleuritic Pain, Sputum, Wheezing Cardiovascular: negative: chest pain, palpitations, orthopnea, paroxysmal nocturnal dyspnea, edema, light headedness, other Gastrointestinal: negative: Nausea, Vomiting, Abdominal Pain, Diarrhea, Constipation, Melena, Hematochezia, Other Genitourinary: negative: Dysuria, Frequency, Incontinence, Hematuria, Retention , Other Musculoskeletal: negative: Neck Pain, Shoulder Pain, Arm Pain, Back Pain, Hand Pain, Leg Pain, Foot Pain, Other - Medications/Allergies Allergies/Adverse Reactions: Allergies Allergy/AdvReac Type Severity Reaction Status Date / Time No Known Allergies Allergy Verified 12/28/18 22:15 Medications: Current Medications Acetaminophen (Tylenol) 650 mg PO Q4H PRN PRN Reason: Headache/Fever/Mild Pain (1-3) Last Admin: 12/30/18 09:05 Dose: 650 mg Acetaminophen (Tylenol) 650 mg CO Q4H PRN PRN Reason: Headache/Fever/Mild Pain (1-3) Hydrocodone Bitart/Acetaminophen ([place] 5/325) 1 tab PO Q4H PRN PRN Reason: Moderate Pain (4-6) Albuterol Sulfate (Proventil Hfa) 1 puff INH Q6H PRN PRN Reason: SOB &/or Wheezing Artificial Tears (Tears Naturale) 2 drop EA EYE PRN PRN PRN Reason: Dry Eyes Aspirin (Ecotrin) 81 mg PO DAILY [facility] Last Admin: 12/30/18 09:04 Dose: 81 mg Bisacodyl (Dulcolax) 10 mg PO DAILYPRN PRN PRN Reason: Constipation Calcium Acetate (Phoslo) 1,334 mg PO TID[facility] Last Admin: 12/30/18 11:48 Dose: 1,334 mg Calcium Carbonate (Tums) 500 mg PO TID [facility] Last Admin: 12/30/18 09:04 Dose: 500 mg Calcium Carbonate (Tums) 1,000 mg PO Q4H PRN PRN Reason: Heartburn or Indigestion Carvedilol (Coreg) 25 mg PO BID [facility] Last Admin: 12/30/18 09:04 Dose: 25 mg Famotidine (Pepcid) 20 mg PO DAILY [facility] Last Admin: 12/30/18 09:04 Dose: 20 mg Gabapentin (Neurontin) 100 mg PO Q2DAYS [facility] Last Admin: 12/30/18 09:04 Dose: 100 mg Guaifenesin (Robitussin Sf) 200 mg PO Q4H PRN PRN Reason: Cough Hydralazine HCl (Apresoline) 10 mg SLOW IVP Q4H PRN PRN Reason: SBP > 180 and HR < 70 Hydrocortisone/Aloe (Hydrocortisone 1% Cream) 0 gm TOP PRN PRN PRN Reason: Rash/Topical Irritation Last Admin: 12/30/18 09:05 Dose: 1 applic Loperamide HCl (Imodium) 2 mg PO PRN PRN PRN Reason: Diarrhea/Loose Stools Loratadine (Claritin) 10 mg PO DAILYPRN PRN PRN Reason: Sinus Symptoms Nitroglycerin (Nitrostat) 0.4 mg SL Q5MIN PRN PRN Reason: Chest Pain Ondansetron HCl (Zofran Odt) 4 mg PO Q6H PRN PRN Reason: Nausea/Vomiting Ondansetron HCl (Zofran) 4 mg IVP Q6H PRN PRN Reason: Nausea/Vomiting Last Admin: 12/29/18 06:42 Dose: 4 mg Pantoprazole Sodium (Protonix) 40 mg IVP Q12HR [facility] Last Admin: 12/30/18 09:05 Dose: 40 mg Senna/Docusate Sodium (Senokot S) 2 tab PO BID PRN PRN Reason: Constipation Sodium Chloride ([place] Nasal [place] 0.65%) 0 ml EA NARE QIDPRN PRN PRN Reason: Nasal Congestion Temazepam (Restoril) 15 mg PO HSPRN PRN PRN Reason: Insomnia Thiamine HCl (Thiamine) 100 mg PO DAILY [facility] Last Admin: 12/30/18 09:05 Dose: 100 mg Throat Lozenges (Cepastat Lozenges) 1 james PO Q2H PRN PRN Reason: Sore Throat
--- NOTE | 2018-12-30 13:14 | PRG ---
DATE OF SERVICE: 12/30/2018 SUBJECTIVE: A 43-year-old gentleman, being seen for end-stage renal disease. The patient denied nausea, vomiting, or chest pain. OBJECTIVE: CONSTITUTIONAL: The patient is awake and alert. VITAL SIGNS: Pulse 72, breathing 16, blood pressure 126/87. GENERAL APPEARANCE AND MENTAL STATUS: Fair. HEAD/NECK: Normocephalic. Atraumatic. EYES: EOMI. No deformity. EARS: Clear. No ulcers. NOSE: Intact. No lesions. MOUTH: Clear. No discharge. THROAT: Clear. No exudate. LUNGS: Clear. No crackles. CARDIAC: S1, S2. No rub. ABDOMEN: Benign. Bowel sounds positive. GENITALIA/RECTUM: Webber absent. BACK/EXTREMITIES: Edema 0+. NEUROLOGICAL: Alert and motor intact. SKIN: LYMPHATICS: LABORATORY DATA: Labs show hemoglobin 7.7. ASSESSMENT AND PLAN: 1. Stage 6 chronic kidney disease, plan dialysis. 2. Hypertension, stable. 3. Anemia, stable. 4. Medication based on GFR, appropriate. We will plan dialysis today. Job ID: [id number]
[2018-12-31] MEDS: HYDROcodone/Acetaminophen 5/325 mg Tablet PO PRN ×3 (00:18→21:20)
[2018-12-31] MEDS: Carvedilol 25 MG TAB PO SCH ×3 (00:22→21:20)
[2018-12-31] MEDS: Calcium Carbonate 500 MG ChewTAB PO SCH ×4 (00:22→21:20)
[2018-12-31] MEDS: Pantoprazole 40 MG VIAL IVP SCH ×3 (00:22→21:20)
[2018-12-31 05:23] LABS: Anion Gap 16 mmol/L (10-20); BUN (Urea Nitrogen) 38 mg/dL (8.9-20.6); Calc. Creatinine Clearance 20 mL/min (70-130); Calcium 8.6 mg/dL (7.8-10.44); Carbon Dioxide 28 mmol/L (22-29); Chloride 99 mmol/L (98-107); Estimated GFR-MDRD 8; Glucose 99 mg/dL (70-105); Potassium 3.7 mmol/L (3.5-5.1); Sodium 139 mmol/L (136-145)
[2018-12-31 05:38] LABS: #Eosinphils 0.2 thou/uL (0.0-0.7); #Lymphocytes 0.9 thou/uL (1.20-3.40); #Monocytes 0.6 thou/uL (0.11-0.59); #Neutrophils 3.6 thou/uL (1.40-6.50); %Basophils 0.4 % (0.0-1.0); %Eosinophils 3.4 % (0.0-10.0); %Lymphocytes 17.1 % (21.0-51.0); %Monocytes 11.1 % (0.0-10.0); %Neutrophils 68.1 % (42.0-75.0); Anisocytosis SLIGHT = 6-15 cells (100X) (0-5/hpf); Hemoglobin 7.1 g/dL (14.0-18.0); MDiff Complete? YES; Mean Corpuscular Volume 86.8 fL (78.0-98.0); Mean Platelet Volume 8.7 fL (7.4-10.4); Platelet Count 118 thou/uL (130-400); Platelet Morphology Comment Appears Decreased; RBC Distribution Width 16.1 % (11.5-14.5); Red Blood Cell (RBC) Count 2.74 mill/uL (4.70-6.10); White Blood Cell (WBC) Count 5.3 thou/uL (4.8-10.8)
[2018-12-31] MEDS: Thiamine 100 MG TAB PO SCH (08:10)
[2018-12-31] MEDS: Aspirin 81 mg Enteric Coated Tablet PO SCH (08:10)
[2018-12-31] MEDS: Calcium Acetate 667 MG CAP PO SCH ×3 (08:10→16:15)
[2018-12-31] MEDS: Famotidine 20 MG TAB PO SCH (08:10)
[2018-12-31] MEDS: Hydrocortisone 1% Cream 30 GM TUBE TOP PRN (08:17)
--- NOTE | 2018-12-31 10:47 | PRG ---
DATE OF SERVICE: 12/31/2018 SUBJECTIVE: Patient was seen and examined at bedside and overnight events noted. Patient denies any shortness of breath or chest pain or palpitation. No history of nausea or vomiting or diarrhea or fever or chills or cramps. OBJECTIVE: GENERAL: This is a well-built male in no apparent distress. VITAL SIGNS: Temperature 98.4. Heart rate 89. Respiratory rate 18. Blood pressure 143/92. HEENT: Atraumatic, normocephalic. Oral mucosa is moist NECK: Supple. CARDIOVASCULAR: S1, S2 heard. Rate and rhythm regular. RESPIRATORY: Clear to auscultation. GASTROINTESTINAL: Abdomen is soft. MUSCULOSKELETAL: No tenderness. No edema. DERMATOLOGIC: No skin rash. NEUROLOGIC: Alert and awake and oriented X3. No focal neurologic deficits. Moving all the extremities. PSYCHIATRIC: Mood and affect normal. LABORATORY DATA: Potassium is 3.7, BUN is 38, creatinine is 7.1. ASSESSMENT AND PLAN: 1. End-stage renal disease. Continue on dialysis. Follow up Case Management to see if he can qualify for outpatient dialysis. 2. Hypertension. 3. Anemia. 4. Edema. 5. The patient needs a regular session of dialysis. Talk with Case Management to see outpatient dialysis can be arranged. Job ID: [id number]
[2018-12-31] MEDS ORDERED: EPOETIN ALFA-EPBX (ESRD) 10,000 UNIT/ML VIAL SC SCH (11:00)
[2018-12-31] MEDS ORDERED: Vancomycin HCl 1.5 GM in Sodium Chloride 0.9% 250 ML 300 ML IVPB SCH ×2 (13:30→15:30)
[2018-12-31] MEDS ORDERED: Vancomycin HCl 1.25 GM in Sodium Chloride 0.9% 250 ML 250 ML IVPB SCH (13:30)
[2018-12-31] MEDS ORDERED: Vancomycin HCl 750 MG in Sodium Chloride 0.9% 250 ML 250 ML IVPB SCH (13:30)
[2018-12-31] MEDS ORDERED: Vancomycin HCl 1 GM in Premix Bag 1 BAG IVPB SCH (13:30)
[2018-12-31] MEDS ORDERED: Vancomycin HCl 500 MG in Sodium Chloride 0.9% 100 ML IVPB SCH (18:00)
--- NOTE | 2018-12-31 18:04 | PDOC.PN ---
- Subjective Encounter Start Date: 12/31/18 Encounter Start Time: 08:00 Subjective: has blistering of left lower extremity over ant aspect -: no itching or pain over lesions, says it started on monday - Objective Resuscitation Status - Order Detail: 12/28/18 22:25 Resuscitation Status Routine Resuscitation Status: FULL: Full Resuscitation MAR Reviewed: Yes Vital Signs & Weight: Vital Signs (12 hours) Temp Pulse Resp BP Pulse Ox 12/31/18 16:43 97.7 F 82 18 119/78 96 12/31/18 12:24 97.6 F 89 20 110/70 95 12/31/18 08:00 95 12/31/18 07:21 98.4 F 89 18 143/92 H 95 Weight Admit Weight 225 lb 14.4 oz Weight 225 lb 14.4 oz Most Recent Monitor Data Heart Rate from ECG 76 NIBP 145/90 NIBP BP-Mean 108 Respiration from ECG 22 SpO2 97 I&O: 12/30/18 12/31/18 01/01/19 06:59 06:59 06:59 Intake Total 10 240 Output Total 1225 150 Balance -1215 90 Result Diagrams: 12/31/18 04:38 12/31/18 04:38 Phys Exam - Physical Examination HEENT: PERRLA, sclera anicteric Neck: no JVD, supple Respiratory: no wheezing, no rales Cardiovascular: RRR, no significant murmur Gastrointestinal: soft, no distention, positive bowel sounds Musculoskeletal: pulses present vesiculopustular lesions over left LE, abd wall and right arm Neurological: non-focal, moves all 4 limbs Psychiatric: A&O x 3 Dx/Plan (1) Volume overload Code(s): E87.70 - FLUID OVERLOAD, UNSPECIFIED Status: Resolved Comment: resolving (2) Non-compliance with renal dialysis Code(s): Z91.15 - PATIENT'S NONCOMPLIANCE WITH RENAL DIALYSIS Status: Acute (3) Anemia of renal disease Code(s): N18.9 - CHRONIC KIDNEY DISEASE, UNSPECIFIED; D63.1 - ANEMIA IN CHRONIC KIDNEY DISEASE Status: Chronic (4) Cardiomyopathy Code(s): I42.9 - CARDIOMYOPATHY, UNSPECIFIED Status: Chronic Qualifiers: Cardiomyopathy type: unspecified Qualified Code(s): I42.9 - Cardiomyopathy , unspecified (5) ESRD (end stage renal disease) on dialysis Code(s): N18.6 - END STAGE RENAL DISEASE; Z99.2 - DEPENDENCE ON RENAL DIALYSIS Status: Chronic Comment: HD per Renal service (6) Hypertension Code(s): I10 - ESSENTIAL (PRIMARY) HYPERTENSION Status: Chronic Qualifiers: (7) Obesity (BMI 30.0-34.9) Code(s): E66.9 - OBESITY, UNSPECIFIED Status: Chronic (8) Secondary hyperparathyroidism of renal origin Code(s): N25.81 - SECONDARY HYPERPARATHYROIDISM OF RENAL ORIGIN Status: Chronic (9) Severe tricuspid regurgitation by prior echocardiogram Code(s): I07.1 - RHEUMATIC TRICUSPID INSUFFICIENCY Status: Chronic (10) H/O CHF Code(s): Z86.79 - PERSONAL HISTORY OF OTHER DISEASES OF THE CIRCULATORY SYSTEM Status: Chronic Comment: ef of 30% - Plan no rivera/arb's due to esrd -: has vesiculopustular lesions over extre seen on ant aspect, start vanc -: await opinion, obtain cultures after deroofing lesion -: continue HD per nephr adv -: is on asp, coreg * . Review of Systems - Medications/Allergies Allergies/Adverse Reactions: Allergies Allergy/AdvReac Type Severity Reaction Status Date / Time No Known Allergies Allergy Verified 12/28/18 22:15 Medications: Current Medications Acetaminophen (Tylenol) 650 mg PO Q4H PRN PRN Reason: Headache/Fever/Mild Pain (1-3) Last Admin: 12/30/18 09:05 Dose: 650 mg Acetaminophen (Tylenol) 650 mg OR Q4H PRN PRN Reason: Headache/Fever/Mild Pain (1-3) Hydrocodone Bitart/Acetaminophen ([place] 5/325) 1 tab PO Q4H PRN PRN Reason: Moderate Pain (4-6) Last Admin: 12/31/18 08:16 Dose: 1 tab Albuterol Sulfate (Proventil Hfa) 1 puff INH Q6H PRN PRN Reason: SOB &/or Wheezing Artificial Tears (Tears Naturale) 2 drop EA EYE PRN PRN PRN Reason: Dry Eyes Aspirin (Ecotrin) 81 mg PO DAILY [facility] Last Admin: 12/31/18 08:10 Dose: 81 mg Bisacodyl (Dulcolax) 10 mg PO DAILYPRN PRN PRN Reason: Constipation Calcium Acetate (Phoslo) 1,334 mg PO TID[facility] Last Admin: 12/31/18 16:15 Dose: 1,334 mg Calcium Carbonate (Tums) 500 mg PO TID [facility] Last Admin: 12/31/18 16:15 Dose: 500 mg Calcium Carbonate (Tums) 1,000 mg PO Q4H PRN PRN Reason: Heartburn or Indigestion Carvedilol (Coreg) 25 mg PO BID [facility] Last Admin: 12/31/18 08:10 Dose: 25 mg Epoetin Pardeep-epbx (Retacrit) 10,000 unit SC Q7D [facility] Last Admin: 12/31/18 12:42 Dose: 10,000 unit Famotidine (Pepcid) 20 mg PO DAILY [facility] Last Admin: 12/31/18 08:10 Dose: 20 mg Gabapentin (Neurontin) 100 mg PO Q2DAYS [facility] Last Admin: 12/30/18 09:04 Dose: 100 mg Guaifenesin (Robitussin Sf) 200 mg PO Q4H PRN PRN Reason: Cough Hydralazine HCl (Apresoline) 10 mg SLOW IVP Q4H PRN PRN Reason: SBP > 180 and HR < 70 Hydrocortisone/Aloe (Hydrocortisone 1% Cream) 0 gm TOP PRN PRN PRN Reason: Rash/Topical Irritation Last Admin: 12/31/18 08:17 Dose: 1 applic Vancomycin HCl 500 mg/ Sodium (Chloride) 100 mls @ 100 mls/hr IVPB Q24H [facility] Loperamide HCl (Imodium) 2 mg PO PRN PRN PRN Reason: Diarrhea/Loose Stools Loratadine (Claritin) 10 mg PO DAILYPRN PRN PRN Reason: Sinus Symptoms Miscellaneous Medication (Pharmacy To Dose) 0 each IVPB PRN [facility] Nitroglycerin (Nitrostat) 0.4 mg SL Q5MIN PRN PRN Reason: Chest Pain Ondansetron HCl (Zofran Odt) 4 mg PO Q6H PRN PRN Reason: Nausea/Vomiting Ondansetron HCl (Zofran) 4 mg IVP Q6H PRN PRN Reason: Nausea/Vomiting Last Admin: 12/29/18 06:42 Dose: 4 mg Pantoprazole Sodium (Protonix) 40 mg IVP Q12HR [facility] Last Admin: 12/31/18 08:12 Dose: 40 mg Senna/Docusate Sodium (Senokot S) 2 tab PO BID PRN PRN Reason: Constipation Sodium Chloride ([place] Nasal [place] 0.65%) 0 ml EA NARE QIDPRN PRN PRN Reason: Nasal Congestion Temazepam (Restoril) 15 mg PO HSPRN PRN PRN Reason: Insomnia Thiamine HCl (Thiamine) 100 mg PO DAILY [facility] Last Admin: 12/31/18 08:10 Dose: 100 mg Throat Lozenges (Cepastat Lozenges) 1 james PO Q2H PRN PRN Reason: Sore Throat
--- NOTE | 2018-12-31 18:32 | CON ---
DATE OF CONSULTATION: 12/31/2018 REASON FOR CONSULTATION: Skin eruption. HISTORY OF PRESENT ILLNESS: A 43-year-old, history of end-stage renal disease, probably from some form of glomerulonephritis, who does not have legal residence in [facility] and therefore has not been eligible for any type of insurance to allow him to be dialyzed in the outpatient setting, so he basically gets dialyzed every so often according to his symptoms, usually every 2 weeks. Similarly, at this time, he came with worsening dyspnea and general malaise. On arrival, he required emergency hemodialysis, which was accomplished through an AV fistula placed in the right upper extremity. At the same time, he was noticed to have those blisters in the left leg and we were asked to evaluate him. He denies headaches. He is feeling better after dialysis. He has chronic visual blurriness. No sore throat, odynophagia, or dysphagia. No cough or sputum production. No chest pain. No abdominal pain. No diarrhea. He has very minimal urinary output. MEDICAL HISTORY: Likely some form of chronic glomerulonephritis, end-stage renal disease, on hemodialysis, which is given every two weeks approximately due to lack of legal residence status and inability to obtain insurance; also hypertension. SURGICAL HISTORY: Fistula placed in the right upper extremity. FAMILY HISTORY: Noncontributory. SOCIAL HISTORY: Lives in the area, has young children, and is not planning to go back to [place] any time soon. ALLERGIES: NONE. CURRENT MEDICATIONS: Include; 1. Tylenol. 2. Hydrocodone. 3. Proventil. 4. Ecotrin. 5. Dulcolax. 6. PhosLo. 7. Tums. 8. Coreg. 9. Pepcid. 10. Neurontin. 11. Claritin. 12. Ondansetron. 13. Pantoprazole. 14. Vancomycin. PHYSICAL EXAMINATION: VITAL SIGNS: T-max 99.8, blood pressure 150/77, pulse 92, respirations 20, and O2 saturation 97. On arrival, his O2 saturations were in the 98 range. SKIN: Exam shows the areas of small tense blisters in the left leg along the dermatomal distribution. I believe it is around the L1 and L2 distribution, extending from the knee all the way to the left foot. The patient has a functioning fistula in the right upper extremity. No lymphadenopathy. HEENT: Ocular movements are conjugate. Sclerae are white. Pupils are equal. Oral cavity with still few teeth remaining in place. NECK: Supple. No jugular vein distention. LUNGS: Symmetric. Clear breath sounds. HEART: S1 and S2, regular rate. ABDOMEN: Soft. Not distended or tender. No ascites. No bladder distention. PULSES: 1+ in popliteal and dorsalis pedis. NEUROLOGIC: Nonfocal including cognitive function. LABORATORY DATA: White cell count 6.6 and 5.3, hemoglobin 7.6, and 7.1, platelets 118, with 68% neutrophils. On arrival, blood gas with venous pH 7.3, pCO2 of 44, PO2 of 50. Sodium 140, creatinine 8.29. Liver profile was normal. Albumin 3.7. There is a culture from one of the leg blisters submitted earlier today with no organisms seen, rare WBCs. IMAGING STUDIES: There is an abdomen and pelvis CT from July of this year with a small-moderate right pleural effusion, right lower lobe base pulmonary nodules, mild ascites, colonic diverticulosis, anasarca. Chest x-ray this time with cardiomegaly, clear lungs. ASSESSMENT: 1. End-stage renal disease, probably secondary to chronic glomerulonephritis, on intermittent hemodialysis due to lack of insurance and lack of legal residence status in [facility]. 2. Vesicular eruption, left lower extremity. DISCUSSION: The differential diagnosis includes a herpes zoster in the distribution of L1 and L2 nerve root dermatome. Other possibilities include pemphigus, cellulitis, and so on, but those are less likely. I have submitted VZV DNA PCR test and we will treat him with oral Valtrex. He needs to be placed on airborne precautions until either his discharge or the lesions dry up. Another option would be to just keep the leg covered, that is probably difficult to verify that remains so. I think it is better to just place him on airborne precautions. Job ID: [id number]
[2019-01-01 06:50] LABS: Anion Gap 19 mmol/L (10-20); BUN (Urea Nitrogen) 45 mg/dL (8.9-20.6); Calc. Creatinine Clearance 16 mL/min (70-130); Calcium 8.8 mg/dL (7.8-10.44); Carbon Dioxide 24 mmol/L (22-29); Chloride 101 mmol/L (98-107); Estimated GFR-MDRD 7; Glucose 77 mg/dL (70-105); Iron 17 ug/dL (65-175); Iron Binding Capacity, Total 300 mcg/dL (261-462); Potassium 4.2 mmol/L (3.5-5.1); Sodium 140 mmol/L (136-145)
[2019-01-01 06:54] LABS: #Eosinphils 0.2 thou/uL (0.0-0.7); #Monocytes 0.6 thou/uL (0.11-0.59); #Neutrophils 3.1 thou/uL (1.40-6.50); %Basophils 0.1 % (0.0-1.0); %Eosinophils 4.2 % (0.0-10.0); %Lymphocytes 21.3 % (21.0-51.0); %Monocytes 11.6 % (0.0-10.0); %Neutrophils 62.8 % (42.0-75.0); Hemoglobin 7.6 g/dL (14.0-18.0); Mean Corpuscular Hemoglobin 26.2 pg (27.0-31.0); Mean Corpuscular Volume 87.3 fL (78.0-98.0); Mean Platelet Volume 8.8 fL (7.4-10.4); Platelet Count 124 thou/uL (130-400); RBC Distribution Width 16.1 % (11.5-14.5); Red Blood Cell (RBC) Count 2.92 mill/uL (4.70-6.10); White Blood Cell (WBC) Count 4.9 thou/uL (4.8-10.8)
[2019-01-01 07:06] LABS: Ferritin 109.54 ng/mL (22-322)
[2019-01-01 07:07] LABS: Vitamin D, 25 Hydroxy 16.4 ng/ml (> 30.0)
[2019-01-01] MEDS: Famotidine 20 MG TAB PO SCH (08:32)
[2019-01-01] MEDS: Carvedilol 25 MG TAB PO SCH ×2 (08:32→23:41)
[2019-01-01] MEDS: Gabapentin 100 MG CAP PO SCH (08:32)
[2019-01-01] MEDS: Calcium Acetate 667 MG CAP PO SCH ×3 (08:32→16:09)
[2019-01-01] MEDS: Thiamine 100 MG TAB PO SCH (08:33)
[2019-01-01] MEDS: Aspirin 81 mg Enteric Coated Tablet PO SCH (08:33)
[2019-01-01] MEDS: Calcium Carbonate 500 MG ChewTAB PO SCH ×3 (08:33→23:41)
[2019-01-01] MEDS ORDERED: Vancomycin HCl 500 MG in Sodium Chloride 0.9% 100 ML IVPB SCH (09:00)
--- NOTE | 2019-01-01 09:06 | PRG ---
DATE OF SERVICE: 01/01/2019 SUBJECTIVE: Patient was seen and examined at bedside and overnight events noted. Patient denies any shortness of breath or chest pain or palpitation. No history of nausea or vomiting or diarrhea or fever or chills or cramps. OBJECTIVE: GENERAL: This is a well-built male, in no apparent distress. VITAL SIGNS: Temperature 97.8. Heart rate 85. Respiratory rate 18. Blood pressure 154/100. HEENT: Atraumatic, normocephalic. Oral mucosa is moist. NECK: Supple. CARDIOVASCULAR: S1, S2 heard. Rate and rhythm regular. RESPIRATORY: Clear to auscultation. GASTROINTESTINAL: Abdomen is soft. MUSCULOSKELETAL: No tenderness. No edema. DERMATOLOGIC: No skin rash. NEUROLOGIC: Alert and awake and oriented x3. No focal neurologic deficits. Moving all the extremities. PSYCHIATRIC: Mood and affect normal. LABORATORY DATA: Potassium 4.2, BUN is 45, creatinine is 8.9. ASSESSMENT AND PLAN: 1. End-stage renal disease. Continue on dialysis. Follow with Case Management to see if he will qualify for outpatient dialysis. 2. Hypertension. Remove fluid. 3. Anemia. 4. Edema, controlled. Plan to continue on dialysis as tolerated. Job ID: [id number]
--- NOTE | 2019-01-01 13:22 | PDOC.HOSPP ---
- Subjective Subjective: some lesions have started to crust, still many that are active. No pain or itching no sob, is watching wwe on his phone. - Objective Vital Signs & Weight: Vital Signs (12 hours) Temp Pulse Resp BP Pulse Ox 01/01/19 12:10 97.8 F 81 20 141/88 H 97 01/01/19 08:10 97.8 F 85 20 154/100 H 98 01/01/19 05:14 97.6 F 90 18 159/54 H 95 Weight Admit Weight 225 lb 14.4 oz Weight 225 lb 14.4 oz Most Recent Monitor Data Heart Rate from ECG 76 NIBP 145/90 NIBP BP-Mean 108 Respiration from ECG 22 SpO2 97 I&O: 12/31/18 01/01/19 01/02/19 06:59 06:59 06:59 Intake Total 240 300 Output Total 150 Balance 90 300 Result Diagrams: 01/01/19 05:56 01/01/19 06:12 ROS - Review of Systems All systems: All other ROS were reviewed and found negative. - Medication Medications: Active Medications Generic Name Dose Route Start Last Admin Trade Name Freq PRN Reason Stop Dose Admin Acetaminophen 650 mg 12/28/18 22:25 12/30/18 09:05 Tylenol PO 650 mg Q4H PRN Administration Headache/Fever/Mild Pain (1-3) Hydrocodone Bitart/Acetaminophen 1 tab 12/30/18 08:04 12/31/18 21:20 [place] 5/325 PO 1 tab Q4H PRN Administration Moderate Pain (4-6) Aspirin 81 mg 12/30/18 09:00 01/01/19 08:33 Ecotrin PO 81 mg DAILY ALVAREZ Administration Calcium Acetate 1,334 mg 12/30/18 12:00 01/01/19 13:10 Phoslo PO 1,334 mg TID-WM ALVAREZ Administration Calcium Carbonate 500 mg 12/30/18 09:00 01/01/19 08:33 Tums PO 500 mg TID ALVAREZ Administration Carvedilol 25 mg 12/30/18 09:00 01/01/19 08:32 Coreg PO 25 mg BID ALVAREZ Administration Cholecalciferol 2,000 units 01/01/19 09:00 01/01/19 09:55 Vitamin D3 PO 2,000 units BID ALVAREZ Administration Epoetin Pardeep-epbx 10,000 unit 12/31/18 11:00 12/31/18 12:42 Retacrit SC 10,000 unit Q7D ALVAREZ Administration Famotidine 20 mg 12/30/18 09:00 01/01/19 08:32 Pepcid PO 20 mg DAILY ALVAREZ Administration Gabapentin 100 mg 12/30/18 09:00 01/01/19 08:32 Neurontin PO 100 mg Q2DAYS ALVAREZ Administration Hydrocortisone/Aloe 0 gm 12/30/18 05:43 12/31/18 08:17 Hydrocortisone 1% Cream TOP 1 applic PRN PRN Administration Rash/Topical Irritation Ondansetron HCl 4 mg 12/28/18 22:25 12/29/18 06:42 Zofran IVP 4 mg Q6H PRN Administration Nausea/Vomiting Pantoprazole Sodium 40 mg 01/01/19 09:00 01/01/19 09:55 Protonix PO 40 mg DAILY ALVAREZ Administration Thiamine HCl 100 mg 12/30/18 09:00 01/01/19 08:33 Thiamine PO 100 mg DAILY ALVAREZ Administration - Exam NAD, awake alert Eye: PERRL, anicteric sclera ENT: no oropharyngeal lesions, moist mucosa Neck: supple, no JVD Heart: RRR, no gallops Respiratory: no wheezes, no rales Gastrointestinal: soft, non-tender, normal bowel sounds Extremities: no cyanosis, 1+ LE edema (has vesiculo pustular lesions over left LE in L1, 2 dermatomal distribution) Neurological: CN's grossly intact, no focal deficits Musculoskeletal: normal tone, normal strength Hosp A/P (1) Volume overload Code(s): E87.70 - FLUID OVERLOAD, UNSPECIFIED Status: Resolved (2) Non-compliance with renal dialysis Code(s): Z91.15 - PATIENT'S NONCOMPLIANCE WITH RENAL DIALYSIS Status: Acute (3) Anemia of renal disease Code(s): N18.9 - CHRONIC KIDNEY DISEASE, UNSPECIFIED; D63.1 - ANEMIA IN CHRONIC KIDNEY DISEASE Status: Chronic (4) Cardiomyopathy Code(s): I42.9 - CARDIOMYOPATHY, UNSPECIFIED Status: Chronic Qualifiers: Cardiomyopathy type: unspecified Qualified Code(s): I42.9 - Cardiomyopathy , unspecified (5) ESRD (end stage renal disease) on dialysis Code(s): N18.6 - END STAGE RENAL DISEASE; Z99.2 - DEPENDENCE ON RENAL DIALYSIS Status: Chronic (6) Hypertension Code(s): I10 - ESSENTIAL (PRIMARY) HYPERTENSION Status: Chronic Qualifiers: (7) Obesity (BMI 30.0-34.9) Code(s): E66.9 - OBESITY, UNSPECIFIED Status: Chronic (8) Secondary hyperparathyroidism of renal origin Code(s): N25.81 - SECONDARY HYPERPARATHYROIDISM OF RENAL ORIGIN Status: Chronic (9) Severe tricuspid regurgitation by prior echocardiogram Code(s): I07.1 - RHEUMATIC TRICUSPID INSUFFICIENCY Status: Chronic (10) H/O CHF Code(s): Z86.79 - PERSONAL HISTORY OF OTHER DISEASES OF THE CIRCULATORY SYSTEM Status: Chronic (11) Herpes zoster Code(s): B02.9 - ZOSTER WITHOUT COMPLICATIONS Status: Acute Qualifiers: Herpes zoster complications: with nervous system involvement Plan: in L1, 2 distribution of left LE - Plan await pcr for zoster, not on valacyclovir yet hemostable contact and air borne precautions HD per nephr adv continue asp, coreg.
[2019-01-02 06:39] LABS: #Eosinphils 0.2 thou/uL (0.0-0.7); #Lymphocytes 1.2 thou/uL (1.20-3.40); #Monocytes 0.6 thou/uL (0.11-0.59); #Neutrophils 3.5 thou/uL (1.40-6.50); %Basophils 0.7 % (0.0-1.0); %Eosinophils 3.2 % (0.0-10.0); %Lymphocytes 21.5 % (21.0-51.0); %Neutrophils 63.6 % (42.0-75.0); Hemoglobin 7.6 g/dL (14.0-18.0); Mean Corpuscular HGB CONC 30.6 g/dL (32.0-36.0); Mean Corpuscular Hemoglobin 26.3 pg (27.0-31.0); Mean Corpuscular Volume 86.1 fL (78.0-98.0); Mean Platelet Volume 8.6 fL (7.4-10.4); Platelet Count 128 thou/uL (130-400); RBC Distribution Width 16.1 % (11.5-14.5); Red Blood Cell (RBC) Count 2.88 mill/uL (4.70-6.10); White Blood Cell (WBC) Count 5.5 thou/uL (4.8-10.8)
[2019-01-02 06:54] LABS: Anion Gap 16 mmol/L (10-20); BUN (Urea Nitrogen) 29 mg/dL (8.9-20.6); Calc. Creatinine Clearance 20 mL/min (70-130); Carbon Dioxide 25 mmol/L (22-29); Chloride 102 mmol/L (98-107); Estimated GFR-MDRD 9; Glucose 103 mg/dL (70-105); Sodium 139 mmol/L (136-145)
[2019-01-02] MEDS ORDERED: Vancomycin HCl 1 GM in Premix Bag 1 BAG IVPB SCH (08:00)
[2019-01-02] MEDS: Calcium Carbonate 500 MG ChewTAB PO SCH ×3 (09:20→22:40)
[2019-01-02] MEDS: Aspirin 81 mg Enteric Coated Tablet PO SCH (09:20)
[2019-01-02] MEDS: Thiamine 100 MG TAB PO SCH (09:20)
[2019-01-02] MEDS: Famotidine 20 MG TAB PO SCH (09:21)
[2019-01-02] MEDS: Carvedilol 25 MG TAB PO SCH ×2 (09:21→22:40)
[2019-01-02] MEDS: Calcium Acetate 667 MG CAP PO SCH ×3 (09:21→18:34)
[2019-01-02] MEDS ORDERED: Tuberculin PPD 0.1 ML VIAL I-DERMAL SCH (10:15)
[2019-01-02 11:29] LABS: HBSAB Concentration 3.19 mIU/mL; HBSAg Index 0.24 S/CO (0-0.99); Hep B Core Total Ab Non-Reactive (NonReactive); Hep B Core Total Index 0.04 S/CO (0-0.79); Hep B Surf AB Non-Reactive (NonReactive); Hep B Surf Ag Non-Reactive S/CO (NonReactive)
--- NOTE | 2019-01-02 11:56 | PRG ---
DATE OF SERVICE: 01/02/2019 SUBJECTIVE: Patient was seen and examined at bedside and overnight events noted. Patient denies any shortness of breath or chest pain or palpitation. No history of nausea or vomiting or diarrhea or fever or chills or cramps. OBJECTIVE: GENERAL: This is a well-built male, in no apparent distress. VITAL SIGNS: Temperature 98.4. Heart rate 87. Respiratory rate 16. Blood pressure 129/85. HEENT: Atraumatic, normocephalic. Oral mucosa is moist NECK: Supple. CARDIOVASCULAR: S1, S2 heard. Rate and rhythm regular. RESPIRATORY: Clear to auscultation. GASTROINTESTINAL: Abdomen is soft. MUSCULOSKELETAL: No tenderness. No edema. DERMATOLOGIC: No skin rash. NEUROLOGIC: Alert and awake and oriented X3. No focal neurologic deficits. Moving all the extremities. PSYCHIATRIC: Mood and affect normal. LABORATORY DATA: Potassium is 4.0, BUN is 29, and creatinine is 7.1. ASSESSMENT AND PLAN: 1. End-stage renal disease. Continue on hemodialysis. We will check PPD and chest x-ray and dialysis order set. manager wound is reporting that [facility] is willing to take him for dialysis. We will start regular outpatient schedule. 2. Hypertension. Remove fluid with dialysis. 3. Anemia. 4. Edema, remove fluid. Follow case management for outpatient dialysis set up. We will continue dialysis as tolerated. Job ID: [id number]
[2019-01-02 12:26] LABS: Hep C IgG Ab EQUIVOCAL (NonReactive)
--- NOTE | 2019-01-02 16:42 | PDOC.HOSPP ---
- Subjective Subjective: left leg lesions are slowly crusting, still a lot are pustular no pain, is amb in room has sob, no chest pain - Objective Vital Signs & Weight: Vital Signs (12 hours) Temp Pulse Resp BP Pulse Ox 01/02/19 14:00 80 16 124/70 97 01/02/19 08:00 97.7 F 85 16 151/97 H 97 Weight Admit Weight 225 lb 14.4 oz Weight 225 lb 14.4 oz Most Recent Monitor Data Heart Rate from ECG 76 NIBP 145/90 NIBP BP-Mean 108 Respiration from ECG 22 SpO2 97 I&O: 01/01/19 01/02/19 01/03/19 06:59 06:59 06:59 Intake Total 300 1850 Balance 300 1850 Result Diagrams: 01/02/19 05:47 01/02/19 05:46 ROS - Review of Systems All systems: All other ROS were reviewed and found negative. - Medication Medications: Active Medications Generic Name Dose Route Start Last Admin Trade Name Freq PRN Reason Stop Dose Admin Acetaminophen 650 mg 12/28/18 22:25 12/30/18 09:05 Tylenol PO 650 mg Q4H PRN Administration Headache/Fever/Mild Pain (1-3) Hydrocodone Bitart/Acetaminophen 1 tab 12/30/18 08:04 12/31/18 21:20 [place] 5/325 PO 1 tab Q4H PRN Administration Moderate Pain (4-6) Aspirin 81 mg 12/30/18 09:00 01/02/19 09:20 Ecotrin PO 81 mg DAILY ALVAREZ Administration Calcium Acetate 1,334 mg 12/30/18 12:00 01/02/19 12:40 Phoslo PO 1,334 mg TID-WM ALVAREZ Administration Calcium Carbonate 500 mg 12/30/18 09:00 01/02/19 15:25 Tums PO 500 mg TID ALVAREZ Administration Carvedilol 25 mg 12/30/18 09:00 01/02/19 09:21 Coreg PO 25 mg BID ALVAREZ Administration Cholecalciferol 2,000 units 01/01/19 09:00 01/02/19 09:20 Vitamin D3 PO 2,000 units BID ALVAREZ Administration Epoetin Pardeep-epbx 10,000 unit 12/31/18 11:00 12/31/18 12:42 Retacrit SC 10,000 unit Q7D ALVAREZ Administration Famotidine 20 mg 12/30/18 09:00 01/02/19 09:21 Pepcid PO 20 mg DAILY ALVAREZ Administration Gabapentin 100 mg 12/30/18 09:00 01/01/19 08:32 Neurontin PO 100 mg Q2DAYS ALVAREZ Administration Hydrocortisone/Aloe 0 gm 12/30/18 05:43 12/31/18 08:17 Hydrocortisone 1% Cream TOP 1 applic PRN PRN Administration Rash/Topical Irritation Ondansetron HCl 4 mg 12/28/18 22:25 12/29/18 06:42 Zofran IVP 4 mg Q6H PRN Administration Nausea/Vomiting Pantoprazole Sodium 40 mg 01/01/19 09:00 01/02/19 09:20 Protonix PO 40 mg DAILY ALVAREZ Administration Thiamine HCl 100 mg 12/30/18 09:00 01/02/19 09:20 Thiamine PO 100 mg DAILY ALVAREZ Administration - Exam awake alert, ill appearing Eye: PERRL, anicteric sclera ENT: no oropharyngeal lesions, moist mucosa Neck: supple, JVD Heart: RRR, murmur present Respiratory: no wheezes, rales Gastrointestinal: soft, non-tender, normal bowel sounds, distended Extremities: no clubbing, 2+ LE edema (has L1,2 distribution zoster vesiculopustular lesions) Neurological: CN's grossly intact, no focal deficits Musculoskeletal: normal tone, normal strength Psychiatric: normal affect, A&O x 3 Hosp A/P (1) Volume overload Code(s): E87.70 - FLUID OVERLOAD, UNSPECIFIED Status: Resolved (2) Non-compliance with renal dialysis Code(s): Z91.15 - PATIENT'S NONCOMPLIANCE WITH RENAL DIALYSIS Status: Acute (3) Anemia of renal disease Code(s): N18.9 - CHRONIC KIDNEY DISEASE, UNSPECIFIED; D63.1 - ANEMIA IN CHRONIC KIDNEY DISEASE Status: Chronic (4) Cardiomyopathy Code(s): I42.9 - CARDIOMYOPATHY, UNSPECIFIED Status: Chronic Qualifiers: Cardiomyopathy type: unspecified Qualified Code(s): I42.9 - Cardiomyopathy , unspecified (5) ESRD (end stage renal disease) on dialysis Code(s): N18.6 - END STAGE RENAL DISEASE; Z99.2 - DEPENDENCE ON RENAL DIALYSIS Status: Chronic (6) Hypertension Code(s): I10 - ESSENTIAL (PRIMARY) HYPERTENSION Status: Chronic Qualifiers: (7) Obesity (BMI 30.0-34.9) Code(s): E66.9 - OBESITY, UNSPECIFIED Status: Chronic (8) Secondary hyperparathyroidism of renal origin Code(s): N25.81 - SECONDARY HYPERPARATHYROIDISM OF RENAL ORIGIN Status: Chronic (9) Severe tricuspid regurgitation by prior echocardiogram Code(s): I07.1 - RHEUMATIC TRICUSPID INSUFFICIENCY Status: Chronic Plan: its non rheumatic. Likely due esrd/noncompliance and vol overload (10) H/O CHF Code(s): Z86.79 - PERSONAL HISTORY OF OTHER DISEASES OF THE CIRCULATORY SYSTEM Status: Chronic (11) Herpes zoster Code(s): B02.9 - ZOSTER WITHOUT COMPLICATIONS Status: Acute Qualifiers: Herpes zoster complications: with nervous system involvement - Plan await zoster pcr, lesions are still active outpt HD is being set up at [facility] by case mgmt will be getting HD today, has lot of anasarca due to noncompliance is outside window of 72hrs for zoster treatment, ?immunosuppresed may need treatment await opinion once pcr comes back continue coreg, asp.
[2019-01-02] MEDS: HYDROcodone/Acetaminophen 5/325 mg Tablet PO PRN (22:40)
[2019-01-03 05:38] LABS: #Eosinphils 0.3 thou/uL (0.0-0.7); #Lymphocytes 1.7 thou/uL (1.20-3.40); #Monocytes 0.6 thou/uL (0.11-0.59); #Neutrophils 3.7 thou/uL (1.40-6.50); %Basophils 0.1 % (0.0-1.0); %Eosinophils 4.5 % (0.0-10.0); %Lymphocytes 26.8 % (21.0-51.0); %Monocytes 8.9 % (0.0-10.0); %Neutrophils 59.7 % (42.0-75.0); Hemoglobin 7.8 g/dL (14.0-18.0); Mean Corpuscular HGB CONC 31.6 g/dL (32.0-36.0); Mean Corpuscular Hemoglobin 27.1 pg (27.0-31.0); Mean Corpuscular Volume 85.6 fL (78.0-98.0); Mean Platelet Volume 8.3 fL (7.4-10.4); Platelet Count 136 thou/uL (130-400); RBC Distribution Width 16.2 % (11.5-14.5); Red Blood Cell (RBC) Count 2.89 mill/uL (4.70-6.10); White Blood Cell (WBC) Count 6.2 thou/uL (4.8-10.8)
[2019-01-03 05:56] LABS: Anion Gap 14 mmol/L (10-20); BUN (Urea Nitrogen) 39 mg/dL (8.9-20.6); Calc. Creatinine Clearance 15 mL/min (70-130); Calcium 9.3 mg/dL (7.8-10.44); Carbon Dioxide 28 mmol/L (22-29); Chloride 102 mmol/L (98-107); Estimated GFR-MDRD 6; Glucose 90 mg/dL (70-105); Potassium 4.3 mmol/L (3.5-5.1); Sodium 140 mmol/L (136-145)
[2019-01-03] MEDS: Aspirin 81 mg Enteric Coated Tablet PO SCH (09:34)
[2019-01-03] MEDS: Gabapentin 100 MG CAP PO SCH (09:35)
[2019-01-03] MEDS: Calcium Acetate 667 MG CAP PO SCH ×3 (09:35→17:12)
[2019-01-03] MEDS: Thiamine 100 MG TAB PO SCH (09:35)
[2019-01-03] MEDS: Famotidine 20 MG TAB PO SCH (09:35)
[2019-01-03] MEDS: Carvedilol 25 MG TAB PO SCH ×2 (09:35→21:57)
[2019-01-03] MEDS: Calcium Carbonate 500 MG ChewTAB PO SCH ×3 (09:36→21:57)
--- NOTE | 2019-01-03 11:35 | PRG ---
DATE OF SERVICE: 01/03/2019 SUBJECTIVE: Patient was seen and examined at bedside and overnight events noted. Patient denies any shortness of breath or chest pain or palpitation. No history of nausea or vomiting or diarrhea or fever or chills or cramps. OBJECTIVE: GENERAL: This is a well-built male, in no apparent distress. VITAL SIGNS: Temperature 97.6. Heart rate 82. Respiratory rate 20. Blood pressure 160/95. HEENT: Atraumatic, normocephalic. Oral mucosa is moist NECK: Supple. CARDIOVASCULAR: S1, S2 heard. Rate and rhythm regular. RESPIRATORY: Clear to auscultation. GASTROINTESTINAL: Abdomen is soft. MUSCULOSKELETAL: No tenderness. No edema. DERMATOLOGIC: No skin rash. NEUROLOGIC: Alert and awake and oriented X3. No focal neurologic deficits. Moving all the extremities. PSYCHIATRIC: Mood and affect normal. LABORATORY DATA: Potassium is 4.3, BUN is 39, creatinine is 9.1. ASSESSMENT AND PLAN: 1. End-stage renal disease. We will continue hemodialysis. 2. Hypertension, stable. 3. Anemia. 4. Edema. Remove fluid. Plan is to continue on dialysis on Monday, , and Monday. Follow up with Case Management for outpatient placement, PPD skin test, chest x-ray, and dialysis as ordered. Job ID: [id number]
--- NOTE | 2019-01-03 12:50 | PDOC.HOSPP ---
- Subjective Subjective: no sob, feels better - Objective Vital Signs & Weight: Vital Signs (12 hours) Temp Pulse Resp BP Pulse Ox 01/03/19 08:00 95 01/03/19 07:17 97.6 F 83 18 160/95 H 95 Weight Admit Weight 225 lb 14.4 oz Weight 225 lb 14.4 oz Most Recent Monitor Data Heart Rate from ECG 76 NIBP 145/90 NIBP BP-Mean 108 Respiration from ECG 22 SpO2 97 I&O: 01/02/19 01/03/19 01/04/19 06:59 06:59 06:59 Intake Total 1850 700 Balance 1850 700 Result Diagrams: 01/03/19 05:00 01/03/19 05:00 ROS - Review of Systems All systems: All other ROS were reviewed and found negative. - Medication Medications: Active Medications Generic Name Dose Route Start Last Admin Trade Name Freq PRN Reason Stop Dose Admin Acetaminophen 650 mg 12/28/18 22:25 12/30/18 09:05 Tylenol PO 650 mg Q4H PRN Administration Headache/Fever/Mild Pain (1-3) Hydrocodone Bitart/Acetaminophen 1 tab 12/30/18 08:04 01/02/19 22:40 [place] 5/325 PO 1 tab Q4H PRN Administration Moderate Pain (4-6) Aspirin 81 mg 12/30/18 09:00 01/03/19 09:34 Ecotrin PO 81 mg DAILY ALVAREZ Administration Calcium Acetate 1,334 mg 12/30/18 12:00 01/03/19 11:40 Phoslo PO 1,334 mg TID-WM ALVAREZ Administration Calcium Carbonate 500 mg 12/30/18 09:00 01/03/19 09:36 Tums PO 500 mg TID ALVAREZ Administration Carvedilol 25 mg 12/30/18 09:00 01/03/19 09:35 Coreg PO 25 mg BID ALVAREZ Administration Cholecalciferol 2,000 units 01/01/19 09:00 01/03/19 09:35 Vitamin D3 PO 2,000 units BID ALVAREZ Administration Epoetin Pardeep-epbx 10,000 unit 12/31/18 11:00 12/31/18 12:42 Retacrit SC 10,000 unit Q7D ALVAREZ Administration Famotidine 20 mg 12/30/18 09:00 01/03/19 09:35 Pepcid PO 20 mg DAILY ALVAREZ Administration Gabapentin 100 mg 12/30/18 09:00 01/03/19 09:35 Neurontin PO 100 mg Q2DAYS ALVAREZ Administration Hydrocortisone/Aloe 0 gm 12/30/18 05:43 12/31/18 08:17 Hydrocortisone 1% Cream TOP 1 applic PRN PRN Administration Rash/Topical Irritation Ondansetron HCl 4 mg 12/28/18 22:25 12/29/18 06:42 Zofran IVP 4 mg Q6H PRN Administration Nausea/Vomiting Pantoprazole Sodium 40 mg 01/01/19 09:00 01/03/19 09:35 Protonix PO 40 mg DAILY ALVAREZ Administration Senna/Docusate Sodium 2 tab 12/30/18 08:04 01/03/19 09:35 Senokot S PO 2 tab BID PRN Administration Constipation Thiamine HCl 100 mg 12/30/18 09:00 01/03/19 09:35 Thiamine PO 100 mg DAILY ALVAREZ Administration - Exam NAD, awake alert Eye: PERRL ENT: no oropharyngeal lesions, moist mucosa Neck: supple, JVD Heart: RRR, murmur present Respiratory: no wheezes, rales Gastrointestinal: soft, non-tender, normal bowel sounds Extremities: no cyanosis, 1+ LE edema Neurological: CN's grossly intact, no focal deficits Musculoskeletal: normal tone, normal strength Psychiatric: normal affect, A&O x 3 Hosp A/P (1) Volume overload Code(s): E87.70 - FLUID OVERLOAD, UNSPECIFIED Status: Resolved (2) Non-compliance with renal dialysis Code(s): Z91.15 - PATIENT'S NONCOMPLIANCE WITH RENAL DIALYSIS Status: Acute (3) Anemia of renal disease Code(s): N18.9 - CHRONIC KIDNEY DISEASE, UNSPECIFIED; D63.1 - ANEMIA IN CHRONIC KIDNEY DISEASE Status: Chronic (4) Cardiomyopathy Code(s): I42.9 - CARDIOMYOPATHY, UNSPECIFIED Status: Chronic Qualifiers: Cardiomyopathy type: unspecified Qualified Code(s): I42.9 - Cardiomyopathy , unspecified (5) ESRD (end stage renal disease) on dialysis Code(s): N18.6 - END STAGE RENAL DISEASE; Z99.2 - DEPENDENCE ON RENAL DIALYSIS Status: Chronic (6) Hypertension Code(s): I10 - ESSENTIAL (PRIMARY) HYPERTENSION Status: Chronic Qualifiers: (7) Obesity (BMI 30.0-34.9) Code(s): E66.9 - OBESITY, UNSPECIFIED Status: Chronic (8) Secondary hyperparathyroidism of renal origin Code(s): N25.81 - SECONDARY HYPERPARATHYROIDISM OF RENAL ORIGIN Status: Chronic (9) Severe tricuspid regurgitation by prior echocardiogram Code(s): I07.1 - RHEUMATIC TRICUSPID INSUFFICIENCY Status: Chronic (10) H/O CHF Code(s): Z86.79 - PERSONAL HISTORY OF OTHER DISEASES OF THE CIRCULATORY SYSTEM Status: Chronic (11) Herpes zoster Code(s): B02.9 - ZOSTER WITHOUT COMPLICATIONS Status: Acute Qualifiers: Herpes zoster complications: with nervous system involvement Plan: L1,2 dermatome - Plan hemostable is awaiting outpt HD placement Likely dc plan this afternoon or am after HD still has pustular lesions on left leg, most of them have crusted. D/w .
[2019-01-04 06:33] LABS: #Eosinphils 0.3 thou/uL (0.0-0.7); #Lymphocytes 1.4 thou/uL (1.20-3.40); #Monocytes 0.6 thou/uL (0.11-0.59); %Basophils 0.3 % (0.0-1.0); %Eosinophils 4.1 % (0.0-10.0); %Lymphocytes 19.5 % (21.0-51.0); %Neutrophils 68.1 % (42.0-75.0); Mean Corpuscular HGB CONC 31.3 g/dL (32.0-36.0); Mean Corpuscular Hemoglobin 26.9 pg (27.0-31.0); Mean Corpuscular Volume 85.7 fL (78.0-98.0); Mean Platelet Volume 8.3 fL (7.4-10.4); Platelet Count 152 thou/uL (130-400); RBC Distribution Width 16.4 % (11.5-14.5); Red Blood Cell (RBC) Count 2.97 mill/uL (4.70-6.10); White Blood Cell (WBC) Count 7.3 thou/uL (4.8-10.8)
[2019-01-04 06:50] LABS: Anion Gap 15 mmol/L (10-20); BUN (Urea Nitrogen) 25 mg/dL (8.9-20.6); Calc. Creatinine Clearance 21 mL/min (70-130); Calcium 9.1 mg/dL (7.8-10.44); Carbon Dioxide 27 mmol/L (22-29); Chloride 98 mmol/L (98-107); Estimated GFR-MDRD 9; Glucose 93 mg/dL (70-105); Sodium 136 mmol/L (136-145)
[2019-01-04] MEDS: Carvedilol 25 MG TAB PO SCH ×2 (08:24→20:05)
[2019-01-04] MEDS: Calcium Acetate 667 MG CAP PO SCH ×3 (08:24→16:30)
[2019-01-04] MEDS: Aspirin 81 mg Enteric Coated Tablet PO SCH (08:24)
[2019-01-04] MEDS: Famotidine 20 MG TAB PO SCH (08:24)
[2019-01-04] MEDS: Calcium Carbonate 500 MG ChewTAB PO SCH ×3 (08:24→20:04)
[2019-01-04] MEDS: Thiamine 100 MG TAB PO SCH (08:24)
--- NOTE | 2019-01-04 14:19 | PDOC.HOSPP ---
- Subjective Subjective: no leg pain no sob feels better - Objective Vital Signs & Weight: Vital Signs (12 hours) Temp Pulse Resp BP BP Pulse Ox 01/04/19 08:00 98 01/04/19 07:14 98.4 F 87 18 157/92 H 98 01/04/19 04:40 98.4 F 88 16 130/86 97 Weight Admit Weight 225 lb 14.4 oz Weight 225 lb 14.4 oz Most Recent Monitor Data Heart Rate from ECG 76 NIBP 145/90 NIBP BP-Mean 108 Respiration from ECG 22 SpO2 97 I&O: 01/03/19 01/04/19 01/05/19 06:59 06:59 06:59 Intake Total 700 1050 Balance 700 1050 Result Diagrams: 01/04/19 05:53 01/04/19 05:53 ROS - Review of Systems All systems: All other ROS were reviewed and found negative. - Medication Medications: Active Medications Generic Name Dose Route Start Last Admin Trade Name Freq PRN Reason Stop Dose Admin Acetaminophen 650 mg 12/28/18 22:25 12/30/18 09:05 Tylenol PO 650 mg Q4H PRN Administration Headache/Fever/Mild Pain (1-3) Hydrocodone Bitart/Acetaminophen 1 tab 12/30/18 08:04 01/02/19 22:40 [place] 5/325 PO 1 tab Q4H PRN Administration Moderate Pain (4-6) Aspirin 81 mg 12/30/18 09:00 01/04/19 08:24 Ecotrin PO 81 mg DAILY ALVAREZ Administration Calcium Acetate 1,334 mg 12/30/18 12:00 01/04/19 11:07 Phoslo PO 1,334 mg TID- ALVAREZ Administration Calcium Carbonate 500 mg 12/30/18 09:00 01/04/19 08:24 Tums PO 500 mg TID ALVAREZ Administration Carvedilol 25 mg 12/30/18 09:00 01/04/19 08:24 Coreg PO 25 mg BID ALVAREZ Administration Cholecalciferol 2,000 units 01/01/19 09:00 01/04/19 08:24 Vitamin D3 PO 2,000 units BID ALVAREZ Administration Famotidine 20 mg 12/30/18 09:00 01/04/19 08:24 Pepcid PO 20 mg DAILY ALVAREZ Administration Gabapentin 100 mg 12/30/18 09:00 01/03/19 09:35 Neurontin PO 100 mg Q2DAYS ALVAREZ Administration Hydrocortisone/Aloe 0 gm 12/30/18 05:43 12/31/18 08:17 Hydrocortisone 1% Cream TOP 1 applic PRN PRN Administration Rash/Topical Irritation Ondansetron HCl 4 mg 12/28/18 22:25 12/29/18 06:42 Zofran IVP 4 mg Q6H PRN Administration Nausea/Vomiting Pantoprazole Sodium 40 mg 01/01/19 09:00 01/04/19 08:24 Protonix PO 40 mg DAILY ALVAREZ Administration Senna/Docusate Sodium 2 tab 12/30/18 08:04 01/03/19 09:35 Senokot S PO 2 tab BID PRN Administration Constipation Thiamine HCl 100 mg 12/30/18 09:00 01/04/19 08:24 Thiamine PO 100 mg DAILY ALVAREZ Administration Tuberculin PPD 0.1 ml 01/02/19 10:15 01/03/19 23:20 Tuberculin Ppd I-DERMAL 01/05/19 10:16 0.1 ml ONE ALVAREZ Administration - Exam NAD, awake alert Eye: PERRL, anicteric sclera ENT: normocephalic atraumatic, no oropharyngeal lesions, moist mucosa Neck: supple, JVD Heart: RRR, no rubs Respiratory: no wheezes, rales Gastrointestinal: soft, non-tender, normal bowel sounds Extremities: 1+ LE edema (left leg has zoster lesions some have crusted, still some are purulent vesicles) Skin: normal turgor Neurological: CN's grossly intact, no focal deficits Musculoskeletal: normal tone, normal strength Psychiatric: normal affect, A&O x 3 Hosp A/P (1) Volume overload Code(s): E87.70 - FLUID OVERLOAD, UNSPECIFIED Status: Resolved (2) Non-compliance with renal dialysis Code(s): Z91.15 - PATIENT'S NONCOMPLIANCE WITH RENAL DIALYSIS Status: Acute (3) Anemia of renal disease Code(s): N18.9 - CHRONIC KIDNEY DISEASE, UNSPECIFIED; D63.1 - ANEMIA IN CHRONIC KIDNEY DISEASE Status: Chronic (4) Cardiomyopathy Code(s): I42.9 - CARDIOMYOPATHY, UNSPECIFIED Status: Chronic Qualifiers: Cardiomyopathy type: unspecified Qualified Code(s): I42.9 - Cardiomyopathy , unspecified (5) ESRD (end stage renal disease) on dialysis Code(s): N18.6 - END STAGE RENAL DISEASE; Z99.2 - DEPENDENCE ON RENAL DIALYSIS Status: Chronic (6) Hypertension Code(s): I10 - ESSENTIAL (PRIMARY) HYPERTENSION Status: Chronic Qualifiers: (7) Obesity (BMI 30.0-34.9) Code(s): E66.9 - OBESITY, UNSPECIFIED Status: Chronic (8) Secondary hyperparathyroidism of renal origin Code(s): N25.81 - SECONDARY HYPERPARATHYROIDISM OF RENAL ORIGIN Status: Chronic (9) Severe tricuspid regurgitation by prior echocardiogram Code(s): I07.1 - RHEUMATIC TRICUSPID INSUFFICIENCY Status: Chronic (10) H/O CHF Code(s): Z86.79 - PERSONAL HISTORY OF OTHER DISEASES OF THE CIRCULATORY SYSTEM Status: Chronic (11) Herpes zoster Code(s): B02.9 - ZOSTER WITHOUT COMPLICATIONS Status: Acute Qualifiers: Herpes zoster complications: with nervous system involvement - Plan hemostable has outpt HD set up at [facility] still has vesicles and is scared to go to his 1 yr daughter in the house continue coreg, asp labs reviewed
--- NOTE | 2019-01-04 15:21 | PRG ---
DATE OF SERVICE: 01/04/2019 SUBJECTIVE: Feeling better, less pain in the left lower extremity. No headaches. No visual symptoms, sore throat, odynophagia, or dysphagia. No cough or sputum production. OBJECTIVE: VITAL SIGNS: Normal except for mild elevation of systolic blood pressure. GENERAL: He appears chronically ill, but oriented. Speech is normal. LUNGS: Clear. HEART: S1 and S2, regular rate. ABDOMEN: Soft, not distended or tender. EXTREMITIES: The left leg blisters are about 75% dry. Only a few ones left still to heal. LABORATORY DATA: Still pending for the identification of the varicella-zoster virus. 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 The patient is improving and I would advise transition to oral Valtrex for discharge planning. I would treat to complete a total of 7 days of treatment. Follow up in the clinic. Job ID: [id number]
--- NOTE | 2019-01-04 16:48 | PRG ---
DATE OF SERVICE: 01/04/2019 SUBJECTIVE: Patient was seen and examined at bedside and overnight events noted. Patient denies any shortness of breath or chest pain or palpitation. No history of nausea or vomiting or diarrhea or fever or chills or cramps. OBJECTIVE: GENERAL: This is a well-built male, in no apparent distress. VITAL SIGNS: Temperature 98.4. Heart rate 80. Respiratory rate 16. Blood pressure 130/86. HEENT: Atraumatic, normocephalic. Oral mucosa is moist NECK: Supple. CARDIOVASCULAR: S1, S2 heard. Rate and rhythm regular. RESPIRATORY: Clear to auscultation. GASTROINTESTINAL: Abdomen is soft. MUSCULOSKELETAL: No tenderness. No edema. DERMATOLOGIC: No skin rash. NEUROLOGIC: Alert and awake and oriented X3. No focal neurologic deficits. Moving all the extremities. PSYCHIATRIC: Mood and affect normal. LABORATORY DATA: Potassium 4.0, BUN is 25, and creatinine is 6.7. ASSESSMENT AND PLAN: 1. End-stage renal disease. We will continue on hemodialysis as tolerated. 2. Hypertension. 3. Anemia. 4. Edema. Plan is to continue on dialysis as tolerated. Follow with Case Management for outpatient dialysis set up. Job ID: [id number]
[2019-01-04] MEDS: HYDROcodone/Acetaminophen 5/325 mg Tablet PO PRN (20:05)
[2019-01-05 06:39] LABS: #Eosinphils 0.3 thou/uL (0.0-0.7); #Lymphocytes 1.5 thou/uL (1.20-3.40); #Monocytes 0.5 thou/uL (0.11-0.59); #Neutrophils 4.2 thou/uL (1.40-6.50); %Basophils 0.2 % (0.0-1.0); %Eosinophils 4.9 % (0.0-10.0); %Lymphocytes 22.9 % (21.0-51.0); %Monocytes 7.6 % (0.0-10.0); %Neutrophils 64.4 % (42.0-75.0); Hemoglobin 7.9 g/dL (14.0-18.0); Mean Corpuscular HGB CONC 31.6 g/dL (32.0-36.0); Mean Corpuscular Hemoglobin 27.2 pg (27.0-31.0); Mean Corpuscular Volume 86.3 fL (78.0-98.0); Mean Platelet Volume 8.2 fL (7.4-10.4); Platelet Count 156 thou/uL (130-400); RBC Distribution Width 16.4 % (11.5-14.5); Red Blood Cell (RBC) Count 2.89 mill/uL (4.70-6.10); White Blood Cell (WBC) Count 6.5 thou/uL (4.8-10.8)
[2019-01-05 07:00] LABS: Anion Gap 16 mmol/L (10-20); BUN (Urea Nitrogen) 44 mg/dL (8.9-20.6); Calc. Creatinine Clearance 15 mL/min (70-130); Calcium 9.3 mg/dL (7.8-10.44); Carbon Dioxide 26 mmol/L (22-29); Chloride 101 mmol/L (98-107); Estimated GFR-MDRD 6; Glucose 82 mg/dL (70-105); Potassium 4.2 mmol/L (3.5-5.1); Sodium 139 mmol/L (136-145)
[2019-01-05] MEDS: Aspirin 81 mg Enteric Coated Tablet PO SCH (08:17)
[2019-01-05] MEDS: Calcium Carbonate 500 MG ChewTAB PO SCH ×3 (08:17→20:32)
[2019-01-05] MEDS: Famotidine 20 MG TAB PO SCH (08:17)
[2019-01-05] MEDS: Thiamine 100 MG TAB PO SCH (08:18)
[2019-01-05] MEDS: Gabapentin 100 MG CAP PO SCH (08:18)
[2019-01-05] MEDS: Carvedilol 25 MG TAB PO SCH ×2 (08:18→20:32)
[2019-01-05] MEDS: Calcium Acetate 667 MG CAP PO SCH ×3 (08:18→17:09)
--- NOTE | 2019-01-05 09:58 | PRG ---
DATE OF SERVICE: 01/05/2019 SUBJECTIVE: Patient was seen and examined at bedside and overnight events noted. Patient denies any shortness of breath or chest pain or palpitation. No history of nausea or vomiting or diarrhea or fever or chills or cramps. OBJECTIVE: GENERAL: This is a well-built male in no apparent distress. VITAL SIGNS: Temperature 98.5. Heart rate 87. Respiratory rate 20. Blood pressure 105/71. HEENT: Atraumatic, normocephalic. Oral mucosa is moist NECK: Supple. CARDIOVASCULAR: S1, S2 heard. Rate and rhythm regular. RESPIRATORY: Clear to auscultation. GASTROINTESTINAL: Abdomen is soft. MUSCULOSKELETAL: No tenderness. No edema. DERMATOLOGIC: No skin rash. NEUROLOGIC: Alert and awake and oriented X3. No focal neurologic deficits. Moving all the extremities. PSYCHIATRIC: Mood and affect normal. LABORATORY DATA: Potassium is 4.2, BUN is 44, creatinine is 9.1. ASSESSMENT AND PLAN: 1. End-stage renal disease. Continue on dialysis as tolerated. 2. Hypertension. 3. Anemia. 4. Edema, I will remove fluid. Plan to have dialysis today. Follow up with Case Management per outpatient basis. Job ID: [id number]
--- NOTE | 2019-01-05 12:49 | PDOC.HOSPP ---
- Subjective Subjective: awake, no sob no pain in his legs watching tv - Objective Vital Signs & Weight: Vital Signs (12 hours) Temp Pulse Resp BP Pulse Ox 01/05/19 08:00 98.1 F 76 18 144/89 H 99 Weight Admit Weight 225 lb 14.4 oz Weight 225 lb 14.4 oz Most Recent Monitor Data Heart Rate from ECG 76 NIBP 145/90 NIBP BP-Mean 108 Respiration from ECG 22 SpO2 97 I&O: 01/04/19 01/05/19 01/06/19 06:59 06:59 06:59 Intake Total 1050 1080 Balance 1050 1080 Result Diagrams: 01/05/19 05:34 01/05/19 05:34 ROS - Review of Systems All systems: All other ROS were reviewed and found negative. - Medication Medications: Active Medications Generic Name Dose Route Start Last Admin Trade Name Freq PRN Reason Stop Dose Admin Acetaminophen 650 mg 12/28/18 22:25 12/30/18 09:05 Tylenol PO 650 mg Q4H PRN Administration Headache/Fever/Mild Pain (1-3) Hydrocodone Bitart/Acetaminophen 1 tab 12/30/18 08:04 01/04/19 20:05 [place] 5/325 PO 1 tab Q4H PRN Administration Moderate Pain (4-6) Aspirin 81 mg 12/30/18 09:00 01/05/19 08:17 Ecotrin PO 81 mg DAILY ALVAREZ Administration Calcium Acetate 1,334 mg 12/30/18 12:00 01/05/19 08:18 Phoslo PO 1,334 mg TID-WM ALVAREZ Administration Calcium Carbonate 500 mg 12/30/18 09:00 01/05/19 08:17 Tums PO 500 mg TID ALVAREZ Administration Carvedilol 25 mg 12/30/18 09:00 01/05/19 08:18 Coreg PO 25 mg BID ALVAREZ Administration Cholecalciferol 2,000 units 01/01/19 09:00 01/05/19 08:17 Vitamin D3 PO 2,000 units BID ALVARZE Administration Famotidine 20 mg 12/30/18 09:00 01/05/19 08:17 Pepcid PO 20 mg DAILY ALVAREZ Administration Gabapentin 100 mg 12/30/18 09:00 01/05/19 08:18 Neurontin PO 100 mg Q2DAYS ALVAREZ Administration Hydrocortisone/Aloe 0 gm 12/30/18 05:43 12/31/18 08:17 Hydrocortisone 1% Cream TOP 1 applic PRN PRN Administration Rash/Topical Irritation Ondansetron HCl 4 mg 12/28/18 22:25 12/29/18 06:42 Zofran IVP 4 mg Q6H PRN Administration Nausea/Vomiting Pantoprazole Sodium 40 mg 01/01/19 09:00 01/05/19 08:17 Protonix PO 40 mg DAILY ALVAREZ Administration Senna/Docusate Sodium 2 tab 12/30/18 08:04 01/03/19 09:35 Senokot S PO 2 tab BID PRN Administration Constipation Thiamine HCl 100 mg 12/30/18 09:00 01/05/19 08:18 Thiamine PO 100 mg DAILY ALVAREZ Administration - Exam awake alert Eye: PERRL, anicteric sclera ENT: no oropharyngeal lesions, moist mucosa Neck: supple, JVD Heart: RRR, no murmur Respiratory: no wheezes, rales Gastrointestinal: soft, non-tender, normal bowel sounds Extremities: no cyanosis, 1+ LE edema (vesiculopustular lesions over left LE+) Neurological: CN's grossly intact, no focal deficits Musculoskeletal: normal strength, no muscle wasting Psychiatric: normal affect, A&O x 3 Hosp A/P (1) Volume overload Code(s): E87.70 - FLUID OVERLOAD, UNSPECIFIED Status: Resolved (2) Non-compliance with renal dialysis Code(s): Z91.15 - PATIENT'S NONCOMPLIANCE WITH RENAL DIALYSIS Status: Acute (3) Anemia of renal disease Code(s): N18.9 - CHRONIC KIDNEY DISEASE, UNSPECIFIED; D63.1 - ANEMIA IN CHRONIC KIDNEY DISEASE Status: Chronic (4) Cardiomyopathy Code(s): I42.9 - CARDIOMYOPATHY, UNSPECIFIED Status: Chronic Qualifiers: Cardiomyopathy type: unspecified Qualified Code(s): I42.9 - Cardiomyopathy , unspecified (5) ESRD (end stage renal disease) on dialysis Code(s): N18.6 - END STAGE RENAL DISEASE; Z99.2 - DEPENDENCE ON RENAL DIALYSIS Status: Chronic (6) Hypertension Code(s): I10 - ESSENTIAL (PRIMARY) HYPERTENSION Status: Chronic Qualifiers: (7) Obesity (BMI 30.0-34.9) Code(s): E66.9 - OBESITY, UNSPECIFIED Status: Chronic (8) Secondary hyperparathyroidism of renal origin Code(s): N25.81 - SECONDARY HYPERPARATHYROIDISM OF RENAL ORIGIN Status: Chronic (9) Severe tricuspid regurgitation by prior echocardiogram Code(s): I07.1 - RHEUMATIC TRICUSPID INSUFFICIENCY Status: Chronic (10) H/O CHF Code(s): Z86.79 - PERSONAL HISTORY OF OTHER DISEASES OF THE CIRCULATORY SYSTEM Status: Chronic (11) Herpes zoster Code(s): B02.9 - ZOSTER WITHOUT COMPLICATIONS Status: Acute Qualifiers: Herpes zoster complications: with nervous system involvement - Plan hemostable likely dc plan on monday continue coreg, asp HD per nephrology adv to amb in room as tolerated
[2019-01-05] MEDS: EPOETIN ALFA-EPBX (ESRD) 10,000 UNIT/ML VIAL IVP SCH (13:27)
[2019-01-06] MEDS: HYDROcodone/Acetaminophen 5/325 mg Tablet PO PRN (04:26)
[2019-01-06 08:17] LABS: #Eosinphils 0.3 thou/uL (0.0-0.7); #Lymphocytes 1.6 thou/uL (1.20-3.40); #Monocytes 0.6 thou/uL (0.11-0.59); #Neutrophils 4.2 thou/uL (1.40-6.50); %Basophils 0.3 % (0.0-1.0); %Eosinophils 4.1 % (0.0-10.0); %Lymphocytes 23.3 % (21.0-51.0); %Monocytes 9.3 % (0.0-10.0); %Neutrophils 62.9 % (42.0-75.0); Hemoglobin 8.2 g/dL (14.0-18.0); Mean Corpuscular HGB CONC 31.6 g/dL (32.0-36.0); Mean Corpuscular Hemoglobin 26.9 pg (27.0-31.0); Platelet Count 153 thou/uL (130-400); RBC Distribution Width 16.6 % (11.5-14.5); Red Blood Cell (RBC) Count 3.04 mill/uL (4.70-6.10); White Blood Cell (WBC) Count 6.7 thou/uL (4.8-10.8)
[2019-01-06] MEDS: Aspirin 81 mg Enteric Coated Tablet PO SCH (08:34)
[2019-01-06] MEDS: Famotidine 20 MG TAB PO SCH (08:34)
[2019-01-06] MEDS: Calcium Carbonate 500 MG ChewTAB PO SCH ×3 (08:34→20:16)
[2019-01-06] MEDS: Calcium Acetate 667 MG CAP PO SCH ×3 (08:34→17:20)
[2019-01-06] MEDS: Carvedilol 25 MG TAB PO SCH ×2 (08:34→20:16)
[2019-01-06] MEDS: Thiamine 100 MG TAB PO SCH (08:34)
[2019-01-06 08:41] LABS: Anion Gap 15 mmol/L (10-20); BUN (Urea Nitrogen) 32 mg/dL (8.9-20.6); Calc. Creatinine Clearance 20 mL/min (70-130); Calcium 9.2 mg/dL (7.8-10.44); Carbon Dioxide 28 mmol/L (22-29); Chloride 101 mmol/L (98-107); Estimated GFR-MDRD 9; Glucose 90 mg/dL (70-105); Potassium 4.1 mmol/L (3.5-5.1); Sodium 140 mmol/L (136-145)
--- NOTE | 2019-01-06 12:48 | PRG ---
DATE OF SERVICE: 01/06/2019 SUBJECTIVE: Patient was seen and examined at bedside and overnight events noted. Patient denies any shortness of breath or chest pain or palpitation. No history of nausea or vomiting or diarrhea or fever or chills or cramps. OBJECTIVE: GENERAL: This is a well-built male, in no apparent distress. VITAL SIGNS: Temperature 98.2. Heart rate 86. Respiratory rate 16. Blood pressure 136/85. HEENT: Atraumatic, normocephalic. Oral mucosa is moist NECK: Supple. CARDIOVASCULAR: S1, S2 heard. Rate and rhythm regular. RESPIRATORY: Clear to auscultation. GASTROINTESTINAL: Abdomen is soft. MUSCULOSKELETAL: No tenderness. No edema. DERMATOLOGIC: No skin rash. NEUROLOGIC: Alert and awake and oriented X3. No focal neurologic deficits. Moving all the extremities. PSYCHIATRIC: Mood and affect normal. LABORATORY DATA: Potassium 4.1, BUN is 32, and creatinine is 7.06. ASSESSMENT AND PLAN: 1. End-stage renal disease. Continue dialysis. The patient approved for outpatient dialysis. Follow with Case Management for discharge planning. 2. Hypertension. 3. Anemia. 4. Edema, remove fluid. 5. Overall, stable. The patient approved for outpatient dialysis at [facility]. We will follow with Case Management and continue dialysis as tolerated. Job ID: [id number]
--- NOTE | 2019-01-06 14:03 | PDOC.HOSPP ---
- Subjective Subjective: is sitting in chair, no pain no sob generalized edema is better - Objective Vital Signs & Weight: Vital Signs (12 hours) Temp Pulse Resp BP Pulse Ox 01/06/19 08:00 98 01/06/19 07:37 98.2 F 86 16 136/85 98 Weight Admit Weight 225 lb 14.4 oz Weight 225 lb 14.4 oz Most Recent Monitor Data Heart Rate from ECG 76 NIBP 145/90 NIBP BP-Mean 108 Respiration from ECG 22 SpO2 97 I&O: 01/05/19 01/06/19 01/07/19 06:59 06:59 06:59 Intake Total 1080 360 Balance 1080 360 Result Diagrams: 01/06/19 07:03 01/06/19 07:03 ROS - Review of Systems All systems: All other ROS were reviewed and found negative. - Medication Medications: Active Medications Generic Name Dose Route Start Last Admin Trade Name Freq PRN Reason Stop Dose Admin Acetaminophen 650 mg 12/28/18 22:25 12/30/18 09:05 Tylenol PO 650 mg Q4H PRN Administration Headache/Fever/Mild Pain (1-3) Hydrocodone Bitart/Acetaminophen 1 tab 12/30/18 08:04 01/06/19 04:26 [place] 5/325 PO 1 tab Q4H PRN Administration Moderate Pain (4-6) Aspirin 81 mg 12/30/18 09:00 01/06/19 08:34 Ecotrin PO 81 mg DAILY ALVAREZ Administration Calcium Acetate 1,334 mg 12/30/18 12:00 01/06/19 12:13 Phoslo PO 1,334 mg TID-WM ALVAREZ Administration Calcium Carbonate 500 mg 12/30/18 09:00 01/06/19 08:34 Tums PO 500 mg TID ALVAREZ Administration Carvedilol 25 mg 12/30/18 09:00 01/06/19 08:34 Coreg PO 25 mg BID ALVAREZ Administration Cholecalciferol 2,000 units 01/01/19 09:00 01/06/19 08:33 Vitamin D3 PO 2,000 units BID ALVAREZ Administration Epoetin Pardeep-epbx 10,000 unit 01/05/19 09:35 01/05/19 13:27 Retacrit IVP 10,000 unit TuThSa ALVAREZ Administration Famotidine 20 mg 12/30/18 09:00 01/06/19 08:34 Pepcid PO 20 mg DAILY ALVAREZ Administration Gabapentin 100 mg 12/30/18 09:00 01/05/19 08:18 Neurontin PO 100 mg Q2DAYS ALVAREZ Administration Hydrocortisone/Aloe 0 gm 12/30/18 05:43 12/31/18 08:17 Hydrocortisone 1% Cream TOP 1 applic PRN PRN Administration Rash/Topical Irritation Ondansetron HCl 4 mg 12/28/18 22:25 12/29/18 06:42 Zofran IVP 4 mg Q6H PRN Administration Nausea/Vomiting Pantoprazole Sodium 40 mg 01/01/19 09:00 01/06/19 08:34 Protonix PO 40 mg DAILY ALVAREZ Administration Senna/Docusate Sodium 2 tab 12/30/18 08:04 01/03/19 09:35 Senokot S PO 2 tab BID PRN Administration Constipation Thiamine HCl 100 mg 12/30/18 09:00 01/06/19 08:34 Thiamine PO 100 mg DAILY ALVAREZ Administration - Exam NAD, awake alert Eye: PERRL, anicteric sclera ENT: normocephalic atraumatic, moist mucosa Neck: supple, no JVD Heart: RRR, no murmur Respiratory: CTAB, no rales Gastrointestinal: soft, non-tender, normal bowel sounds Extremities: no cyanosis, no edema (most lesions have crusted over, there are still) Neurological: CN's grossly intact, no weakness Musculoskeletal: normal tone, normal strength Hosp A/P (1) Volume overload Code(s): E87.70 - FLUID OVERLOAD, UNSPECIFIED Status: Resolved (2) Non-compliance with renal dialysis Code(s): Z91.15 - PATIENT'S NONCOMPLIANCE WITH RENAL DIALYSIS Status: Acute (3) Anemia of renal disease Code(s): N18.9 - CHRONIC KIDNEY DISEASE, UNSPECIFIED; D63.1 - ANEMIA IN CHRONIC KIDNEY DISEASE Status: Chronic (4) Cardiomyopathy Code(s): I42.9 - CARDIOMYOPATHY, UNSPECIFIED Status: Chronic Qualifiers: Cardiomyopathy type: unspecified Qualified Code(s): I42.9 - Cardiomyopathy , unspecified (5) ESRD (end stage renal disease) on dialysis Code(s): N18.6 - END STAGE RENAL DISEASE; Z99.2 - DEPENDENCE ON RENAL DIALYSIS Status: Chronic (6) Hypertension Code(s): I10 - ESSENTIAL (PRIMARY) HYPERTENSION Status: Chronic Qualifiers: (7) Obesity (BMI 30.0-34.9) Code(s): E66.9 - OBESITY, UNSPECIFIED Status: Chronic (8) Secondary hyperparathyroidism of renal origin Code(s): N25.81 - SECONDARY HYPERPARATHYROIDISM OF RENAL ORIGIN Status: Chronic (9) Severe tricuspid regurgitation by prior echocardiogram Code(s): I07.1 - RHEUMATIC TRICUSPID INSUFFICIENCY Status: Chronic (10) H/O CHF Code(s): Z86.79 - PERSONAL HISTORY OF OTHER DISEASES OF THE CIRCULATORY SYSTEM Status: Chronic (11) Herpes zoster Code(s): B02.9 - ZOSTER WITHOUT COMPLICATIONS Status: Acute Qualifiers: Herpes zoster complications: with nervous system involvement - Plan hemostable has outpt HD set up likely dc plan in am home after HD, most zoster lesions have crusted, there are still a few pustular lesions continue coreg, aspirin, tums, neurontin
--- NOTE | 2019-01-06 14:58 | PRG ---
DATE OF SERVICE: 01/06/2019 SUBJECTIVE: Feeling better, less pain. OBJECTIVE: VITAL SIGNS: Normal. LUNGS: Clear. HEART: S1 and S2, regular rate. ABDOMEN: Soft, not distended or tender. EXTREMITIES: The left leg blisters are almost completely dried except for 2 or three remaining to resolve. LABORATORY DATA: White cell count 6.7, hemoglobin 8.2, platelets 153. I do not have the results of the varicella zoster test yet. ASSESSMENT AND DISCUSSION: End-stage renal disease secondary to chronic glomerulonephritis, on intermittent hemodialysis due to lack of insurance coverage, and herpes zoster in the distribution of lumbar radicular area/dermatome with improvement on Valtrex. I think, he has completed treatment already and the only reason he is still in the hospital is for the other issues related to his end-stage renal disease. Job ID: [id number]
[2019-01-07] MEDS: HYDROcodone/Acetaminophen 5/325 mg Tablet PO PRN ×3 (03:08→20:33)
[2019-01-07 04:54] LABS: #Eosinphils 0.3 thou/uL (0.0-0.7); #Lymphocytes 1.5 thou/uL (1.20-3.40); #Monocytes 0.6 thou/uL (0.11-0.59); #Neutrophils 3.7 thou/uL (1.40-6.50); %Basophils 0.1 % (0.0-1.0); %Eosinophils 5.4 % (0.0-10.0); %Lymphocytes 24.4 % (21.0-51.0); %Monocytes 9.6 % (0.0-10.0); %Neutrophils 60.6 % (42.0-75.0); Hemoglobin 7.7 g/dL (14.0-18.0); Mean Corpuscular HGB CONC 32.2 g/dL (32.0-36.0); Mean Corpuscular Hemoglobin 27.5 pg (27.0-31.0); Mean Corpuscular Volume 85.5 fL (78.0-98.0); Mean Platelet Volume 7.4 fL (7.4-10.4); Platelet Count 145 thou/uL (130-400); RBC Distribution Width 16.3 % (11.5-14.5); White Blood Cell (WBC) Count 6.2 thou/uL (4.8-10.8)
[2019-01-07 05:13] LABS: Anion Gap 15 mmol/L (10-20); BUN (Urea Nitrogen) 46 mg/dL (8.9-20.6); Calc. Creatinine Clearance 16 mL/min (70-130); Calcium 9.5 mg/dL (7.8-10.44); Carbon Dioxide 26 mmol/L (22-29); Chloride 100 mmol/L (98-107); Estimated GFR-MDRD 7; Glucose 90 mg/dL (70-105); Potassium 4.4 mmol/L (3.5-5.1); Sodium 137 mmol/L (136-145)
[2019-01-07] MEDS: Carvedilol 25 MG TAB PO SCH ×2 (08:24→20:30)
[2019-01-07] MEDS: Calcium Carbonate 500 MG ChewTAB PO SCH ×3 (08:24→20:30)
[2019-01-07] MEDS: Calcium Acetate 667 MG CAP PO SCH ×3 (08:24→17:06)
[2019-01-07] MEDS: Gabapentin 100 MG CAP PO SCH (08:24)
[2019-01-07] MEDS: Thiamine 100 MG TAB PO SCH (08:24)
[2019-01-07] MEDS: Aspirin 81 mg Enteric Coated Tablet PO SCH (08:25)
[2019-01-07] MEDS: Famotidine 20 MG TAB PO SCH (08:25)
--- NOTE | 2019-01-07 12:20 | PRG ---
DATE OF SERVICE: 01/07/2019 SUBJECTIVE: A 43-year-old gentleman being seen for end-stage renal disease. The patient denied nausea, vomiting, or chest pain. OBJECTIVE: CONSTITUTIONAL: The patient is awake and alert. VITAL SIGNS: Afebrile, pulse 79, breathing 16, and blood pressure was 152/90. GENERAL APPEARANCE AND MENTAL STATUS: Fair. HEAD/NECK: Normocephalic. Atraumatic. EYES: EOMI. No deformity. EARS: Clear. No ulcers. NOSE: Intact. No lesions. MOUTH: Clear. No discharge. THROAT: Clear. No exudate. LUNGS: Clear. No crackles. CARDIAC: S1, S2. No rub. ABDOMEN: Benign. Bowel sounds positive. GENITALIA/RECTUM: Webber absent. BACK/EXTREMITIES: Edema 0+. NEUROLOGICAL: Alert and motor intact. SKIN: LYMPHATICS: LABORATORY DATA: Labs reviewed. IMPRESSION AND PLAN: Stage 6 chronic kidney disease, plan dialysis. Hypertension, stable. Anemia, plan transfusion. Medication based on GFR appropriate. Overall prognosis is poor. Job ID: [id number]
[2019-01-08 05:27] LABS: #Basophils 0.1 thou/uL (0.0-0.2); #Eosinphils 0.3 thou/uL (0.0-0.7); #Lymphocytes 1.4 thou/uL (1.20-3.40); #Monocytes 0.7 thou/uL (0.11-0.59); #Neutrophils 3.8 thou/uL (1.40-6.50); %Basophils 0.9 % (0.0-1.0); %Eosinophils 4.5 % (0.0-10.0); %Lymphocytes 22.9 % (21.0-51.0); %Monocytes 10.6 % (0.0-10.0); Hemoglobin 8.1 g/dL (14.0-18.0); Mean Corpuscular HGB CONC 31.9 g/dL (32.0-36.0); Mean Corpuscular Hemoglobin 27.5 pg (27.0-31.0); Mean Corpuscular Volume 86.3 fL (78.0-98.0); Mean Platelet Volume 7.6 fL (7.4-10.4); Platelet Count 165 thou/uL (130-400); RBC Distribution Width 16.5 % (11.5-14.5); Red Blood Cell (RBC) Count 2.94 mill/uL (4.70-6.10); White Blood Cell (WBC) Count 6.2 thou/uL (4.8-10.8)
[2019-01-08 05:49] LABS: Anion Gap 15 mmol/L (10-20); BUN (Urea Nitrogen) 32 mg/dL (8.9-20.6); Calc. Creatinine Clearance 21 mL/min (70-130); Calcium 9.8 mg/dL (7.8-10.44); Carbon Dioxide 29 mmol/L (22-29); Chloride 99 mmol/L (98-107); Estimated GFR-MDRD 9; Glucose 92 mg/dL (70-105); Potassium 4.5 mmol/L (3.5-5.1); Sodium 138 mmol/L (136-145)
[2019-01-08] MEDS: HYDROcodone/Acetaminophen 5/325 mg Tablet PO PRN (06:05)
[2019-01-08] MEDS: Calcium Carbonate 500 MG ChewTAB PO SCH (08:06)
[2019-01-08] MEDS: Famotidine 20 MG TAB PO SCH (08:06)
[2019-01-08] MEDS: Aspirin 81 mg Enteric Coated Tablet PO SCH (08:06)
[2019-01-08] MEDS: Thiamine 100 MG TAB PO SCH (08:06)
[2019-01-08] MEDS: Carvedilol 25 MG TAB PO SCH (08:06)
[2019-01-08] MEDS: Calcium Acetate 667 MG CAP PO SCH ×2 (08:06→12:02)
[2019-01-08 11:31] VITALS: BP 121/77; TEMP 98.3
[2019-01-08] MEDS: EPOETIN ALFA-EPBX (ESRD) 10,000 UNIT/ML VIAL IVP SCH (11:45)
--- NOTE | 2019-01-08 11:57 | PRG ---
DATE OF SERVICE: 01/08/2019 SUBJECTIVE: A 43-year-old gentleman is being seen for end-stage renal disease. The patient denied nausea, vomiting, or chest pain. OBJECTIVE: CONSTITUTIONAL: The patient is awake and alert. VITAL SIGNS: Afebrile, pulse 84, breathing 16, blood pressure 134/79. GENERAL APPEARANCE AND MENTAL STATUS: Fair. HEAD/NECK: Normocephalic. Atraumatic. EYES: EOMI. No deformity. EARS: Clear. No ulcers. NOSE: Intact. No lesions. MOUTH: Clear. No discharge. THROAT: Clear. No exudate. LUNGS: Clear. No crackles. CARDIAC: S1, S2. No rub. ABDOMEN: Benign. Bowel sounds positive. GENITALIA/RECTUM: Webber absent. BACK/EXTREMITIES: Edema 0+. NEUROLOGICAL: Alert and motor intact. SKIN: LYMPHATICS: LABORATORY DATA: Reviewed. ASSESSMENT AND PLAN: 1. Stage 6 chronic kidney disease, stable. 2. Hypertension, stable. 3. Anemia, stable. 4. Medication based on GFR appropriate. Job ID: [id number]
== END 2019-01-08 12:52 | disposition home or self-care (01) | DRG 291 ==
LOC: ERS 19:30 → IMCU/EMU 20:37 → T4-A 12-30 15:40
PROVIDERS: ADMIT Hospitalist; ATTEND Hospitalist
PROC: 5A1D70Z Performance of Urinary Filtration, Intermittent, Less than 6 Hours Per Day (ICD-10-PCS; principal; 2018-12-28)
PROC: 5A09457 Assistance with Respiratory Ventilation, 24-96 Consecutive Hours, Continuous Positive Airway Pressure (ICD-10-PCS; 2018-12-28)
DX: I13.2 Hypertensive heart and chronic kidney disease with heart failure and with stage 5 chronic kidney disease, or end stage renal disease (principal); N18.6 End stage renal disease; J96.01 Acute respiratory failure with hypoxia; I50.23 Acute on chronic systolic (congestive) heart failure; R04.2 Hemoptysis; N25.81 Secondary hyperparathyroidism of renal origin; N04.9 Nephrotic syndrome with unspecified morphologic changes; B02.29 Other postherpetic nervous system involvement; E87.2 Acidosis; N03.9 Chronic nephritic syndrome with unspecified morphologic changes; I42.9 Cardiomyopathy, unspecified; D63.1 Anemia in chronic kidney disease; E66.01 Morbid (severe) obesity due to excess calories; I07.1 Rheumatic tricuspid insufficiency; R73.9 Hyperglycemia, unspecified; E87.5 Hyperkalemia; Z99.2 Dependence on renal dialysis; Z91.15 Patient's noncompliance with renal dialysis; Z79.899 Other long term (current) drug therapy; Z79.82 Long term (current) use of aspirin; Z68.34 Body mass index [BMI] 34.0-34.9, adult; Z91.14 Patient's other noncompliance with medication regimen
CPT/HCPCS: 36415; 36416; 71045; 80048; 80053; 82306; 82330; 82728; 82803; 83540; 83550; 83735; 83880; 83970; 84100; 84484; 85025; 86580; 86704; 86706; 86803; 86850; 86900; 86901; 87070; 87205; 87340; 87798; 90935; 93005; 93798; 94640; 94660; 96374; C9113; G0257; J1940; J2405; J3370; J7050; J7620; Q5105

== ENCOUNTER 2020-11-09 10:49 | Emergency (ER) | payer MEDICAID ==
[2020-11-09 11:29] LABS: #Eosinphils 0.1 thou/uL (0.0-0.7); #Lymphocytes 1.2 thou/uL (1.20-3.40); #Monocytes 0.3 thou/uL (0.11-0.59); #Neutrophils 6.5 thou/uL (1.40-6.50); %Basophils 0.3 % (0.0-1.0); %Eosinophils 1.1 % (0.0-10.0); %Lymphocytes 14.4 % (21.0-51.0); %Neutrophils 80.3 % (42.0-75.0); Mean Corpuscular Hemoglobin 31.1 pg (27.0-31.0); Mean Corpuscular Volume 97.1 fL (78.0-98.0); Mean Platelet Volume 9.1 fL (7.4-10.4); Platelet Count 162 thou/uL (130-400); RBC Distribution Width 13.5 % (11.5-14.5); Red Blood Cell (RBC) Count 3.86 mill/uL (4.70-6.10); White Blood Cell (WBC) Count 8.1 thou/uL (4.8-10.8)
[2020-11-09 11:50] LABS: ALT (SGPT) 7 U/L (8-55); AST (SGOT) 10 U/L (5-34); Alkaline Phosphatase 91 U/L (40-110); Anion Gap 20 mmol/L (10-20); BUN (Urea Nitrogen) 47 mg/dL (8.9-20.6); Bilirubin, Total 0.8 mg/dL (0.2-1.2); CK (CPK) 64 U/L (30-200); Calc. Creatinine Clearance 0 mL/min (70-130); Calcium 9.5 mg/dL (7.8-10.44); Carbon Dioxide 31 mmol/L (22-29); Chloride 95 mmol/L (98-107); Globulin 3.2 g/dL (2.4-3.5); Glucose 131 mg/dL (70-105); Lipase 24 U/L (8-78); Potassium 4.8 mmol/L (3.5-5.1); Protein, Total 7.2 g/dL (6.0-8.3); Sodium 141 mmol/L (136-145)
== END 2020-11-09 18:15 | disposition home or self-care (01) ==
LOC: ERS 10:49
DX: E87.70 Fluid overload, unspecified (principal); I12.0 Hypertensive chronic kidney disease with stage 5 chronic kidney disease or end stage renal disease; N18.6 End stage renal disease
CPT/HCPCS: 71045; 80053; 82550; 82553; 83690; 83880; 84484; 85025; 90935; 93005; G0257

== ENCOUNTER 2020-11-27 01:34 | Inpatient (IN) | payer BC, MEDICAID, SELFPAY ==
[2020-11-27 01:59] LABS: Hemoglobin 10.9 g/dL (14.0-18.0); Mean Corpuscular HGB CONC 32.5 g/dL (32.0-36.0); Mean Corpuscular Hemoglobin 32.4 pg (27.0-31.0); Mean Corpuscular Volume 99.8 fL (78.0-98.0); RBC Distribution Width 15.4 % (11.5-14.5); Red Blood Cell (RBC) Count 3.35 mill/uL (4.70-6.10); White Blood Cell (WBC) Count 4.8 thou/uL (4.8-10.8)
[2020-11-27 02:15] LABS: #Eosinphils 0.1 thou/uL (0.0-0.7); #Lymphocytes 0.8 thou/uL (1.20-3.40); #Monocytes 0.5 thou/uL (0.11-0.59); #Neutrophils 3.4 thou/uL (1.40-6.50); %Basophils 0.1 % (0.0-1.0); %Eosinophils 1.4 % (0.0-10.0); %Lymphocytes 16.6 % (21.0-51.0); %Monocytes 10.6 % (0.0-10.0); %Neutrophils 71.3 % (42.0-75.0); Mean Platelet Volume 10.5 fL (7.4-10.4); Platelet Count 89 thou/uL (130-400); Platelet Morphology Comment Appears Decreased
[2020-11-27 02:16] LABS: ALT (SGPT) 116 U/L (8-55); AST (SGOT) 19 U/L (5-34); Albumin 3.3 g/dL (3.5-5.0); Alkaline Phosphatase 144 U/L (40-110); Anion Gap 14 mmol/L (10-20); BUN (Urea Nitrogen) 37 mg/dL (8.9-20.6); Bilirubin, Total 0.8 mg/dL (0.2-1.2); Calc. Creatinine Clearance 0 mL/min (70-130); Carbon Dioxide 31 mmol/L (22-29); Chloride 100 mmol/L (98-107); Glucose 109 mg/dL (70-105); Potassium 4.7 mmol/L (3.5-5.1); Protein, Total 6.3 g/dL (6.0-8.3); Sodium 140 mmol/L (136-145)
[2020-11-27] MEDS ORDERED: Aspirin Chewable 81 MG TAB ONE (02:17)
[2020-11-27] MEDS ORDERED: Diltiazem 125 MG/25 ML ONE (02:17)
[2020-11-27 03:02] LABS: CKMB 1.1 ng/mL (0-6.6)
[2020-11-27] MEDS ORDERED: Morphine 2 MG/ML VIAL SLOW IVP PRN (04:49)
[2020-11-27] MEDS ORDERED: cloNIDine 0.1 MG TAB PO PRN (04:49)
[2020-11-27] MEDS ORDERED: Promethazine HCl 12.5 MG in Sodium Chloride 0.9% 50 ML IVPB PRN (04:49)
[2020-11-27] MEDS ORDERED: HYDROcodone/Acetaminophen 5/325 mg Tablet PO PRN (04:49)
[2020-11-27] MEDS ORDERED: hydrALAZINE 20 MG/ML VIAL SLOW IVP PRN (04:49)
[2020-11-27] MEDS ORDERED: Labetalol HCl 100 MG/20 ML VIAL SLOW IVP PRN (04:49)
[2020-11-27] MEDS ORDERED: Diltiazem 125 MG in Sodium Chloride 0.9% 100 ML IVPB SCH ×2 (05:00→12:50)
[2020-11-27] MEDS ORDERED: Electrolyte Replacement Protocol 1 EACH FS SCH (05:00)
[2020-11-27 06:07] LABS: Troponin I 0.106 ng/mL (< 0.028)
[2020-11-27 06:21] VITALS: BMI 24.0
[2020-11-27] MEDS ORDERED: Magnesium 2 GM/50 ML 2 GM in Premix Bag 1 BAG IVPB SCH (06:30)
[2020-11-27] MEDS ORDERED: Famotidine 20 MG TAB PO SCH (09:00)
[2020-11-27] MEDS: Heparin 5,000 UNITS/ML VIAL SC SCH ×2 (09:12→21:20)
[2020-11-27] MEDS: Polyethylene Glycol 3350 17 GM Packet PO SCH (09:12)
[2020-11-27] MEDS: Acetaminophen 325 MG TAB PO PRN (09:14)
[2020-11-27 10:36] LABS: Troponin I 0.109 ng/mL (< 0.028)
[2020-11-27] MEDS ORDERED: Carvedilol 3.125 MG TAB PO SCH (13:00)
[2020-11-27 17:03] LABS: SARS-CoV-2 PCR by NAA Not Detected (NotDetected)
[2020-11-27] MEDS: Carvedilol 3.125 MG TAB PO SCH (17:13)
[2020-11-28 05:53] LABS: #Lymphocytes 1.2 thou/uL (1.20-3.40); #Monocytes 0.7 thou/uL (0.11-0.59); #Neutrophils 4.3 thou/uL (1.40-6.50); %Basophils 0.1 % (0.0-1.0); %Eosinophils 0.8 % (0.0-10.0); %Lymphocytes 19.3 % (21.0-51.0); %Monocytes 10.5 % (0.0-10.0); %Neutrophils 69.3 % (42.0-75.0); Hemoglobin 11.2 g/dL (14.0-18.0); Mean Corpuscular HGB CONC 31.5 g/dL (32.0-36.0); Mean Corpuscular Hemoglobin 31.3 pg (27.0-31.0); Mean Corpuscular Volume 99.4 fL (78.0-98.0); Mean Platelet Volume 10.7 fL (7.4-10.4); Platelet Count 111 thou/uL (130-400); RBC Distribution Width 15.4 % (11.5-14.5); Red Blood Cell (RBC) Count 3.59 mill/uL (4.70-6.10); White Blood Cell (WBC) Count 6.2 thou/uL (4.8-10.8)
[2020-11-28 06:03] LABS: Anion Gap 20 mmol/L (10-20); BUN (Urea Nitrogen) 58 mg/dL (8.9-20.6); Calc. Creatinine Clearance 13 mL/min (70-130); Calcium 8.2 mg/dL (7.8-10.44); Carbon Dioxide 25 mmol/L (22-29); Chloride 99 mmol/L (98-107); Glucose 79 mg/dL (70-105); Magnesium 2.2 mg/dL (1.6-2.6); Potassium 6.4 mmol/L (3.5-5.1); Sodium 138 mmol/L (136-145)
[2020-11-28] MEDS: Heparin 5,000 UNITS/ML VIAL SC SCH ×2 (07:27→22:11)
[2020-11-28] MEDS: Ondansetron PF 4 MG/2 ML Vial IVP PRN (07:27)
[2020-11-28] MEDS: Simethicone Chewable 80 MG TAB PO PRN ×2 (08:14→15:08)
[2020-11-28] MEDS: Polyethylene Glycol 3350 17 GM Packet PO SCH (13:59)
[2020-11-28] MEDS: Famotidine 20 MG TAB PO SCH (13:59)
[2020-11-28] MEDS: Carvedilol 3.125 MG TAB PO SCH ×2 (13:59→17:11)
[2020-11-28 14:41] LABS: ALT (SGPT) 85 U/L (8-55); AST (SGOT) 17 U/L (5-34); Albumin 3.4 g/dL (3.5-5.0); Alkaline Phosphatase 105 U/L (40-110); Bilirubin, Direct 0.4 mg/dL (0.1-0.3); Bilirubin, Total 0.8 mg/dL (0.2-1.2); Protein, Total 6.2 g/dL (6.0-8.3)
[2020-11-28] MEDS: Acetaminophen 325 MG TAB PO PRN (23:55)
[2020-11-29 05:11] LABS: #Monocytes 0.6 thou/uL (0.11-0.59); #Neutrophils 3.5 thou/uL (1.40-6.50); %Basophils 0.5 % (0.0-1.0); %Eosinophils 0.4 % (0.0-10.0); %Monocytes 10.8 % (0.0-10.0); %Neutrophils 68.3 % (42.0-75.0); Hemoglobin 10.3 g/dL (14.0-18.0); Mean Platelet Volume 10.6 fL (7.4-10.4); Platelet Count 119 thou/uL (130-400); RBC Distribution Width 15.1 % (11.5-14.5); Red Blood Cell (RBC) Count 3.31 mill/uL (4.70-6.10); White Blood Cell (WBC) Count 5.1 thou/uL (4.8-10.8)
[2020-11-29 05:30] LABS: ALT (SGPT) 69 U/L (8-55); AST (SGOT) 17 U/L (5-34); Albumin 3.3 g/dL (3.5-5.0); Alkaline Phosphatase 104 U/L (40-110); Anion Gap 21 mmol/L (10-20); BUN (Urea Nitrogen) 42 mg/dL (8.9-20.6); Bilirubin, Total 0.8 mg/dL (0.2-1.2); Calc. Creatinine Clearance 18 mL/min (70-130); Calcium 8.1 mg/dL (7.8-10.44); Carbon Dioxide 23 mmol/L (22-29); Chloride 100 mmol/L (98-107); Globulin 2.9 g/dL (2.4-3.5); Glucose 78 mg/dL (70-105); Magnesium 2.1 mg/dL (1.6-2.6); Potassium 5.2 mmol/L (3.5-5.1); Protein, Total 6.2 g/dL (6.0-8.3); Sodium 139 mmol/L (136-145)
[2020-11-29] MEDS: Polyethylene Glycol 3350 17 GM Packet PO SCH (08:41)
[2020-11-29] MEDS: Carvedilol 3.125 MG TAB PO SCH (08:42)
[2020-11-29] MEDS: Heparin 5,000 UNITS/ML VIAL SC SCH ×2 (08:42→21:04)
[2020-11-29] MEDS: Famotidine 20 MG TAB PO SCH (08:42)
[2020-11-29 15:24] LABS: Anion Gap 19 mmol/L (10-20); BUN (Urea Nitrogen) 48 mg/dL (8.9-20.6); Calc. Creatinine Clearance 16 mL/min (70-130); Calcium 8.4 mg/dL (7.8-10.44); Carbon Dioxide 24 mmol/L (22-29); Chloride 99 mmol/L (98-107); Glucose 98 mg/dL (70-105); Potassium 5.2 mmol/L (3.5-5.1); Sodium 137 mmol/L (136-145)
[2020-11-29] MEDS: Carvedilol 6.25 MG TAB PO SCH (16:54)
[2020-11-29] MEDS: Acetaminophen 325 MG TAB PO PRN (21:03)
[2020-11-30 04:56] LABS: #Lymphocytes 1.7 thou/uL (1.20-3.40); #Monocytes 0.5 thou/uL (0.11-0.59); #Neutrophils 2.4 thou/uL (1.40-6.50); %Lymphocytes 35.8 % (21.0-51.0); %Monocytes 11.2 % (0.0-10.0); Hemoglobin 11.4 g/dL (14.0-18.0); Mean Corpuscular Volume 99.8 fL (78.0-98.0); Mean Platelet Volume 10.8 fL (7.4-10.4); Platelet Count 144 thou/uL (130-400); RBC Distribution Width 15.1 % (11.5-14.5); Red Blood Cell (RBC) Count 3.67 mill/uL (4.70-6.10); White Blood Cell (WBC) Count 4.8 thou/uL (4.8-10.8)
[2020-11-30 05:34] LABS: Anion Gap 22 mmol/L (10-20); BUN (Urea Nitrogen) 69 mg/dL (8.9-20.6); Calc. Creatinine Clearance 13 mL/min (70-130); Calcium 8.2 mg/dL (7.8-10.44); Carbon Dioxide 22 mmol/L (22-29); Chloride 100 mmol/L (98-107); Glucose 88 mg/dL (70-105); Magnesium 2.5 mg/dL (1.6-2.6); Potassium 4.9 mmol/L (3.5-5.1); Sodium 139 mmol/L (136-145)
[2020-11-30] MEDS: Carvedilol 6.25 MG TAB PO SCH ×2 (08:19→16:50)
[2020-11-30] MEDS: Heparin 5,000 UNITS/ML VIAL SC SCH ×2 (08:19→20:35)
[2020-11-30] MEDS: Polyethylene Glycol 3350 17 GM Packet PO SCH (08:19)
[2020-11-30] MEDS: Famotidine 20 MG TAB PO SCH (08:19)
[2020-11-30] MEDS: Simethicone Chewable 80 MG TAB PO PRN (21:38)
[2020-11-30] MEDS: Ondansetron PF 4 MG/2 ML Vial IVP PRN (21:39)
[2020-12-01 01:15] LABS: #Basophils 0.1 thou/uL (0.0-0.2); #Lymphocytes 1.4 thou/uL (1.20-3.40); #Monocytes 0.6 thou/uL (0.11-0.59); %Eosinophils 0.6 % (0.0-10.0); %Lymphocytes 19.9 % (21.0-51.0); %Monocytes 8.6 % (0.0-10.0); Hemoglobin 11.9 g/dL (14.0-18.0); Mean Corpuscular HGB CONC 32.5 g/dL (32.0-36.0); Mean Corpuscular Hemoglobin 32.1 pg (27.0-31.0); Mean Corpuscular Volume 98.8 fL (78.0-98.0); Mean Platelet Volume 10.3 fL (7.4-10.4); Platelet Count 171 thou/uL (130-400); RBC Distribution Width 15.6 % (11.5-14.5); Red Blood Cell (RBC) Count 3.72 mill/uL (4.70-6.10); White Blood Cell (WBC) Count 7.2 thou/uL (4.8-10.8)
[2020-12-01 01:35] LABS: Anion Gap 26 mmol/L (10-20); BUN (Urea Nitrogen) 83 mg/dL (8.9-20.6); Calc. Creatinine Clearance 11 mL/min (70-130); Calcium 8.2 mg/dL (7.8-10.44); Carbon Dioxide 19 mmol/L (22-29); Chloride 100 mmol/L (98-107); Glucose 79 mg/dL (70-105); Potassium 6.2 mmol/L (3.5-5.1); Sodium 139 mmol/L (136-145)
[2020-12-01 01:44] LABS: Troponin I 0.047 ng/mL (< 0.028)
[2020-12-01 05:10] LABS: #Lymphocytes 1.4 thou/uL (1.20-3.40); #Monocytes 0.6 thou/uL (0.11-0.59); #Neutrophils 4.7 thou/uL (1.40-6.50); %Basophils 0.7 % (0.0-1.0); %Eosinophils 0.4 % (0.0-10.0); %Lymphocytes 20.5 % (21.0-51.0); %Monocytes 9.2 % (0.0-10.0); %Neutrophils 69.2 % (42.0-75.0); Hemoglobin 11.7 g/dL (14.0-18.0); Mean Corpuscular HGB CONC 32.1 g/dL (32.0-36.0); Mean Corpuscular Hemoglobin 31.8 pg (27.0-31.0); Mean Platelet Volume 10.5 fL (7.4-10.4); Platelet Count 170 thou/uL (130-400); RBC Distribution Width 15.3 % (11.5-14.5); Red Blood Cell (RBC) Count 3.66 mill/uL (4.70-6.10); White Blood Cell (WBC) Count 6.7 thou/uL (4.8-10.8)
[2020-12-01 05:35] LABS: ALT (SGPT) 46 U/L (8-55); AST (SGOT) 15 U/L (5-34); Albumin 3.2 g/dL (3.5-5.0); Alkaline Phosphatase 91 U/L (40-110); Anion Gap 24 mmol/L (10-20); BUN (Urea Nitrogen) 80 mg/dL (8.9-20.6); Bilirubin, Total 0.7 mg/dL (0.2-1.2); Calc. Creatinine Clearance 11 mL/min (70-130); Carbon Dioxide 21 mmol/L (22-29); Chloride 100 mmol/L (98-107); Globulin 2.7 g/dL (2.4-3.5); Glucose 96 mg/dL (70-105); Potassium 6.2 mmol/L (3.5-5.1); Protein, Total 5.9 g/dL (6.0-8.3); Sodium 139 mmol/L (136-145)
[2020-12-01] MEDS: Carvedilol 6.25 MG TAB PO SCH ×2 (12:15→17:57)
[2020-12-01] MEDS: Heparin 5,000 UNITS/ML VIAL SC SCH ×2 (12:16→20:21)
[2020-12-01] MEDS: Famotidine 20 MG TAB PO SCH (12:47)
[2020-12-01] MEDS: Polyethylene Glycol 3350 17 GM Packet PO SCH (12:47)
[2020-12-02] MEDS: Famotidine 20 MG TAB PO SCH (08:06)
[2020-12-02] MEDS: Carvedilol 6.25 MG TAB PO SCH ×2 (08:06→17:37)
[2020-12-02] MEDS: Polyethylene Glycol 3350 17 GM Packet PO SCH (08:07)
[2020-12-02] MEDS: Heparin 5,000 UNITS/ML VIAL SC SCH (08:09)
[2020-12-02 08:52] LABS: Anion Gap 19 mmol/L (10-20); BUN (Urea Nitrogen) 52 mg/dL (8.9-20.6); Calc. Creatinine Clearance 14 mL/min (70-130); Calcium 8.4 mg/dL (7.8-10.44); Carbon Dioxide 26 mmol/L (22-29); Chloride 101 mmol/L (98-107); Glucose 111 mg/dL (70-105); Potassium 4.8 mmol/L (3.5-5.1); Sodium 141 mmol/L (136-145)
[2020-12-02 17:44] VITALS: BP 128/93
[2020-12-02 17:52] VITALS: TEMP 97.7
== END 2020-12-02 18:42 | disposition home or self-care (01) | DRG 280 ==
LOC: ERS 01:34 → 2SE 03:04 → 2NO 11-28 15:47
PROVIDERS: ADMIT Internal Medicine; ATTEND Internal Medicine
PROC: 5A1D70Z Performance of Urinary Filtration, Intermittent, Less than 6 Hours Per Day (ICD-10-PCS; principal; 2020-11-28)
DX: I48.3 Typical atrial flutter (principal); N18.6 End stage renal disease; I21.A1 Myocardial infarction type 2; I50.23 Acute on chronic systolic (congestive) heart failure; N25.81 Secondary hyperparathyroidism of renal origin; I13.2 Hypertensive heart and chronic kidney disease with heart failure and with stage 5 chronic kidney disease, or end stage renal disease; Z20.822 Contact with and (suspected) exposure to COVID-19; E87.5 Hyperkalemia; D63.1 Anemia in chronic kidney disease; I42.9 Cardiomyopathy, unspecified; I44.30 Unspecified atrioventricular block; R10.13 Epigastric pain; E66.9 Obesity, unspecified; I07.1 Rheumatic tricuspid insufficiency; Z99.2 Dependence on renal dialysis; Z91.15 Patient's noncompliance with renal dialysis; Z87.01 Personal history of pneumonia (recurrent); Z87.891 Personal history of nicotine dependence; Z79.82 Long term (current) use of aspirin; Z79.899 Other long term (current) drug therapy; Z68.24 Body mass index [BMI] 24.0-24.9, adult
CPT/HCPCS: 36415; 71045; 76705; 80048; 80053; 80076; 82553; 83735; 84443; 84484; 85025; 90935; 93005; 93010; 93306; 96365; 96366; 96376; G0257; J1644; J2270; J2405; J3490; U0003; U0005

== ENCOUNTER 2021-02-18 17:35 | Emergency (ER) | payer BC | END 2021-02-18 18:20 | disposition home or self-care (01) | LOC: ERS 17:35 | DX: S09.90XA Unspecified injury of head, initial encounter (principal); I10 Essential (primary) hypertension; Z87.01 Personal history of pneumonia (recurrent); Z79.899 Other long term (current) drug therapy; W22.8XXA Striking against or struck by other objects, initial encounter | CPT/HCPCS: 70450 ==

== ENCOUNTER 2021-04-13 07:57 | Emergency (ER) | payer BC ==
[2021-04-13 08:43] LABS: #Eosinphils 0.3 thou/uL (0.0-0.7); #Lymphocytes 1.5 thou/uL (1.20-3.40); #Monocytes 0.4 thou/uL (0.11-0.59); #Neutrophils 6.3 thou/uL (1.40-6.50); %Basophils 0.2 % (0.0-1.0); %Lymphocytes 17.8 % (21.0-51.0); %Monocytes 4.9 % (0.0-10.0); %Neutrophils 74.1 % (42.0-75.0); Hemoglobin 12.2 g/dL (14.0-18.0); Mean Corpuscular HGB CONC 33.5 g/dL (32.0-36.0); Mean Corpuscular Hemoglobin 33.3 pg (27.0-31.0); Mean Corpuscular Volume 99.4 fL (78.0-98.0); Mean Platelet Volume 9.1 fL (7.4-10.4); Platelet Count 146 thou/uL (130-400); RBC Distribution Width 14.3 % (11.5-14.5); Red Blood Cell (RBC) Count 3.67 mill/uL (4.70-6.10); White Blood Cell (WBC) Count 8.5 thou/uL (4.8-10.8)
[2021-04-13 09:03] LABS: ALT (SGPT) 7 U/L (8-55); AST (SGOT) 9 U/L (5-34); Albumin 4.1 g/dL (3.5-5.0); Alkaline Phosphatase 93 U/L (40-110); Anion Gap 24 mmol/L (10-20); BUN (Urea Nitrogen) 69 mg/dL (8.9-20.6); Bilirubin, Total 0.8 mg/dL (0.2-1.2); Calc. Creatinine Clearance 0 mL/min (70-130); Calcium 9.5 mg/dL (7.8-10.44); Carbon Dioxide 24 mmol/L (22-29); Chloride 97 mmol/L (98-107); Globulin 3.1 g/dL (2.4-3.5); Glucose 98 mg/dL (70-105); Potassium 5.2 mmol/L (3.5-5.1); Protein, Total 7.2 g/dL (6.0-8.3); Sodium 140 mmol/L (136-145)
== END 2021-04-13 09:22 | disposition home or self-care (01) ==
LOC: ERS 07:57
DX: R06.00 Dyspnea, unspecified (principal); I12.0 Hypertensive chronic kidney disease with stage 5 chronic kidney disease or end stage renal disease; N18.6 End stage renal disease; Z99.2 Dependence on renal dialysis; Z79.899 Other long term (current) drug therapy
CPT/HCPCS: 71045; 80053; 85025; 93005

== ENCOUNTER 2021-06-27 21:26 | Emergency (ER) | payer BC ==
[2021-06-27] MEDS ORDERED: Ondansetron ODT 4 MG TAB ONE (23:04)
[2021-06-27 23:28] LABS: #Monocytes 0.8 thou/uL (0.11-0.59); #Neutrophils 8.4 thou/uL (1.40-6.50); %Basophils 0.3 % (0.0-1.0); %Eosinophils 0.4 % (0.0-10.0); %Lymphocytes 9.8 % (21.0-51.0); %Monocytes 7.8 % (0.0-10.0); %Neutrophils 81.8 % (42.0-75.0); Hemoglobin 13.4 g/dL (14.0-18.0); Mean Corpuscular HGB CONC 31.7 g/dL (32.0-36.0); Mean Corpuscular Hemoglobin 32.6 pg (27.0-31.0); Mean Platelet Volume 9.3 fL (7.4-10.4); Platelet Count 153 thou/uL (130-400); RBC Distribution Width 15.1 % (11.5-14.5); White Blood Cell (WBC) Count 10.2 thou/uL (4.8-10.8)
[2021-06-27 23:50] LABS: ALT (SGPT) 27 U/L (8-55); AST (SGOT) 36 U/L (5-34); Albumin 4.1 g/dL (3.5-5.0); Alkaline Phosphatase 106 U/L (40-110); Anion Gap 27 mmol/L (10-20); BUN (Urea Nitrogen) 69 mg/dL (8.9-20.6); Bilirubin, Total 2.3 mg/dL (0.2-1.2); Calc. Creatinine Clearance 0 mL/min (70-130); Calcium 9.2 mg/dL (7.8-10.44); Carbon Dioxide 24 mmol/L (22-29); Chloride 93 mmol/L (98-107); Globulin 3.2 g/dL (2.4-3.5); Glucose 104 mg/dL (70-105); Lipase 19 U/L (8-78); Potassium 6.3 mmol/L (3.5-5.1); Protein, Total 7.3 g/dL (6.0-8.3); Sodium 138 mmol/L (136-145)
[2021-06-28] MEDS ORDERED: Ondansetron ODT 4 MG TAB ONE (02:54)
[2021-06-28] MEDS ORDERED: Calcium Chloride 1 GM/10 ML Abboject SYRINGE ONE ×2 (02:55→02:58)
[2021-06-28] MEDS ORDERED: Dextrose 50% Abboject 50 ML SYRINGE ONE ×2 (02:55→02:58)
[2021-06-28] MEDS ORDERED: Insulin Regular 300 UNITS/3 ML VIAL ONE (02:55)
[2021-06-28] MEDS ORDERED: Sodium Bicarbonate 2.5 MEQ/5 ML VIAL ONE (02:58)
[2021-06-28] MEDS ORDERED: Sodium Bicarb 50 MEQ/50 ML Abboject 8.4% SYRINGE ONE (03:00)
[2021-06-28] MEDS ORDERED: Acetaminophen 500 MG TAB ONE (03:24)
[2021-06-28 05:25] LABS: HBSAg Index 0.26 S/CO (0-0.99); Hep B Surf Ag Non-Reactive S/CO (NonReactive)
[2021-06-28] MEDS ORDERED: Iopamidol-370 76% 500 ML 1 ML ONE (11:33)
== END 2021-06-28 09:10 | disposition home or self-care (01) ==
LOC: ERS 21:26
DX: R10.11 Right upper quadrant pain (principal); E87.5 Hyperkalemia; I12.0 Hypertensive chronic kidney disease with stage 5 chronic kidney disease or end stage renal disease; N18.6 End stage renal disease; Z79.899 Other long term (current) drug therapy
CPT/HCPCS: 36415; 71045; 74177; 80053; 83690; 85025; 87340; 90935; 93005; 96374; 96375; G0257; J1815; Q0162; Q9967

== ENCOUNTER 2021-07-03 02:24 | Emergency (ER) | payer BC ==
[2021-07-03 03:29] LABS: #Basophils 0.1 thou/uL (0.0-0.2); #Eosinphils 0.1 thou/uL (0.0-0.7); #Lymphocytes 1.3 thou/uL (1.20-3.40); #Monocytes 0.6 thou/uL (0.11-0.59); #Neutrophils 6.7 thou/uL (1.40-6.50); %Basophils 0.6 % (0.0-1.0); %Eosinophils 0.7 % (0.0-10.0); %Lymphocytes 15.1 % (21.0-51.0); %Monocytes 6.3 % (0.0-10.0); %Neutrophils 77.3 % (42.0-75.0); Mean Corpuscular HGB CONC 32.4 g/dL (32.0-36.0); Mean Corpuscular Hemoglobin 33.1 pg (27.0-31.0); Mean Platelet Volume 8.7 fL (7.4-10.4); Platelet Count 135 thou/uL (130-400); RBC Distribution Width 15.4 % (11.5-14.5); Red Blood Cell (RBC) Count 3.93 mill/uL (4.70-6.10); White Blood Cell (WBC) Count 8.7 thou/uL (4.8-10.8)
[2021-07-03 03:52] LABS: ALT (SGPT) 84 U/L (8-55); AST (SGOT) 53 U/L (5-34); Albumin 4.1 g/dL (3.5-5.0); Alkaline Phosphatase 134 U/L (40-110); Anion Gap 21 mmol/L (10-20); BUN (Urea Nitrogen) 65 mg/dL (8.9-20.6); Bilirubin, Total 1.5 mg/dL (0.2-1.2); Calc. Creatinine Clearance 0 mL/min (70-130); Calcium 9.4 mg/dL (7.8-10.44); Carbon Dioxide 26 mmol/L (22-29); Chloride 96 mmol/L (98-107); Globulin 3.5 g/dL (2.4-3.5); Glucose 89 mg/dL (70-105); Lipase 20 U/L (8-78); Potassium 5.3 mmol/L (3.5-5.1); Protein, Total 7.6 g/dL (6.0-8.3); Sodium 138 mmol/L (136-145)
[2021-07-03] MEDS ORDERED: Ondansetron PF 4 MG/2 ML Vial ONE (03:54)
[2021-07-03] MEDS ORDERED: Acetaminophen 500 MG TAB ONE (04:26)
[2021-07-03] MEDS ORDERED: Sucralfate 1 GM/10 ML UDCUP ONE (04:26)
== END 2021-07-03 05:18 | disposition home or self-care (01) ==
LOC: ERS 02:24
DX: R10.11 Right upper quadrant pain (principal); I12.0 Hypertensive chronic kidney disease with stage 5 chronic kidney disease or end stage renal disease; N18.6 End stage renal disease; Z99.2 Dependence on renal dialysis; Z79.899 Other long term (current) drug therapy
CPT/HCPCS: 36415; 80053; 83690; 85025; 93005; 96374; J2405

== ENCOUNTER 2021-07-04 02:49 | Emergency (ER) | payer BC ==
[2021-07-04 04:21] LABS: #Lymphocytes 0.9 thou/uL (1.20-3.40); #Monocytes 0.5 thou/uL (0.11-0.59); #Neutrophils 6.4 thou/uL (1.40-6.50); %Basophils 0.3 % (0.0-1.0); %Eosinophils 0.4 % (0.0-10.0); %Lymphocytes 11.1 % (21.0-51.0); %Monocytes 6.9 % (0.0-10.0); %Neutrophils 81.2 % (42.0-75.0); Hemoglobin 12.4 g/dL (14.0-18.0); Mean Corpuscular HGB CONC 31.8 g/dL (32.0-36.0); Mean Corpuscular Hemoglobin 32.3 pg (27.0-31.0); Mean Platelet Volume 8.6 fL (7.4-10.4); Platelet Count 132 thou/uL (130-400); RBC Distribution Width 15.3 % (11.5-14.5); Red Blood Cell (RBC) Count 3.84 mill/uL (4.70-6.10); White Blood Cell (WBC) Count 7.8 thou/uL (4.8-10.8)
[2021-07-04 04:42] LABS: ALT (SGPT) 65 U/L (8-55); AST (SGOT) 31 U/L (5-34); Albumin 3.9 g/dL (3.5-5.0); Alkaline Phosphatase 131 U/L (40-110); Anion Gap 24 mmol/L (10-20); BUN (Urea Nitrogen) 61 mg/dL (8.9-20.6); Bilirubin, Total 1.5 mg/dL (0.2-1.2); Calc. Creatinine Clearance 0 mL/min (70-130); Calcium 9.6 mg/dL (7.8-10.44); Carbon Dioxide 27 mmol/L (22-29); Chloride 95 mmol/L (98-107); Globulin 3.2 g/dL (2.4-3.5); Glucose 114 mg/dL (70-105); Lipase 24 U/L (8-78); Potassium 5.4 mmol/L (3.5-5.1); Protein, Total 7.1 g/dL (6.0-8.3); Sodium 141 mmol/L (136-145)
[2021-07-04] MEDS ORDERED: Ondansetron PF 4 MG/2 ML Vial ONE (04:42)
[2021-07-04] MEDS ORDERED: Ketorolac Tromethamine 30 MG/ML VIAL ONE (04:42)
[2021-07-04] MEDS ORDERED: Ondansetron ODT 4 MG TAB ONE (04:44)
[2021-07-04] MEDS ORDERED: Mag-Al 1200 mg/1200 mg/30 ML UDCUP ONE (05:37)
[2021-07-04] MEDS ORDERED: Haloperidol 1 MG TAB ONE (05:37)
== END 2021-07-04 05:46 | disposition home or self-care (01) ==
LOC: ERS 02:49
DX: R10.11 Right upper quadrant pain (principal); R10.13 Epigastric pain; I51.7 Cardiomegaly; R11.2 Nausea with vomiting, unspecified; I12.9 Hypertensive chronic kidney disease with stage 1 through stage 4 chronic kidney disease, or unspecified chronic kidney disease; N18.9 Chronic kidney disease, unspecified; Z99.2 Dependence on renal dialysis; Z79.899 Other long term (current) drug therapy
CPT/HCPCS: 36415; 76705; 80053; 83690; 85025; 93005; 96372; J1885; J2405; Q0162

== ENCOUNTER 2022-02-14 09:06 | Inpatient (IN) | payer BC ==
[2022-02-14 10:44] LABS: ALT (SGPT) 12 U/L (8-55); AST (SGOT) 12 U/L (5-34); Albumin 4.2 g/dL (3.5-5.0); Alkaline Phosphatase 133 U/L (40-110); Anion Gap 28 mmol/L (10-20); BUN (Urea Nitrogen) 92 mg/dL (8.9-20.6); Bilirubin, Total 1.4 mg/dL (0.2-1.2); Calc. Creatinine Clearance 0 mL/min (70-130); Calcium 9.5 mg/dL (7.8-10.44); Carbon Dioxide 17 mmol/L (22-29); Chloride 100 mmol/L (98-107); Estimated GFR 4; Globulin 2.9 g/dL (2.4-3.5); Glucose 131 mg/dL (70-105); Hemoglobin 11.2 g/dL (14.0-18.0); Mean Corpuscular HGB CONC 32.7 g/dL (32.0-36.0); Mean Corpuscular Hemoglobin 32.1 pg (27.0-31.0); Mean Corpuscular Volume 98.2 fL (78.0-98.0); Mean Platelet Volume 9.7 fL (7.4-10.4); Platelet Count 108 thou/uL (130-400); Potassium 5.3 mmol/L (3.5-5.1); Protein, Total 7.1 g/dL (6.0-8.3); Sodium 140 mmol/L (136-145); White Blood Cell (WBC) Count 6.6 thou/uL (4.8-10.8)
[2022-02-14 11:06] LABS: SARS-CoV-2 NAA Rapid Test Not Detected (NotDetected)
[2022-02-14 11:07] LABS: #Eosinphils 0.1 thou/uL (0.0-0.7); #Lymphocytes 0.9 thou/uL (1.20-3.40); #Monocytes 0.4 thou/uL (0.11-0.59); #Neutrophils 5.2 thou/uL (1.40-6.50); %Basophils 0.2 % (0.0-1.0); %Eosinophils 0.9 % (0.0-10.0); %Lymphocytes 13.2 % (21.0-51.0); %Monocytes 6.7 % (0.0-10.0); %Neutrophils 79.1 % (42.0-75.0); Hypochromia SLIGHT = 6-15 cells (100X) (0-5/hpf); MDiff Complete? YES; Platelet Morphology Comment Appears Decreased
[2022-02-14] MEDS ORDERED: Nitroglycerin 2% Ointment 1 INCH/1 GM Packet ONE (11:08)
[2022-02-14] MEDS ORDERED: Aspirin Chewable 81 MG TAB ONE (11:08)
[2022-02-14] MEDS ORDERED: Ondansetron ODT 4 MG TAB PO PRN (11:34)
[2022-02-14] MEDS ORDERED: Ondansetron PF 4 MG/2 ML Vial IVP PRN (11:34)
[2022-02-14] MEDS ORDERED: Acetaminophen 325 MG TAB PO PRN (11:34)
[2022-02-14] MEDS ORDERED: Senokot S 8.6-50 MG TAB PO PRN (11:37)
[2022-02-14 12:54] LABS: Troponin I 0.047 ng/mL (< 0.028)
[2022-02-14 13:21] VITALS: BMI 24.0
[2022-02-14 16:24] LABS: Troponin I 0.055 ng/mL (< 0.028)
[2022-02-15 04:52] LABS: Anion Gap 24 mmol/L (10-20); BUN (Urea Nitrogen) 62 mg/dL (8.9-20.6); Calc. Creatinine Clearance 9 mL/min (70-130); Calcium 9.7 mg/dL (7.8-10.44); Carbon Dioxide 22 mmol/L (22-29); Chloride 100 mmol/L (98-107); Estimated GFR 5; Glucose 79 mg/dL (70-105); Potassium 4.6 mmol/L (3.5-5.1); Sodium 141 mmol/L (136-145)
[2022-02-15 04:58] LABS: #Eosinphils 0.1 thou/uL (0.0-0.7); #Lymphocytes 0.8 thou/uL (1.20-3.40); #Monocytes 0.3 thou/uL (0.11-0.59); #Neutrophils 3.7 thou/uL (1.40-6.50); %Basophils 0.3 % (0.0-1.0); %Eosinophils 1.2 % (0.0-10.0); %Lymphocytes 16.2 % (21.0-51.0); %Monocytes 5.9 % (0.0-10.0); %Neutrophils 76.4 % (42.0-75.0); Hemoglobin 9.9 g/dL (14.0-18.0); Mean Corpuscular HGB CONC 33.5 g/dL (32.0-36.0); Mean Corpuscular Hemoglobin 32.4 pg (27.0-31.0); Mean Corpuscular Volume 96.6 fL (78.0-98.0); Mean Platelet Volume 9.3 fL (7.4-10.4); Platelet Count 96 thou/uL (130-400); Platelet Morphology Comment Appears Decreased; RBC Morphology Normal; Red Blood Cell (RBC) Count 3.04 mill/uL (4.70-6.10); White Blood Cell (WBC) Count 4.8 thou/uL (4.8-10.8)
[2022-02-15] MEDS ORDERED: Famotidine/PF 20 mg/2ml Vial SLOW IVP SCH (09:00)
[2022-02-15] MEDS ORDERED: Famotidine 20 MG TAB PO SCH (09:00)
[2022-02-15 15:30] VITALS: TEMP 98.4
[2022-02-15 15:31] VITALS: BP 147/98
== END 2022-02-15 15:00 | disposition home or self-care (01) | DRG 640 ==
LOC: ERS 09:06 → MERGE 11:26 → ERHOLD 11:26 → 2NO 13:00
PROVIDERS: ADMIT Internal Medicine; ATTEND Internal Medicine
PROC: 5A1D70Z Performance of Urinary Filtration, Intermittent, Less than 6 Hours Per Day (ICD-10-PCS; principal; 2022-02-14)
PROC: 5A1D70Z Performance of Urinary Filtration, Intermittent, Less than 6 Hours Per Day (ICD-10-PCS; 2022-02-15)
DX: E87.70 Fluid overload, unspecified (principal); I21.A1 Myocardial infarction type 2; J96.01 Acute respiratory failure with hypoxia; N18.6 End stage renal disease; I12.0 Hypertensive chronic kidney disease with stage 5 chronic kidney disease or end stage renal disease; I42.8 Other cardiomyopathies; D63.1 Anemia in chronic kidney disease; E87.5 Hyperkalemia; K59.00 Constipation, unspecified; Z20.822 Contact with and (suspected) exposure to COVID-19; Z79.899 Other long term (current) drug therapy; Z99.2 Dependence on renal dialysis; Z91.19 Patient's noncompliance with other medical treatment and regimen; Z98.890 Other specified postprocedural states
CPT/HCPCS: 36415; 71045; 80048; 80053; 82553; 83880; 84484; 85025; 90935; 93005; 94760; G0257

== ENCOUNTER 2022-05-24 01:20 | Emergency (ER) | payer BC ==
[2022-05-24 01:55] LABS: #Eosinphils 0.1 thou/uL (0.0-0.7); #Lymphocytes 1.6 thou/uL (1.20-3.40); #Monocytes 0.5 thou/uL (0.11-0.59); #Neutrophils 5.7 thou/uL (1.40-6.50); %Basophils 0.4 % (0.0-1.0); %Eosinophils 1.2 % (0.0-10.0); %Lymphocytes 19.8 % (21.0-51.0); %Monocytes 6.3 % (0.0-10.0); %Neutrophils 72.2 % (42.0-75.0); Hemoglobin 11.8 g/dL (14.0-18.0); Mean Corpuscular HGB CONC 32.3 g/dL (32.0-36.0); Mean Corpuscular Hemoglobin 32.2 pg (27.0-31.0); Mean Corpuscular Volume 99.6 fl (78.0-98.0); Mean Platelet Volume 9.2 fL (7.4-10.4); Platelet Count 145 10x3/uL (130-400); RBC Distribution Width 13.9 % (11.5-14.5); Red Blood Cell (RBC) Count 3.66 mill/uL (4.70-6.10); White Blood Cell (WBC) Count 7.9 10x3/uL (4.8-10.8)
[2022-05-24] MEDS ORDERED: Ondansetron PF 4 MG/2 ML Vial ONE (02:21)
[2022-05-24 02:33] LABS: Albumin 3.9 g/dL (3.5-5.0)
[2022-05-24 02:35] LABS: Calcium 9.1 mg/dL (7.8-10.44); Chloride 98 mmol/L (98-107); Sodium 141 mmol/L (136-145)
[2022-05-24 02:36] LABS: Glucose 93 mg/dL (70-105); Protein, Total 6.9 g/dL (6.0-8.3)
[2022-05-24 02:38] LABS: Anion Gap 26 mmol/L (10-20)
[2022-05-24 02:39] LABS: Alkaline Phosphatase 128 U/L (40-110); Calc. Creatinine Clearance 0 mL/min (70-130); Estimated GFR 6
[2022-05-24 02:40] LABS: BUN (Urea Nitrogen) 66 mg/dL (8.9-20.6)
[2022-05-24 02:41] LABS: AST (SGOT) 28 U/L (5-34)
[2022-05-24 02:42] LABS: ALT (SGPT) 15 U/L (8-55); Lipase 15 U/L (8-78)
[2022-05-24 03:01] LABS: Bilirubin, Total 1.3 mg/dL (0.2-1.2); Carbon Dioxide 23 mmol/L (22-29); Potassium 6.4 mmol/L (3.5-5.1)
[2022-05-24] MEDS ORDERED: Insulin Regular 300 UNITS/3 ML VIAL ONE (03:21)
[2022-05-24] MEDS ORDERED: CALCIUM GLUC 1 GM/NS 50 ML BAG ONE ×2 (03:21→03:23)
[2022-05-24] MEDS ORDERED: Dextrose 50% Abboject 50 ML SYRINGE ONE (03:21)
[2022-05-24] MEDS ORDERED: Sodium Bicarb 50 MEQ/50 ML VIAL ONE (03:21)
[2022-05-24] MEDS ORDERED: Calcium Gluc 4.6 MEQ/10 ML (100 MG/ML) ONE (03:29)
[2022-05-24 06:27] LABS: HBSAg Index 0.27 S/CO (0-0.99); Hep B Core Total Ab Non-Reactive (NonReactive); Hep B Core Total Index 0.06 S/CO (0-0.79); Hep B Surf Ag Non-Reactive S/CO (NonReactive); Hep C IgG Ab Non-Reactive (NonReactive)
[2022-05-24 06:50] LABS: HBSAB Concentration 20.91 mIU/mL; Hep B Surf AB Reactive (NonReactive)
[2022-05-24] MEDS ORDERED: Heparin 10,000 UNITS/ 10 ML VIAL ONE (14:40)
== END 2022-05-24 11:01 | disposition home or self-care (01) ==
LOC: ERS 01:20
DX: E87.70 Fluid overload, unspecified (principal); E87.5 Hyperkalemia; I10 Essential (primary) hypertension
CPT/HCPCS: 36415; 71045; 74176; 80053; 83690; 83880; 85025; 86704; 90935; 93005; 96374; 96375; G0257; J0610; J1644; J1815; J2405; J7999

== ENCOUNTER 2022-07-12 07:26 | Emergency (ER) | payer BC ==
[2022-07-12 09:07] LABS: #Eosinphils 0.1 thou/uL (0.0-0.7); #Monocytes 0.4 thou/uL (0.11-0.59); #Neutrophils 6.1 thou/uL (1.40-6.50); %Basophils 0.2 % (0.0-1.0); %Eosinophils 0.9 % (0.0-10.0); %Lymphocytes 12.8 % (21.0-51.0); Hemoglobin 12.5 g/dL (14.0-18.0); Mean Corpuscular Hemoglobin 31.7 pg (27.0-31.0); Mean Corpuscular Volume 99.1 fl (78.0-98.0); Mean Platelet Volume 9.1 fL (7.4-10.4); Platelet Count 115 10x3/uL (130-400); RBC Distribution Width 14.8 % (11.5-14.5); Red Blood Cell (RBC) Count 3.93 mill/uL (4.70-6.10); White Blood Cell (WBC) Count 7.5 10x3/uL (4.8-10.8)
[2022-07-12 09:17] LABS: ALT (SGPT) 11 U/L (8-55); AST (SGOT) 13 U/L (5-34); Albumin 4.1 g/dL (3.5-5.0); Alkaline Phosphatase 140 U/L (40-110); Anion Gap 22 mmol/L (10-20); BUN (Urea Nitrogen) 68 mg/dL (8.9-20.6); Bilirubin, Total 1.6 mg/dL (0.2-1.2); Calc. Creatinine Clearance 0 mL/min (70-130); Calcium 9.4 mg/dL (7.8-10.44); Carbon Dioxide 26 mmol/L (22-29); Chloride 97 mmol/L (98-107); Estimated GFR 7; Globulin 3.6 g/dL (2.4-3.5); Glucose 66 mg/dL (70-105); Lipase 12 U/L (8-78); Potassium 4.8 mmol/L (3.5-5.1); Protein, Total 7.7 g/dL (6.0-8.3); Sodium 140 mmol/L (136-145)
[2022-07-12] MEDS ORDERED: Acetaminophen 500 MG TAB ONE (09:59)
== END 2022-07-12 10:39 | disposition home or self-care (01) ==
LOC: ERS 07:26
DX: I12.0 Hypertensive chronic kidney disease with stage 5 chronic kidney disease or end stage renal disease (principal); N18.6 End stage renal disease; R10.11 Right upper quadrant pain; G89.29 Other chronic pain; M25.562 Pain in left knee; M25.561 Pain in right knee
CPT/HCPCS: 36415; 74176; 80053; 83690; 85025; 93005

== ENCOUNTER 2022-10-11 09:59 | Inpatient (IN) | payer BC ==
[2022-10-11] MEDS ORDERED: Iopamidol-370 76% 500 ML MDV (1 ML CHARGE) ONE (10:09)
[2022-10-11 10:43] LABS: ALT (SGPT) 153 U/L (8-55); AST (SGOT) 18 U/L (5-34); Albumin 3.8 g/dL (3.5-5.0); Alkaline Phosphatase 127 U/L (40-110); Anion Gap 24 mmol/L (10-20); BUN (Urea Nitrogen) 91 mg/dL (8.9-20.6); Bilirubin, Total 2.5 mg/dL (0.2-1.2); Calc. Creatinine Clearance 0 mL/min (70-130); Calcium 9.1 mg/dL (7.8-10.44); Carbon Dioxide 19 mmol/L (22-29); Chloride 98 mmol/L (98-107); Estimated GFR 5; Globulin 3.5 g/dL (2.4-3.5); Glucose 90 mg/dL (70-105); Potassium 5.4 mmol/L (3.5-5.1); Protein, Total 7.3 g/dL (6.0-8.3); Sodium 136 mmol/L (136-145)
[2022-10-11 11:04] LABS: #Lymphocytes 0.7 thou/uL (1.20-3.40); #Monocytes 0.4 thou/uL (0.11-0.59); #Neutrophils 7.8 thou/uL (1.40-6.50); %Basophils 0.5 % (0.0-1.0); %Eosinophils 0.2 % (0.0-10.0); %Lymphocytes 7.7 % (21.0-51.0); %Monocytes 4.8 % (0.0-10.0); %Neutrophils 86.8 % (42.0-75.0); Hemoglobin 12.6 g/dL (14.0-18.0); MDiff Complete? YES; Mean Corpuscular HGB CONC 35.4 g/dL (32.0-36.0); Mean Corpuscular Hemoglobin 34.1 pg (27.0-31.0); Mean Corpuscular Volume 96.1 fl (78.0-98.0); Mean Platelet Volume 9.2 fL (7.4-10.4); Platelet Count 71 10x3/uL (130-400); Platelet Morphology Comment Appears Decreased; Polychromasia SLIGHT = 2-3 cells (100X) (0-2/hpf); RBC Distribution Width 15.3 % (11.5-14.5); Red Blood Cell (RBC) Count 3.69 mill/uL (4.70-6.10)
[2022-10-11 12:10] LABS: CKMB 0.7 ng/mL (0-6.6)
[2022-10-11] MEDS ORDERED: cefTRIAXone (ROCEPHIN) 2 GM VIAL ONE (12:40)
[2022-10-11] MEDS ORDERED: Azithromycin 500 MG VIAL ONE (12:52)
[2022-10-11] MEDS ORDERED: Ondansetron PF 4 MG/2 ML Vial IVP PRN (12:56)
[2022-10-11 14:26] LABS: Critical Call Chem Troponin I RESULT DECREASING
[2022-10-11 17:26] LABS: Troponin I 0.458 ng/mL (< 0.028)
[2022-10-11] MEDS ORDERED: Morphine 2 MG/ML VIAL SLOW IVP PRN (20:12)
[2022-10-11] MEDS: Acetaminophen 325 MG TAB PO PRN (21:19)
[2022-10-12 04:03] LABS: #Lymphocytes 0.5 thou/uL (1.20-3.40); #Monocytes 0.5 thou/uL (0.11-0.59); #Neutrophils 6.3 thou/uL (1.40-6.50); %Basophils 0.2 % (0.0-1.0); %Eosinophils 0.2 % (0.0-10.0); %Lymphocytes 7.3 % (21.0-51.0); %Monocytes 6.1 % (0.0-10.0); %Neutrophils 86.3 % (42.0-75.0); Hemoglobin 11.9 g/dL (14.0-18.0); Mean Corpuscular HGB CONC 34.4 g/dL (32.0-36.0); Mean Corpuscular Hemoglobin 33.4 pg (27.0-31.0); Mean Corpuscular Volume 97.3 fl (78.0-98.0); Platelet Count 60 10x3/uL (130-400); RBC Distribution Width 15.1 % (11.5-14.5); Red Blood Cell (RBC) Count 3.56 mill/uL (4.70-6.10); White Blood Cell (WBC) Count 7.3 10x3/uL (4.8-10.8)
[2022-10-12 04:10] LABS: ALT (SGPT) 112 U/L (8-55); AST (SGOT) 17 U/L (5-34); Albumin 3.5 g/dL (3.5-5.0); Alkaline Phosphatase 110 U/L (40-110); Anion Gap 23 mmol/L (10-20); BUN (Urea Nitrogen) 64 mg/dL (8.9-20.6); Bilirubin, Total 1.7 mg/dL (0.2-1.2); Calc. Creatinine Clearance 12 mL/min (70-130); Calcium 8.6 mg/dL (7.8-10.44); Carbon Dioxide 23 mmol/L (22-29); Chloride 97 mmol/L (98-107); Estimated GFR 6; Globulin 3.2 g/dL (2.4-3.5); Glucose 137 mg/dL (70-105); Potassium 4.7 mmol/L (3.5-5.1); Protein, Total 6.7 g/dL (6.0-8.3); Sodium 138 mmol/L (136-145)
[2022-10-12] MEDS: Acetaminophen 325 MG TAB PO PRN ×3 (04:40→21:10)
[2022-10-12] MEDS: Famotidine/PF 20 mg/2ml Vial SLOW IVP SCH (09:59)
[2022-10-12 10:02] LABS: HBSAg Index 0.27 S/CO (0-0.99); Hep B Surf Ag Non-Reactive S/CO (NonReactive)
[2022-10-12 10:08] LABS: HBSAB Concentration 19.55 mIU/mL; Hep B Surf AB Reactive (NonReactive)
[2022-10-12] MEDS: cefTRIAXone\\ROCEPHIN 2 GM in Sodium Chloride 0.9% 100 ML IVPB SCH (12:34)
[2022-10-12] MEDS: Azithromycin 500 MG in Sodium Chloride 0.9% 250 ML 250 ML IVPB SCH (12:34)
[2022-10-12] MEDS ORDERED: hydrALAZINE 20 MG/ML VIAL SLOW IVP SCH (19:00)
[2022-10-12] MEDS ORDERED: hydrALAZINE 20 MG/ML VIAL SLOW IVP PRN (19:00)
[2022-10-12] MEDS ORDERED: Carvedilol 3.125 MG TAB PO SCH (19:15)
[2022-10-12] MEDS ORDERED: Vancomycin 1 GM in Premix Bag 1 BAG IVPB SCH (22:30)
[2022-10-12] MEDS ORDERED: Vancomycin 1.5 GRAM/300 ML BAG 1.5 GM in Premix Bag 1 BAG IVPB SCH (22:30)
[2022-10-13 05:38] VITALS: BMI 29.3
[2022-10-13 07:34] LABS: #Lymphocytes 0.5 thou/uL (1.20-3.40); #Monocytes 0.6 thou/uL (0.11-0.59); #Neutrophils 4.1 thou/uL (1.40-6.50); %Eosinophils 0.7 % (0.0-10.0); %Lymphocytes 9.8 % (21.0-51.0); %Monocytes 11.1 % (0.0-10.0); %Neutrophils 78.4 % (42.0-75.0); Hemoglobin 10.7 g/dL (14.0-18.0); Mean Corpuscular HGB CONC 34.4 g/dL (32.0-36.0); Mean Corpuscular Hemoglobin 33.6 pg (27.0-31.0); Mean Corpuscular Volume 97.7 fl (78.0-98.0); Mean Platelet Volume 10.6 fL (7.4-10.4); Platelet Count 68 10x3/uL (130-400); RBC Distribution Width 14.9 % (11.5-14.5); Red Blood Cell (RBC) Count 3.19 mill/uL (4.70-6.10); White Blood Cell (WBC) Count 5.3 10x3/uL (4.8-10.8)
[2022-10-13 07:38] LABS: ALT (SGPT) 77 U/L (8-55); AST (SGOT) 16 U/L (5-34); Albumin 3.2 g/dL (3.5-5.0); Alkaline Phosphatase 100 U/L (40-110); Anion Gap 19 mmol/L (10-20); BUN (Urea Nitrogen) 51 mg/dL (8.9-20.6); Bilirubin, Total 1.6 mg/dL (0.2-1.2); Calc. Creatinine Clearance 13 mL/min (70-130); Calcium 8.8 mg/dL (7.8-10.44); Carbon Dioxide 27 mmol/L (22-29); Chloride 97 mmol/L (98-107); Estimated GFR 7; Glucose 95 mg/dL (70-105); Potassium 4.1 mmol/L (3.5-5.1); Protein, Total 6.2 g/dL (6.0-8.3); Sodium 139 mmol/L (136-145)
[2022-10-13] MEDS: Carvedilol 3.125 MG TAB PO SCH ×2 (09:29→17:28)
[2022-10-13] MEDS: Sevelamer Carbonate 800 MG TAB PO SCH ×4 (09:29→17:29)
[2022-10-13] MEDS: Famotidine/PF 20 mg/2ml Vial SLOW IVP SCH (09:29)
[2022-10-13] MEDS: cefTRIAXone\\ROCEPHIN 2 GM in Sodium Chloride 0.9% 100 ML IVPB SCH (11:33)
[2022-10-13] MEDS: Guaifenesin DM 100-10/5 ML UDCUP PO PRN (12:07)
[2022-10-13] MEDS: Azithromycin 500 MG in Sodium Chloride 0.9% 250 ML 250 ML IVPB SCH (12:09)
[2022-10-13] MEDS ORDERED: Sodium Chloride 0.9% 500 ML IV SCH (13:45)
[2022-10-13] MEDS ORDERED: Carvedilol 3.125 MG TAB PO SCH (19:25)
[2022-10-14 06:39] LABS: ALT (SGPT) 65 U/L (8-55); AST (SGOT) 15 U/L (5-34); Albumin 3.4 g/dL (3.5-5.0); Alkaline Phosphatase 113 U/L (40-110); Anion Gap 21 mmol/L (10-20); BUN (Urea Nitrogen) 68 mg/dL (8.9-20.6); Bilirubin, Total 1.2 mg/dL (0.2-1.2); Calc. Creatinine Clearance 11 mL/min (70-130); Calcium 8.7 mg/dL (7.8-10.44); Carbon Dioxide 23 mmol/L (22-29); Chloride 98 mmol/L (98-107); Estimated GFR 6; Globulin 3.3 g/dL (2.4-3.5); Glucose 98 mg/dL (70-105); Potassium 4.6 mmol/L (3.5-5.1); Protein, Total 6.7 g/dL (6.0-8.3); Sodium 137 mmol/L (136-145)
[2022-10-14 07:15] LABS: #Eosinphils 0.1 thou/uL (0.0-0.7); #Lymphocytes 0.8 thou/uL (1.20-3.40); #Monocytes 0.6 thou/uL (0.11-0.59); #Neutrophils 2.8 thou/uL (1.40-6.50); %Basophils 0.7 % (0.0-1.0); %Eosinophils 3.2 % (0.0-10.0); %Lymphocytes 18.4 % (21.0-51.0); %Monocytes 12.6 % (0.0-10.0); Hemoglobin 10.8 g/dL (14.0-18.0); Mean Corpuscular HGB CONC 31.6 g/dL (32.0-36.0); Mean Corpuscular Hemoglobin 31.1 pg (27.0-31.0); Mean Corpuscular Volume 98.4 fl (78.0-98.0); Mean Platelet Volume 11.8 fL (7.4-10.4); Platelet Count 91 10x3/uL (130-400); Red Blood Cell (RBC) Count 3.48 mill/uL (4.70-6.10); White Blood Cell (WBC) Count 4.3 10x3/uL (4.8-10.8)
[2022-10-14] MEDS: Famotidine/PF 20 mg/2ml Vial SLOW IVP SCH (07:59)
[2022-10-14] MEDS: Guaifenesin DM 100-10/5 ML UDCUP PO PRN (07:59)
[2022-10-14] MEDS: Sevelamer Carbonate 800 MG TAB PO SCH ×2 (08:05→12:56)
[2022-10-14 12:38] VITALS: TEMP 98.1
[2022-10-14] MEDS: cefTRIAXone\\ROCEPHIN 2 GM in Sodium Chloride 0.9% 100 ML IVPB SCH (12:56)
[2022-10-14] MEDS: Azithromycin 500 MG in Sodium Chloride 0.9% 250 ML 250 ML IVPB SCH (13:47)
[2022-10-14 15:06] VITALS: BP 143/83
== END 2022-10-14 15:10 | disposition home or self-care (01) | DRG 640 ==
LOC: ERS 09:59 → IMCU/EMU 13:35
PROVIDERS: ADMIT Family Medicine; ATTEND Family Medicine
PROC: 5A1D70Z Performance of Urinary Filtration, Intermittent, Less than 6 Hours Per Day (ICD-10-PCS; principal; 2022-10-11)
PROC: 5A09357 Assistance with Respiratory Ventilation, Less than 24 Consecutive Hours, Continuous Positive Airway Pressure (ICD-10-PCS; 2022-10-11)
DX: E87.70 Fluid overload, unspecified (principal); N18.6 End stage renal disease; I50.23 Acute on chronic systolic (congestive) heart failure; J96.01 Acute respiratory failure with hypoxia; J18.9 Pneumonia, unspecified organism; I24.8 Other forms of acute ischemic heart disease; I13.2 Hypertensive heart and chronic kidney disease with heart failure and with stage 5 chronic kidney disease, or end stage renal disease; I42.8 Other cardiomyopathies; E87.5 Hyperkalemia; D69.6 Thrombocytopenia, unspecified; D63.1 Anemia in chronic kidney disease; R91.1 Solitary pulmonary nodule; R94.5 Abnormal results of liver function studies; Z99.2 Dependence on renal dialysis; Z79.899 Other long term (current) drug therapy; Z84.1 Family history of disorders of kidney and ureter; Z91.158 Patient's noncompliance with renal dialysis for other reason
CPT/HCPCS: 36415; 71045; 71275; 80053; 82553; 83605; 83880; 84145; 84484; 85025; 86706; 87040; 87340; 90935; 93005; 93306; 94660; G0257; J0456; J0696; J2272; J2405; J3370-JW; J3490; J7030; J7050; Q9967; S0028

== ENCOUNTER 2023-02-14 15:37 | Observation (INO) | payer BC ==
[2023-02-14 16:14] LABS: #Eosinphils 0.1 thou/uL (0.0-0.7); #Monocytes 0.6 thou/uL (0.11-0.59); #Neutrophils 7.7 thou/uL (1.40-6.50); %Basophils 0.2 % (0.0-1.0); %Eosinophils 0.7 % (0.0-10.0); %Lymphocytes 11.3 % (21.0-51.0); %Monocytes 6.2 % (0.0-10.0); %Neutrophils 81.4 % (42.0-75.0); Hematocrit 32.8 % (42.0-52.0); Hemoglobin 10.8 g/dL (14.0-18.0); Mean Corpuscular HGB CONC 32.9 g/dL (32.0-36.0); Mean Corpuscular Hemoglobin 32.4 pg (27.0-31.0); Mean Corpuscular Volume 98.5 fl (78.0-98.0); Mean Platelet Volume 10.9 fL (7.4-10.4); Platelet Count 158 10x3/uL (130-400); RBC Distribution Width 15.4 % (11.5-14.5); Red Blood Cell (RBC) Count 3.33 mill/uL (4.70-6.10); White Blood Cell (WBC) Count 9.5 10x3/uL (4.8-10.8)
[2023-02-14 16:27] LABS: INR-International Normal Ratio 1.2; Prothrombin Time 15.8 sec (12.0-14.7)
[2023-02-14 16:28] LABS: PTT 36.1 sec (22.9-36.1)
[2023-02-14 16:41] LABS: Troponin I 0.091 ng/mL (< 0.028)
[2023-02-14 16:45] LABS: ALT (SGPT) Less than 7 U/L (8-55); AST (SGOT) 18 U/L (5-34); Albumin 4.1 g/dL (3.5-5.0); Alkaline Phosphatase 139 U/L (40-110); Anion Gap 28 mmol/L (10-20); BUN (Urea Nitrogen) 79 mg/dL (8.9-20.6); Bilirubin, Total 0.9 mg/dL (0.2-1.2); Calc. Creatinine Clearance 0 mL/min (70-130); Calcium 8.7 mg/dL (7.8-10.44); Carbon Dioxide 15 mmol/L (22-29); Chloride 100 mmol/L (98-107); Estimated GFR 5; Globulin 3.3 g/dL (2.4-3.5); Glucose 95 mg/dL (70-105); Magnesium 2.5 mg/dL (1.6-2.6); Potassium 5.9 mmol/L (3.5-5.1); Protein, Total 7.4 g/dL (6.0-8.3); Sodium 137 mmol/L (136-145)
[2023-02-14 16:51] LABS: Phosphorus 10.3 mg/dL (2.3-4.7)
[2023-02-14] MEDS ORDERED: Acetaminophen 325 MG TAB PO PRN (17:39)
[2023-02-14] MEDS ORDERED: Aspirin Chewable 81 MG TAB ONE (18:14)
[2023-02-14] MEDS ORDERED: Methyl Salicylate/Menthol 85 GM TUBE TOP PRN (18:32)
[2023-02-14] MEDS ORDERED: Ondansetron ODT 4 MG TAB SL PRN (20:30)
[2023-02-14] MEDS ORDERED: Ondansetron PF 4 MG/2 ML Vial IVP PRN (20:30)
[2023-02-14 21:51] LABS: Troponin I 0.092 ng/mL (< 0.028)
[2023-02-14 22:57] VITALS: BMI 32.1
[2023-02-15 00:53] LABS: Troponin I 0.114 ng/mL (< 0.028)
[2023-02-15 05:19] LABS: #Eosinphils 0.2 thou/uL (0.0-0.7); #Monocytes 0.5 thou/uL (0.11-0.59); #Neutrophils 4.1 thou/uL (1.40-6.50); %Basophils 0.5 % (0.0-1.0); %Lymphocytes 15.5 % (21.0-51.0); %Monocytes 9.2 % (0.0-10.0); %Neutrophils 71.6 % (42.0-75.0); Hematocrit 34.7 % (42.0-52.0); Hemoglobin 11.3 g/dL (14.0-18.0); Mean Corpuscular HGB CONC 32.6 g/dL (32.0-36.0); Mean Corpuscular Hemoglobin 32.2 pg (27.0-31.0); Mean Corpuscular Volume 98.9 fl (78.0-98.0); Mean Platelet Volume 10.8 fL (7.4-10.4); Platelet Count 137 10x3/uL (130-400); RBC Distribution Width 15.7 % (11.5-14.5); Red Blood Cell (RBC) Count 3.51 mill/uL (4.70-6.10); White Blood Cell (WBC) Count 5.7 10x3/uL (4.8-10.8)
[2023-02-15 05:43] LABS: Phosphorus 5.8 mg/dL (2.3-4.7)
[2023-02-15 05:44] LABS: Anion Gap 18 mmol/L (10-20); BUN (Urea Nitrogen) 31 mg/dL (8.9-20.6); Calc. Creatinine Clearance 17 mL/min (70-130); Calcium 9.7 mg/dL (7.8-10.44); Carbon Dioxide 28 mmol/L (22-29); Chloride 97 mmol/L (98-107); Estimated GFR 10; Glucose 88 mg/dL (70-105); Sodium 139 mmol/L (136-145)
[2023-02-15] MEDS: Sevelamer Carbonate 800 MG TAB PO SCH ×2 (09:46→13:32)
[2023-02-15] MEDS ORDERED: Mag-Al 1200 mg/1200 mg/30 ML UDCUP PO PRN (12:31)
[2023-02-15 12:33] VITALS: BP 116/79; TEMP 98.1
== END 2023-02-15 16:00 | disposition home or self-care (01) ==
LOC: ERS 15:37 → 2SW 17:42
PROVIDERS: ADMIT Hospitalist; ATTEND Family Medicine
DX: E87.70 Fluid overload, unspecified (principal); I13.2 Hypertensive heart and chronic kidney disease with heart failure and with stage 5 chronic kidney disease, or end stage renal disease; I50.22 Chronic systolic (congestive) heart failure; N18.6 End stage renal disease; D63.1 Anemia in chronic kidney disease; E87.5 Hyperkalemia; E83.39 Other disorders of phosphorus metabolism; E87.20 Acidosis, unspecified; F12.10 Cannabis abuse, uncomplicated; Z79.899 Other long term (current) drug therapy; Z99.2 Dependence on renal dialysis
CPT/HCPCS: 36415; 71045; 80048; 80053; 83735; 84100; 84484; 85025; 85610; 85730; 90935; 93005; G0257; G0378

== ENCOUNTER 2023-05-09 06:33 | Emergency (ER) | payer BC ==
[2023-05-09 07:08] LABS: #Eosinphils 0.2 thou/uL (0.0-0.7); #Monocytes 0.6 thou/uL (0.11-0.59); #Neutrophils 5.7 thou/uL (1.40-6.50); %Basophils 0.3 % (0.0-1.0); %Eosinophils 2.5 % (0.0-10.0); %Lymphocytes 15.8 % (21.0-51.0); %Monocytes 7.9 % (0.0-10.0); %Neutrophils 73.2 % (42.0-75.0); Hematocrit 37.1 % (42.0-52.0); Mean Corpuscular HGB CONC 32.3 g/dL (32.0-36.0); Mean Corpuscular Hemoglobin 30.7 pg (27.0-31.0); Mean Corpuscular Volume 94.9 fl (78.0-98.0); Mean Platelet Volume 12.3 fL (7.4-10.4); Platelet Count 126 10x3/uL (130-400); RBC Distribution Width 14.9 % (11.5-14.5); Red Blood Cell (RBC) Count 3.91 mill/uL (4.70-6.10); White Blood Cell (WBC) Count 7.7 10x3/uL (4.8-10.8)
[2023-05-09 07:15] LABS: Actual Bicarbonate (HCO3v) 17.5 mEq/L (22-28); Base Excess -6.4 mEq/L (-2.0 to +3.0); Calcium, Ionized (venous) 1.03 mmol/L (1.16-1.32); Chloride (VBG) 98 mmol/L (98-106); Hematocrit-VBG 37 % (42.0-52.0); Hemoglobin (Hb) 12.7 g/dL (13.1-17.2); Sodium 138 mmol/L (133-146); pH (venous) 7.382 (7.32-7.43)
[2023-05-09 07:30] LABS: ALT (SGPT) 9 U/L (8-55); AST (SGOT) 17 U/L (5-34); Alkaline Phosphatase 120 U/L (40-110); Anion Gap 28 mmol/L (10-20); BUN (Urea Nitrogen) 103 mg/dL (8.9-20.6); Bilirubin, Total 1.4 mg/dL (0.2-1.2); Calc. Creatinine Clearance 0 mL/min (70-130); Calcium 9.2 mg/dL (7.8-10.44); Carbon Dioxide 20 mmol/L (22-29); Chloride 98 mmol/L (98-107); Estimated GFR 3; Globulin 3.6 g/dL (2.4-3.5); Glucose 89 mg/dL (70-105); Protein, Total 7.6 g/dL (6.0-8.3); Sodium 140 mmol/L (136-145)
[2023-05-09 07:51] LABS: Potassium 6.1 mmol/L (3.5-5.1)
[2023-05-09 08:02] LABS: Magnesium 2.8 mg/dL (1.6-2.6)
[2023-05-09] MEDS ORDERED: Insulin Regular 300 UNITS/3 ML VIAL ONE ×2 (08:16→08:20)
[2023-05-09] MEDS ORDERED: fentaNYL 50 mcg/mL 1 mL Vial ONE (08:23)
== END 2023-05-09 15:13 | disposition home or self-care (01) ==
LOC: ERS 06:33
DX: E87.5 Hyperkalemia (principal); I12.9 Hypertensive chronic kidney disease with stage 1 through stage 4 chronic kidney disease, or unspecified chronic kidney disease; N18.4 Chronic kidney disease, stage 4 (severe); Z87.891 Personal history of nicotine dependence; Z79.899 Other long term (current) drug therapy
CPT/HCPCS: 36415; 71045; 80053; 82805; 83735; 83880; 85025; 90935; 93005; 94760; 96374; 96375; G0257; J1815; J3010; J7611

== ENCOUNTER 2023-06-27 13:54 | Inpatient (IN) | payer BC ==
[2023-06-27] MEDS ORDERED: Vancomycin (BATCH) 1.75 GM in Premix 1 BAG IVPB SCH (15:30)
[2023-06-27 16:24] LABS: #Monocytes 0.7 thou/uL (0.11-0.59); %Basophils 0.2 % (0.0-1.0); %Eosinophils 0.1 % (0.0-10.0); %Monocytes 3.4 % (0.0-10.0); %Neutrophils 92.9 % (42.0-75.0); Hemoglobin 13.7 g/dL (14.0-18.0); Mean Corpuscular HGB CONC 31.9 g/dL (32.0-36.0); Mean Corpuscular Hemoglobin 30.6 pg (27.0-31.0); Mean Corpuscular Volume 96.2 fl (78.0-98.0); Mean Platelet Volume 10.7 fL (7.4-10.4); Platelet Count 142 10x3/uL (130-400); RBC Distribution Width 16.9 % (11.5-14.5); Red Blood Cell (RBC) Count 4.47 mill/uL (4.70-6.10); White Blood Cell (WBC) Count 19.4 10x3/uL (4.8-10.8)
[2023-06-27] MEDS ORDERED: Morphine 4 MG/ML VIAL ONE (16:26)
[2023-06-27] MEDS ORDERED: Sodium Chloride 0.9% 100 ML ONE (16:30)
[2023-06-27] MEDS ORDERED: Cefepime 2 GM VIAL ONE (16:30)
[2023-06-27 16:39] LABS: INR-International Normal Ratio 1.6; PTT 36.6 sec (22.9-36.1)
[2023-06-27 16:47] LABS: Actual Bicarbonate (HCO3v) 17.8 mEq/L (22-28); Base Excess -7.7 mEq/L (-2.0 to +3.0); Calcium, Ionized (venous) 0.99 mmol/L (1.16-1.32); Chloride (VBG) 97 mmol/L (98-106); Hematocrit-VBG 43 % (42.0-52.0); Hemoglobin (Hb) 14.5 g/dL (13.1-17.2); Sodium 136 mmol/L (133-146); pH (venous) 7.308 (7.32-7.43)
[2023-06-27 16:47] LABS: D-Dimer Test 6.16 *mcg/mL (0.27-0.43)
[2023-06-27 16:49] LABS: Potassium (VBG) 8.03 mmol/L (3.70-5.30)
[2023-06-27 16:49] LABS: ALT (SGPT) 11 U/L (8-55); AST (SGOT) 23 U/L (5-34); Albumin 4.4 g/dL (3.5-5.0); Alkaline Phosphatase 121 U/L (40-110); Anion Gap 29 mmol/L (10-20); BUN (Urea Nitrogen) 92 mg/dL (8.9-20.6); Calc. Creatinine Clearance 0 mL/min (70-130); Calcium 9.5 mg/dL (7.8-10.44); Carbon Dioxide 16 mmol/L (22-29); Chloride 97 mmol/L (98-107); Estimated GFR 4; Globulin 3.8 g/dL (2.4-3.5); Glucose 59 mg/dL (70-105); Protein, Total 8.2 g/dL (6.0-8.3); Sodium 134 mmol/L (136-145)
[2023-06-27 16:52] LABS: Troponin I 0.147 ng/mL (< 0.028)
[2023-06-27 16:54] LABS: Critical Call Chemistry NUR.RJ5 @1653; Potassium 8.1 mmol/L (3.5-5.1)
[2023-06-27] MEDS ORDERED: Albuterol 2.5 MG (3 mL) NEB ONE (17:10)
[2023-06-27] MEDS ORDERED: Sodium Bicarb 50 mEq/50 ML VIAL ONE (17:11)
[2023-06-27] MEDS ORDERED: CALCIUM GLUC 1 GM (50 ML) BAG ONE (17:11)
[2023-06-27] MEDS ORDERED: Insulin Regular 300 UNITS/3 ML VIAL ONE (17:11)
[2023-06-27] MEDS ORDERED: Dextrose 50% Abboject 50 ML SYRINGE ONE ×2 (17:12→20:19)
[2023-06-27] MEDS ORDERED: Acetaminophen 325 MG TAB PO PRN (18:06)
[2023-06-27] MEDS ORDERED: Ondansetron PF 4 MG/2 ML Vial IVP PRN (18:06)
[2023-06-27] MEDS ORDERED: Vancomycin 1 GM in Sodium Chloride 0.9% 500 ML IVPB SCH (18:15)
[2023-06-27 18:59] LABS: Platelet Count 129 10x3/uL (130-400)
[2023-06-27 19:00] LABS: #Monocytes 1.2 thou/uL (0.11-0.59); #Neutrophils 21.2 thou/uL (1.40-6.50); %Basophils 0.1 % (0.0-1.0); %Lymphocytes 3.9 % (21.0-51.0); %Monocytes 4.9 % (0.0-10.0); %Neutrophils 90.5 % (42.0-75.0); Hematocrit 37.9 % (42.0-52.0); Hemoglobin 12.3 g/dL (14.0-18.0); Mean Corpuscular HGB CONC 32.5 g/dL (32.0-36.0); Mean Corpuscular Hemoglobin 31.3 pg (27.0-31.0); Mean Corpuscular Volume 96.4 fl (78.0-98.0); Mean Platelet Volume 10.5 fL (7.4-10.4); Platelet Count 128 10x3/uL (130-400); RBC Distribution Width 16.8 % (11.5-14.5); Red Blood Cell (RBC) Count 3.93 mill/uL (4.70-6.10); White Blood Cell (WBC) Count 23.4 10x3/uL (4.8-10.8)
[2023-06-27 19:16] LABS: Fibrinogen 369 mg/dL (253-463)
[2023-06-27 19:17] LABS: INR-International Normal Ratio 1.7; PTT 38.1 sec (22.9-36.1); Prothrombin Time 20.2 sec (12.0-14.7)
[2023-06-27 19:25] LABS: D-Dimer Test 5.42 *mcg/mL (0.27-0.43)
[2023-06-27 19:27] LABS: ALT (SGPT) 12 U/L (8-55); AST (SGOT) 24 U/L (5-34); Albumin 3.9 g/dL (3.5-5.0); Alkaline Phosphatase 104 U/L (40-110); Anion Gap 23 mmol/L (10-20); BUN (Urea Nitrogen) 96 mg/dL (8.9-20.6); Bilirubin, Total 1.9 mg/dL (0.2-1.2); Calc. Creatinine Clearance 0 mL/min (70-130); Calcium 9.4 mg/dL (7.8-10.44); Carbon Dioxide 21 mmol/L (22-29); Chloride 100 mmol/L (98-107); Estimated GFR 4; Globulin 3.5 g/dL (2.4-3.5); Protein, Total 7.4 g/dL (6.0-8.3); Sodium 138 mmol/L (136-145)
[2023-06-27 19:38] LABS: Critical Call Chem Troponin I NUR.MJD @1938; Critical Call Chemistry NUR.MJD @1938; Glucose 28 mg/dL (70-105); Potassium 6.4 mmol/L (3.5-5.1); Troponin I 0.201 ng/mL (< 0.028)
[2023-06-27] MEDS: Dextrose 50% Abboject 50 ML SYRINGE ONE ×2 (19:54→20:21)
[2023-06-27] MEDS ORDERED: Cefepime 2 GM in Sodium Chloride 0.9% 100 ML IVPB SCH (21:00)
[2023-06-27] MEDS ORDERED: Vancomycin Diaylsis Sliding Scale (Wt 71-99) FS SCH (21:00)
[2023-06-27] MEDS ORDERED: Dextrose 10% in Water 1,000 ML IV SCH (21:30)
[2023-06-27] MEDS: Famotidine/PF 20 mg/2ml Vial SLOW IVP SCH (21:44)
[2023-06-27] MEDS: Clindamycin/D5W 900 MG in Premix 1 BAG IVPB SCH (21:48)
[2023-06-27] MEDS ORDERED: metroNIDAZOLE 500 MG in Premix 1 BAG IVPB SCH (22:00)
[2023-06-27 22:22] LABS: Lactic Acid 1.3 mmol/L (0.5-2.2)
[2023-06-27] MEDS ORDERED: Azithromycin 500 MG in Sodium Chloride 0.9% 250 ML 250 ML IVPB SCH (23:00)
[2023-06-27] MEDS ORDERED: Dextrose 50% Abboject 50 ML SYRINGE SLOW IVP PRN (23:36)
[2023-06-28 00:10] LABS: Hemoglobin A1c 4.6 % (4.0-6.0)
[2023-06-28] MEDS: STERILE WATER FS SCH ×2 (00:15→23:23)
[2023-06-28] MEDS ORDERED: STERILE WATER SLOW IVP SCH (00:15)
[2023-06-28] MEDS: DEXTROSE FS SCH ×2 (00:15→23:23)
[2023-06-28] MEDS ORDERED: DEXTROSE SLOW IVP SCH (00:15)
[2023-06-28 01:15] LABS: Potassium 3.9 mmol/L (3.5-5.1)
[2023-06-28 01:27] LABS: Critical Call Chem Troponin I ICU.RB@0125; Troponin I 0.217 ng/mL (< 0.028)
[2023-06-28 04:39] LABS: #Monocytes 0.5 thou/uL (0.11-0.59); #Neutrophils 13.2 thou/uL (1.40-6.50); %Basophils 0.2 % (0.0-1.0); %Eosinophils 0.2 % (0.0-10.0); %Lymphocytes 5.1 % (21.0-51.0); %Monocytes 3.6 % (0.0-10.0); %Neutrophils 90.3 % (42.0-75.0); Hematocrit 34.4 % (42.0-52.0); Hemoglobin 11.2 g/dL (14.0-18.0); Mean Corpuscular HGB CONC 32.6 g/dL (32.0-36.0); Mean Corpuscular Hemoglobin 31.2 pg (27.0-31.0); Mean Corpuscular Volume 95.8 fl (78.0-98.0); Platelet Count 115 10x3/uL (130-400); RBC Distribution Width 16.9 % (11.5-14.5); Red Blood Cell (RBC) Count 3.59 mill/uL (4.70-6.10); White Blood Cell (WBC) Count 14.6 10x3/uL (4.8-10.8)
[2023-06-28 05:03] LABS: ALT (SGPT) 12 U/L (8-55); AST (SGOT) 24 U/L (5-34); Albumin 3.5 g/dL (3.5-5.0); Alkaline Phosphatase 92 U/L (40-110); Anion Gap 17 mmol/L (10-20); BUN (Urea Nitrogen) 39 mg/dL (8.9-20.6); Bilirubin, Total 2.8 mg/dL (0.2-1.2); Calc. Creatinine Clearance 14 mL/min (70-130); Calcium 8.8 mg/dL (7.8-10.44); Carbon Dioxide 26 mmol/L (22-29); Chloride 98 mmol/L (98-107); Estimated GFR 8; Globulin 3.1 g/dL (2.4-3.5); Glucose 82 mg/dL (70-105); Protein, Total 6.6 g/dL (6.0-8.3); Sodium 136 mmol/L (136-145)
[2023-06-28] MEDS: Clindamycin/D5W 900 MG in Premix 1 BAG IVPB SCH ×3 (06:04→21:29)
[2023-06-28] MEDS: Famotidine/PF 20 mg/2ml Vial SLOW IVP SCH (08:53)
[2023-06-28] MEDS ORDERED: FLU VACC QS2023-24(6MOS UP)/PF 60 MCG/0.5 ML SYRINGE IM ONE (09:00)
[2023-06-28] MEDS ORDERED: Cefepime 1 GM in Sodium Chloride 0.9% 100 ML IVPB SCH (17:00)
[2023-06-29] MEDS: Clindamycin/D5W 900 MG in Premix 1 BAG IVPB SCH (05:11)
[2023-06-29 07:14] LABS: Vancomycin, Random 14.5 ug/mL (See Comment)
[2023-06-29 10:42] LABS: #Eosinphils 0.2 thou/uL (0.0-0.7); #Monocytes 0.5 thou/uL (0.11-0.59); #Neutrophils 8.8 thou/uL (1.40-6.50); %Basophils 0.2 % (0.0-1.0); %Eosinophils 1.7 % (0.0-10.0); %Lymphocytes 6.5 % (21.0-51.0); %Monocytes 5.1 % (0.0-10.0); %Neutrophils 86.1 % (42.0-75.0); Hematocrit 35.8 % (42.0-52.0); Hemoglobin 11.3 g/dL (14.0-18.0); Mean Corpuscular HGB CONC 31.6 g/dL (32.0-36.0); Mean Corpuscular Hemoglobin 31.3 pg (27.0-31.0); Mean Corpuscular Volume 99.2 fl (78.0-98.0); Mean Platelet Volume 11.4 fL (7.4-10.4); Platelet Count 126 10x3/uL (130-400); Red Blood Cell (RBC) Count 3.61 mill/uL (4.70-6.10); White Blood Cell (WBC) Count 10.2 10x3/uL (4.8-10.8)
[2023-06-29 13:03] LABS: Potassium 4.9 mmol/L (3.5-5.1); Sodium 137 mmol/L (136-145)
[2023-06-29 13:04] LABS: Anion Gap 22 mmol/L (10-20); BUN (Urea Nitrogen) 38 mg/dL (8.9-20.6); Calc. Creatinine Clearance 14 mL/min (70-130); Calcium 8.8 mg/dL (7.6-10.4); Carbon Dioxide 23 mmol/L (22-29); Chloride 97 mmol/L (98-107); Estimated GFR 8; Glucose 83 mg/dL (70-105)
[2023-06-29] MEDS ORDERED: Heparin 10,000 UNITS/ 10 ML VIAL ONE (13:33)
[2023-06-29] MEDS: Clindamycin/D5W 600 MG in Premix 1 BAG IVPB SCH ×2 (14:49→21:44)
[2023-06-29] MEDS ORDERED: Vancomycin 1 GM in Premix 1 BAG IVPB SCH (17:00)
[2023-06-29] MEDS: cefTRIAXone\\ROCEPHIN 1 GM in Sodium Chloride 0.9% 100 ML IVPB SCH (17:49)
[2023-06-29] MEDS: HYDROcodone/Acetaminophen 5/325 mg Tablet PO PRN (17:57)
[2023-06-30] MEDS: HYDROcodone/Acetaminophen 5/325 mg Tablet PO PRN ×2 (04:12→21:03)
[2023-06-30] MEDS: Clindamycin/D5W 600 MG in Premix 1 BAG IVPB SCH ×3 (05:18→21:03)
[2023-06-30] MEDS: cefTRIAXone\\ROCEPHIN 1 GM in Sodium Chloride 0.9% 100 ML IVPB SCH (17:49)
[2023-06-30] MEDS: Famotidine/PF 20 mg/2ml Vial SLOW IVP SCH (21:03)
[2023-07-01] MEDS: Clindamycin/D5W 600 MG in Premix 1 BAG IVPB SCH ×3 (05:23→21:51)
[2023-07-01] MEDS: HYDROcodone/Acetaminophen 5/325 mg Tablet PO PRN (14:23)
[2023-07-01 16:39] LABS: Amphetamine Not Detected (NotDetected); Barbiturates Screen Not Detected (NotDetected); Benzodiazepine Screen Not Detected (NotDetected); Cocaine Metabolite Screen Detected (NotDetected); Methadone Not Detected (NotDetected); Methamphetamine Not Detected (NotDetected); Opiate Screen Detected (NotDetected); Oxycodone Screen Not Detected (NotDetected); Phencyclidine (PCP) Not Detected (NotDetected); THC/Cannabinoid Screen Not Detected (NotDetected); Tricyclic Screen Not Detected (NotDetected)
[2023-07-01 17:16] LABS: #Eosinphils 0.2 thou/uL (0.0-0.7); #Monocytes 0.6 thou/uL (0.11-0.59); #Neutrophils 5.1 thou/uL (1.40-6.50); %Basophils 0.2 % (0.0-1.0); %Eosinophils 2.5 % (0.0-10.0); %Lymphocytes 8.5 % (21.0-51.0); %Monocytes 9.1 % (0.0-10.0); %Neutrophils 79.2 % (42.0-75.0); Hematocrit 38.7 % (42.0-52.0); Hemoglobin 12.4 g/dL (14.0-18.0); Mean Corpuscular Hemoglobin 30.5 pg (27.0-31.0); Mean Corpuscular Volume 95.3 fl (78.0-98.0); Mean Platelet Volume 10.7 fL (7.4-10.4); Platelet Count 124 10x3/uL (130-400); RBC Distribution Width 16.5 % (11.5-14.5); Red Blood Cell (RBC) Count 4.06 mill/uL (4.70-6.10); White Blood Cell (WBC) Count 6.5 10x3/uL (4.8-10.8)
[2023-07-01 17:34] LABS: Anion Gap 19 mmol/L (10-20); BUN (Urea Nitrogen) 20 mg/dL (8.9-20.6); Calc. Creatinine Clearance 22 mL/min (70-130); Calcium 9.1 mg/dL (7.8-10.44); Carbon Dioxide 24 mmol/L (22-29); Chloride 97 mmol/L (98-107); Estimated GFR 13; Glucose 124 mg/dL (70-105); Potassium 4.2 mmol/L (3.5-5.1); Sodium 136 mmol/L (136-145)
[2023-07-01] MEDS: cefTRIAXone\\ROCEPHIN 1 GM in Sodium Chloride 0.9% 100 ML IVPB SCH (17:55)
[2023-07-02] MEDS: HYDROcodone/Acetaminophen 5/325 mg Tablet PO PRN ×3 (01:45→21:25)
[2023-07-02] MEDS: Clindamycin/D5W 600 MG in Premix 1 BAG IVPB SCH ×3 (05:29→21:25)
[2023-07-02] MEDS: cefTRIAXone\\ROCEPHIN 1 GM in Sodium Chloride 0.9% 100 ML IVPB SCH (17:12)
[2023-07-02] MEDS: Famotidine/PF 20 mg/2ml Vial SLOW IVP SCH (21:25)
[2023-07-03] MEDS: HYDROcodone/Acetaminophen 5/325 mg Tablet PO PRN ×2 (04:55→09:56)
[2023-07-03] MEDS: Clindamycin/D5W 600 MG in Premix 1 BAG IVPB SCH ×3 (05:00→21:34)
[2023-07-03 07:05] LABS: #Eosinphils 0.3 thou/uL (0.0-0.7); #Monocytes 0.9 thou/uL (0.11-0.59); #Neutrophils 5.1 thou/uL (1.40-6.50); %Basophils 0.3 % (0.0-1.0); %Eosinophils 3.8 % (0.0-10.0); %Lymphocytes 12.6 % (21.0-51.0); %Monocytes 11.9 % (0.0-10.0); %Neutrophils 71.1 % (42.0-75.0); Hemoglobin 12.4 g/dL (14.0-18.0); Mean Corpuscular Hemoglobin 29.7 pg (27.0-31.0); Mean Corpuscular Volume 95.7 fl (78.0-98.0); Mean Platelet Volume 11.3 fL (7.4-10.4); Platelet Count 123 10x3/uL (130-400); RBC Distribution Width 16.3 % (11.5-14.5); Red Blood Cell (RBC) Count 4.18 mill/uL (4.70-6.10); White Blood Cell (WBC) Count 7.2 10x3/uL (4.8-10.8)
[2023-07-03 07:36] LABS: ALT (SGPT) 14 U/L (8-55); AST (SGOT) 14 U/L (5-34); Albumin 3.5 g/dL (3.5-5.0); Alkaline Phosphatase 121 U/L (40-110); Anion Gap 18 mmol/L (10-20); BUN (Urea Nitrogen) 47 mg/dL (8.9-20.6); Bilirubin, Total 1.1 mg/dL (0.2-1.2); Calc. Creatinine Clearance 14 mL/min (70-130); Calcium 9.2 mg/dL (7.8-10.44); Carbon Dioxide 24 mmol/L (22-29); Chloride 98 mmol/L (98-107); Estimated GFR 8; Globulin 3.7 g/dL (2.4-3.5); Glucose 98 mg/dL (70-105); Magnesium 2.6 mg/dL (1.6-2.6); Potassium 5.1 mmol/L (3.5-5.1); Protein, Total 7.2 g/dL (6.0-8.3); Sodium 135 mmol/L (136-145)
[2023-07-03] MEDS: cefTRIAXone\\ROCEPHIN 1 GM in Sodium Chloride 0.9% 100 ML IVPB SCH (18:05)
[2023-07-03] MEDS ORDERED: Apixaban 5 MG TAB PO SCH (21:00)
[2023-07-04 04:19] LABS: #Eosinphils 0.2 thou/uL (0.0-0.7); #Monocytes 0.8 thou/uL (0.11-0.59); #Neutrophils 5.5 thou/uL (1.40-6.50); %Basophils 0.3 % (0.0-1.0); %Eosinophils 2.2 % (0.0-10.0); %Lymphocytes 11.9 % (21.0-51.0); %Monocytes 10.3 % (0.0-10.0); %Neutrophils 74.8 % (42.0-75.0); Hematocrit 36.4 % (42.0-52.0); Hemoglobin 11.6 g/dL (14.0-18.0); Mean Corpuscular HGB CONC 31.9 g/dL (32.0-36.0); Mean Corpuscular Hemoglobin 29.9 pg (27.0-31.0); Mean Corpuscular Volume 93.8 fl (78.0-98.0); Platelet Count 123 10x3/uL (130-400); RBC Distribution Width 15.9 % (11.5-14.5); Red Blood Cell (RBC) Count 3.88 mill/uL (4.70-6.10); White Blood Cell (WBC) Count 7.4 10x3/uL (4.8-10.8)
[2023-07-04] MEDS: Clindamycin/D5W 600 MG in Premix 1 BAG IVPB SCH ×2 (05:12→15:29)
[2023-07-04] MEDS: HYDROcodone/Acetaminophen 5/325 mg Tablet PO PRN ×2 (08:44→15:33)
[2023-07-04] MEDS ORDERED: Apixaban 5 MG TAB PO SCH (09:00)
[2023-07-04] MEDS ORDERED: Heparin 10,000 UNITS/ 10 ML VIAL ONE (12:23)
[2023-07-04 14:30] VITALS: TEMP 97.8
[2023-07-04 17:47] VITALS: BP 167/78
[2023-07-10] MEDS ORDERED: Apixaban 5 MG TAB PO SCH (21:00)
== END 2023-07-04 17:36 | disposition home or self-care (01) | DRG 871 ==
LOC: ERS 13:54 → IMCU/EMU 19:34 → T4-B 06-29 14:34
PROVIDERS: ADMIT Internal Medicine; ATTEND Hospitalist
PROC: 02HV33Z Insertion of Infusion Device into Superior Vena Cava, Percutaneous Approach (ICD-10-PCS; principal; 2023-06-27)
PROC: 4A043R1 Measurement of Venous Saturation, Peripheral, Percutaneous Approach (ICD-10-PCS; 2023-06-27)
PROC: 3E03329 Introduction of Other Anti-infective into Peripheral Vein, Percutaneous Approach (ICD-10-PCS; 2023-06-27)
PROC: 5A09357 Assistance with Respiratory Ventilation, Less than 24 Consecutive Hours, Continuous Positive Airway Pressure (ICD-10-PCS; 2023-06-27)
DX: A41.9 Sepsis, unspecified organism (principal); I21.A1 Myocardial infarction type 2; J96.01 Acute respiratory failure with hypoxia; N18.6 End stage renal disease; I50.23 Acute on chronic systolic (congestive) heart failure; L03.116 Cellulitis of left lower limb; E87.20 Acidosis, unspecified; I13.2 Hypertensive heart and chronic kidney disease with heart failure and with stage 5 chronic kidney disease, or end stage renal disease; I42.9 Cardiomyopathy, unspecified; R65.20 Severe sepsis without septic shock; Z99.2 Dependence on renal dialysis; Z79.899 Other long term (current) drug therapy; E87.5 Hyperkalemia; D63.1 Anemia in chronic kidney disease; E88.09 Other disorders of plasma-protein metabolism, not elsewhere classified; I87.2 Venous insufficiency (chronic) (peripheral); Z91.148 Patient's other noncompliance with medication regimen for other reason; Z91.158 Patient's noncompliance with renal dialysis for other reason
CPT/HCPCS: 36415; 36416; 36556; 71045; 71250; 72170; 74177; 80048; 80053; 80202; 80306; 82805; 83036; 83605; 83735; 83880; 84145; 84484; 85025; 85049; 85300; 85362; 85379; 85384; 85610; 85730; 86140; 87040; 90935; 93005; 93010; 93306; 94660; 94760; 96365; 96367; 96375; A4217; G0257; J0456; J0613; J0692; J0696; J1644; J1815; J2270; J3370; J3490; J7050; J7611; J7999; S0028

== ENCOUNTER 2024-02-19 10:06 | Emergency (ER) | payer BC ==
[2024-02-19 11:20] LABS: #Basophils Less than 0.03 10x3/uL (0.0-0.2); %Basophils 0.3 % (0.0-1.0); %Lymphocytes 14.2 % (21.0-51.0); %Monocytes 7.5 % (0.0-10.0); %Neutrophils 76.6 % (42.0-75.0); Hematocrit 36.2 % (42.0-52.0); Hemoglobin 11.8 g/dL (14.0-18.0); Mean Corpuscular HGB CONC 32.6 g/dL (32.0-36.0); Mean Corpuscular Hemoglobin 31.1 pg (27.0-31.0); Mean Corpuscular Volume 95.5 fL (78.0-98.0); Mean Platelet Volume 10.3 fL (7.4-10.4); Platelet Count 115 10x3/uL (130-400); RBC Distribution Width 15.9 % (11.5-14.5); Red Blood Cell (RBC) Count 3.79 mill/uL (4.70-6.10)
[2024-02-19 11:55] LABS: ALT (SGPT) 8 U/L (8-55); AST (SGOT) 14 U/L (5-34); Albumin 3.4 g/dL (3.5-5.0); Alkaline Phosphatase 195 U/L (40-110); Anion Gap 27 mmol/L (10-20); BUN (Urea Nitrogen) 82 mg/dL (8.9-20.6); Bilirubin, Total 2.5 mg/dL (0.2-1.2); Calc. Creatinine Clearance 0 mL/min (70-130); Calcium 9.8 mg/dL (7.8-10.44); Carbon Dioxide 17 mmol/L (22-29); Chloride 102 mmol/L (98-107); Estimated GFR 6; Globulin 4.4 g/dL (2.4-3.5); Glucose 55 mg/dL (70-105); Magnesium 2.8 mg/dL (1.6-2.6); Potassium 6.8 mmol/L (3.5-5.1); Protein, Total 7.8 g/dL (6.0-8.3); Sodium 139 mmol/L (136-145)
[2024-02-19] MEDS ORDERED: Albuterol 2.5 MG (3 mL) NEB ONE (12:34)
[2024-02-19 13:34] LABS: HBSAB Concentration 56.66 mIU/mL; HBsAg Index 0.24 S/CO (0-0.99); Hep B Core Total Ab NONREACTIVE (NonReactive); Hep B Core Total Index 0.06 S/CO (0-0.79); Hep B Surf AB REACTIVE (NonReactive); Hep B Surf Ag NONREACTIVE S/CO (NonReactive); Hep C IgG Ab NONREACTIVE S/CO (NonReactive); Hep C Index 0.09 S/CO (0-0.79)
== END 2024-02-19 18:41 | disposition home or self-care (01) ==
LOC: ERS 10:06
DX: E87.5 Hyperkalemia (principal); I12.0 Hypertensive chronic kidney disease with stage 5 chronic kidney disease or end stage renal disease; N18.6 End stage renal disease; Z99.2 Dependence on renal dialysis; Z87.891 Personal history of nicotine dependence
CPT/HCPCS: 36415; 71045; 80053; 83735; 85025; 86704; 86706; 86803; 87340; 90935; 93005; 94640; G0257; J7611